=== PATIENT | female | born 1940 | race Caucasian/White ===

== ENCOUNTER 2021-04-25 12:49 | Outpatient (CLI) | payer MEDICARE, SELFPAY ==
--- NOTE | ~2021-04-25 | XR_ITS ---
EXAMINATION: XR shoulder LT min 2V DATE: 04/25/2021 13:11 INDICATION: Left shoulder pain. TECHNIQUE: 4 views of left shoulder were obtained. COMPARISON: Chest 2 views 12/09/2018 FINDINGS: Bone alignment is normal. No fracture. There is moderate osteoarthritis of glenohumeral dom nt and severe osteoarthritis of acromioclavicular joint. There is a left-sided pleural effusion. IMPRESSION: 1. Polyarticular osteoarthritis. 2. Small to moderate-sized left pleural effusion. Reviewed, dictated and finalized at location B.
== END 2021-04-25 12:50 | disposition home or self-care (01) ==
LOC: ANHIMG 12:53
PROVIDERS: PCP Physician Assistant; Visit Provider Physician Assistant
DX: M19.012 Primary osteoarthritis, left shoulder (principal); J90 Pleural effusion, not elsewhere classified
CPT/HCPCS: 73030

== ENCOUNTER 2021-04-26 14:47 | Outpatient (CLI) | payer MEDICARE, SELFPAY ==
--- NOTE | ~2021-04-26 | XR_ITS ---
XR chest 2V w LT decubitus 04/26/2021 15:25 Indication: Pleural effusion Procedure: PA, lateral and left lateral decubitus views of the chest Comparison: 12/09/2018 Findings: Cardiomegaly. No definite pleural effusion. The lungs are hyperinflated which is consistent with, but not diagnostic of chronic obstructive pulmonary disease. No acute osseous abnormality. No focal pneumonia or pneumothorax. Impression: 1: No acute cardiopulmonary disease. Reviewed, dictated and finalized at location A. Impression: 1: No acute cardiopulmonary disease.
== END 2021-04-26 14:48 | disposition home or self-care (01) ==
PROVIDERS: PCP Family Medicine; Visit Provider Family Medicine
DX: J90 Pleural effusion, not elsewhere classified (principal)
CPT/HCPCS: 71047

== ENCOUNTER 2021-05-05 19:10 | Observation (INO) | payer MEDICARE, SELFPAY ==
[2021-05-05] VITALS (11 sets, daily range): BP systolic 101–135; BP diastolic 58–97; PULSE 71–81; RESP 17–25; TEMP 36.6–37.4; O2SAT 90–98; BMI 34.2
--- NOTE | ~2021-05-05 | US_ITS ---
EXAMINATION: US carotid duplex BI DATE: 05/06/2021 15:41 INDICATION: Transient ischemic episode. Strokelike symptoms. TECHNIQUE: Grayscale, color Doppler, and pulsed Doppler images of the cervical carotid arteries were obtained. The degree of vessel stenosis is placed in one of the following categories: normal, <50%, 5 0-69%, >=70% but less than near-occlusion, near-occlusion, or total occlusion. Note that percent sten osis relative to normal distal artery lumen diameter is indirectly measured from velocity measurement s as described by Lazaro, et al. Radiology 2003; 229:340-346. COMPARISON: None. FINDINGS: RIGHT: The right common carotid artery (CCA) peak systolic velocity (PSV) is 90 cm/s. The right internal car otid artery (ICA) PSV is 102 cm/s. The right ICA end-diastolic velocity (EDV) is 13 cm/s. The right I CA/CCA PSV ratio is 1.1. Grayscale and color Doppler images yield an estimate of <50% diameter reduct ion from minimal plaque in the ICA. The external carotid artery (ECA) PSV is 94 cm/s. There is antegr gianna flow in the right vertebral artery. LEFT: The left CCA PSV is 77 cm/s. The left ICA PSV is 95 cm/s. The left ICA EDV is 23 cm/s. The left ICA/C CA PSV ratio is 1.2. Grayscale and color Doppler images yield an estimate of <50% diameter reduction from minimal plaque in the ICA. The ECA PSV is 220 cm/s. There is antegrade flow in the left vertebra l artery. IMPRESSION: 1. <50% stenosis in the right internal carotid artery. 2. <50% stenosis in the left internal carotid artery. 3. Cardiac arrhythmia is present. Correlate with EKG. Reviewed, dictated and finalized at location A.
--- NOTE | ~2021-05-05 | CT_ITS ---
EXAMINATION: CT brain wo con DATE: 05/05/2021 20:35 INDICATION: Right sided paresis TECHNIQUE: Computed tomography (CT) of the head was performed without intravenous contrast. The mA wa s adjusted according to patient size. Iterative reconstruction technique was employed. Exam dose: 60 5.33 mGy-cm total exam DLP. COMPARISON: None FINDINGS: There is bilateral carotid siphon internal carotid artery calcification. There is nonspecific diminished attenuation of the subcortical and periventricular cerebral white mat ter, likely due to chronic small vessel ischemic changes. There is cerebral and cerebellar volume loss. No subdural or epidural hematoma is detected. Small fluid level in the left sphenoid sinus. The included paranasal sinuses and mastoid air cells ar e otherwise unremarkable. No fracture or bone destruction of the cranial vault. IMPRESSION: Cerebral atherosclerosis and chronic small vessel ischemic changes of cerebral white mat ter No acute intracranial finding is noted. CT examination is not sensitive for detection of hyperacute i schemic cerebrovascular accident. Reviewed, dictated and finalized at Location A. Reviewed, dictated and finalized at location A. IMPRESSION: Cerebral atherosclerosis and chronic small vessel ischemic changes of cerebral white matter No acute intracranial finding is noted. CT examination is not sensitive for det ection of hyperacute ischemic cerebrovascular accident.
--- NOTE | ~2021-05-05 | XR_ITS ---
XR elbow LT 2V 05/07/2021 11:28 INDICATION: Left elbow pain PROCEDURE: 2 views left elbow COMPARISON: No prior studies for comparison. FINDINGS: Fracture, dislocation or subluxation is not identified. There is a small osteophyte of the olecranon process. No significant joint effusion. The soft tissues appear within normal limits. No f oreign bodies are identified. IMPRESSION: 1: NO ACUTE BONE OR JOINT ABNORMALITY IDENTIFIED. Reviewed, dictated and finalized at location B.
--- NOTE | ~2021-05-05 | XR_ITS ---
XR chest 1V DATE: 05/05/2021 20:40 INDICATION: Weakness. Right hand paresis. TECHNIQUE: AP chest COMPARISON: 04/26/2021 PA and lateral chest FINDINGS: Cardiomegaly. Aortic ectasia and unfolding. No hilar or mediastinal enlargement. No pulmona ry infiltrate or consolidation, pleural effusion or pulmonary vascular congestion or pneumothorax is detected. IMPRESSION: Cardiomegaly No active pulmonary disease or significant change since 04/26/2021 Reviewed, dictated and finalized at location A.
--- NOTE | ~2021-05-05 | MR_ITS ---
EXAMINATION: MR brain/brain stem wo con EXAM DATE: 05/06/2021 13:05 INDICATION: Right-sided facial hemiparesis. TECHNIQUE: Magnetic resonance imaging (MRI) of the brain/brain stem obtained without contrast. Sagitt al T1, axial diffusion, gradient echo (T2*), T1, T2, FLAIR sequences obtained. Correlation is made t o head CT from yesterday. FINDINGS: There are no areas of restricted diffusion to suggest acute infarction. There is no acute hemorrhage seen on the T2*, a hemosiderin sensitive sequence. No intraparenchymal brain mass lesion. There is mild periventricular and subcortical T2/FLAIR signal hyperintensity, nonspecific but probab ly related to small vessel ischemic disease (microangiopathy). There is moderate prominence of the sulci and ventricles related to cerebral atrophy. There are no extra-axial collections. Flow voids are seen in the cerebral arteries on the T2-weighted sequences consistent with their expected patenc y. Patient has had bilateral ocular lens surgery. Soft tissue is unremarkable. IMPRESSION: 1. No acute intracranial findings. 2. Chronic age related findings. Reviewed, dictated and finalized at location A.
--- NOTE | ~2021-05-05 | MR_ITS ---
EXAMINATION: MR cervical spine wo con DATE: 05/07/2021 17:16 INDICATION: Cervical radiculopathy. TECHNIQUE: Magnetic resonance imaging (MRI) of the cervical spine was performed without intravenous c ontrast. Sequences included sagittal T2-weighted FSE, sagittal STIR FSE, sagittal T1-weighted FSE, ax ial MERGE, and axial T2-weighted FSE. COMPARISON: None FINDINGS: There is 3 degrees dextrocurvature of cervical spine. There is 3 mm anterolisthesis of C3 o n C4. There is kyphosis of cervical spine. Vertebral body heights are normal. There is mildly decreas ed disc height at C3-C4, C4-C5, and C5-C6 and severely decreased disc height at C6-C7. The spinal cor d signal intensity is normal. The following disc levels are specifically discussed: C2-C3: The disc does not extend beyond the endplate margin. There is no uncovertebral joint osteoarth ritis. There is mild right and severe left facet joint osteoarthritis. There is mild left neural fora oral stenosis. There is no central canal stenosis. C3-C4: The disc is bulging. There is mild bilateral uncovertebral joint osteoarthritis. There is mild right and severe left facet joint osteoarthritis. There is moderate left neural foraminal stenosis. There is no central canal stenosis. C4-C5: The disc is bulging. There is mild bilateral uncovertebral joint hypertrophy. There is ankylos is of the facet joints with moderate hypertrophy. There is mild bilateral neural foraminal stenosis. There is mild central canal stenosis. C5-C6: The disc is bulging. There is severe right and moderate left uncovertebral joint osteoarthriti s. There is no facet joint osteoarthritis. There is mild right neural foraminal stenosis. There is mi ld central canal stenosis. C6-C7: The disc is bulging. There is severe bilateral uncovertebral joint osteoarthritis. There is se austin bilateral facet joint osteoarthritis. There is moderate right and mild left neural foraminal wang nosis. There is mild central canal stenosis. C7-T1: The disc does not extend beyond the endplate margin. There is no uncovertebral joint osteoarth ritis. There is ankylosis of right facet joint with mild hypertrophy. There is mild right neural fora oral stenosis. There is no central canal stenosis. IMPRESSION: 1. Severe cervical spondylosis. Reviewed, dictated and finalized at location A.
--- NOTE | 2021-05-05 19:30 | PC.NURSE ---
Pt daughter called to give information about pt. Reports pt was seen at [facility] for weakness in her legs, no findings and was transferred to rehab. Pt has hx of depression and anxiety and is currently being treated. Requests to check for Xanax in blood levels. Reports pt slurs when she takes Xanax. GANESH Márquez, leaves phone number for updates [phone].
--- NOTE | 2021-05-05 19:54 | PC.NURSE ---
EDP aware of columbia scoring. No sitter at this time.
--- NOTE | 2021-05-05 20:20 | ECG_ITS ---
Measurements Intervals Theodore Rate: 69 P: 43 CO: 172 QRS: -3 QRSD: 104 T: 149 QT: 447 QTc: 482 Interpretive Statements SINUS RHYTHM VENTRICULAR TRIGEMINY INFERIOR INFARCT, AGE INDETERMINATE ST-T WAVE ABNORMALITY IN ANTEROLAT/HIGH LAT LEADS- CONSIDER ISCHEMIA BASELINE WANDER- V1 ABNORMAL ECG Electronically Signed On 05-05-2021 21:20:53 CDT by Dk Morrell D.O.
--- NOTE | 2021-05-05 20:30 | PC.NURSE ---
Pt to imaging at this time.
[2021-05-05 20:56] LABS: Glucose Point of Care 81 mg/dl (65-105)
[2021-05-05 21:04] LABS: Basophils Absolute Auto 0.1 K/mm3 (0.0-0.1); Basophils Percent Auto 0.5 % (0.2-1.2); Eosinophils Absolute Auto 0.1 K/mm3 (0-0.3); Hematocrit 34.8 % (37.0-47.0); Hemoglobin 11.1 g/dL (12.0-15.0); Immature Granulocyte Absolute 0.07 K/mm3 (0.00-0.031); Immature Granulocyte Percent A 0.6 % (0-0.5); Lymphocytes Percent Auto 16.9 % (18.3-44.2); Mean Corpuscular HGB Conc 31.9 g/dl (32-36); Mean Corpuscular Hemoglobin 31.3 pg (26-34); Mean Platelet Volume 10.9 fl (7.4-10.4); Monocytes Absolute Auto 1.4 K/mm3 (0.1-0.6); Monocytes Percent Auto 11.7 % (2.6-8.5); Neutrophils Absolute Auto 8.2 K/mm3 (1.3-6.7); Neutrophils Percent Auto 69.3 % (45.5-73.1); Platelet Count Result 165 k/mm3 (150-375); Red Blood Count 3.55 M/mm3 (4.2-5.4); Red Cell Distribution Width 13.3 % (11.5-14.5); White Blood Count 11.9 K/mm3 (4.5-10.0)
[2021-05-05 21:13] LABS: Prothrombin Time 14.1 Seconds (11.1-14.7)
[2021-05-05 21:14] LABS: Partial Thromboplastin Time 31.4 SECONDS (22.3-36.8)
[2021-05-05 21:15] LABS: Anion Gap 8 mmol/L (8-16); Blood Urea Nitrogen 26 mg/dL (7-17); Calcium 8.8 mg/dL (8.4-10.2); Carbon Dioxide 36 mmol/L (22-30); Chloride 97 mmol/L (98-107); Estimated Glomerular Filt Rate 31; Glucose 79 mg/dL (65-105); Potassium 3.9 mmol/L (3.4-5.0); Sodium 141 mmol/L (137-145)
[2021-05-05 21:18] LABS: Add Urine Microscopic? YES; Appearance Urine Cloudy (Clear); Bacteria Urine Trace /hpf; Bilirubin Urine 1+ (Negative); Blood Urine Negative (Negative); Color Urine Amber (Yellow); Glucose Urine UA 2+ mg/dL (Negative); Hyaline Casts Urine 20-29 /lpf; Ketones Urine Negative (Negative); Leukocyte Esterase Ur Negative LEU/UL (Negative); Mucus Urine Few /lpf; Nitrate Urine Negative (Negative); Protein Urine 2+ mg/dL (Negative); Specific Grav Ur 1.026 (1.001-1.035); Squamous Epithelial Cell Urine Rare /hpf (Few); WBC Urine 0-3 /hpf
--- NOTE | 2021-05-05 21:23 | ED.GENADULT ---
HPI - General Adult General Chief complaint: Weakness Stated complaint: weakness Time Seen by Provider: 05/05/21 19:52 Source: RN notes reviewed History of Present Illness HPI narrative: Patient presents emergency department from home for weakness. Patient states she has been weak over the past day stating that she has had to have help getting up several times per the staff at [facility] the noted the patient had a floppy right wrist at approximately noon today patient states that she is having problems extending at the right wrist but is able to squeeze and move the right wrist with flexion she denies any pain she denies any fever chills chest pain shortness of breath abdominal pain nausea vomiting or any other symptoms Related Data Home Medications Medication Instructions Recorded Confirmed albuterol sulfate 90 mcg/actuation 1 inhalation INHALATION Q4H 10/14/19 04/23/21 aerosol inhaler citalopram 40 mg tablet 40 mg PO DAILY tablet 10/14/19 04/23/21 duloxetine 30 mg capsule,delayed 30 mg PO DAILY 10/14/19 04/23/21 release glimepiride 1 mg tablet 1 mg PO QAM 10/14/19 04/23/21 liraglutide 0.6 mg/0.1 mL (18 mg/3 0.6 mg SUB-Q DAILY 10/14/19 04/23/21 mL) subcutaneous pen injector escitalopram oxalate 10 mg tablet 10 mg PO DAILY 10/18/19 04/23/21 trazodone 150 mg tablet PO 10/18/19 04/23/21 alprazolam 0.5 mg tablet 0.5 mg PO TID tablet 10/04/20 04/23/21 Allergies Allergy/AdvReac Type Severity Reaction Status Date / Time codeine Allergy Unknown upset Verified 05/05/21 19:28 stomach Review of Systems Review of Systems: Narrative: Gen.: Denies fevers or chills Eyes: Denies eye pain or visual change ENT: Denies congestion Respiratory: Denies shortness of breath or cough CV: Denies chest pain or palpitations GI: Denies abdominal pain nausea, emesis or diarrhea Musculoskeletal: Denies back pain or muscle pain Neuro: See HPI Skin: Denies rash Except as documented, all other systems reviewed and negative PMFSH Past Medical History Medical History Asthma At high risk for falls Benign hypertension BMI 35.0-35.9,adult Body mass index (bmi) 34.0-34.9, adult (09/03/18) Cancer of skin (~08/20/12) Depression Diabetes Diverticulitis Encounter for general adult medical examination with abnormal findings Hyperlipidemia Hyperlipidemia LDL goal <70 Hypertension Incontinence Ischemia reversible Primary hypertension Type 2 diabetes mellitus without complication, without long-term current use of insulin Urinary incontinence Surgical History Surgical History Hx of cardiac cath Hx of hysterectomy, total Social History Social History Smoking status: Never smoker Second hand tobacco smoke exposure: No Alcohol intake: never Substance use: never Substance use type: does not use Additional living arrangements comments: Sometimes a friend reactor kettle operator stays with the patient. Gender identity (if verbalized by the patient): Female Spiritual care concerns: Yes (Nazarine) Agree to blood products: Yes Exam Narrative: Exam Narrative: APPEARANCE: No acute distress, nontoxic, resting in bed HEENT: Normocephalic, atraumatic, OMM, TMs clear bilaterally EYES: PERRL, EOMI NECK: Supple, nontender, full range of motion without pain, no meningismus RESPIRATORY: No respiratory distress, clear to auscultation bilaterally with no rhonchi wheezing or rales CARDIOVASCULAR: RRR s murmur ABDOMINAL: Soft, nontender, nondistended MUSCULOSKELETAL: Moves all extremities. No clubbing, cyanosis or edema. NEURO: A and O ?2, following commands, speech normal, cranial nerves II through XII grossly intact,muscle strength 5 out of 5 left upper and bilateral lower extremities muscle strength 5 out of 5 with right shoulder pain elbow, patient with inability to extend at the righ
[2021-05-05] MEDS: SODIUM CHLORIDE 0.9% IV 1,000 ML 999 ML IV CONT (21:53)
[2021-05-05] MEDS: ASPIRIN 81 MG CHEWABLE TABLET 324 MG PO (22:19)
--- NOTE | 2021-05-05 23:00 | PM.IMHP ---
H&P: HPI History of Present Illness Date/Time: 05/05/21 23:00 Chief Complaint: Floppy right hand Narrative: 80-year-old female with past medical history of diastolic heart failure, chronic hypoxic hypercapnic respiratory failure, obstructive sleep apnea, hypertension, and diabetes who presented [facility] the ER from [facility] via EMS due to right wrist droop. The patient reports that she was just discharged from [facility] due to a hospital stay for weakness. She reported that she was admitted there after she had multiple falls at home. He reported that prior to her hospitalization at [facility] she has been having some left chest and shoulder pain that radiated down into her arm. She reports resolution of her shoulder pain prior to being discharged to acute rehab. She was discharged to acute rehab on 05/03/2021. She reported that she was doing well at the rehab center until this morning when she noticed that her right hand was floppy. She reports that her hand feels funny and has decreased sensation. He had also noticed new onset of swelling of her right wrist. She reports the swelling in her right wrist has improved since admission. She has been unable to accurately touch her face with her hand. She denies any increased lower extremity weakness from baseline. She is able to perform long-sg-atmy without difficulty. She does have some mild difficulty with uiqlst-[id number]. She reports that sometimes people have difficulty understanding her speech. She does not think her speech is any different than her baseline. She does occasionally have dysphagia of dry foods but again this is unchanged from baseline. She denies any coughing or choking with eating. She denies any difficulty reading, headaches, double vision or prior history of strokes. She does have chronic urge incontinence. She denies any dysuria or hematuria. She has intermittent constipation but took a laxative a couple of days ago and had a large bowel movement. She denies any hematochezia or melena. She does not know what her admitting diagnosis was at [facility]. She was hospitalized there for 2 days prior to discharge. She does admit to having some difficulty with her memory but this seems unchanged from baseline. Review of Systems Review of Systems: Narrative: 12 systems were reviewed with pertinent positives and negatives per HPI. Except as documented in the HPI, all other systems were reviewed and are negative. [facility] Past Medical History Medical History (Updated 05/06/21 @ 02:25 by Cara Huynh DO) Asthma PFTs October 2019 demonstrated mild obstructive ventilatory impairment with mild air trapping and moderate diffusion impairment no response to bronchodilator Basal cell carcinoma (BCC) in situ of skin Bipolar disorder BMI 35.0-35.9,adult Cancer of skin (~08/20/12) Depression Diabetes Diverticulitis Essential hypertension Hyperlipidemia Ischemia Chronically false-positive stress test with last stress test 2006 Obstructive sleep apnea With BiPAP 14/10 Urinary incontinence Stress urinary incontinence Surgical History Surgical History (Updated 05/05/21 @ 23:07 by Cara Huynh DO) History of bladder suspension procedure X2 History of tonsillectomy Hx of cardiac cath Hx of hysterectomy, total Status post cataract extraction of both eyes with insertion of intraocular lens Family History Family History Other Adopted Family history unknown Social History Social History (Updated 05/06/21 @ 02:14 by Cara Huynh DO) Social History: She is . She lives in her own home until earlier this month. She is currently at acute rehab. She has a Renter who lives in her basement and helps drive her to appointments or to the store. She has 6 children. 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 Primary care physician: Dr. Debo maloney
[2021-05-05] MEDS: SODIUM CHLORIDE 0.9% IV 1,000 ML 100 ML IV CONT (23:14)
--- NOTE | 2021-05-05 23:35 | ADMGEN ---
This patient, María Faith, was admitted to IMU Room 211-01 on at 2315. Patient/family oriented to hospital policies and general routines including ID bracelet, bed and alarms, visiting hours, pain management, procedures, bathroom and other care routines, personal items, smoking policy, room service/diet, and visiting hours. Information on how to activate the Rapid Response Team has been discussed. Patient/Family are encouraged to report perceived risks to care and to ask questions if they do not understand what they are told or what they should do.
[2021-05-06] VITALS (15 sets, daily range): BP systolic 101–176; BP diastolic 55–88; PULSE 64–85; RESP 16–20; TEMP 36.3–36.6; O2SAT 92–97
--- NOTE | 2021-05-06 | ECHO_ITS ---
Patient Info Name: María Faith Age: 80 years : 1940 Gender: Female Ht: 62 in Wt: 193 lbs BSA: 2.00 m2 HR: 70 bpm BP: 123 / 55 mmHg Heart Rhythm: Sinus Rhythm Technical Quality: Good Exam Date: 05/06/2021 11:14 AM Exam Location: [facility] Patient Status: Inpatient Admit Date: 05/05/2021 Staff Ordering Physician: Tucker English Construction Sales Manager: Ángel Joshi RDCS, RT Attending Provider: Cara Huynh DO Referring Physician: Amador ELDRIDGE; Exam Type: CA echo doppler color flow Study Info Indications I50.9 - Heart failure, unspecified Complete two-dimensional, color flow and Doppler transthoracic echocardiogram is performed. Summary 1. Complete two-dimensional, color flow and Doppler transthoracic echocardiogram is performed. 2. Left ventricular systolic function is normal, estimated at 55-60%. 3. There is mildly increased left ventricular wall thickness. 4. Left ventricular septal wall motion is abnormal with septal motion related to bundle branch block. 5. The left ventricular diastolic function is grade I diastolic dysfunction. 6. There is no aortic valve stenosis. 7. There is mild mitral valve regurgitation. 8. There is mild tricuspid valve regurgitation. 9. Mild pulmonary hypertension, estimated pulmonary arterial systolic pressure is 39 mmHg. Recommendations * Consider RONI if clinically indicated. Left Ventricle Left ventricular chamber dimension is normal. Left ventricular systolic function is normal, estimated at 55-60%. There is mildly increased left ventricular wall thickness. Left ventricular septal wall motion is abnormal with septal motion related to bundle branch block. The left ventricular diastolic function is grade I diastolic dysfunction. Right Ventricle Right ventricular chamber dimension is normal. Right ventricular systolic function is normal. Left Atria Left atrial chamber dimension is mildly enlarged. Right Atria Right atrial chamber dimension is normal. Aortic Valve The aortic valve is probable trileaflet. There is mild aortic valve sclerosis. There is no aortic valve stenosis. There is no aortic valve regurgitation. Pulmonic Valve The pulmonic valve is not well visualized. Mitral Valve The mitral valve has normal leaflets. There is mild mitral valve regurgitation. The mitral valve annulus is mildly calcified. Tricuspid Valve The tricuspid valve leaflets are normal. There is mild tricuspid valve regurgitation. Mild pulmonary hypertension, estimated pulmonary arterial systolic pressure is 39 mmHg. Pericardium/Pleural The pericardium appears normal. There is trivial pericardial effusion. Inferior Vena Cava Dilated inferior vena cava with <50% collapse upon inspiration consistent with elevated right atrial pressure, 10 mmHg. Aorta The aortic root size at the sinus of Valsalva is normal. Left Ventricular Outflow Tract Name Value Normal LVOT 2D LVOT Diameter 2.0 cm LVOT Doppler LVOT Peak Gradient 1 mmHg LVOT Mean Gradient 1 mmHg LVOT VTI
[2021-05-06 03:55] LABS: Basophils Percent Auto 0.5 % (0.2-1.2); Eosinophils Absolute Auto 0.2 K/mm3 (0-0.3); Eosinophils Percent Auto 2.4 % (0-4.4); Hematocrit 32.9 % (37.0-47.0); Hemoglobin 10.3 g/dL (12.0-15.0); Immature Granulocyte Absolute 0.05 K/mm3 (0.00-0.031); Immature Granulocyte Percent A 0.6 % (0-0.5); Immature Platelet Fraction Pct 6.5 % (0.9-11.2); Lymphocytes Absolute Auto 2.29 K/mm3 (0.9-3.2); Lymphocytes Percent Auto 26.1 % (18.3-44.2); Mean Corpuscular HGB Conc 31.3 g/dl (32-36); Mean Corpuscular Hemoglobin 30.9 pg (26-34); Mean Corpuscular Volume 98.8 fl (80-100); Mean Platelet Volume 11.4 fl (7.4-10.4); Monocytes Percent Auto 11.6 % (2.6-8.5); Neutrophils Absolute Auto 5.2 K/mm3 (1.3-6.7); Neutrophils Percent Auto 58.8 % (45.5-73.1); Platelet Count Result 146 k/mm3 (150-375); Red Blood Count 3.33 M/mm3 (4.2-5.4); Red Cell Distribution Width 13.4 % (11.5-14.5); White Blood Count 8.8 K/mm3 (4.5-10.0)
[2021-05-06 04:03] LABS: Anion Gap 6 mmol/L (8-16); Blood Urea Nitrogen 27 mg/dL (7-17); Calcium 8.5 mg/dL (8.4-10.2); Carbon Dioxide 34 mmol/L (22-30); Chloride 100 mmol/L (98-107); Estimated CRCL calculation 27 ml/min; Estimated Glomerular Filt Rate 31; Glucose 127 mg/dL (65-105); Potassium 3.4 mmol/L (3.4-5.0); Sodium 140 mmol/L (137-145)
[2021-05-06 04:23] LABS: Troponin I 0.919 ng/mL (0.000-0.034)
[2021-05-06] MEDS: MIRTAZAPINE 30 MG TABLET PO ×2 (05:21→20:11)
[2021-05-06] MEDS: traZODone HCL 50 MG TABLET 150 MG PO ×2 (05:22→20:11)
[2021-05-06] MEDS: SODIUM CHLORIDE 0.9% IV 1,000 ML 100 ML IV CONT ×2 (05:36→18:56)
[2021-05-06 08:59] LABS: Glucose Point of Care 85 mg/dl (65-105)
[2021-05-06] MEDS: GABAPENTIN 100 MG CAPSULE PO ×3 (08:59→17:30)
[2021-05-06] MEDS: DULoxetine HCL 30 MG CAPSULE.DR PO (08:59)
[2021-05-06] MEDS: CITALOPRAM HYDROBROMIDE 20 MG TABLET 40 MG PO (08:59)
[2021-05-06] MEDS: MONTELUKAST SODIUM 10 MG TABLET PO (08:59)
[2021-05-06] MEDS: ASPIRIN 81 MG ENTERIC TABLET PO (08:59)
[2021-05-06] MEDS: PRAVASTATIN SODIUM 20 MG TABLET 40 MG PO (08:59)
[2021-05-06 09:39] LABS: Magnesium 2.3 mg/dL (1.6-2.3)
[2021-05-06 09:54] LABS: NT Pro B Type Natriuretic Pept 4820 pg/mL (5-100); Troponin I 0.663 ng/mL (0.000-0.034)
[2021-05-06 12:06] LABS: Glucose Point of Care 155 mg/dl (65-105)
[2021-05-06] MEDS: DOXAZOSIN MESYLATE 4 MG TABLET PO (13:16)
--- NOTE | 2021-05-06 13:23 | P.PNIM_ITS ---
Progress Note: A&P Assessment and Plan (1) Right arm weakness: Code(s): R29.898 - Other symptoms and signs involving the musculoskeletal system Status: Acute Assessment and Plan: * Patient has dysmetria of the right hand with loss of extensor capabilities of the right wrist. Will check MRI to rule out CVA. If she BS present will also need to add carotid Doppler and echocardiogram. * Patient received full-dose aspirin in the ER. * Continue neuro checks q.4 hours. * Will get carotid Doppler * Echo complete showed 55-60% EF with grade 1 diastolic dysfunction * MRI showed chronic findings * PT/OT (2) Elevated troponin: Code(s): R77.8 - Other specified abnormalities of plasma proteins Status: Acute Assessment and Plan: * The patient denies having active chest pain but it sounds like she had significant left shoulder and arm pain last week when she is admitted [facility]. It is unclear if the patient had a cardiac evaluation that that time. Will obtain medical records from [facility]. * Troponin is elevated greater than 1. The patient has been admitted to IMU and will monitor serial troponins. * Patient has received full-dose aspirin. * Echo showed EF of 60-65%, mild mitral and tricuspid valve regurge, mild pu lmonary hypertension * Cardiology consulted thank you for your recommendations * Chest xray showed cardiomeagly (3) Acute renal insufficiency: Code(s): N28.9 - Disorder of kidney and ureter, unspecified Status: Acute Assessment and Plan: * Creatinine is 1.60 * She received 1 L of normal saline in the ER. Will continue maintenance fluids at 100 mL an hour. * The patient's urine does demonstrate 20-29 hyaline casts suggesting that she may be dehydrated. * Will repeat BMP in a.m. and monitor urine output closely. * Will avoid diuretics and nephrotoxic medications. (4) ELISSA (obstructive sleep apnea): Code(s): G47.33 - Obstructive sleep apnea (adult) (pediatric) Status: Acute Assessment and Plan: * Home BiPAP has been ordered. (5) Diabetes mellitus type 2 in obese: Code(s): E11.69 - Type 2 diabetes mellitus with other specified complication; E66.9 - Obesity, unspecified Status: Acute Assessment and Plan: * Glucose was 127 on labs * Patient is euglycemic. Will hold patient's oral hypoglycemic agents. * Will add sliding scale insulin with Accu-Cheks a.c. HS and hypoglycemia protocol. * Patient's diet has been changed to consistent carbohydrate diet. * Adjust medications as needed (6) Depression: Qualifiers: Depression Type: unspecified Qualified Code(s): F32.9 - Major depressive disorder, single episode, unspecified Code(s): F32.9 - Major depressive disorder, single episode, unspecified Status: Acute Assessment and Plan: * Continue home Duloxetine 30mg PO, trazodone 150mg PO, Mirtazapine 30mg PO, Citalopram 40mg PO daily * Adjust medication if needed (7) Primary hypertension: Code(s): I10 - Essential (primary) hypertension Status: Acute Assessment and Plan: * BP 176/72 * Cardizem 240mg PO daily * Hold hydrochlorathizide 12.5 PO daily * Adjust medication as needed (8) Hyperlipidemia: Qualifiers: Hyperlipidemia type: unspecified Qualified Code(s): E78.5 - Hyperlipidemia, unspecified Code(s): E78.5 - Hyperlipidemia, unspecif
--- NOTE | 2021-05-06 13:23 | PM.IMPN ---
Progress Note: A&P Assessment and Plan (1) Right arm weakness: Code(s): R29.898 - Other symptoms and signs involving the musculoskeletal system Status: Acute Assessment and Plan: Patient has dysmetria of the right hand with loss of extensor capabilities of the right wrist. Will check MRI to rule out CVA. If she BS present will also need to add carotid Doppler and echocardiogram. Patient received full-dose aspirin in the ER. Continue neuro checks q.4 hours. Will get carotid Doppler Echo complete showed 55-60% EF with grade 1 diastolic dysfunction MRI showed chronic findings PT/OT (2) Elevated troponin: Code(s): R77.8 - Other specified abnormalities of plasma proteins Status: Acute Assessment and Plan: The patient denies having active chest pain but it sounds like she had significant left shoulder and arm pain last week when she is admitted [facility]. It is unclear if the patient had a cardiac evaluation that that time. Will obtain medical records from [facility]. Troponin is elevated greater than 1. The patient has been admitted to IMU and will monitor serial troponins. Patient has received full-dose aspirin. Echo showed EF of 60-65%, mild mitral and tricuspid valve regurge, mild pulmonary hypertension Cardiology consulted thank you for your recommendations Chest xray showed cardiomeagly (3) Acute renal insufficiency: Code(s): N28.9 - Disorder of kidney and ureter, unspecified Status: Acute Assessment and Plan: Creatinine is 1.60 She received 1 L of normal saline in the ER. Will continue maintenance fluids at 100 mL an hour. The patient's urine does demonstrate 20-29 hyaline casts suggesting that she may be dehydrated. Will repeat BMP in a.m. and monitor urine output closely. Will avoid diuretics and nephrotoxic medications. (4) ELISSA (obstructive sleep apnea): Code(s): G47.33 - Obstructive sleep apnea (adult) (pediatric) Status: Acute Assessment and Plan: Home BiPAP has been ordered. (5) Diabetes mellitus type 2 in obese: Code(s): E11.69 - Type 2 diabetes mellitus with other specified complication; E66.9 - Obesity, unspecified Status: Acute Assessment and Plan: Glucose was 127 on labs Patient is euglycemic. Will hold patient's oral hypoglycemic agents. Will add sliding scale insulin with Accu-Cheks a.c. HS and hypoglycemia protocol. Patient's diet has been changed to consistent carbohydrate diet. Adjust medications as needed (6) Depression: Qualifiers: Depression Type: unspecified Qualified Code(s): F32.9 - Major depressive disorder, single episode, unspecified Code(s): F32.9 - Major depressive disorder, single episode, unspecified Status: Acute Assessment and Plan: Continue home Duloxetine 30mg PO, trazodone 150mg PO, Mirtazapine 30mg PO, Citalopram 40mg PO daily Adjust medication if needed (7) Primary hypertension: Code(s): I10 - Essential (primary) hypertension Status: Acute Assessment and Plan: BP 176/72 Cardizem 240mg PO daily Hold hydrochlorathizide 12.5 PO daily Adjust medication as needed (8) Hyperlipidemia: Qualifiers: Hyperlipidemia type: unspecified Qualified Code(s): E78.5 - Hyperlipidemia, unspecified Code(s): E78.5 - Hyperlipidemia, unspecified Status: Acute Assessment and Plan: Continue home statin Additional Plan Patient has been admitted as observation status. Subjective Date/time seen: 05/06/21 13:23 Patient is a 80-year-old female with past medical history of diastolic heart failure, chronic hypoxic hypercapnic respiratory failure, obstructive sleep apnea, hypertension, and diabetes who [facility] due to right wrist droop. Patient stated that this
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
[2021-05-06 16:57] LABS: Glucose Point of Care 186 mg/dl (65-105)
[2021-05-06] MEDS: ACETAMINOPHEN 325 MG TABLET 650 MG PO (17:29)
[2021-05-06] MEDS: ALPRAZolam (*CRX) 0.5 MG TABLET PO (17:30)
--- NOTE | 2021-05-06 19:05 | PC.NURSE ---
This patient, María Faith, was received from [IMU ] on 05/06/21 at 1900. Patient/family oriented to unit policies and routines
[2021-05-06 21:49] LABS: Glucose Point of Care 227 mg/dl (65-105)
[2021-05-07] VITALS (10 sets, daily range): BP systolic 150–173; BP diastolic 54–80; PULSE 63–91; RESP 18–26; TEMP 36.1–37; O2SAT 93–99
[2021-05-07] MEDS: SODIUM CHLORIDE 0.9% IV 1,000 ML 100 ML IV CONT (04:53)
[2021-05-07 05:32] LABS: Hematocrit 31.6 % (37.0-47.0); Hemoglobin 9.9 g/dL (12.0-15.0); Mean Corpuscular HGB Conc 31.3 g/dl (32-36); Mean Corpuscular Hemoglobin 30.8 pg (26-34); Mean Corpuscular Volume 98.4 fl (80-100); Mean Platelet Volume 11.4 fl (7.4-10.4); Platelet Count Result 152 k/mm3 (150-375); Red Blood Count 3.21 M/mm3 (4.2-5.4); Red Cell Distribution Width 13.3 % (11.5-14.5); White Blood Count 6.3 K/mm3 (4.5-10.0)
[2021-05-07 05:44] LABS: Alanine Aminotransferase 20 U/L (4-35); Albumin Level 2.9 g/dL (3.5-5.1); Alkaline Phosphatase 54 U/L (38-126); Anion Gap 6 mmol/L (8-16); Aspartate Amino Transferase 26 U/L (14-36); Bilirubin,Total < 0.1 mg/dL (0.2-1.3); Blood Urea Nitrogen 24 mg/dL (7-17); Carbon Dioxide 30 mmol/L (22-30); Chloride 107 mmol/L (98-107); Estimated CRCL calculation 52 ml/min; Estimated Glomerular Filt Rate > 60; Glucose 222 mg/dL (65-105); Magnesium 2.1 mg/dL (1.6-2.3); Potassium 3.5 mmol/L (3.4-5.0); Sodium 143 mmol/L (137-145)
[2021-05-07 08:25] LABS: Glucose Point of Care 163 mg/dl (65-105)
[2021-05-07] MEDS: GABAPENTIN 100 MG CAPSULE PO ×3 (08:38→16:23)
[2021-05-07] MEDS: PRAVASTATIN SODIUM 20 MG TABLET 40 MG PO (08:38)
[2021-05-07] MEDS: MONTELUKAST SODIUM 10 MG TABLET PO (08:38)
[2021-05-07] MEDS: ALPRAZolam (*CRX) 0.5 MG TABLET PO ×3 (08:39→16:22)
[2021-05-07] MEDS: DOXAZOSIN MESYLATE 4 MG TABLET PO (08:39)
[2021-05-07] MEDS: ASPIRIN 81 MG ENTERIC TABLET PO (08:39)
[2021-05-07] MEDS: CITALOPRAM HYDROBROMIDE 20 MG TABLET 40 MG PO (08:39)
[2021-05-07] MEDS: DULoxetine HCL 30 MG CAPSULE.DR PO (08:39)
[2021-05-07] MEDS: ACETAMINOPHEN 325 MG TABLET 650 MG PO (11:13)
[2021-05-07] MEDS: hydrALAZINE HCL 20 MG/ML VIAL 10 MG IV PUSH (11:13)
[2021-05-07 11:28] LABS: Glucose Point of Care 274 mg/dl (65-105)
[2021-05-07] MEDS: INSULIN ASPART (*BKC) 100 UNITS/ML SUB-Q ×2 (11:38→17:54)
--- NOTE | 2021-05-07 14:03 | PM.PNCARD ---
Progress Note: A&P Assessment and Plan (1) Elevated troponin: Code(s): R77.8 - Other specified abnormalities of plasma proteins Status: Acute Assessment and Plan: Troponin level drawn upon admission to the emergency department for weakness in right hand. Patient not experiencing any CP at the time. EKG was abnormal and showed poor R wave progression which was unchanged from previous EKG. Symptomatology not suggestive of ACS - Inpatient ischemic evaluation was not pursued. Will have patient follow up with us as an outpatient and monitor for any symptoms that would warrant outpatient ischemic workup. (2) Hyperlipidemia: Qualifiers: Hyperlipidemia type: unspecified Qualified Code(s): E78.5 - Hyperlipidemia, unspecified Code(s): E78.5 - Hyperlipidemia, unspecified Status: Acute Assessment and Plan: On statin. (3) Primary hypertension: Code(s): I10 - Essential (primary) hypertension Status: Acute Assessment and Plan: Hypertension not well controlled during this hospital admission. She is not on any oral antihypertensive agents. Will initiate a low dose of lisinopril. Will continue to monitor. Subjective Date/time seen: 05/07/21 14:03 Cardiology follow up for elevated troponin She feels better today - hand drooping she came in for has resolved. She does complain of some left arm discomfort that she has been told is arthritis. She denies any chest pain, shortness of breath, or palpitations. Review of Systems Constitutional: Constitutional: Reports weakness Eyes: Eyes: Reports no additional eye complaints ENT: Reports system reviewed and no additional complaints, except as documented Cardiovascular: Cardiovascular: Reports no additional cardiovascular complaints Respiratory: Respiratory: Reports no additional respiratory complaints Gastrointestinal: Gastrointestinal: Reports no additional gastrointestinal complaints Musculoskeletal: Musculoskeletal: Reports as per HPI Integumentary/Breasts: Skin/Breast: Reports system reviewed and no additional complaints, except as docu Neurologic: Reports as per HPI and Reports weakness Endocrine: Endocrine: Reports no additional endocrine complaints Hematologic/Lymphatic: Hematologic/Lymphatic: Reports no additional hematologic/lymphatic complaints Allergic/Immunologic: Allergic/Immunologic: Reports no additional allergic/immunologic complaints Exam Const: General: comfortable and no acute distress HENMT: Mouth: Yes moist mucous membranes Eyes: General: appearance normal, both eyes and all related structures Sclera: sclerae normal Pupils: Equal, round and reactive pupils present Neck: Neck: supple and no JVD Resp: Effort & Inspection: normal respiratory effort Auscultation: clear to auscultation bilaterally and diminished lung sounds Cardio: Rate: regular rate Rhythm: regular rhythm Heart sounds: Murmur heart sound present systolic II/ GI: GI Palp: Yes Soft to palpation Auscultation: normal bowel sounds Skin: General skin exam: normal color Neuro: Cranial nerves: Yes Equal, round and reactive pupils present Cognition (Neuro): normal cognition Speech: normal speech Extrem: General: normal to inspection, no edema and no pedal edema Psych: Mental Status: mental status grossly normal Affect: normal affect Objective Data Vital Signs Vital Signs: Vital Signs - 24 hr 05/06/21 16:00 05/06/21 20:00 05/06/21 22:00 Temperature 36.3 C L 36.5 C Pulse Rate 77 78 72 Respiratory Rate 18 18 Blood Pressure 154/88 H 158/59 H Pulse Oximetry 95 96 96 05/06/21 22:15 05/07/21 00:00 05/07/21 00:50 Temperature 36.2 C L Pulse Rate 63 80 Respiratory Rate 20 26 H Blood Pressure 154/54 H Pulse Oximetry 94 99 93 05/07/21 04:00 05/07/21 08:00 05/07/21 10:00 Temperature 36.1 C L 36.9 C Pulse Rate 64 79 91 Respiratory Rate 18 18 Blood Pressure 160/70 H 173/70 H Puls
--- NOTE | 2021-05-07 17:48 | PM.DS ---
DS: Admitting Diagnosis Admitting Diagnosis Admitting Diagnosis: arm weakness DS: Discharge Diagnosis Discharge Diagnosis (1) Right arm weakness: Code(s): R29.898 - Other symptoms and signs involving the musculoskeletal system Status: Acute Assessment and Plan: Resolved -Patient had dysmetria of the right hand with loss of extensor capabilities of the right wrist that resolved spontaneously. The next day, her left hand felt weak. MRI brain and cervical spine did not show acute pathology or etiology for this. At the time of discharge both symptoms had resolved. -Pt did well with PT/OT and qualified for home health instead of going back to her SNF. She lives with another person who she says he can help her if needed. (2) Elevated troponin: Code(s): R77.8 - Other specified abnormalities of plasma proteins Status: Acute Assessment and Plan: Troponin elevation with no CP during her stay but she did have left arm pain -Echo showed EF of 60-65%, mild mitral and tricuspid valve regurge, mild pulmonary hypertension -Cardiology consulted and recommended no ischemic w/u at this time and suggested adding aspirin and lisinopril to her regimen and monitoring for worsening symptoms. (3) Acute renal insufficiency: Code(s): N28.9 - Disorder of kidney and ureter, unspecified Status: Acute Assessment and Plan: Resolved -Creatinine was 1.60 and 0.80 at discharge -BMP in one week to monitor kidney function (especially after adding lisinopril) I have spoken to Dr. Mckoy about this and she has agreed to follow. -The patient's urine demonstrated 20-29 hyaline casts suggesting that she may be dehydrated. No clear sign of infection. (4) ELISSA (obstructive sleep apnea): Code(s): G47.33 - Obstructive sleep apnea (adult) (pediatric) Status: Acute (5) Diabetes mellitus type 2 in obese: Code(s): E11.69 - Type 2 diabetes mellitus with other specified complication; E66.9 - Obesity, unspecified Status: Acute Assessment and Plan: Last Glucose 212 -continue home regimen with glimepiride and liraglutide -signs and symptoms of hypoglycemia were discussed (6) Depression: Qualifiers: Depression Type: unspecified Qualified Code(s): F32.9 - Major depressive disorder, single episode, unspecified Code(s): F32.9 - Major depressive disorder, single episode, unspecified Status: Acute Assessment and Plan: Chronic and controlled -Continue home Duloxetine 30mg PO, trazodone 150mg PO, Mirtazapine 30mg PO, Citalopram 40mg PO daily -no rigidity or signs of serotonin syndrome. (7) Primary hypertension: Code(s): I10 - Essential (primary) hypertension Status: Acute Assessment and Plan: Last BP 157/80 Continue Cardizem 240mg add lisinopril -Home hydrochlorathizide discontinued (8) Hyperlipidemia: Qualifiers: Hyperlipidemia type: unspecified Qualified Code(s): E78.5 - Hyperlipidemia, unspecified Code(s): E78.5 - Hyperlipidemia, unspecified Status: Acute Assessment and Plan: Continue home statin DS: Summary Hospital Course Hospital Course: Pt is a 80 y/o female who presented to the ED on 05/05/21 for generalized weakness as well as right wrist floppiness . She also mentioned having left shoulder and elbow pain but no CP or SOB (on her chronic o2 setting). Vitals in the ER were stable; temp 99.3, pulse 76, RR 17, bp 127/69, pulse ox 91. initial WBC 11.9, hgb 11.1, hct 34.8, platelets 165. bmp showed a Cr of 1.6. UA not indicative of infection. Troponin elevated. head CT showed chronic small vessel ischemic changes but no acute pathology. Stroke scale 1 at the time. Patient was admitted for observation underwent a brain MRI which did not show any acute pathology. She also had a carotid ultrasound which was negative. Indicate there may be a cardiac arrhythmia but this was
[2021-05-07 17:52] LABS: Glucose Point of Care 212 mg/dl (65-105)
--- NOTE | 2021-05-07 18:05 | PC.NURSE ---
Spoke with Alysha about patient discharge. She stated that she is okay for discharge. I clarified cardiology note with Alysha. She stated patient is okay to go from cardiology standpoint. She stated patient will follow up with cardiology outpatient.
== END 2021-05-07 19:02 | disposition home health service (06) ==
LOC: ANHED 22:24 → ANHIMU 22:28 → ANH2MED 05-06 19:02
PROVIDERS: Nurse Practitioner; Admitting Provider Internal Medicine; Emergency Provider Emergency Medicine; PCP Family Medicine; Visit Provider Physician Assistant
DX: R29.898 Other symptoms and signs involving the musculoskeletal system (principal); R77.8 Other specified abnormalities of plasma proteins; N28.9 Disorder of kidney and ureter, unspecified; R53.1 Weakness; J45.909 Unspecified asthma, uncomplicated; E11.9 Type 2 diabetes mellitus without complications; E78.5 Hyperlipidemia, unspecified; F32.9 Major depressive disorder, single episode, unspecified; N39.41 Urge incontinence; I65.23 Occlusion and stenosis of bilateral carotid arteries; I49.9 Cardiac arrhythmia, unspecified; I11.0 Hypertensive heart disease with heart failure; I50.30 Unspecified diastolic (congestive) heart failure; J96.12 Chronic respiratory failure with hypercapnia; G47.33 Obstructive sleep apnea (adult) (pediatric); I34.0 Nonrheumatic mitral (valve) insufficiency; I36.1 Nonrheumatic tricuspid (valve) insufficiency; Z79.51 Long term (current) use of inhaled steroids; Z79.84 Long term (current) use of oral hypoglycemic drugs; Z98.42 Cataract extraction status, left eye; Z98.41 Cataract extraction status, right eye; Z96.1 Presence of intraocular lens; E66.9 Obesity, unspecified; Z68.36 Body mass index [BMI] 36.0-36.9, adult
CPT/HCPCS: 36415; 51701; 70450; 70551; 71045; 72141; 73070; 80048; 80053; 81001; 82948; 83735; 83880; 84484; 85025; 85027; 85055; 85610; 85730; 93005; 93306; 93880; 96361; 96374; 97161; 97165; 99285; A9270; G0378; J0360; J1815; J7030

== ENCOUNTER 2021-09-10 11:27 | Outpatient (CLI) | payer MEDICARE, SELFPAY ==
[2021-09-10 12:11] LABS: Anion Gap 5 mmol/L (8-16); Blood Urea Nitrogen 15 mg/dL (7-17); Calcium 9.1 mg/dL (8.4-10.2); Carbon Dioxide 35 mmol/L (22-30); Chloride 100 mmol/L (98-107); Estimated Glomerular Filt Rate 60; Glucose 329 mg/dL (65-110); Sodium 140 mmol/L (137-145)
== END 2021-09-10 11:28 | disposition home or self-care (01) ==
PROVIDERS: Anesthesiology; PCP Family Medicine; Visit Provider Plastic Surgery
DX: Z01.812 Encounter for preprocedural laboratory examination (principal); E11.9 Type 2 diabetes mellitus without complications
CPT/HCPCS: 36415; 80048

== ENCOUNTER 2021-09-19 01:37 | Day surgery (SDC) | payer MEDICARE, SELFPAY ==
[2021-09-06 13:08] VITALS: BMI 29.5
[2021-09-19 06:59] LABS: Glucose Point of Care 167 mg/dl (65-105)
[2021-09-19 07:00] VITALS: BP 148/62; PULSE 73; TEMP 36.7; O2SAT 94
[2021-09-19] MEDS: LACTATED RINGERS 1,000 ML 30 ML IV CONT (07:00)
[2021-09-19 07:19] VITALS: BP 148/62; PULSE 73; TEMP 36.7; O2SAT 94
--- NOTE | 2021-09-19 07:19 | WPDANESEPPF ---
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 Patient Data Age: 81 Gender: F Height: 1.59 m Weight: 83 kg Last Vital Signs Temp 98.0 F 09/19/21 07:00 Pulse 73 09/19/21 07:00 BP 148/62 H 09/19/21 07:00 Pulse Ox 94 09/19/21 07:00 Allergies Allergy/AdvReac Type Severity Reaction Status Date / Time codeine Allergy Unknown upset Verified 09/19/21 06:44 stomach Home Medications Medication Instructions Recorded Confirmed Type citalopram 40 mg tablet 40 mg PO HS tablet 10/14/19 09/19/21 History duloxetine 30 mg capsule,delayed 30 mg PO HS 10/14/19 09/19/21 History release glimepiride 1 mg tablet 1 mg PO HS 10/14/19 09/19/21 History liraglutide 0.6 mg/0.1 mL (18 mg/3 1.2 mg SUB-Q HS 10/14/19 09/19/21 History mL) subcutaneous pen injector trazodone 150 mg tablet 150 mg PO HS 10/18/19 09/19/21 History alprazolam 0.5 mg tablet 0.5 mg PO TID tablet 10/04/20 09/19/21 History gabapentin 100 mg PO TID 05/05/21 09/19/21 History mirtazapine 30 mg PO HS 05/05/21 09/19/21 History pravastatin 40 mg PO HS 05/05/21 09/19/21 History diphenoxylate-atropine 2.5 1 tablet PO TID PRN #30 tablet 08/12/21 09/19/21 Rx mg-0.025 mg tablet aspirin 81 mg PO HS 09/06/21 09/19/21 History diltiazem HCl 240 mg PO HS 09/06/21 09/19/21 History doxazosin 4 mg PO HS 09/06/21 09/19/21 History lisinopril 2.5 mg PO HS 09/06/21 09/19/21 History montelukast 10 mg PO HS 09/06/21 09/19/21 History Laboratory Tests 09/19/21 06:57 POC Capillary Glucose 167 mg/dl H mg/dl (65-105) Patient hx anesthesia problems: none Family hx anesthesia problems: none Results Review: All pre-operative results and documents have been reviewed as part of the pre-operative evaluation. [facility] Past Medical History Medical History Arthritis of both shoulder regions Asthma PFTs October 2019 demonstrated mild obstructive ventilatory impairment with mild air trapping and moderate diffusion impairment no response to bronchodilator Basal cell carcinoma (BCC) in situ of skin Bipolar disorder BMI 35.0-35.9,adult Cancer of skin (~08/20/12) Depression Diabetes Diastolic dysfunction Echocardiogram November 2018: Moderate LVH, grade 1 diastolic dysfunction, EF 60-65% Diverticulitis Essential hypertension Hyperlipidemia Ischemia Chronically false-positive stress test with last stress test 2006 Obstructive sleep apnea With BiPAP 14/10 Urinary incontinence Stress urinary incontinence Surgical History Surgical History History of bladder suspension procedure X2 History of tonsillectomy Hx of cardiac cath Hx of hysterectomy, total Status post cataract extraction of both eyes with insertion of intraocular lens Family History Family History Other Adopted Family history unknown Social History Social History Social History: She is . She lives in her own home until earlier this month. She has a Renter who lives in her basement and helps drive her to appointments or to the store. She has 6 children. 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 Primary care physician: Dr. Debo Mckoy Code status: Full code (the patient would not want tracheostomy or G-tube) Healthcare power of contracts attorney: Yulisa Osmin (daughter) Smoking status: Never smoker Second hand tobacco smoke exposure: No Alcohol intake: never Substance use: never Living arrangements: alone Gender iden
--- NOTE | 2021-09-19 07:20 | WPDHPUPDATE1 ---
History and Physical Update Update Date/Time: 09/19/21 07:20 History and Physical has been reviewed, including an updated exam of the patient. There are NO changes in the patient's condition. Risks, benefits, and alternatives have been discussed and questions answered. Patient agrees to proceed with procedure.
--- NOTE | 2021-09-19 07:33 | SUR.PREOP ---
0730- PT STATED DO NOT CALL MICHELE WITH UPDATES, JUST FOR RIDE INFO. UPDATED OR STAFF
[2021-09-19] MEDS: LIDO 1%/EPINEPHRINE 1:100,000 50 ML VIAL INFILTRATE (07:57)
[2021-09-19 08:59] VITALS: BP 130/59; PULSE 70; RESP 20; O2SAT 90
--- NOTE | 2021-09-19 09:03 | W.PM.PROC2 ---
Procedure Note - Detailed Date of Procedure 09/19/21 Pre-op Diagnosis Nodular Neoplasm of Upper Nasal Lobule Post-op Diagnosis other (Basal cell carcinoma of the upper nasal lobule) Procedure Performed 1.3 cm excision of basal cell carcinoma of the upper nasal lobule with frozen section and complex repair 4 cm Surgeon Krystian Lacey MD [employer] Ethan Anesthesia MAC Indications Biopsy-proven basal cell carcinoma Description of Procedure The site was identified with the patient on her nose in the holding area and this area was marked with a pen. She was taken to the operating placed supine on the operating table. Time-out was held and confirmed. She was given IV sedation with an LMA. The face and neck area were prepped and draped in usual fashion. The site was carefully marked for and incision. This area was infiltrated with 1% lidocaine with epinephrine. The incision was made as marked to clinically clear the margin by approximately 2-3 mm. The specimen was marked at its most superior aspect for 12 o'clock and was sent to pathology. The frozen section was done and the report was that the tumor extended to the 6:00 o'clock margin. That margin was the direction in which we planned to close the wound and would be requiring additional dog ear type excision at any rate. We marked the 4-8 o'clock rim of this with a 4 mm margin. This was incised and the new 6:00 o'clock margin was marked with a suture. This tissue was sent for permanent section. It seemed possible that we could close this wound directly down the midline by wide undermining. Extensive undermining at the level of the perichondrium of between 1-1.5 cm was carried out on both sides. The approximation was carried out with the placement of 4-0 Vicryl suture in the superficial fascia and deep dermis. The tissue advanced without difficulty and did not seem to compress the airway. The margins were approximated at several sites and then additional dog-ears were taken out at both ands for contour improvement. The final closure was done with the running 5 0 nylon. The only dressing was bacitracin ointment. The patient is discharge instructions in care and follow-up. No prescriptions were sent Estimated Blood Loss 2 Drains No Packing No Pathology yes Complications No immediate complications Condition stable Disposition same day
[2021-09-19 09:25] VITALS: BP 151/56; PULSE 68; RESP 20; O2SAT 95
[2021-09-19 09:45] VITALS: BP 143/65; PULSE 67; RESP 20; O2SAT 93
== END 2021-09-19 09:50 | disposition home or self-care (01) ==
PROVIDERS: PCP Family Medicine; Visit Provider Plastic Surgery
PROC: (CPT 11642; principal; 2021-09-19 07:30)
DX: C44.311 Basal cell carcinoma of skin of nose (principal); I10 Essential (primary) hypertension; E78.5 Hyperlipidemia, unspecified; G47.33 Obstructive sleep apnea (adult) (pediatric); J45.909 Unspecified asthma, uncomplicated; F31.9 Bipolar disorder, unspecified; E11.9 Type 2 diabetes mellitus without complications; N39.3 Stress incontinence (female) (male); E66.9 Obesity, unspecified; Z68.32 Body mass index [BMI] 32.0-32.9, adult; Z79.84 Long term (current) use of oral hypoglycemic drugs; Z79.899 Other long term (current) drug therapy
CPT/HCPCS: 11642; 13152; 36415; 80048; 82948; 88305; 88331; A9270; J2250; J2405; J2704; J3010; J7120

== ENCOUNTER 2022-02-26 12:48 | Outpatient (CLI) | payer MEDICARE, SELFPAY ==
[2022-02-26 13:10] VITALS: PULSE 87; O2SAT 85
[2022-02-26 13:15] VITALS: PULSE 89; O2SAT 88
[2022-02-26 13:20] VITALS: PULSE 85; O2SAT 90
[2022-02-26 13:25] VITALS: PULSE 105; O2SAT 88
[2022-02-26 13:30] VITALS: PULSE 107; O2SAT 90
[2022-02-26 13:40] VITALS: PULSE 86; O2SAT 91
--- NOTE | 2022-02-26 14:48 | HOMEO2EVAL ---
Evaluation was performed at [facility] Oxygen Evaluation RC: Home Oxygen (O2) Evaluation Start: 02/26/22 14:44 Freq: Status: Active Protocol: RPE Activity Type Activity Date Activity User E-Sign Co-Sign Detail Recorded Client Recorded Date Recorded By Document 02/26/22 13:10 [email or web address] [email or web address] 02/26/22 14:48 DJO Document 02/26/22 13:15 [email or web address] [email or web address] 02/26/22 14:48 DJO Document 02/26/22 13:20 [email or web address] [email or web address] 02/26/22 14:48 DJO Document 02/26/22 13:25 [email or web address] [email or web address] 02/26/22 14:48 DJO Document 02/26/22 13:30 [email or web address] [email or web address] 02/26/22 14:48 DJO Document 02/26/22 13:40 [email or web address] [email or web address] 02/26/22 14:48 DJO 02/26/22 02/26/22 02/26/22 13:10 13:15 13:20 Home O2 Evaluation Test Phase Resting Resting Resting Oxygen Delivery Room Air Nasal Cannula Nasal Cannula Oxygen Flow Rate (L/min) 1 2 Pulse Oximetry (90-100 %) 85 L 88 L 90 Pulse Rate (60-100 beats/min) 87 89 85 Activity Tolerance Ambulation Distance (feet) Ambulation Distance (meters) Treatment Charges O2 Evaluation - Outpatient 02/26/22 02/26/22 02/26/22 13:25 13:30 13:40 Home O2 Evaluation Test Phase Exercise Exercise Resting Oxygen Delivery Nasal Cannula Nasal Cannula Nasal Cannula Oxygen Flow Rate (L/min) 2 3 2 Pulse Oximetry (90-100 %) 88 L 90 91 Pulse Rate (60-100 beats/min) 105 H 107 H 86 Activity Tolerance Fair Ambulation Distance (feet) 500 Ambulation Distance (meters) 152.39 Treatment Charges
== END 2022-02-26 12:49 | disposition home or self-care (01) ==
PROVIDERS: PCP Family Medicine; Visit Provider Physician Assistant
DX: R06.02 Shortness of breath (principal)
CPT/HCPCS: 94618

== ENCOUNTER 2022-11-03 17:33 | Observation (INO) | payer MEDICARE, SELFPAY ==
--- NOTE | ~2022-11-03 | US_ITS ---
EXAMINATION: US renal BI DATE: 11/04/2022 15:10 INDICATION: Renal failure TECHNIQUE: Multiple ultrasound grayscale images of the kidneys were obtained. COMPARISON: None. FINDINGS: The right kidney measures 12.0 x 5.4 x 5.6 cm. The left kidney measures 11.0 x 4.6 x 5.3 cm. The kidn eys demonstrate normal echogenicity. 3.1 x 2.5 x 2.5 cm cystic structure at the hilum of the right ki dney which appears positioned more inferiorly than would be expected for the renal pelvis and without evident tract to indication of the calyces which are not dilated suggesting this represents a parape lvic cyst. Additional 2.2 x 1.1 x 1.6 cm cyst along the periphery of the interpolar region of the rig ht kidney. There is no hydronephrosis in either kidney. No shadowing kidney stones identified. The b ladder is normal. No ureteral jets were observed by the clinical documentation spec over a reported 10 minutes of obs ervation. IMPRESSION: 1. Right renal cyst with additional cystic structure at the right renal pelvis and favor an addition al parapelvic cyst over dilated renal pelvis. Otherwise normal kidneys with no hydronephrosis. Reviewed, dictated and finalized at location A. TECHNICAL ARCHITECT IMPRESSION: 1. Right renal cyst with additional cystic structure at the right renal pelvis and favor an additional parapelvic cyst over dilated renal pelvis. Otherwise n ormal kidneys with no hydronephrosis.
[2022-11-03 17:43] VITALS: BP 106/52; PULSE 63; RESP 20; TEMP 37.1; O2SAT 98
[2022-11-03 21:37] LABS: Basophils Absolute Auto 0.1 K/mm3 (0.0-0.1); Basophils Percent Auto 0.6 % (0.2-1.2); Eosinophils Absolute Auto 0.4 K/mm3 (0-0.3); Eosinophils Percent Auto 3.7 % (0-4.4); Hematocrit 33.9 % (37.0-47.0); Immature Granulocyte Absolute 0.05 K/mm3 (0.00-0.031); Immature Granulocyte Percent A 0.5 % (0-0.5); Lymphocytes Absolute Auto 1.94 K/mm3 (0.9-3.2); Lymphocytes Percent Auto 20.3 % (18.3-44.2); Mean Corpuscular HGB Conc 32.4 g/dl (32-36); Mean Corpuscular Hemoglobin 30.3 pg (26-34); Mean Corpuscular Volume 93.4 fl (80-100); Mean Platelet Volume 10.5 fl (7.4-10.4); Monocytes Absolute Auto 0.8 K/mm3 (0.1-0.6); Monocytes Percent Auto 8.5 % (2.6-8.5); Neutrophils Absolute Auto 6.4 K/mm3 (1.3-6.7); Neutrophils Percent Auto 66.4 % (45.5-73.1); Platelet Count Result 233 k/mm3 (150-375); Red Blood Count 3.63 M/mm3 (4.2-5.4); Red Cell Distribution Width 13.5 % (11.5-14.5); White Blood Count 9.6 K/mm3 (4.5-10.0)
[2022-11-03 21:44] LABS: Appearance Urine Clear (Clear); Bilirubin Urine Negative (Negative); Blood Urine Negative (Negative); Color Urine Yellow (Yellow); Glucose Urine UA Negative (Negative); Ketones Urine Negative (Negative); Leukocyte Esterase Ur Trace LEU/UL (Negative); Nitrate Urine Negative (Negative); Protein Urine Negative (Negative); Urobilinogen Urine 0.2 mg/dL (<2.0)
[2022-11-03 21:47] LABS: Alanine Aminotransferase 18 U/L (6-35); Albumin Level 4.4 g/dL (3.5-5.1); Alkaline Phosphatase 82 U/L (38-126); Anion Gap 11 mmol/L (8-16); Aspartate Amino Transferase 18 U/L (14-36); Bilirubin,Total 0.3 mg/dL (0.2-1.3); Blood Urea Nitrogen 83 mg/dL (7-17); Calcium 8.9 mg/dL (8.4-10.2); Carbon Dioxide 23 mmol/L (22-30); Chloride 104 mmol/L (98-107); Estimated CRCL calculation 17 ml/min; Estimated Glomerular Filt Rate 19; Glucose 162 mg/dL (65-110); Mucus Urine Rare /lpf; Potassium 5.1 mmol/L (3.4-5.0); RBC Urine 0-2 /hpf (0-2); Sodium 138 mmol/L (137-145); Squamous Epithelial Cell Urine Occasional /hpf (Few)
[2022-11-03 21:49] LABS: Add Urine Microscopic? YES
[2022-11-04] VITALS (8 sets, daily range): BP systolic 117–141; BP diastolic 45–72; PULSE 56–69; RESP 16–18; TEMP 36.2–36.8; O2SAT 95–99; BMI 31.8
--- NOTE | 2022-11-04 01:13 | ED.RECABL ---
HPI - Recheck/Abnormal Lab/Rx General Chief Complaint: Recheck/Abnormal Lab/Rx <Sara Viveros APRN - Last Filed: 11/04/22 03:46> Stated Complaint: abnormal labs <Sara Viveros APRN - Last Filed: 11/04/22 03:46> Time Seen by Provider: 11/03/22 23:41 <Sara Viveros APRN - Last Filed: 11/04/22 03:46> Source: patient <Sara Viveros APRN - Last Filed: 11/04/22 03:46> Mode of arrival: ambulatory <Sara Viveros APRN - Last Filed: 11/04/22 03:46> Limitations: no limitations <Sara Viveros APRN - Last Filed: 11/04/22 03:46> History of Present Illness HPI narrative: 82-year-old female with recent history of CHF. Presents today with family at bedside was sent here by her primary care doctor for abnormal labs. Patient states the labs were drawn in September and she was just called today and told to come to the ER. Patient states she was told that her kidney functioning was off. She has no other complaints at this time. Patient states she was feeling well without shortness of breath, cough, nausea, vomiting, diarrhea, but did notice decreased urine output. <Sara Viveros APRN - Last Filed: 11/04/22 03:46> Related Data Home Medications: Home Medications Medication Instructions Recorded Confirmed citalopram 40 mg tablet 40 mg PO HS 10/14/19 10/15/22 duloxetine 30 mg capsule,delayed 30 mg PO HS 10/14/19 10/15/22 release (Cymbalta) liraglutide 0.6 mg/0.1 mL (18 mg/3 1.2 mg subcut HS 10/14/19 10/15/22 mL) subcutaneous pen injector (Victoza 3-Parveen) trazodone 150 mg tablet 150 mg PO HS 10/18/19 10/15/22 alprazolam 0.5 mg tablet 0.5 mg PO TID 10/04/20 10/15/22 mirtazapine 30 mg tablet 30 mg PO HS 05/05/21 10/15/22 diltiazem HCl 240 mg 240 mg PO HS 09/06/21 10/15/22 capsule,extended release 24 hr bumetanide 1 mg tablet 1 mg PO DAILY 10/01/22 10/15/22 spironolactone 25 mg tablet 25 mg PO DAILY 10/01/22 10/15/22 metoprolol tartrate 25 mg tablet 25 mg PO DAILY 10/15/22 10/15/22 <Sara Viveros APRN - Last Filed: 11/04/22 03:46> Allergies/Adverse Reactions: Allergies Allergy/AdvReac Type Severity Reaction Status Date / Time codeine Allergy Unknown upset Verified 10/15/22 08:31 stomach <Sara Viveros APRN - Last Filed: 11/04/22 03:46> Review of Systems Review of Systems: CONSTITUTIONAL: Denies fever, chills, or sweats. EYES: Denies visual changes, redness, or discharge. ENT: Denies rhinorrhea, congestion, sore throat, or otalgia. CARDIOVASCULAR: Denies chest pain, palpitations, or edema. RESPIRATORY: Denies cough or dyspnea. GASTROINTESTINAL: Denies abdominal pain, nausea, vomiting, or diarrhea. GENITOURINARY: Denies dysuria or hematuria. SKIN: Denies rash or itching. MUSCULOSKELETAL: Denies back pain, joint pain, or myalgia. NEUROLOGIC: Denies headache, numbness, dizziness, or weakness. PSYCHIATRIC: Denies anxiety or depression. <Sara Viveros APRN - Last Filed: 11/04/22 03:46> [facility] Past Medical History Medical History: Medical History Arthritis of both shoulder regions Asthma PFTs October 2019 demonstrated mild obstructive ventilatory impairment with mild air trapping and moderate diffusion impairment no response to bronchodilator Basal cell carcinoma (BCC) in situ of skin Bipolar disorder BMI 35.0-35.9,adult Cancer of skin (~08/20/12) CHF (congestive heart failure) Depression Diabetes Diastolic dysfunction Echocardiogram November 2018: Moderate LVH, grade 1 diastolic dysfunction, EF 60-65% Diverticulitis Esophageal stricture Essential hypertension Hyperlipidemia Ischemia Chronically false-positive stress test with last stress test 2006 Obstructive sleep apnea With BiPAP 14/10 Urinary incontinence Stress urinary incontinence <Sara Viveros APRN - Last Filed: 11/04/22 03:46> Surgical History Surgical History: Surgical History (Reviewed 11/04/22 @ 01:14 by Sara Logan
--- NOTE | 2022-11-04 01:35 | PM.IMHP ---
H&P: HPI History of Present Illness Date/Time: 11/04/22 01:35 [facility] Past Medical History Medical History Arthritis of both shoulder regions Asthma PFTs October 2019 demonstrated mild obstructive ventilatory impairment with mild air trapping and moderate diffusion impairment no response to bronchodilator Basal cell carcinoma (BCC) in situ of skin Bipolar disorder BMI 35.0-35.9,adult Cancer of skin (~08/20/12) CHF (congestive heart failure) Depression Diabetes Diastolic dysfunction Echocardiogram November 2018: Moderate LVH, grade 1 diastolic dysfunction, EF 60-65% Diverticulitis Esophageal stricture Essential hypertension Hyperlipidemia Ischemia Chronically false-positive stress test with last stress test 2006 Obstructive sleep apnea With BiPAP 14/10 Urinary incontinence Stress urinary incontinence Surgical History Surgical History History of bladder suspension procedure X2 History of tonsillectomy Hx of cardiac cath Hx of hysterectomy, total Status post cataract extraction of both eyes with insertion of intraocular lens Family History Family History Other Adopted Family history unknown Social History Social History Social History: She is . She lives in her own home until earlier this month. She has a Renter who lives in her basement and helps drive her to appointments or to the store. She has 6 children. 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 Primary care physician: Dr. Debo Mckoy Code status: Full code (the patient would not want tracheostomy or G-tube) Healthcare power of state attorney: Yulisa Osmin (daughter) Smoking status: Never smoker Second hand tobacco smoke exposure: No Alcohol intake: never Substance use: never Substance use type: does not use Gender identity (if verbalized by the patient): Female Spiritual care concerns: No Agree to blood products: Yes Meds Home Medications and Allergies Home Medications Medication Instructions Recorded Confirmed Type citalopram 40 mg tablet 40 mg PO HS 10/14/19 10/15/22 History duloxetine 30 mg capsule,delayed 30 mg PO HS 10/14/19 10/15/22 History release (Cymbalta) liraglutide 0.6 mg/0.1 mL (18 mg/3 1.2 mg subcut HS 10/14/19 10/15/22 History mL) subcutaneous pen injector (Victoza 3-Parveen) trazodone 150 mg tablet 150 mg PO HS 10/18/19 10/15/22 History alprazolam 0.5 mg tablet 0.5 mg PO TID 10/04/20 10/15/22 History mirtazapine 30 mg tablet 30 mg PO HS 05/05/21 10/15/22 History diltiazem HCl 240 mg 240 mg PO HS 09/06/21 10/15/22 History capsule,extended release 24 hr fluticasone propionate 50 See Rx Instructions .Route 02/27/22 10/15/22 Rx mcg/actuation nasal .COMPLEX #16 grams spray,suspension montelukast 10 mg tablet 10 mg PO HS #30 tabs 08/09/22 10/15/22 Rx lidocaine 5 % topical patch 1 patch topical DAILY #15 ea 09/03/22 10/15/22 Rx doxazosin 4 mg tablet See Rx Instructions .Route 09/09/22 10/15/22 Rx .COMPLEX #90 tabs albuterol sulfate 90 mcg/actuation 1 - 2 puff inhalation Q4-6H PRN 10/01/22 10/15/22 Rx aerosol inhaler shortness of breath or wheezing #8.5 grams bumetanide 1 mg tablet 1 mg PO DAILY 10/01/22 10/15/22 History spironolactone 25 mg tablet 25 mg PO DAILY 10/01/22 10/15/22 History umeclidinium 62.5 mcg-vilanterol 1 inh inhalation DAILY #60 ea 10/01/22 10/15/22 Rx 25 mcg/actuation powdr for inhalation (Anoro Ellipta) glipizide 10 mg tablet 10 mg PO DAILY #30 tabs 10/15/22 10/15/22 Rx losartan 100 mg tablet 100 mg PO DAILY #30 tabs 10/15/22 10/15/22 Rx metoprolol tartrate 25 mg tablet 25 mg PO DAILY 10/15/22 10/15/22 History Allergies Allergy/AdvReac Type Severity Reaction Status Date / Time codeine Allergy Unknown upset Verified
[2022-11-04] MEDS: SODIUM CHLORIDE 0.9% IV 2,000 ML 999 ML IV CONT (01:50)
[2022-11-04] MEDS: SODIUM ZIRCONIUM CYCLOSILICATE 10 GM POWD.PACK PO (01:50)
--- NOTE | 2022-11-04 02:02 | ECG_ITS ---
Measurements Intervals [place] Rate: 63 P: 41 VA: 224 QRS: -41 QRSD: 113 T: 74 QT: 452 QTc: 465 Interpretive Statements SINUS RHYTHM WITH FIRST DEGREE AV BLOCK WITH OCCASIONAL VENTRICULAR PREMATURE COMPLEXES MARKED LEFT AXIS DEVIATION [QRS AXIS < -30] POOR R-WAVE PROGRESSION COMPARED TO ECG 05/05/2021 21:15:58 NO SIGNIFICANT CHANGES Electronically Signed On 11-04-2022 15:29:35 EAR NOSE THROAT SURGEON by Chely Carbone M.D.
[2022-11-04 03:19] LABS: Potassium 4.3 mmol/L (3.4-5.0)
[2022-11-04] MEDS: SODIUM CHLORIDE 0.9% IV 1,000 ML 75 ML IV CONT (04:31)
[2022-11-04 04:50] LABS: Influenza A QL RT-PCR Negative (Negative); Influenza B QL RT-PCR Negative (Negative); SARS-CoV-2 RNA PCR Negative
--- NOTE | 2022-11-04 04:52 | ADMGEN ---
This patient, María Faith, was admitted to Medical Room 253-01. Patient/family oriented to hospital policies and general routines including ID bracelet, bed and alarms, visiting hours, pain management, procedures, bathroom and other care routines, personal items, smoking policy, room service/diet, and visiting hours. Information on how to activate the Rapid Response Team has been discussed. Patient/Family are encouraged to report perceived risks to care and to ask questions if they do not understand what they are told or what they should do.
[2022-11-04 07:51] LABS: Alanine Aminotransferase 14 U/L (6-35); Albumin Level 3.7 g/dL (3.5-5.1); Alkaline Phosphatase 66 U/L (38-126); Anion Gap 6 mmol/L (8-16); Aspartate Amino Transferase 17 U/L (14-36); Bilirubin,Total 0.2 mg/dL (0.2-1.3); Blood Urea Nitrogen 71 mg/dL (7-17); Calcium 8.1 mg/dL (8.4-10.2); Carbon Dioxide 25 mmol/L (22-30); Chloride 110 mmol/L (98-107); Estimated CRCL calculation 20 ml/min; Estimated Glomerular Filt Rate 24; Glucose 121 mg/dL (65-110); Potassium 5.1 mmol/L (3.4-5.0); Sodium 141 mmol/L (137-145)
[2022-11-04 07:58] LABS: Creatinine Urine 43.8 mg/dL; Urea Random Urine 482 MG/DL
[2022-11-04 07:59] LABS: Complement C3 108 mg/dL (88-165)
[2022-11-04 08:01] LABS: Hemoglobin A1C 7.1 % (<5.7)
[2022-11-04 08:08] LABS: Sodium Urine Random 40 meq/L
[2022-11-04 08:08] LABS: Phosphorus 5.2 mg/dL (2.5-4.5)
[2022-11-04 08:30] LABS: Creatine Kinase 25 U/L (30-135)
--- NOTE | 2022-11-04 08:45 | PM.IMHP ---
H&P: HPI History of Present Illness Date/Time: 11/04/22 [id number] Chief Complaint: Abnormal labs Narrative: Patient is an 82-year-old female with a past medical history of diabetes, hypertension, diverticulitis, hyperlipidemia, depression who presented to the ED for abnormal labs. Patient stated that in August she had some labs done for her primary care provider and never heard anything from them. She stated that she was headed to [place] and they had called and asked her to have her blood work repeated. She then had her blood work repeated up in [place]. She stated that she had not heard anything on and Thursday and on Thursday she called to check on it and they told her to come to the hospital because her kidneys were working as well. Patient stated that she did notice that she was having less urine output and that she usually changes her depends twice a day however has been changing them about once a day. She also stated that her depends is normally soaked however it has been more dry lately. She also stated that she does have a leaking issue and that she will get the urge to go to urinate and will go. However she does not know she is having retention. She also stated that she recently had an issue where she could not keep any water or drinks down. It was found that she had a esophageal mass and had a stretching done. She stated that since then she has been drinking less than normal. She also stated she was recently up in a Hospital in [place] for a CHF exacerbation. Records have been obtained and are in the chart. Labs in the ED did show a creatinine of 2.40. And a potassium of 5.1. Repeat labs today creatinine was 2.0 with the potassium of 5.1. White blood cell count was stable. UA did not show any signs of infection. Patient denies any chest pain, shortness a breath, nausea, vomiting, sweats, fevers, chills, lightheadedness, dizziness, visual changes, hearing changes. Nephrology has been consulted. Patient is being admitted to the hospitalist service as an observation patient Review of Systems Review of Systems: All systems reviewed & are unremarkable except as noted in HPI and below PMFSH Past Medical History Medical History Arthritis of both shoulder regions Asthma PFTs October 2019 demonstrated mild obstructive ventilatory impairment with mild air trapping and moderate diffusion impairment no response to bronchodilator Basal cell carcinoma (BCC) in situ of skin Bipolar disorder Cancer of skin (~08/20/12) Cellulitis of right ear Chronic obstructive pulmonary disease Depression Diverticulitis Esophageal stricture Essential hypertension Hyperlipidemia Insomnia Ischemia Chronically false-positive stress test with last stress test 2006 Obesity (BMI 30-39.9) Obstructive sleep apnea With BiPAP 14/10 Pleural effusion Recurrent falls Rhinitis Type 2 diabetes mellitus without complication, without long-term current use of insulin Urinary incontinence Stress urinary incontinence Surgical History Surgical History History of bladder suspension procedure X2 History of tonsillectomy Hx of cardiac cath Hx of hysterectomy, total Status post cataract extraction of both eyes with insertion of intraocular lens Family History Family History (Updated 11/04/22 @ 13:08 by DANO Collins) Son Hypertension Other Adopted Family history unknown Social History Social History Social History: She is . She lives in her own home until earlier this month. She has a Renter who lives in her basement and helps drive her to appointments or to the store. She has 6 children. 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 Primary care physician: Dr. Debo Mckoy Code status: Full code (the patient would not want tracheostomy or G-tube)
[2022-11-04] MEDS: UMECLIDINIUM/VILANTEROL 62.5-25 MCG ELLIPTA 1 PUFF INHALATION (09:25)
[2022-11-04] MEDS: ONDANSETRON INJ 4 MG/2 ML VIAL IV PUSH (10:41)
[2022-11-04] MEDS: METOPROLOL SUCCINATE EXT REL 25 MG TABCR PO (10:42)
[2022-11-04] MEDS: DOXAZOSIN MESYLATE 4 MG TABLET PO (10:43)
[2022-11-04] MEDS: DULoxetine HCL 30 MG CAPSULE.DR PO ×2 (10:43→20:11)
[2022-11-04] MEDS: ALPRAZolam (*CRX) 0.5 MG TABLET PO ×3 (10:43→18:08)
[2022-11-04] MEDS: CITALOPRAM HYDROBROMIDE 20 MG TABLET 40 MG PO (10:43)
[2022-11-04 11:39] LABS: Glucose Point of Care 196 mg/dl (65-105)
[2022-11-04 17:09] LABS: Glucose Point of Care 161 mg/dl (65-105)
[2022-11-04] MEDS: traZODone HCL 50 MG TABLET 150 MG PO (20:11)
[2022-11-04] MEDS: MONTELUKAST SODIUM 10 MG TABLET PO (20:12)
[2022-11-04] MEDS: WATER FOR IRRIGATION, STERILE 1,000 ML BOTTLE 1000 ML (20:12)
[2022-11-04] MEDS: MIRTAZAPINE 30 MG TABLET PO (20:12)
[2022-11-04 20:19] LABS: Glucose Point of Care 180 mg/dl (65-105)
[2022-11-05] VITALS (8 sets, daily range): BP systolic 110–135; BP diastolic 45–55; PULSE 59–77; RESP 16–20; TEMP 36.5–36.8; O2SAT 95–98
[2022-11-05] MEDS: SODIUM CHLORIDE 0.9% IV 1,000 ML 75 ML IV CONT (00:42)
[2022-11-05 06:31] LABS: Basophils Percent Auto 0.6 % (0.2-1.2); Eosinophils Absolute Auto 0.4 K/mm3 (0-0.3); Eosinophils Percent Auto 5.4 % (0-4.4); Hematocrit 31.5 % (37.0-47.0); Hemoglobin 9.8 g/dL (12.0-15.0); Immature Granulocyte Absolute 0.05 K/mm3 (0.00-0.031); Immature Granulocyte Percent A 0.7 % (0-0.5); Lymphocytes Absolute Auto 1.85 K/mm3 (0.9-3.2); Mean Corpuscular HGB Conc 31.1 g/dl (32-36); Mean Corpuscular Hemoglobin 29.5 pg (26-34); Mean Corpuscular Volume 94.9 fl (80-100); Mean Platelet Volume 10.7 fl (7.4-10.4); Monocytes Absolute Auto 0.7 K/mm3 (0.1-0.6); Monocytes Percent Auto 9.8 % (2.6-8.5); Neutrophils Absolute Auto 3.9 K/mm3 (1.3-6.7); Neutrophils Percent Auto 56.5 % (45.5-73.1); Platelet Count Result 189 k/mm3 (150-375); Red Blood Count 3.32 M/mm3 (4.2-5.4); Red Cell Distribution Width 13.5 % (11.5-14.5); White Blood Count 6.8 K/mm3 (4.5-10.0)
--- NOTE | 2022-11-05 06:47 | PM.CNNEP ---
Assessment and Plan Assessment and plan (1) DAVID (acute kidney injury): Code(s): N17.9 - Acute kidney failure, unspecified Status: Acute Assessment and Plan: the patient has acute kidney injury. Renal ultrasound shows a cyst but otherwise normal kidneys. Urine electrolytes are non pre renal. She was on diuretics though before that. I suspect that this is from pre renal azotemia. She was on diuretics before she came into the hospital and she was not eating or drinking for several days because of the shock from the of her friend. Her creatinine is already getting better with the IV fluids. She mentioned 40% when she was told about her heart. I am not sure if this is the ejection fraction or not. We probably ought to repeat her echocardiogram so that we know what's going on. If the ejection fraction is much worse than pre renal azotemia from cardiomyopathy might be playing a role. if it is still this low, then consider stopping diltiazem and doxazosin and switch to something more cardiac friendly. the creatinine is down to 1.4 today. Hopefully the creatinine will return to his former normal baseline. The question going forward will be how much diuretics that she really needs and does she need more attention to her heart. Will stop the IV fluids since she is eating well and urinating well. (2) Volume overload: Code(s): E87.70 - Fluid overload, unspecified Status: Acute Assessment and Plan: The patient has a history of volume overload. Will see what the echo shows (3) Chronic obstructive pulmonary disease: Qualifiers: COPD type: unspecified COPD Qualified Code(s): J44.9 - Chronic obstructive pulmonary disease, unspecified Code(s): J44.9 - Chronic obstructive pulmonary disease, unspecified Status: Acute Assessment and Plan: the patient has COPD. She is on home oxygen for this. (4) Diabetes mellitus type 2 in obese: Code(s): E11.69 - Type 2 diabetes mellitus with other specified complication; E66.9 - Obesity, unspecified Status: Acute Assessment and Plan: Management per hospitalist's (5) Primary hypertension: Code(s): I10 - Essential (primary) hypertension Status: Acute Assessment and Plan: blood pressure is under good control History of Present Illness Reason for Consult Consult date: 11/05/22 Chief Complaint Chief complaint: DAVID, dehydration,hx of chf, UTI w/o hematuria History of Present Illness Narrative: María morales is a very pleasant 82-year-old lady who has multiple medical problems including diabetes for many years, hypertension for many years, hyperlipidemia, diverticulosis, depression, COPD, esophageal stricture, coronary disease with a positive stress test in 2006, obstructive sleep apnea using a BiPAP, stress incontinence , reversible airways disease, bipolar disorder, and arthritis. The patient says she was always on water pills for a long period of time. Then she went into the hospital in [place] sometime in early September but she can't remember why. They stopped her diuretics. Then she went to [place] to visit her daughter who got a new puppy. There she became short of breath and so went into the hospital. They told her she had fluid overload and congestive heart failure ( 40% ). She was placed back on diuretics at that point. They did not say anything about kidney function at the time. She did have some trouble swallowing and so they did endoscopies and dilatation apparently of an esophageal stricture and she has been able to swallow since then. She came home from [place] on new medications including diuretics. These included Bumex and spironolactone. She had a friend who lives with her and sometime after she came back home she found him . She was notably shocked at the time and for a few days after and did not eat or drink much for the next few days. She con
[2022-11-05 06:56] LABS: Alanine Aminotransferase 14 U/L (6-35); Albumin Level 3.7 g/dL (3.5-5.1); Alkaline Phosphatase 63 U/L (38-126); Anion Gap 5 mmol/L (8-16); Aspartate Amino Transferase 17 U/L (14-36); Bilirubin,Total 0.2 mg/dL (0.2-1.3); Blood Urea Nitrogen 49 mg/dL (7-17); Calcium 8.3 mg/dL (8.4-10.2); Carbon Dioxide 25 mmol/L (22-30); Chloride 110 mmol/L (98-107); Estimated CRCL calculation 28 ml/min; Estimated Glomerular Filt Rate 36; Glucose 137 mg/dL (65-110); Magnesium 2.1 mg/dL (1.6-2.3); Sodium 140 mmol/L (137-145)
--- NOTE | 2022-11-05 07:03 | ECHO_ITS ---
Patient Info Name: María Faith Age: 82 years : 1940 Gender: Female Ht: 62 in Wt: 173 lbs BSA: 1.88 m2 HR: 69 bpm BP: 110 / 48 mmHg Heart Rhythm: Sinus Rhythm Technical Quality: Good Exam Date: 11/05/2022 9:38 AM Exam Location: [facility] Exam Room: [facility] Patient Status: Outpatient Admit Date: 11/04/2022 Staff Ordering Physician: Ghulam Armenta MD Cryogenics Engineer: Brandy Varner RCS Attending Provider: Isabella Amaya PA-C Referring Physician: Kathi BARRIOS; Exam Type: CA echo doppler color flow Study Info Indications - hx/o volume overload Complete two-dimensional, color flow and Doppler transthoracic echocardiogram is performed. Summary 1. Complete two-dimensional, color flow and Doppler transthoracic echocardiogram is performed. 2. Left ventricular chamber dimension is moderately enlarged. 3. Left ventricular systolic function is mildly reduced, estimated at 45-50%. 4. There is mildly increased left ventricular wall thickness. 5. The left ventricular diastolic function is grade I diastolic dysfunction. 6. Right ventricular chamber dimension is enlarged. 7. Left atrial chamber dimension is severely enlarged. 8. There is mild mitral valve regurgitation. 9. There is mild tricuspid valve regurgitation. Left Ventricle Left ventricular chamber dimension is moderately enlarged. Left ventricular systolic function is mildly reduced, estimated at 45-50%. There is mildly increased left ventricular wall thickness. The left ventricular diastolic function is grade I diastolic dysfunction. Right Ventricle Right ventricular chamber dimension is enlarged. Right ventricular systolic function is normal. Left Atria Left atrial chamber dimension is severely enlarged. Right Atria Right atrial chamber dimension is normal. Atrial Septum Suspected patent foramen ovale visualized by color flow imaging. Aortic Valve The aortic valve is probable trileaflet. There is no aortic valve stenosis. There is no aortic valve regurgitation. There is mild aortic valve calcification. Pulmonic Valve The pulmonic valve is not well visualized. Mitral Valve The mitral valve has normal leaflets. There is no mitral valve stenosis. There is mild mitral valve regurgitation. Tricuspid Valve There is mild tricuspid valve regurgitation. Pericardium/Pleural There is trivial pericardial effusion. Inferior Vena Cava Normal inferior vena cava with >50% collapse upon inspiration consistent with normal right atrial pressure, 3 mmHg. Aorta The aortic root size at the sinus of Valsalva is normal. Left Ventricular Outflow Tract Name Value Normal LVOT 2D LVOT Diameter 2.0 cm LVOT Doppler LVOT Peak Gradient 10 mmHg LVOT Mean Gradient 6 mmHg LVOT VTI 35 cm LVOT VTI/AV VTI Ratio 0.8 LVOT Stroke Volume 108 ml LVOT CO 21.6 l/min LVOT CI 11.5 l/min/m2 Pulmonic Valve
[2022-11-05] MEDS: CITALOPRAM HYDROBROMIDE 20 MG TABLET 40 MG PO (08:17)
[2022-11-05] MEDS: DOXAZOSIN MESYLATE 4 MG TABLET PO (08:17)
[2022-11-05] MEDS: DULoxetine HCL 30 MG CAPSULE.DR PO ×2 (08:17→20:32)
[2022-11-05] MEDS: METOPROLOL SUCCINATE EXT REL 25 MG TABCR PO (08:18)
[2022-11-05 08:21] LABS: Glucose Point of Care 150 mg/dl (65-105)
[2022-11-05] MEDS: ALPRAZolam (*CRX) 0.5 MG TABLET PO ×3 (08:21→16:45)
[2022-11-05 11:49] LABS: Glucose Point of Care 273 mg/dl (65-105)
--- NOTE | 2022-11-05 11:56 | PCRCNOTE ---
Window of time for administration has passed. See next scheduled administration.
[2022-11-05] MEDS: INSULIN ASPART (*BKC) 100 UNITS/ML SUB-Q (12:07)
--- NOTE | 2022-11-05 15:36 | P.PNIM_ITS ---
Progress Note: A&P Assessment and Plan (1) DAVID (acute kidney injury): Code(s): N17.9 - Acute kidney failure, unspecified Status: Acute Assessment and Plan: Presented with abnormal labs per primary, BUN 83, creatinine 2.40 * Baseline appears 0.7-0.9, which is consistent with the records from outside hospital * Creatinine improved to 1.4 today * Hold Bumex, spironolactone, losartan * Monitor BMP * IV fluids stopped today * Apprecaite nephrology consult * Renal US showed R renal cyst, otherwise normal kidneys with no hydronephrosis * No evidence of urinary retention (2) Diabetes mellitus type 2 in obese: Code(s): E11.69 - Type 2 diabetes mellitus with other specified complication; E66.9 - Obesity, unspecified Status: Acute Assessment and Plan: A1c 7.1 * Continue accuchecks, SSI, hypoglycemic protocol * Hold home glipizide and victoza * Diabetic diet (3) Primary hypertension: Code(s): I10 - Essential (primary) hypertension Status: Acute Assessment and Plan: Blood pressure reasonable, slightly soft but stable * Losartan on hold due to DAVID * Continue Cardizem * Monitor BP trends * Check orthostatics (4) Congestive heart disease: Code(s): I50.9 - Heart failure, unspecified Status: Acute Assessment and Plan: Echo from 10/15/2022 EF of 30-35% with hypokinesis with grade 1 diastolic heart failure * 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 * Monitor volume status closely with daily weights, trend urine output (5) Chronic obstructive pulmonary disease: Qualifiers: COPD type: unspecified COPD Qualified Code(s): J44.9 - Chronic obstructive pulmonary disease, unspecified Code(s): J44.9 - Chronic obstructive pulmonary disease, unspecified Status: Acute Assessment and Plan: Chronic home O2 use, no acute exacerbation * Continue home inhalers, anoro elipta, and albuterol * Supplemental oxygen as needed. Maintaining adequate O2 sats on home setting * Patient is on 3 L O2 at rest and 4 L with activity (6) Chronic respiratory failure: Code(s): J96.10 - Chronic respiratory failure, unspecified whether with hypoxia or hypercapnia Status: Acute Assessment and Plan: As above Subjective Date/time seen: 11/05/22 15:36 Interval history: Date of service: 11/05/22 María Faith is an 82 year old female with a history of asthma, hypertension, hyperlipidemia, ELISSA, T2DM, and several other medical problems who is seen in follow up for DAVID. Patient is feeling well today. She has no pain. No urinary symptoms. Last BM was 1 day ago. No SOB. Feeling well on her home oxygen settings. She has no concerns. Review of Systems Review of Systems: All systems reviewed & are unremarkable except as noted in HPI and below Exam Narrative: General: well-nourished, well-appearing 82-year-old female, sitting up bed, comfortable, NARD Neuro: awake, alert and oriented x4, speech clear, no focal neuro deficits noted HEENMT: normocephalic, atraumatic, EOMI, sclerae anicteric Respiratory: clear to auscultation bilaterally, nonlabored breathing Cardio: regular rate, regular rhythm with S1-S2 Abdomen: nondistended, normoactive bowel sounds, soft, nontender to palpation Extremities: no edema, erythema, or tenderness to palpation, DP pulses 2+ bi laterally Skin:
--- NOTE | 2022-11-05 15:36 | PM.IMPN ---
Progress Note: A&P Assessment and Plan (1) DAVID (acute kidney injury): Code(s): N17.9 - Acute kidney failure, unspecified Status: Acute Assessment and Plan: Presented with abnormal labs per primary, BUN 83, creatinine 2.40 Baseline appears 0.7-0.9, which is consistent with the records from outside hospital Creatinine improved to 1.4 today Hold Bumex, spironolactone, losartan Monitor BMP IV fluids stopped today Apprecaite nephrology consult Renal US showed R renal cyst, otherwise normal kidneys with no hydronephrosis No evidence of urinary retention (2) Diabetes mellitus type 2 in obese: Code(s): E11.69 - Type 2 diabetes mellitus with other specified complication; E66.9 - Obesity, unspecified Status: Acute Assessment and Plan: A1c 7.1 Continue accuchecks, SSI, hypoglycemic protocol Hold home glipizide and victoza Diabetic diet (3) Primary hypertension: Code(s): I10 - Essential (primary) hypertension Status: Acute Assessment and Plan: Blood pressure reasonable, slightly soft but stable Losartan on hold due to DAVID Continue Cardizem Monitor BP trends Check orthostatics (4) Congestive heart disease: Code(s): I50.9 - Heart failure, unspecified Status: Acute Assessment and Plan: Echo from 10/15/2022 EF of 30-35% with hypokinesis with grade 1 diastolic heart failure 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 Monitor volume status closely with daily weights, trend urine output (5) Chronic obstructive pulmonary disease: Qualifiers: COPD type: unspecified COPD Qualified Code(s): J44.9 - Chronic obstructive pulmonary disease, unspecified Code(s): J44.9 - Chronic obstructive pulmonary disease, unspecified Status: Acute Assessment and Plan: Chronic home O2 use, no acute exacerbation Continue home inhalers, anoro elipta, and albuterol Supplemental oxygen as needed. Maintaining adequate O2 sats on home setting Patient is on 3 L O2 at rest and 4 L with activity (6) Chronic respiratory failure: Code(s): J96.10 - Chronic respiratory failure, unspecified whether with hypoxia or hypercapnia Status: Acute Assessment and Plan: As above Subjective Date/time seen: 11/05/22 15:36 Interval history: Date of service: 11/05/22 María Faith is an 82 year old female with a history of asthma, hypertension, hyperlipidemia, ELISSA, T2DM, and several other medical problems who is seen in follow up for DAVID. Patient is feeling well today. She has no pain. No urinary symptoms. Last BM was 1 day ago. No SOB. Feeling well on her home oxygen settings. She has no concerns. Review of Systems Review of Systems: All systems reviewed & are unremarkable except as noted in HPI and below Exam Narrative: General: well-nourished, well-appearing 82-year-old female, sitting up bed, comfortable, NARD Neuro: awake, alert and oriented x4, speech clear, no focal neuro deficits noted HEENMT: normocephalic, atraumatic, EOMI, sclerae anicteric Respiratory: clear to auscultation bilaterally, nonlabored breathing Cardio: regular rate, regular rhythm with S1-S2 Abdomen: nondistended, normoactive bowel sounds, soft, nontender to palpation Extremities: no edema, erythema, or tenderness to palpation, DP pulses 2+ bilaterally Skin: no rashes or lesions, warm and dry Psych: appropriate mood and affect, judgment and insight intact Objective Data Vital Signs Vital Signs: Vital Signs - 24 hr 11/04/22 20:00 11/04/22 21:21 11/05/22 04:57 Temperature 98.2 F 97.9 F Pulse Rate 64 69 60 Respiratory Rate 16 18 18 Blood Pressure 140/59 L 110/48 L Pulse Oximetry 95 99 97 Oxygen Delivery Nasal Cannula Oxygen Flow Rate 3 11/05/22 08:18 11/05/22 08:00 11/05/22 13:55 Temperature 98.2 F Pulse
[2022-11-05 16:52] LABS: Glucose Point of Care 137 mg/dl (65-105)
[2022-11-05] MEDS: MIRTAZAPINE 30 MG TABLET PO (20:32)
[2022-11-05] MEDS: traZODone HCL 50 MG TABLET 150 MG PO (20:32)
[2022-11-05] MEDS: MONTELUKAST SODIUM 10 MG TABLET PO (20:32)
[2022-11-05 20:36] LABS: Glucose Point of Care 159 mg/dl (65-105)
[2022-11-06] VITALS (7 sets, daily range): BP systolic 132–161; BP diastolic 53–85; PULSE 65–80; RESP 18; TEMP 36.3–37; O2SAT 92–97
[2022-11-06] MEDS: ACETAMINOPHEN 325 MG TABLET 650 MG PO (05:28)
[2022-11-06 06:12] LABS: Hematocrit 33.8 % (37.0-47.0); Hemoglobin 10.3 g/dL (12.0-15.0); Mean Corpuscular HGB Conc 30.5 g/dl (32-36); Mean Corpuscular Hemoglobin 30.2 pg (26-34); Mean Corpuscular Volume 99.1 fl (80-100); Mean Platelet Volume 10.6 fl (7.4-10.4); Platelet Count Result 173 k/mm3 (150-375); Red Blood Count 3.41 M/mm3 (4.2-5.4); Red Cell Distribution Width 13.4 % (11.5-14.5); White Blood Count 8.1 K/mm3 (4.5-10.0)
[2022-11-06 06:36] LABS: Alanine Aminotransferase 14 U/L (6-35); Albumin Level 3.9 g/dL (3.5-5.1); Alkaline Phosphatase 61 U/L (38-126); Anion Gap 3 mmol/L (8-16); Aspartate Amino Transferase 18 U/L (14-36); Bilirubin,Total 0.2 mg/dL (0.2-1.3); Blood Urea Nitrogen 31 mg/dL (7-17); Calcium 8.5 mg/dL (8.4-10.2); Carbon Dioxide 30 mmol/L (22-30); Chloride 106 mmol/L (98-107); Estimated CRCL calculation 32 ml/min; Estimated Glomerular Filt Rate 43; Glucose 159 mg/dL (65-110); Phosphorus 3.3 mg/dL (2.5-4.5); Potassium 5.3 mmol/L (3.4-5.0); Sodium 139 mmol/L (137-145)
[2022-11-06 09:02] LABS: Glucose Point of Care 133 mg/dl (65-105)
[2022-11-06] MEDS: DULoxetine HCL 30 MG CAPSULE.DR PO ×2 (09:07→20:04)
[2022-11-06] MEDS: METOPROLOL SUCCINATE EXT REL 25 MG TABCR PO (09:08)
[2022-11-06] MEDS: DOXAZOSIN MESYLATE 4 MG TABLET PO (09:08)
[2022-11-06] MEDS: ALPRAZolam (*CRX) 0.5 MG TABLET PO ×3 (09:08→16:48)
[2022-11-06] MEDS: CITALOPRAM HYDROBROMIDE 20 MG TABLET 40 MG PO (09:08)
[2022-11-06] MEDS: UMECLIDINIUM/VILANTEROL 62.5-25 MCG ELLIPTA 1 PUFF INHALATION (09:21)
[2022-11-06] MEDS: SODIUM ZIRCONIUM CYCLOSILICATE 10 GM POWD.PACK PO (11:11)
[2022-11-06] MEDS: INSULIN ASPART (*BKC) 100 UNITS/ML SUB-Q (12:22)
[2022-11-06 12:26] LABS: Glucose Point of Care 255 mg/dl (65-105)
--- NOTE | 2022-11-06 15:41 | P.PNIM_ITS ---
Progress Note: A&P Assessment and Plan (1) DAVID (acute kidney injury): Code(s): N17.9 - Acute kidney failure, unspecified Status: Acute Assessment and Plan: Presented with abnormal labs per primary, BUN 83, creatinine 2.40 * Baseline appears 0.7-0.9, which is consistent with the records from outside hospital * Creatinine improved to 1.2 today * Holding Bumex, spironolactone, losartan * Monitor BMP * IV fluids stopped 11/05 * Appreciate nephrology consult * Renal US showed R renal cyst, otherwise normal kidneys with no hydronephrosis * No evidence of urinary retention (2) Congestive heart disease: Code(s): I50.9 - Heart failure, unspecified Status: Acute Assessment and Plan: Echo from 10/15/2022 EF of 30-35% with hypokinesis with grade 1 diastolic heart failure * 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 * Monitor volume status closely with daily weights, trend urine output (3) Diabetes mellitus type 2 in obese: Code(s): E11.69 - Type 2 diabetes mellitus with other specified complication; E66.9 - Ob esity, unspecified Status: Acute Assessment and Plan: A1c 7.1 * Continue accuchecks, SSI, hypoglycemic protocol * Hold home glipizide and victoza * Diabetic diet (4) Primary hypertension: Code(s): I10 - Essential (primary) hypertension Status: Acute Assessment and Plan: Blood pressures remaining stable * Losartan on hold due to DAVID * Continue Cardizem * Monitor BP trends * orthostatic vital signs negative (5) Chronic obstructive pulmonary disease: Qualifiers: COPD type: unspecified COPD Qualified Code(s): J44.9 - Chronic obstructive pulmonary disease, unspecified Code(s): J44.9 - Chronic obstructive pulmonary disease, unspecified Status: Acute Assessment and Plan: Chronic home O2 use, no acute exacerbation * Continue home inhalers, anoro elipta, and albuterol * Supplemental oxygen as needed. Maintaining adequate O2 sats on home setting * Patient is on 3 L O2 at rest and 4 L with activity (6) Chronic respiratory failure: Code(s): J96.10 - Chronic respiratory failure, unspecified whether with hypoxia or hypercapnia Status: Acute Assessment and Plan: As above (7) Hyperkalemia: Code(s): E87.5 - Hyperkalemia Status: Acute Assessment and Plan: etiology unclear with improving renal function. potassium is 5.3 today * 1 time dose of Lokelma * monitor BMP Subjective Date/time seen: 11/06/22 15:41 Interval history: Date of service: 11/06/22 María Faith is an 82 year old female with a history of asthma, hypertension, hyperlipidemia, ELISSA, T2DM, and several other medical problems who is seen in follow up for DAVID. She is doing well today. She has no pain. Denies abdominal discomfort, dizziness, lightheadedness, shortness of breath, nausea, or vomiting. Tolerating her breakfast. Following my encounter with the patient, nurse informed me that when she the patient urinated earlier today there was blood in the toilet. Patient believes this was rectal bleeding due to a hemorrhoid. Later urinated without any evidence of bleeding. RN also informs the patient throughout lunch today which patient attributes to esophageal stricture.
--- NOTE | 2022-11-06 15:41 | PM.IMPN ---
Progress Note: A&P Assessment and Plan (1) DAVID (acute kidney injury): Code(s): N17.9 - Acute kidney failure, unspecified Status: Acute Assessment and Plan: Presented with abnormal labs per primary, BUN 83, creatinine 2.40 Baseline appears 0.7-0.9, which is consistent with the records from outside hospital Creatinine improved to 1.2 today Holding Bumex, spironolactone, losartan Monitor BMP IV fluids stopped 11/05 Appreciate nephrology consult Renal US showed R renal cyst, otherwise normal kidneys with no hydronephrosis No evidence of urinary retention (2) Congestive heart disease: Code(s): I50.9 - Heart failure, unspecified Status: Acute Assessment and Plan: Echo from 10/15/2022 EF of 30-35% with hypokinesis with grade 1 diastolic heart failure 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 Monitor volume status closely with daily weights, trend urine output (3) Diabetes mellitus type 2 in obese: Code(s): E11.69 - Type 2 diabetes mellitus with other specified complication; E66.9 - Obesity, unspecified Status: Acute Assessment and Plan: A1c 7.1 Continue accuchecks, SSI, hypoglycemic protocol Hold home glipizide and victoza Diabetic diet (4) Primary hypertension: Code(s): I10 - Essential (primary) hypertension Status: Acute Assessment and Plan: Blood pressures remaining stable Losartan on hold due to DAVID Continue Cardizem Monitor BP trends orthostatic vital signs negative (5) Chronic obstructive pulmonary disease: Qualifiers: COPD type: unspecified COPD Qualified Code(s): J44.9 - Chronic obstructive pulmonary disease, unspecified Code(s): J44.9 - Chronic obstructive pulmonary disease, unspecified Status: Acute Assessment and Plan: Chronic home O2 use, no acute exacerbation Continue home inhalers, anoro elipta, and albuterol Supplemental oxygen as needed. Maintaining adequate O2 sats on home setting Patient is on 3 L O2 at rest and 4 L with activity (6) Chronic respiratory failure: Code(s): J96.10 - Chronic respiratory failure, unspecified whether with hypoxia or hypercapnia Status: Acute Assessment and Plan: As above (7) Hyperkalemia: Code(s): E87.5 - Hyperkalemia Status: Acute Assessment and Plan: etiology unclear with improving renal function. potassium is 5.3 today 1 time dose of Lokelma monitor BMP Subjective Date/time seen: 11/06/22 15:41 Interval history: Date of service: 11/06/22 María Faith is an 82 year old female with a history of asthma, hypertension, hyperlipidemia, ELISSA, T2DM, and several other medical problems who is seen in follow up for DAVID. She is doing well today. She has no pain. Denies abdominal discomfort, dizziness, lightheadedness, shortness of breath, nausea, or vomiting. Tolerating her breakfast. Following my encounter with the patient, nurse informed me that when she the patient urinated earlier today there was blood in the toilet. Patient believes this was rectal bleeding due to a hemorrhoid. Later urinated without any evidence of bleeding. RN also informs the patient throughout lunch today which patient attributes to esophageal stricture. Review of Systems Review of Systems: All systems reviewed & are unremarkable except as noted in HPI and below Exam Narrative: General: well-nourished, well-appearing 82-year-old female, sitting up bed, comfortable, NARD Neuro: awake, alert and oriented x4, speech clear, no focal neuro deficits noted HEENMT: normocephalic, atraumatic, EOMI, sclerae anicteric Respiratory: clear to auscultation bilaterally, nonlabored breathing Cardio: regular
--- NOTE | 2022-11-06 17:07 | PM.PNNEP ---
Progress Note: A&P Assessment and Plan (1) DAVID (acute kidney injury): Code(s): N17.9 - Acute kidney failure, unspecified Status: Acute Assessment and Plan: the patient has acute kidney injury. Renal ultrasound shows a cyst but otherwise normal kidneys. Urine electrolytes are non pre renal. She was on diuretics though before that. CK is normal likely pre renal azotemia from diuretics and poor intake for the noted few days. she was admitted on Bumex 1mg daily and spironolactone 25mg daily. Currently she is on no diuretics. echocardiogram shows EF of 45-50%, grade 1 diastolic dysfunction, severely enlarged left atrium, and mild tricuspid and mitral regurgitation respectively. I suspect that she just does not need that much of a diuretic. Her creatinine is improving off the diuretics. It is not down to its baseline yet. She was getting IV fluids but now is not getting them. At this point I would continue to hold off on IV fluids. Let her eat and drink. Follow the creatinine. Restart diuretics at a lower dose when the creatinine comes down a little more. Not all of this needs to be done as an inpatient. Some of this could be done by her primary care, professional employer consultant, or if she would like to follow-up with me that would be fine to but I suspect her kidney function is going to be better. (2) Volume overload: Code(s): E87.70 - Fluid overload, unspecified Status: Acute Assessment and Plan: The patient has a history of volume overload. Mildly reduced LVEF and mild diastolic dysfunction. (3) Chronic obstructive pulmonary disease: Qualifiers: COPD type: unspecified COPD Qualified Code(s): J44.9 - Chronic obstructive pulmonary disease, unspecified Code(s): J44.9 - Chronic obstructive pulmonary disease, unspecified Status: Acute Assessment and Plan: the patient has COPD. She is on home oxygen for this. (4) Diabetes mellitus type 2 in obese: Code(s): E11.69 - Type 2 diabetes mellitus with other specified complication; E66.9 - Obesity, unspecified Status: Acute Assessment and Plan: Management per hospitalists (5) Primary hypertension: Code(s): I10 - Essential (primary) hypertension Status: Acute Assessment and Plan: blood pressure is under good control Subjective Date/time seen: 11/06/22 17:07 Interval history: María is feeling good today. Eating okay. Slept well. No shortness of breath. Review of Systems Cardiovascular: Cardiovascular: Reports no additional cardiovascular complaints Respiratory: Respiratory: Reports no additional respiratory complaints Gastrointestinal: Gastrointestinal: Reports no additional gastrointestinal complaints Genitourinary: Genitourinary: Reports no additional female genitourinary complaints Exam Narrative: WDWN in NAD skin no rash head ncat lungs clear cor reg no rub abd BS+ nontender and soft ext no edema. Objective Data Vital Signs Vital Signs: Vital Signs - 24 hr 11/05/22 20:00 11/05/22 22:56 11/05/22 22:57 Temperature 98.3 F 98.3 F Pulse Rate 77 59 L 59 L Respiratory Rate 16 20 20 Blood Pressure 135/52 L 135/52 L Pulse Oximetry 96 98 98 Oxygen Delivery Nasal Cannula Oxygen Flow Rate 3 11/05/22 22:59 11/06/22 06:00 11/06/22 09:08 Temperature 97.7 F 97.4 F L Pulse Rate 61 76 80 Respiratory Rate 18 18 Blood Pressure 128/55 L 139/56 L Pulse Oximetry 96 97 Oxygen Delivery Oxygen Flow Rate 11/06/22 09:00 11/06/22 10:21 Temperature Pulse Rate 80 Respiratory Rate Blood Pressure 161/63 H Pulse Oximetry 92 Oxygen Delivery Room Air Oxygen Flow Rate Intake/Output Intake/Output: Intake & Output 11/03/22 11/04/22 11/05/22 11/06/22 23:59 23:59 23:59 23:59 Intake Total 4200 1290 1080 Output Total 1350 1700 800 Balance 2850 -410 280 Meds/Results Medications: Active
[2022-11-06 17:28] LABS: Glucose Point of Care 91 mg/dl (65-105)
[2022-11-06] MEDS: MONTELUKAST SODIUM 10 MG TABLET PO (20:04)
[2022-11-06] MEDS: traZODone HCL 50 MG TABLET 150 MG PO (20:04)
[2022-11-06] MEDS: MIRTAZAPINE 30 MG TABLET PO (20:05)
[2022-11-06 20:10] LABS: Osmolality, Urine 294 mOsm/kg (50-1200)
[2022-11-07 02:30] LABS: Glucose Point of Care 199 mg/dl (65-105)
[2022-11-07 06:00] VITALS: BP 131/47; PULSE 72; RESP 16; TEMP 36.6; O2SAT 94
[2022-11-07 06:04] LABS: Hematocrit 30.3 % (37.0-47.0); Hemoglobin 9.3 g/dL (12.0-15.0); Mean Corpuscular HGB Conc 30.7 g/dl (32-36); Mean Corpuscular Hemoglobin 29.6 pg (26-34); Mean Corpuscular Volume 96.5 fl (80-100); Mean Platelet Volume 10.6 fl (7.4-10.4); Platelet Count Result 175 k/mm3 (150-375); Red Blood Count 3.14 M/mm3 (4.2-5.4); Red Cell Distribution Width 13.4 % (11.5-14.5); White Blood Count 7.5 K/mm3 (4.5-10.0)
[2022-11-07 06:14] LABS: Anion Gap 2 mmol/L (8-16); Blood Urea Nitrogen 28 mg/dL (7-17); Calcium 8.5 mg/dL (8.4-10.2); Carbon Dioxide 31 mmol/L (22-30); Chloride 108 mmol/L (98-107); Estimated CRCL calculation 35 ml/min; Estimated Glomerular Filt Rate 48; Glucose 153 mg/dL (65-110); Potassium 4.9 mmol/L (3.4-5.0); Sodium 141 mmol/L (137-145)
[2022-11-07 07:45] VITALS: O2SAT 93
[2022-11-07] MEDS: UMECLIDINIUM/VILANTEROL 62.5-25 MCG ELLIPTA 1 PUFF INHALATION (07:45)
[2022-11-07] MEDS: ACETAMINOPHEN 325 MG TABLET 650 MG PO (08:02)
[2022-11-07 08:03] VITALS: PULSE 66
[2022-11-07] MEDS: METOPROLOL SUCCINATE EXT REL 25 MG TABCR PO (08:03)
[2022-11-07] MEDS: ALPRAZolam (*CRX) 0.5 MG TABLET PO ×2 (08:03→12:45)
[2022-11-07] MEDS: DOXAZOSIN MESYLATE 4 MG TABLET PO (08:03)
[2022-11-07] MEDS: DULoxetine HCL 30 MG CAPSULE.DR PO (08:03)
[2022-11-07] MEDS: CITALOPRAM HYDROBROMIDE 20 MG TABLET 40 MG PO (08:03)
[2022-11-07 08:17] VITALS: O2SAT 95
[2022-11-07 09:11] LABS: Glucose Point of Care 147 mg/dl (65-105)
--- NOTE | 2022-11-07 10:44 | P.DS_ITS ---
DS: Admitting Diagnosis Discharge Date 11/07/2022 Admitting Diagnosis DAVID DS: Discharge Diagnosis Discharge Diagnosis (1) DAVID (acute kidney injury): Code(s): N17.9 - Acute kidney failure, unspecified Status: Acute Assessment and Plan: Presented with abnormal labs per primary, BUN 83, creatinine 2.40 * Baseline is 0.7-0.9, which is consistent with records from outside hospital * Patient was rehydrated with IV fluids * Seen in consultation by Nephrology * Creatinine improved to 1.1 at time of discharge * Holding losartan * Spironolactone restarted at lower dose, 12.5 mg daily and bumex restarted at lower dose, 0.5 mg daily * Renal US showed R renal cyst, otherwise normal kidneys with no hydronephrosis * Repeat renal panel as an outpatient in 1 week (2) Congestive heart disease: Code(s): I50.9 - Heart failure, unspecified Status: Acute Assessment and Plan: Echo from 10/15/2022 EF of 30-35% with hypokinesis with grade 1 diastolic heart failure * 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 (3) Diabetes mellitus type 2 in obese: Code(s): E11.69 - Type 2 diabetes mellitus with other specified complication; E66.9 - Obesity, unspecified Status: Acute Assessment and Plan: A1c 7.1 * Continue home glipizide and victoza (4) Primary hypertension: Code(s): I10 - Essential (primary) hypertension Status: Acute Assessment and Plan: Blood pressures stable * Losartan on hold due to DAVID * Continue Cardizem * orthostatic vital signs negative (5) Chronic obstructive pulmonary disease: Qualifiers: COPD type: unspecified COPD Qualified Code(s): J44.9 - Chronic obstructive pulmonary disease, unspecified Code(s): J44.9 - Chronic obstructive pulmonary disease, unspecified Status: Acute Assessment and Plan: Chronic home O2 use, no acute exacerbation * Continue home inhalers, anoro elipta, and albuterol * Maintained adequate O2 sats on home setting * Patient is on 3 L O2 at rest and 4 L with activity (6) Chronic respiratory failure: Code(s): J96.10 - Chronic respiratory failure, unspecified whether with hypoxia or hypercapnia Status: Acute Assessment and Plan: As above (7) Hyperkalemia: Code(s): E87.5 - Hyperkalemia Status: Acute Assessment and Plan: Resolved with Lokelma DS: Summary Hospital Course Hospital Course: date of admission: 11/04/2022 date of discharge: 11/07/2022 María Faith is an 82 year old female with a history of asthma, hyperte nsion, hyperlipidemia, ELISSA, T2DM, and several other medical problems who presented to the emergency department on 11/04/2022 from home under the direction of her primary care provider for evaluation of abnormal labs. She received a call stating that her kidney function was poor and she needed evaluation. On presentation to the ED, her BP was 106/52, additional vital signs were stable and she was maintaining adequate O2 sats on her chronic 3 L supplemental O2. Potassium was 5.1, BUN 83, creatinine 2.4, additional laboratory workup unremarkable, UA without concerns for infection, no urine pro tein. she was admitted to the hospitalist service for further evaluation management was seen in consultation by nephrology. Please
--- NOTE | 2022-11-07 10:44 | PM.DS ---
DS: Admitting Diagnosis Discharge Date 11/07/2022 Admitting Diagnosis DAVID DS: Discharge Diagnosis Discharge Diagnosis (1) DAVID (acute kidney injury): Code(s): N17.9 - Acute kidney failure, unspecified Status: Acute Assessment and Plan: Presented with abnormal labs per primary, BUN 83, creatinine 2.40 Baseline is 0.7-0.9, which is consistent with records from outside hospital Patient was rehydrated with IV fluids Seen in consultation by Nephrology Creatinine improved to 1.1 at time of discharge Holding losartan Spironolactone restarted at lower dose, 12.5 mg daily and bumex restarted at lower dose, 0.5 mg daily Renal US showed R renal cyst, otherwise normal kidneys with no hydronephrosis Repeat renal panel as an outpatient in 1 week (2) Congestive heart disease: Code(s): I50.9 - Heart failure, unspecified Status: Acute Assessment and Plan: Echo from 10/15/2022 EF of 30-35% with hypokinesis with grade 1 diastolic heart failure Combined systolic and diastolic heart failure not in exacerbation Repeat echo on 11/05 is improved with mildly reduced EF 45-50% and grade 1 diastolic dysfunction Bumex and spironolactone decreased due to DAVID Euvolemic on exam. (3) Diabetes mellitus type 2 in obese: Code(s): E11.69 - Type 2 diabetes mellitus with other specified complication; E66.9 - Obesity, unspecified Status: Acute Assessment and Plan: A1c 7.1 Continue home glipizide and victoza (4) Primary hypertension: Code(s): I10 - Essential (primary) hypertension Status: Acute Assessment and Plan: Blood pressures stable Losartan on hold due to DAVID Continue Cardizem orthostatic vital signs negative (5) Chronic obstructive pulmonary disease: Qualifiers: COPD type: unspecified COPD Qualified Code(s): J44.9 - Chronic obstructive pulmonary disease, unspecified Code(s): J44.9 - Chronic obstructive pulmonary disease, unspecified Status: Acute Assessment and Plan: Chronic home O2 use, no acute exacerbation Continue home inhalers, anoro elipta, and albuterol Maintained adequate O2 sats on home setting Patient is on 3 L O2 at rest and 4 L with activity (6) Chronic respiratory failure: Code(s): J96.10 - Chronic respiratory failure, unspecified whether with hypoxia or hypercapnia Status: Acute Assessment and Plan: As above (7) Hyperkalemia: Code(s): E87.5 - Hyperkalemia Status: Acute Assessment and Plan: Resolved with Lokelma DS: Summary Hospital Course Hospital Course: date of admission: 11/04/2022 date of discharge: 11/07/2022 María Faith is an 82 year old female with a history of asthma, hypertension, hyperlipidemia, ELISSA, T2DM, and several other medical problems who presented to the emergency department on 11/04/2022 from home under the direction of her primary care provider for evaluation of abnormal labs. She received a call stating that her kidney function was poor and she needed evaluation. On presentation to the ED, her BP was 106/52, additional vital signs were stable and she was maintaining adequate O2 sats on her chronic 3 L supplemental O2. Potassium was 5.1, BUN 83, creatinine 2.4, additional laboratory workup unremarkable, UA without concerns for infection, no urine protein. she was admitted to the hospitalist service for further evaluation management was seen in consultation by nephrology. Please see above for further details. Renal function improved with IV fluid rehydration and holding of diuretics. Losartan was held and bumex and spironolactone were decreased. She will follow-up with her primary care provider after repeating a renal function panel in 1 week to determine if further medication adjustment is required. Patient was euvolemic during admission. She was ambulating without difficulty. she did participate in PT/ OT dur
[2022-11-07 12:10] LABS: Glucose Point of Care 229 mg/dl (65-105)
--- NOTE | 2022-11-07 12:17 | PM.PNNEP ---
Progress Note: A&P Assessment and Plan (1) DAVID (acute kidney injury): Code(s): N17.9 - Acute kidney failure, unspecified Status: Acute Assessment and Plan: the patient has acute kidney injury. Renal ultrasound shows a cyst but otherwise normal kidneys. Urine electrolytes are non pre renal. She was on diuretics though before that. CK is normal likely pre renal azotemia from diuretics and poor intake for the noted few days. she was admitted on Bumex 1mg daily and spironolactone 25mg daily. Currently she is on no diuretics. The patient is going to be discharged today. I asked her to restart the bumetanide half a pill daily starting tomorrow and check a set of labs in a week or so. She will follow-up with her primary care physician. Can come see me in the office if she has trouble but I think her kidney function should be fine. (2) Volume overload: Code(s): E87.70 - Fluid overload, unspecified Status: Acute Assessment and Plan: Restart Bumex at half a mg a day starting tomorrow (3) Chronic obstructive pulmonary disease: Qualifiers: COPD type: unspecified COPD Qualified Code(s): J44.9 - Chronic obstructive pulmonary disease, unspecified Code(s): J44.9 - Chronic obstructive pulmonary disease, unspecified Status: Acute Assessment and Plan: the patient has COPD. She is on home oxygen for this. (4) Diabetes mellitus type 2 in obese: Code(s): E11.69 - Type 2 diabetes mellitus with other specified complication; E66.9 - Obesity, unspecified Status: Acute Assessment and Plan: Management per hospitalists (5) Primary hypertension: Code(s): I10 - Essential (primary) hypertension Status: Acute Assessment and Plan: blood pressure is under good control Subjective Date/time seen: 11/07/22 12:17 Interval history: 11/06 María is feeling good today. Eating okay. Slept well. No sortness of breath. 11/07 Patient is feeling okay today. She is eager for discharge. No swelling or shortness of breath. Exam Narrative: WDWN in NAD skin no rash head ncat lungs clear cor reg no rub abd BS+ nontender and soft ext no edema. Objective Data Vital Signs Vital Signs: Vital Signs - 24 hr 11/06/22 16:54 11/06/22 20:00 11/06/22 22:00 Temperature 98.6 F 98.5 F Pulse Rate 65 65 69 Respiratory Rate 18 18 18 Blood Pressure 132/53 L 148/85 H Pulse Oximetry 96 96 96 Oxygen Delivery Room Air Oxygen Flow Rate 11/07/22 06:00 11/07/22 07:45 11/07/22 08:03 Temperature 97.8 F Pulse Rate 72 66 Respiratory Rate 16 Blood Pressure 131/47 L Pulse Oximetry 94 93 Oxygen Delivery Nasal Cannula Oxygen Flow Rate 3 Intake/Output Intake/Output: Intake & Output 11/04/22 11/05/22 11/06/22 11/07/22 23:59 23:59 23:59 23:59 Intake Total 4200 1290 2095 1180 Output Total 1350 1700 1100 1200 Balance 2850 -410 995 -20 Meds/Results Medications: Active Medications Generic Name Dose Route Start Last Admin Trade Name Freq PRN Reason Stop Dose Admin Acetaminophen 650 mg 11/06/22 05:19 11/07/22 08:02 Acetaminophen 325 Mg Tablet PO 650 mg Q4H PRN Administration Headache Alprazolam 0.5 mg 11/04/22 09:00 11/07/22 08:03 Alprazolam (*Crx) 0.5 Mg Tablet PO 0.5 mg TID DONAVAN Administration Citalopram Hydrobromide 40 mg 11/04/22 09:00 11/07/22 08:03 Citalopram Hydrobromide 20 Mg Tablet PO 40 mg DAILY DONAVAN Administration Dextrose 12.5 gm 11/04/22 07:34 Dextrose 50% 25 Gm/50 Ml Syringe IV PUSH PRN PRN Hypoglycemia Protocol Diltiazem HCl 240 mg 11/04/22 09:00 11/07/22 08:03 Diltiazem Hcl Cd 240 Mg Cap.Er.24h PO 240 mg DAILY DONAVAN Administration Doxazosin Mesylate 4 mg 11/04/22 09:00 11/07/22 08:03 Doxazosin Mesylate 4 Mg Tablet PO 4 mg DAILY DONAVAN Administration Duloxetine HCl 30 mg 11/04/22 09:00 11/07
[2022-11-07] MEDS: INSULIN ASPART (*BKC) 100 UNITS/ML SUB-Q (12:45)
[2022-11-07 14:00] VITALS: BP 126/58; PULSE 61; RESP 20; TEMP 36.9; O2SAT 94
[2022-11-07 17:36] LABS: Complement Total CH50 >60 U/mL (31-60)
[2022-11-07 18:22] LABS: Lambda Light Chain 29.8 mg/L (5.7-26.3)
== END 2022-11-07 15:42 | disposition home health service (06) ==
LOC: ANHED 11-04 03:46 → ANH2MED 11-04 05:02
PROVIDERS: Emergency Medicine; Nurse Practitioner; Admitting Provider Internal Medicine; Emergency Provider Nurse Practitioner Family; PCP Family Medicine; Visit Provider Physician Assistant
DX: N17.9 Acute kidney failure, unspecified (principal); E11.69 Type 2 diabetes mellitus with other specified complication; I11.0 Hypertensive heart disease with heart failure; I50.40 Unspecified combined systolic (congestive) and diastolic (congestive) heart failure; J44.9 Chronic obstructive pulmonary disease, unspecified; Z99.81 Dependence on supplemental oxygen; J96.10 Chronic respiratory failure, unspecified whether with hypoxia or hypercapnia; E87.5 Hyperkalemia; R79.9 Abnormal finding of blood chemistry, unspecified; J45.909 Unspecified asthma, uncomplicated; M19.012 Primary osteoarthritis, left shoulder; M19.011 Primary osteoarthritis, right shoulder; F31.9 Bipolar disorder, unspecified; E66.9 Obesity, unspecified; Z68.31 Body mass index [BMI] 31.0-31.9, adult; Z20.822 Contact with and (suspected) exposure to COVID-19; G47.33 Obstructive sleep apnea (adult) (pediatric); Z99.89 Dependence on other enabling machines and devices; E78.5 Hyperlipidemia, unspecified; N39.3 Stress incontinence (female) (male); K57.92 Diverticulitis of intestine, part unspecified, without perforation or abscess without bleeding; R79.89 Other specified abnormal findings of blood chemistry; R94.31 Abnormal electrocardiogram [ECG] [EKG]; N28.1 Cyst of kidney, acquired; E87.70 Fluid overload, unspecified; Z79.84 Long term (current) use of oral hypoglycemic drugs; Z79.51 Long term (current) use of inhaled steroids; Z79.899 Other long term (current) drug therapy
CPT/HCPCS: 36415; 76775; 80048; 80053; 81001; 82550; 82570; 82948; 83036; 83735; 83883; 83935; 84100; 84132; 84300; 84540; 85025; 85027; 86038; 86039; 86160; 86162; 87636; 93005; 93306; 94640; 96361; 96365; 96375; 99285; A9270; G0378; J0696; J1815; J2405; J7030

== ENCOUNTER 2023-06-24 10:11 | Emergency (ER) | payer MEDICARE, SELFPAY ==
[2023-06-24] VITALS (19 sets, daily range): BP systolic 114–133; BP diastolic 46–93; PULSE 63–75; RESP 15–33; TEMP 36.9; O2SAT 96–99
--- NOTE | ~2023-06-24 | CT_ITS ---
CT of the Abdomen and Pelvis: Indication: Abdominal Technique: 2.5 mm axial scans were obtained through the abdomen and pelvis following intravenous adm inistration of 100 cc of Omnipaque 350. Dose reduction technique was used on this scan by utilizing a utomated exposure control and iterative reconstruction technique. The dose-length product (DLP) was 1 068.06 mGy-cm. Findings: Scans through the lung bases demonstrate mild bibasilar atelectatic changes. The liver, spleen, pancreas, gallbladder, left adrenal gland, and left kidney are within normal limit s. 4 mm nonobstructing right renal stone present. Right renal cysts are present. Probable 1.7 cm righ t adrenal nodule, indeterminate. No evidence of aortic aneurysm. No lymphadenopathy. There is extensive diverticulosis of the descending and sigmoid colon. There is pericolic inflammator y stranding and minimal wall thickening of the distal descending colon, consistent with acute diverti culitis. No abscess or free air. No bowel obstruction. Images through the pelvis were performed. Urinary bladder unremarkable. No adnexal mass seen. No asci john. Impression: Acute diverticulitis at the distal descending colon. No abscess or free air. 4 mm nonobstructing right renal stone. 1.7 cm indeterminate right adrenal nodule. Consider follow-up MR to further assess for adenoma. Reviewed, dictated and finalized at [facility]. Impression: Acute diverticulitis at the distal descending colon. No abscess or free air. 4 mm nonobstructing right renal stone. 1.7 cm indeterminate right adrenal nodule. Consider follow-up MR to further ass ess for adenoma.
[2023-06-24 10:53] LABS: Basophils Absolute Auto 0.1 K/mm3 (0.0-0.1); Basophils Percent Auto 0.6 % (0.2-1.2); Eosinophils Absolute Auto 0.4 K/mm3 (0-0.3); Eosinophils Percent Auto 2.8 % (0-4.4); Hematocrit 32.8 % (37.0-47.0); Hemoglobin 10.2 g/dL (12.0-15.0); Immature Granulocyte Absolute 0.06 K/mm3 (0.00-0.031); Immature Granulocyte Percent A 0.5 % (0-0.5); Lymphocytes Absolute Auto 1.34 K/mm3 (0.9-3.2); Lymphocytes Percent Auto 10.3 % (18.3-44.2); Mean Corpuscular HGB Conc 31.1 g/dl (32-36); Mean Corpuscular Hemoglobin 31.1 pg (26-34); Mean Platelet Volume 10.8 fl (7.4-10.4); Monocytes Absolute Auto 1.1 K/mm3 (0.1-0.6); Neutrophils Absolute Auto 10.2 K/mm3 (1.3-6.7); Neutrophils Percent Auto 77.8 % (45.5-73.1); Platelet Count Result 200 k/mm3 (150-375); Red Blood Count 3.28 M/mm3 (4.2-5.4); Red Cell Distribution Width 13.4 % (11.5-14.5); White Blood Count 13.1 K/mm3 (4.5-10.0)
[2023-06-24 11:04] LABS: Alanine Aminotransferase 16 U/L (6-35); Alkaline Phosphatase 87 U/L (38-126); Anion Gap 9 mmol/L (8-16); Aspartate Amino Transferase 18 U/L (14-36); Bilirubin,Total 0.4 mg/dL (0.2-1.3); Blood Urea Nitrogen 24 mg/dL (7-17); Calcium 9.2 mg/dL (8.4-10.2); Carbon Dioxide 27 mmol/L (22-30); Chloride 104 mmol/L (98-107); Estimated CRCL calculation 35 ml/min; Estimated Glomerular Filt Rate 43; Glucose 188 mg/dL (65-110); Lipase 137 U/L (23-300); Potassium 4.3 mmol/L (3.4-5.0); Sodium 140 mmol/L (137-145)
--- NOTE | 2023-06-24 15:17 | ED.ABDPAIN ---
HPI - Abdominal Pain General Chief Complaint: Abdominal Pain Stated Complaint: abd pain Time Seen by Provider: 06/24/23 13:12 History of Present Illness HPI narrative: This is an 82-year-old female, with past history of COPD on 4 L of O2 at baseline, who presents to the emergency department complaining of left lower quadrant abdominal pain beginning this morning. The patient describes the pain as sharp and intermittently cramping, initially rated 10/10, now 2/10 without radiation. She denies any known aggravating or alleviating factors, nausea or vomiting. Related Data Home Medications Medication Instructions Recorded Confirmed citalopram 40 mg tablet 40 mg PO DAILY 10/14/19 04/08/23 duloxetine 30 mg capsule,delayed 30 mg PO Q12H 10/14/19 04/08/23 release (Cymbalta) liraglutide 0.6 mg/0.1 mL (18 mg/3 1.2 mg subcut HS 10/14/19 04/08/23 mL) subcutaneous pen injector (Getup Cloudza 3-Parveen) trazodone 150 mg tablet 150 mg PO HS 10/18/19 04/08/23 alprazolam 0.5 mg tablet 0.5 mg PO TID 10/04/20 04/08/23 mirtazapine 30 mg tablet 30 mg PO HS 05/05/21 04/08/23 bumetanide 1 mg tablet 1 mg PO DAILY 10/01/22 04/08/23 Tylenol 500 mg PO Q6-8H PRN Pain 11/04/22 04/08/23 albuterol sulfate 90 mcg/actuation 1 - 2 puff inhalation Q4-6H PRN 11/04/22 04/08/23 aerosol inhaler Shortness Of Breath doxazosin 4 mg tablet 4 mg PO DAILY 11/04/22 04/08/23 metoprolol succinate 25 mg 25 mg PO DAILY 11/04/22 04/08/23 tablet,extended release 24 hr Allergies Allergy/AdvReac Type Severity Reaction Status Date / Time codeine Allergy Unknown Not Verified 04/08/23 15:28 Entered,Upset Stomach Review of Systems Review of Systems: CONSTITUTIONAL: Denies fever, chills, or sweats. CARDIOVASCULAR: Denies chest pain, palpitations, or edema. RESPIRATORY: Denies cough or dyspnea. GASTROINTESTINAL: Left lower quadrant abdominal pain denies nausea, vomiting, or diarrhea. GENITOURINARY: Denies dysuria or hematuria. SKIN: Denies rash or itching. MUSCULOSKELETAL: Denies back pain, joint pain, or myalgia. NEUROLOGIC: Denies headache, numbness, dizziness, or weakness. PSYCHIATRIC: Denies anxiety or depression. [facility] Past Medical History Medical History Arthritis of both shoulder regions Asthma PFTs October 2019 demonstrated mild obstructive ventilatory impairment with mild air trapping and moderate diffusion impairment no response to bronchodilator Basal cell carcinoma (BCC) in situ of skin Bipolar disorder Cancer of skin (~08/20/12) Cellulitis of right ear Chronic obstructive pulmonary disease Depression Diverticulitis Esophageal stricture Essential hypertension Hyperlipidemia Insomnia Ischemia Chronically false-positive stress test with last stress test 2006 Obesity (BMI 30-39.9) Obstructive sleep apnea With BiPAP 14/10 Pleural effusion Recurrent falls Rhinitis Type 2 diabetes mellitus without complication, without long-term current use of insulin Urinary incontinence Stress urinary incontinence Volume overload Surgical History Surgical History History of bladder suspension procedure X2 History of tonsillectomy Hx of cardiac cath Hx of hysterectomy, total Status post cataract extraction of both eyes with insertion of intraocular lens Family History Family History Son Hypertension Other Adopted Family history unknown Social History Social History Social History: She is . She lives in her own home until earlier this month. She has a Renter who lives in her basement and helps drive her to appointments or to the store. She has 6 children. 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 Primary care physician: Dr. Debo Mckoy Code status: Full code (the patient would not want tracheosto
== END 2023-06-24 15:49 | disposition home or self-care (01) ==
PROVIDERS: General Practice; Emergency Provider Preventive Medicine Aerospace Medicine; PCP Family Medicine
DX: K57.32 Diverticulitis of large intestine without perforation or abscess without bleeding (principal); R10.32 Left lower quadrant pain; J45.909 Unspecified asthma, uncomplicated; F32.A Depression, unspecified; I10 Essential (primary) hypertension; E11.9 Type 2 diabetes mellitus without complications
CPT/HCPCS: 36415; 74177; 80053; 83690; 85025; 99284; Q9967

== ENCOUNTER 2024-04-01 15:53 | Outpatient (CLI) | payer MEDICARE, SELFPAY ==
--- NOTE | ~2024-04-01 | XR_ITS ---
XR chest 2V 04/01/2024 16:27 Indication: Oxygen dependent Procedure: 2 view chest Comparison: Comparison to multiple prior studies sequentially, with oldest reviewed study dated 12/22. Findings: Right basilar atelectasis. Cardiomegaly. Pulmonary vascular congestion. Impression: 1: Cardiomegaly with mild pulmonary vascular congestion. 2: Right basilar atelectasis. Reviewed, dictated and finalized at location B. Impression: 1: Cardiomegaly with mild pulmonary vascular congestion. 2: Right basilar atelectasis.
== END 2024-04-01 15:54 | disposition home or self-care (01) ==
LOC: ANHIMG 15:57
PROVIDERS: PCP Family Medicine; Visit Provider Internal Medicine
DX: Z99.81 Dependence on supplemental oxygen (principal); I51.7 Cardiomegaly; R91.8 Other nonspecific abnormal finding of lung field
CPT/HCPCS: 71046

== ENCOUNTER 2024-04-04 15:45 | Inpatient (IN) | payer MEDICARE, SELFPAY ==
--- NOTE | ~2024-04-04 | XR_ITS ---
EXAMINATION: XR chest 2V DATE: 04/07/2024 14:25 INDICATION: Dyspnea. TECHNIQUE: Frontal and lateral views of the chest were obtained. COMPARISON: Chest 2 views 04/04/2024, CT abdomen and pelvis 06/24/2023 FINDINGS: There is mild atelectasis in left lower lobe. No pleural effusion or pneumothorax. Cardiome tino is noted. There are prominent pericardial fat pads. IMPRESSION: 1. Mild atelectasis in left lower lobe. 2. Cardiomegaly. Reviewed, dictated and finalized at location A.
--- NOTE | ~2024-04-04 | XR_ITS ---
EXAMINATION: XR chest 2V Exam Date/Time: 04/04/2024 18:10 CDT HISTORY: sob/bradycardia Comparison: 04/01/2024. RESULT: Lines, tubes, and devices: None. Lungs and pleura: Increasing ill-defined hazy opacification in the bilateral lower lungs. Stable mil d left costophrenic angle blunting. Cardiomediastinal silhouette: Stable. Other: No acute osseous or upper abdominal finding. Calcific tendinitis in the right shoulder. IMPRESSION: Worsening bibasilar pulmonary opacities may represent atelectasis or consolidation. Small left pleura l effusion. Reviewed, dictated and finalized at location K. IMPRESSION: Worsening bibasilar pulmonary opacities may represent atelectasis or consolidat ion. Small left pleural effusion.
[2024-04-04 16:02] VITALS: BP 122/87; PULSE 53; RESP 20; TEMP 36.5; O2SAT 92
--- NOTE | 2024-04-04 17:46 | ED.SOB ---
HPI - SOB/Dyspnea General Chief Complaint: Shortness of Breath/Dyspnea <Matthew Orellana APRN - Last Filed: 04/04/24 17:48> Stated Complaint: hypoxia <Matthew Orellana APRN - Last Filed: 04/04/24 17:48> Time Seen by Provider: 04/04/24 17:45 <Matthew Orellana APRN - Last Filed: 04/04/24 17:48> Focused HPI: María is an 83-year-old female patient presenting to the ER today with complaints of shortness of breath and low heart rate. She reports she becomes severe short of breath and her heart rate dips in the 40s when she gets up and move. Has had an increase in her metoprolol approximately 2 weeks ago but patient states she has only taken this for 3 doses. She is taking 100 mg metoprolol now. History of congestive heart failure. Dr. Carbone is her trucking contractor and Dr. Linares is her personal lines sales executive. General: Well-developed, well nourished, in no apparent distress Head: Normocephalic, atraumatic. Cardio: Bradycardic rate and rhythm, s1 and s2 normal, no murmur appreciated. Resp: Crackles in the lower bases, no rhonchi, wheezing or rubs. Extremities: No deformity, 2+ pitting edema in the lower extremities, no cyanosis, capillary refill less than 2 seconds, peripheral pulses palpable and strong. Integumentary: [place], warm, and dry, intact without lesion, no rashes. Patient screened in triage and initial orders placed. Additional care and disposition to be based upon diagnostic testing and treatment. <Matthew Orellana APRN - Last Filed: 04/04/24 17:48> Source: patient <Matthew Orellana APRN - Last Filed: 04/04/24 17:48> Mode of arrival: ambulatory <Matthew Orellana APRN - Last Filed: 04/04/24 17:48> Limitations: no limitations <Matthew Orellana APRN - Last Filed: 04/04/24 17:48> History of Present Illness HPI Narrative: He patient is a 83-year-old female who presents emergency department with chief complaint of shortness of breath. Patient reports that she has been noticing her heart rate dropped down in the 40s she has had her metoprolol increased recently about 2 weeks ago to 100 mg patient has prior history of congestive heart failure and takes spironolactone patient states that she has maybe missed few doses of her spironolactone patient states that her shortness of breath is worse with ambulation reports she has had some peripheral edema. The patient reports she normally wears 2 L of nasal cannula oxygen but has had increased to 3 L <Sang Herrera MD - Last Filed: 04/04/24 21:50> Related Data Home Medications: Home Medications Medication Instructions Recorded Confirmed citalopram 40 mg tablet 40 mg PO DAILY 10/14/19 03/30/24 duloxetine 30 mg capsule,delayed 30 mg PO Q12H 10/14/19 03/30/24 release (Cymbalta) liraglutide 0.6 mg/0.1 mL (18 mg/3 1.2 mg subcut HS 10/14/19 03/30/24 mL) subcutaneous pen injector (Victoza 3-Parveen) trazodone 150 mg tablet 150 mg PO HS 10/18/19 03/30/24 alprazolam 0.5 mg tablet 0.5 mg PO TID 10/04/20 03/30/24 bumetanide 1 mg tablet 1 mg PO DAILY 10/01/22 03/30/24 Tylenol 500 mg PO Q6-8H PRN Pain 11/04/22 03/30/24 metoprolol succinate 25 mg 25 mg PO DAILY 11/04/22 03/30/24 tablet,extended release 24 hr <Matthew Orellana APRN - Last Filed: 04/04/24 17:48> Allergies/Adverse Reactions: Allergies Allergy/AdvReac Type Severity Reaction Status Date / Time codeine Allergy Unknown Not Verified 03/30/24 15:35 Entered,Upset Stomach <Matthew Orellana APRN - Last Filed: 04/04/24 17:48> Review of Systems Review of Systems: A 10 system review of systems was completed on the patient and is negative except for what is stated in the HPI. Nursing and ancillary documentation was reviewed. <Sang Herrera MD - Last Filed: 04/04/24 21:50> [facility] Past Medical History Medical History: Medical History Leonora
--- NOTE | 2024-04-04 17:49 | ECG_ITS ---
SEE SCANNED COPY FOR CONFIRMED REPORT. MTDD
[2024-04-04 18:15] LABS: Basophils Absolute Auto 0.1 K/mm3 (0.0-0.1); Basophils Percent Auto 0.8 % (0.2-1.2); Eosinophils Absolute Auto 0.3 K/mm3 (0-0.3); Eosinophils Percent Auto 5.3 % (0-4.4); Hematocrit 35.8 % (37.0-47.0); Hemoglobin 10.4 g/dL (12.0-15.0); Immature Granulocyte Absolute 0.04 K/mm3 (0.00-0.031); Immature Granulocyte Percent A 0.6 % (0-0.5); Lymphocytes Percent Auto 20.2 % (18.3-44.2); Mean Corpuscular HGB Conc 29.1 g/dl (32-36); Mean Corpuscular Hemoglobin 29.8 pg (26-34); Mean Corpuscular Volume 102.6 fl (80-100); Mean Platelet Volume 11.1 fl (7.4-10.4); Monocytes Absolute Auto 0.6 K/mm3 (0.1-0.6); Monocytes Percent Auto 8.7 % (2.6-8.5); Neutrophils Absolute Auto 4.2 K/mm3 (1.3-6.7); Neutrophils Percent Auto 64.4 % (45.5-73.1); Platelet Count Result 165 k/mm3 (150-375); Red Blood Count 3.49 M/mm3 (4.2-5.4); Red Cell Distribution Width 13.5 % (11.5-14.5); White Blood Count 6.5 K/mm3 (4.5-10.0)
[2024-04-04 18:25] LABS: Alanine Aminotransferase 10 U/L (6-35); Albumin Level 4.4 g/dL (3.5-5.1); Alkaline Phosphatase 81 U/L (38-126); Anion Gap 8 mmol/L (4-12); Aspartate Amino Transferase 17 U/L (14-36); Bilirubin,Total 0.4 mg/dL (0.2-1.3); Blood Urea Nitrogen 23 mg/dL (7-17); Carbon Dioxide 31 mmol/L (22-30); Chloride 106 mmol/L (98-107); Estimated CRCL calculation 34 ml/min; Estimated Glomerular Filt Rate 43; Glucose 118 mg/dL (65-110); Potassium 4.2 mmol/L (3.4-5.0); Sodium 145 mmol/L (137-145)
[2024-04-04 18:26] LABS: Prothrombin Time 13.5 Seconds (11.1-14.7)
[2024-04-04 18:27] LABS: Partial Thromboplastin Time 30.1 Seconds (22.3-36.8)
[2024-04-04 18:37] LABS: NT Pro B Type Natriuretic Pept 4320 pg/mL (19.9-100); Troponin I < 0.012 ng/mL (0.000-0.034)
[2024-04-04 18:45] LABS: Platelet Estimate Adequate (Adequate)
[2024-04-04 18:46] LABS: Hypochromasia 1+; Schistocytes None Seen
[2024-04-04] MEDS: FUROSEMIDE INJ 40 MG/4 ML VIAL IV PUSH (20:36)
[2024-04-04 20:48] VITALS: BP 154/49; PULSE 63; RESP 13; O2SAT 97
[2024-04-04 21:00] VITALS: O2SAT 95
[2024-04-04 21:34] LABS: Alveolar/Arterial O2 Gradient 111.5 mmHg; Fractional Inspired Oxygen 36 %; Oxygen Content ABG 14.5 %vol (16.0-22.0); Oxygen Saturation ABG 90.9 % (95.0-100.0); Oxyhemoglobin 92.5 % THb (90.0-100.0); PO2 ABG 67.7 mmHg (80.0-100.0); PO2 FiO2 Ratio Arterial Blood 1.88 %; Total Hemoglobin 11.1 g/dL (12.0-18.0)
[2024-04-04 21:35] LABS: pH ABG 7.298 (7.350-7.450)
[2024-04-04 21:36] LABS: Device NASAL CANNULA; Modified Allen's Test Pass; PCO2 ABG 66.8 mmHg (35.0-45.0); Site Drawn RIGHT RADIAL
[2024-04-04 21:45] VITALS: PULSE 60; RESP 24; O2SAT 97
[2024-04-04] MEDS: methylPREDNISolone SOD SUCC 125 MG VIAL IV PUSH (22:33)
[2024-04-04 23:34] VITALS: BP 140/58; PULSE 57; RESP 18; O2SAT 97
[2024-04-04 23:45] VITALS: PULSE 65; RESP 21; O2SAT 96
--- NOTE | 2024-04-04 23:52 | ADMGEN ---
This patient, María Faith, was admitted to IMU Room 200-01. Patient/family oriented to hospital policies and general routines including ID bracelet, bed and alarms, visiting hours, pain management, procedures, bathroom and other care routines, personal items, smoking policy, room service/diet, and visiting hours. Information on how to activate the Rapid Response Team has been discussed. Patient/Family are encouraged to report perceived risks to care and to ask questions if they do not understand what they are told or what they should do.
[2024-04-04 23:58] VITALS: BMI 36.8
[2024-04-05] VITALS (27 sets, daily range): BP systolic 112–146; BP diastolic 50–85; PULSE 58–87; RESP 16–26; TEMP 35.8–36.8; O2SAT 89–99; BMI 36.8
--- NOTE | 2024-04-05 | ECHO_ITS ---
Patient Info Name: María Faith Age: 83 years : 1940 Gender: Female Ht: 62 in Wt: 199 lbs BSA: 2.03 m2 HR: 72 bpm BP: 131 / 56 mmHg Heart Rhythm: Sinus Rhythm Technical Quality: Fair Exam Date: 04/05/2024 10:52 AM Exam Location: Echo Lab Patient Status: Inpatient Admit Date: 04/04/2024 Staff Ordering Physician: Elena Vaughan APRN Lifestyle Consultant: Trisha Winter RDCS Attending Provider: Cara Huynh DO Referring Physician: Clement PFEIFFER; Exam Type: CA echo doppler color flow Study Info Indications I50.9 - Heart failure, unspecified Complete two-dimensional, color flow and Doppler transthoracic echocardiogram is performed. Summary 1. Left ventricular chamber dimension is moderately enlarged. 2. Left ventricular systolic function is mildly reduced, estimated at 45-50%. 3. The left ventricular diastolic function is grade I diastolic dysfunction. 4. Right ventricular chamber dimension is mildly enlarged. 5. Right ventricular systolic function is normal. 6. Left atrial chamber dimension is moderately enlarged. 7. There is mild mitral valve regurgitation. 8. There is mild tricuspid valve regurgitation. Left Ventricle Left ventricular chamber dimension is moderately enlarged. Left ventricular systolic function is mildly reduced, estimated at 45-50%. There is no increased left ventricular wall thickness. The left ventricular diastolic function is grade I diastolic dysfunction. Right Ventricle Right ventricular chamber dimension is mildly enlarged. Right ventricular systolic function is normal. Left Atria Left atrial chamber dimension is moderately enlarged. Right Atria Right atrial chamber dimension is normal. Atrial Septum Intact interatrial septum visualized by color flow imaging. Aortic Valve The aortic valve is trileaflet. There is no aortic valve stenosis. There is no aortic valve regurgitation. There is mild aortic valve calcification. Pulmonic Valve The pulmonic valve is not well visualized. Mitral Valve There is mild mitral valve regurgitation. Tricuspid Valve There is mild tricuspid valve regurgitation. Pericardium/Pleural There is no pericardial effusion. Inferior Vena Cava Normal inferior vena cava with >50% collapse upon inspiration consistent with normal right atrial pressure, 3 mmHg. Aorta The aortic root size at the sinus of Valsalva is normal. Left Ventricular Outflow Tract Name Value Normal LVOT 2D LVOT Diameter 1.9 cm LVOT Doppler LVOT Peak Gradient 8 mmHg LVOT Mean Gradient 4 mmHg LVOT VTI 31 cm LVOT VTI/AV VTI Ratio 0.6 LVOT Stroke Volume 84 ml LVOT CO 5.8 l/min LVOT CI 2.9 l/min/m2 Pulmonic Valve Name Value Normal RVOT Doppler RVOT Peak Gradient 4 mmHg
[2024-04-05 01:25] LABS: Troponin I < 0.012 ng/mL (0.000-0.034)
--- NOTE | 2024-04-05 02:17 | PM.IMHP ---
H&P: HPI History of Present Illness Date/Time: 04/05/24 02:17 Chief Complaint: Shortness of breath Narrative: 83-year-old female with a past medical history of chronic hypoxic hypercapnic respiratory failure, chronic kidney disease stage 3, CHF, obesity, essential hypertension and diabetes among other comorbidities who presented to the ER for shortness of breath and low oxygen saturations. She states that she has been feeling short of breath and not quite right for a couple of weeks. Symptoms have been worsening. Her oxygen saturations have been down to the 60s with activity in down to the 70s with rest. She is usually on 2 L oxygen at home at rest and 3 L with activity. She has increased her home oxygen up to 3 L with no improvement in her symptoms. She was evaluated by her Cardiology Dr. Carbone the 2 weeks ago when we had her metoprolol increased to 100 mg. Since that time her heart rates have been going down into the 40s. She reports that she had been compliant with low-sodium diet and has been on a low-sodium diet for many years. She wears her BiPAP religiously settings of 15/11 with bleed in oxygen. She reports that if she is at rest she does not really feel much more short of breath than at her baseline. Her swelling in her legs may be element worse than baseline. She admits she may have missed 1 or 2 doses of her spironolactone 12.5 mg. She denies any chest pain or palpitations. She denies orthopnea. She thinks that her abdomen is a little bit more bloated than baseline. She has had a mild cough but denies any congestion, fevers or chills. She denies any ill contacts. She reports that she always wears her BiPAP at night. In the ER patient was given a dose of Lasix. However serum bicarb on her BMP was elevated. I requested ABG which demonstrated acute on chronic hypoxic hypercapnic respiratory failure. The patient was placed on BiPAP with settings of 12/6 with a rate of 12. After patient arrived to the intermediate unit I went and evaluated patient's BiPAP and she was only pulling tidal volumes of [id number]. I increase the patient's settings to 14/6 and rate of 16. Repeat ABG demonstrated worsening respiratory acidosis with worsening pCO2. Subsequently a went and evaluated the patient. She denied any increased shortness of breath or symptoms of confusion or increased fatigue. She states that if she is at rest she is not short of breath. Actually did remove the patient's BiPAP for a minute or so to allow her more comfort answer some questions due to the BiPAP loud due to leak. In under 2 minutes the patient's oxygen saturations had dropped to the upper 60s. The patient did not report any increased shortness of breath at that time. She did recover quickly when BiPAP was replaced. BiPAP settings was increased to 20/8 with a rate of 22 when repeat ABG results were reviewed. Repeat ABG at that time demonstrated pH of 7.33 pCO2 of 57 and PO2 of 76 which is more along the patient's baseline. Scheduled nebulizers and Solu-Medrol was added to the patient's medication regimen. Review of Systems Review of Systems: 12 systems were reviewed with pertinent positives and negatives per HPI. Except as documented in the HPI, all other systems were reviewed and are negative. [facility] Past Medical History Medical History (Updated 04/05/24 @ 02:24 by Cara Huynh DO) Arthritis of both shoulder regions Asthma PFTs October 2019 demonstrated mild obstructive ventilatory impairment with mild air trapping and moderate diffusion impairment no response to bronchodilator Basal cell carcinoma (BCC) in situ of skin Bipolar disorder Cancer of skin (~08/20/12) Cellulitis of right ear Chronic obstructive pulmonary disease Patient reports history of asthma Combined systolic and diastolic congestive heart failure Depression Diverticulitis Esophageal stricture Essential hypertension Hyperlipidemia Insomnia Ischemia Chronically false-positive stre
[2024-04-05] MEDS: IPRATROPIUM 0.5 MG/ALBUTEROL SULFATE 2.5 MG AMPUL.NEB 3 ML INHALATION ×4 (02:25→20:00)
[2024-04-05 02:52] LABS: Alveolar/Arterial O2 Gradient 113.6 mmHg; Base Excess ABG 2.7 mEq/l (+/-2.0); Carboxyhemoglobin 0.3 % THb (0-2.0); Fractional Inspired Oxygen 36 %; HCO3 ABG 30.8 mEq/l (22.0-26.0); Methemoglobin ABG 0.1 %THb (0-1.5); Oxygen Content ABG 14.7 %vol (16.0-22.0); Oxygen Saturation ABG 90.1 % (95.0-100.0); Oxyhemoglobin 90.7 % THb (90.0-100.0); PO2 ABG 66.2 mmHg (80.0-100.0); PO2 FiO2 Ratio Arterial Blood 1.84 %; Reduced Hemoglobin 8.9 %THb (0-5.0); Total Hemoglobin 11.5 g/dL (12.0-18.0)
[2024-04-05 02:55] LABS: pH ABG 7.285 (7.350-7.450)
[2024-04-05 02:56] LABS: PCO2 ABG 66.3 mmHg (35.0-45.0)
[2024-04-05 02:58] LABS: Device BIPAP; Modified Allen's Test Pass; Site Drawn RIGHT BRACHIAL
[2024-04-05 03:04] LABS: Expiratory Pressure 6 cmH2O; Inspiratory Pressure 14 cmH2O
[2024-04-05 04:12] LABS: Anion Gap 7 mmol/L (4-12); Blood Urea Nitrogen 27 mg/dL (7-17); Calcium 9.1 mg/dL (8.4-10.2); Carbon Dioxide 31 mmol/L (22-30); Chloride 105 mmol/L (98-107); Estimated CRCL calculation 32 ml/min; Estimated Glomerular Filt Rate 39; Glucose 265 mg/dL (65-110); Potassium 4.3 mmol/L (3.4-5.0); Sodium 143 mmol/L (137-145)
[2024-04-05 04:25] LABS: Troponin I < 0.012 ng/mL (0.000-0.034)
[2024-04-05 05:21] LABS: Alveolar/Arterial O2 Gradient 106.2 mmHg; Fractional Inspired Oxygen 35 %; HCO3 ABG 29.8 mEq/l (22.0-26.0); Oxygen Content ABG 14.6 %vol (16.0-22.0); Oxygen Saturation ABG 94.3 % (95.0-100.0); Oxyhemoglobin 93.7 % THb (90.0-100.0); PCO2 ABG 57.2 mmHg (35.0-45.0); PO2 ABG 76.9 mmHg (80.0-100.0); pH ABG 7.335 (7.350-7.450)
[2024-04-05 05:21] LABS: Folic Acid > 20.0 ng/mL (2.76->20)
[2024-04-05 05:23] LABS: Device BIPAP; Modified Allen's Test Pass; Site Drawn RIGHT BRACHIAL
[2024-04-05 05:24] LABS: Expiratory Pressure 8 cmH2O; Inspiratory Pressure 20 cmH2O
[2024-04-05] MEDS: methylPREDNISolone SOD SUCC 125 MG VIAL 60 MG IV PUSH (05:56)
[2024-04-05 07:41] LABS: Glucose Point of Care 231 mg/dl (65-105)
[2024-04-05] MEDS: dilTIAZem HCL CD 240 MG CAP.24HR PO (08:08)
[2024-04-05] MEDS: DULoxetine HCL 30 MG CAPSULE.DR 60 MG PO (08:08)
[2024-04-05] MEDS: ALPRAZolam (*CRX) 0.5 MG TABLET PO ×3 (08:09→16:26)
[2024-04-05] MEDS: glipiZIDE XL 5 MG TABCR 10 MG PO (08:09)
[2024-04-05] MEDS: METOPROLOL SUCCINATE EXT REL 100 MG TABCR PO (08:09)
[2024-04-05] MEDS: PRAVASTATIN SODIUM 20 MG TABLET 40 MG PO (08:09)
[2024-04-05] MEDS: FLUTICASONE PROPIONATE 0.05% NA SPR 16 GM BTL (*BKC) 1 SPRAY NASAL (08:10)
[2024-04-05] MEDS: PANTOPRAZOLE 40 MG TABLET PO ×2 (08:10→20:47)
[2024-04-05] MEDS: DOXAZOSIN MESYLATE 4 MG TABLET PO (08:10)
[2024-04-05] MEDS: MIRTAZAPINE 30 MG TABLET PO (08:10)
[2024-04-05] MEDS: FUROSEMIDE INJ 40 MG/4 ML VIAL IV PUSH ×2 (08:11→16:26)
[2024-04-05] MEDS: INSULIN ASPART (*BKC) 100 UNITS/ML SUB-Q ×2 (08:21→12:27)
--- NOTE | 2024-04-05 09:26 | P.PNIM_ITS ---
Progress Note: A&P Assessment and Plan (1) Obstructive sleep apnea: Code(s): G47.33 - Obstructive sleep apnea (adult) (pediatric) Status: Acute (2) Acute on chronic respiratory failure with hypoxia and hypercapnia: Code(s): J96.21 - Acute and chronic respiratory failure with hypoxia; J96.22 - Acute and chronic respiratory failure with hypercapnia Status: Acute (3) Acute exacerbation of CHF (congestive heart failure): Qualifiers: Heart failure type: combined systolic and diastolic Qualified Code(s): I50.43 - Acute on chronic combined systolic (congestive) and diastolic (congestive) heart failure Code(s): I50.9 - Heart failure, unspecified Status: Acute (4) Acute on chronic renal failure: Code(s): N17.9 - Acute kidney failure, unspecified; N18.9 - Chronic kidney disease, unspecified Status: Acute (5) Diabetes mellitus type 2 in obese: Code(s): E11.69 - Type 2 diabetes mellitus with other specified complication; E66.9 - Obesity, unspecified Status: Acute (6) Hyperlipidemia: Qualifiers: Hyperlipidemia type: unspecified Qualified Code(s): E78.5 - Hyperlipidemia, unspecified Code(s): E78.5 - Hyperlipidemia, unspecified Status: Acute (7) Primary hypertension: Code(s): I10 - Essential (primary) hypertension Status: Acute (8) Obesity (BMI 30-39.9): Code(s): E66.9 - Obesity, unspecified Status: Acute (9) Bipolar disorder: Qualifiers: Active/Remission status: remission status unspecified Qualified Code(s): F31.9 - Bipolar disorder, unspecified Code(s): F31.9 - Bipolar disorder, unspecified Status: Acute Plan Acute on chronic respiratory failure with hypoxia and hypercapnia * Multifocal respiratory failure with acute on chronic heart failure and COPD exacerbation * Bronchodilators. * Chest x-ray: Worsening bibasilar pulmonary opacities may represent atelectasis or consolidation. Small left pleural effusion. * incentive spirometry while awake. * steroids IV switched to daily prednisone * azithromycin 500 x 1 day/250 daily * supplemental oxygen therapy to maintain oxygen 92% * BIPAP at night * Pulmonary rehab encouraged * Disease management following GOLD guidelines. * Repeat hospitalization risk evaluation per [facility] * on 2L NC supplemental oxygen * Follow-up with senior energy analyst as an outpatient Acute on chronic combined systolic and diastolic heart failure * BNP 4320 * IV Lasix b.i.d. * Resume spironolactone * monitor renal function during diuresis * previous echocardiogram: LVEF 45-50%, mild MR, mild TR * echocardiogram pending * EKG 1 degree block SR * chest x-ray: Worsening bibasilar pulmonary opacities may represent atelectasis or consolidation. Small left pleural effusion. * Resume Cardizem and metoprolol * Daily weight. * fluid restriction * elevate/Lalito wrap legs if needed * Fall risk assessment. Acute on chronic renal failure * Stage III * Monitor closely hold diuresis * CR 1.3 close to basline * Avoid nephrotoxic drugs. * Monitor antihypertensive drug therapy. * Avoid NSAIDs. * Routine CMP monitoring GFR. * Monitor electrolytes especially potassium. * Antibiotic doses depending on creatinine clearance. * Pharmacy does medications. Diabetes * Accu-Cheks a.c. HS * sliding scale insulin moderate does need increased due to steroid use * hold oral diabetic medications/glipizide * resume patient's home long-acting * Diabetic diet * e
--- NOTE | 2024-04-05 09:26 | PM.IMPN ---
Progress Note: A&P Assessment and Plan (1) Obstructive sleep apnea: Code(s): G47.33 - Obstructive sleep apnea (adult) (pediatric) Status: Acute (2) Acute on chronic respiratory failure with hypoxia and hypercapnia: Code(s): J96.21 - Acute and chronic respiratory failure with hypoxia; J96.22 - Acute and chronic respiratory failure with hypercapnia Status: Acute (3) Acute exacerbation of CHF (congestive heart failure): Qualifiers: Heart failure type: combined systolic and diastolic Qualified Code(s): I50.43 - Acute on chronic combined systolic (congestive) and diastolic (congestive) heart failure Code(s): I50.9 - Heart failure, unspecified Status: Acute (4) Acute on chronic renal failure: Code(s): N17.9 - Acute kidney failure, unspecified; N18.9 - Chronic kidney disease, unspecified Status: Acute (5) Diabetes mellitus type 2 in obese: Code(s): E11.69 - Type 2 diabetes mellitus with other specified complication; E66.9 - Obesity, unspecified Status: Acute (6) Hyperlipidemia: Qualifiers: Hyperlipidemia type: unspecified Qualified Code(s): E78.5 - Hyperlipidemia, unspecified Code(s): E78.5 - Hyperlipidemia, unspecified Status: Acute (7) Primary hypertension: Code(s): I10 - Essential (primary) hypertension Status: Acute (8) Obesity (BMI 30-39.9): Code(s): E66.9 - Obesity, unspecified Status: Acute (9) Bipolar disorder: Qualifiers: Active/Remission status: remission status unspecified Qualified Code(s): F31.9 - Bipolar disorder, unspecified Code(s): F31.9 - Bipolar disorder, unspecified Status: Acute Plan Acute on chronic respiratory failure with hypoxia and hypercapnia Multifocal respiratory failure with acute on chronic heart failure and COPD exacerbation Bronchodilators. Chest x-ray: Worsening bibasilar pulmonary opacities may represent atelectasis or consolidation. Small left pleural effusion. incentive spirometry while awake. steroids IV switched to daily prednisone azithromycin 500 x 1 day/250 daily supplemental oxygen therapy to maintain oxygen 92% BIPAP at night Pulmonary rehab encouraged Disease management following GOLD guidelines. Repeat hospitalization risk evaluation per [facility] on 2L NC supplemental oxygen Follow-up with seed cleaning machine operator as an outpatient Acute on chronic combined systolic and diastolic heart failure BNP 4320 IV Lasix b.i.d. Resume spironolactone monitor renal function during diuresis previous echocardiogram: LVEF 45-50%, mild MR, mild TR echocardiogram pending EKG 1 degree block SR chest x-ray: Worsening bibasilar pulmonary opacities may represent atelectasis or consolidation. Small left pleural effusion. Resume Cardizem and metoprolol Daily weight. fluid restriction elevate/Lalito wrap legs if needed Fall risk assessment. Acute on chronic renal failure Stage III Monitor closely hold diuresis CR 1.3 close to basline Avoid nephrotoxic drugs. Monitor antihypertensive drug therapy. Avoid NSAIDs. Routine CMP monitoring GFR. Monitor electrolytes especially potassium. Antibiotic doses depending on creatinine clearance. Pharmacy does medications. Diabetes Accu-Cheks a.c. HS sliding scale insulin moderate does need increased due to steroid use hold oral diabetic medications/glipizide resume patient's home long-acting Diabetic diet encourage lifestyle modifications and weight loss Optimize Lalito inhibitors and statins. Watch for hypoglycemia/hypoglycemic protocol ordered Dysphagia Patient with previous history of esophageal dilation Seen by speech therapy Patient reports inability to swallow food GI consulted for possible EGD Obesity encourage increased on physical activity and lifestyle modifications Stress monitoring and eating disorder evaluation. encourage outp
[2024-04-05 09:35] LABS: Hematocrit 34.7 % (37.0-47.0); Hemoglobin 10.3 g/dL (12.0-15.0); Mean Corpuscular HGB Conc 29.7 g/dl (32-36); Mean Corpuscular Hemoglobin 29.9 pg (26-34); Mean Corpuscular Volume 100.9 fl (80-100); Mean Platelet Volume 12.4 fl (7.4-10.4); Platelet Count Result 151 k/mm3 (150-375); Red Blood Count 3.44 M/mm3 (4.2-5.4); Red Cell Distribution Width 13.6 % (11.5-14.5); White Blood Count 8.7 K/mm3 (4.5-10.0)
[2024-04-05 09:51] LABS: Alanine Aminotransferase 11 U/L (6-35); Albumin Level 4.1 g/dL (3.5-5.1); Alkaline Phosphatase 90 U/L (38-126); Aspartate Amino Transferase 18 U/L (14-36); Bilirubin,Total 0.4 mg/dL (0.2-1.3); Magnesium 1.8 mg/dL (1.6-2.3)
[2024-04-05] MEDS: SPIRONOLACTONE 12.5 MG TABLET PO (10:30)
[2024-04-05] MEDS: AZITHROMYCIN 500 MG/NS 250 ML 500 MG/250 ML BAG 250 MG IVPB (10:30)
[2024-04-05 11:46] LABS: Glucose Point of Care 364 mg/dl (65-105)
--- NOTE | 2024-04-05 13:08 | PCSTNOTE ---
Please refer to the Bedside Swallow Evaluation in the EMR. Please note, silent aspiration cannot be ruled out at bedside. The above pleasant and cooperative pt was seen for a swallow evaluation at bedside. The pt was positioned upright in a chair. She was alert & oriented and able to follow commands. She is currently on a regular diet and denies dysphagia in a choking sense but did report regurgitation. She stated she had an esophageal dilation about 1 year and a half ago which she felt helped. She reports the regurgitation is getting bad again . Oral mucosa is normal; natural dentition is in fair condition (many missing lower teeth). No lower dentures. Oral peripheral exam revealed lingual and labial structures to be normal. She was able to dry swallow on command and exhibited a strong cough and clear vocal quality. She was tested with applesauce, cracker and thin liquids. Pt was able to feed herself for the exam. The oral stages appeared WNL. No oral leakage or pocketing was noted. During the pharyngeal stage, swallow reflex appeared prompt & laryngeal elevation adequate. No overt s/s of aspiration were exhibited; however, pt exhibited regurgitation of the water a couple minutes after the trial. General impression: suspect functional pharyngeal stage of the swallow but suspect esophageal stage difficulty. Recommendation: GI consult. Refer back to ST after GI consult if appropriate. Thank you for this referral.
[2024-04-05 16:17] LABS: Glucose Point of Care 408 mg/dl (65-105)
[2024-04-05] MEDS: INSULIN ASPART (*BKC) 100 UNITS/ML 10 UNITS SUB-Q (16:45)
[2024-04-05] MEDS: LORATADINE 10 MG TABLET PO (20:47)
[2024-04-05] MEDS: traZODone HCL 50 MG TABLET 300 MG PO (20:47)
[2024-04-05] MEDS: MONTELUKAST SODIUM 10 MG TABLET PO (20:48)
[2024-04-05 20:51] LABS: Glucose Point of Care 276 mg/dl (65-105)
[2024-04-06] VITALS (31 sets, daily range): BP systolic 129–171; BP diastolic 46–81; PULSE 49–76; RESP 16–23; TEMP 36.1–37; O2SAT 93–99
[2024-04-06] MEDS: IPRATROPIUM 0.5 MG/ALBUTEROL SULFATE 2.5 MG AMPUL.NEB 3 ML INHALATION ×4 (02:10→20:46)
[2024-04-06 04:40] LABS: Hematocrit 30.1 % (37.0-47.0); Mean Corpuscular HGB Conc 29.9 g/dl (32-36); Mean Corpuscular Hemoglobin 29.7 pg (26-34); Mean Corpuscular Volume 99.3 fl (80-100); Mean Platelet Volume 11.8 fl (7.4-10.4); Platelet Count Result 142 k/mm3 (150-375); Red Blood Count 3.03 M/mm3 (4.2-5.4); Red Cell Distribution Width 13.2 % (11.5-14.5); White Blood Count 6.3 K/mm3 (4.5-10.0)
[2024-04-06 05:00] LABS: Alanine Aminotransferase 10 U/L (6-35); Albumin Level 3.9 g/dL (3.5-5.1); Alkaline Phosphatase 69 U/L (38-126); Anion Gap 4 mmol/L (4-12); Aspartate Amino Transferase 13 U/L (14-36); Bilirubin,Total 0.4 mg/dL (0.2-1.3); Blood Urea Nitrogen 44 mg/dL (7-17); Calcium 8.3 mg/dL (8.4-10.2); Carbon Dioxide 35 mmol/L (22-30); Chloride 101 mmol/L (98-107); Estimated CRCL calculation 32 ml/min; Estimated Glomerular Filt Rate 39; Glucose 180 mg/dL (65-110); Magnesium 1.7 mg/dL (1.6-2.3); Potassium 3.9 mmol/L (3.4-5.0); Sodium 140 mmol/L (137-145)
[2024-04-06 07:38] LABS: Glucose Point of Care 184 mg/dl (65-105)
[2024-04-06] MEDS: DULoxetine HCL 30 MG CAPSULE.DR 60 MG PO (09:14)
[2024-04-06] MEDS: SPIRONOLACTONE 12.5 MG TABLET PO (09:15)
[2024-04-06] MEDS: predniSONE 20 MG TABLET 40 MG PO (09:15)
[2024-04-06] MEDS: ENOXAPARIN 40 MG/0.4 ML SYRINGE SUB-Q (09:15)
[2024-04-06] MEDS: PANTOPRAZOLE 40 MG TABLET PO ×2 (09:15→21:11)
[2024-04-06] MEDS: MIRTAZAPINE 30 MG TABLET PO (09:15)
[2024-04-06] MEDS: PRAVASTATIN SODIUM 20 MG TABLET 40 MG PO (09:15)
[2024-04-06] MEDS: ALPRAZolam (*CRX) 0.5 MG TABLET PO ×3 (09:15→16:48)
[2024-04-06] MEDS: DOXAZOSIN MESYLATE 4 MG TABLET PO (09:15)
[2024-04-06] MEDS: FLUTICASONE PROPIONATE 0.05% NA SPR 16 GM BTL (*BKC) 1 SPRAY NASAL (09:16)
[2024-04-06] MEDS: FUROSEMIDE INJ 40 MG/4 ML VIAL IV PUSH ×2 (09:16→16:48)
[2024-04-06] MEDS: AZITHROMYCIN 500 MG/NS 250 ML 500 MG/250 ML BAG 250 MG IVPB (09:16)
[2024-04-06 11:46] LABS: Glucose Point of Care 301 mg/dl (65-105)
[2024-04-06] MEDS: INSULIN ASPART (*BKC) 100 UNITS/ML SUB-Q ×2 (11:53→16:48)
--- NOTE | 2024-04-06 13:19 | WPDGICN ---
Assessment and Plan Assessment and plan (1) Dysphagia: Code(s): R13.10 - Dysphagia, unspecified Status: Acute Assessment and Plan: pt has known hx of schatzki ring with previously dilation in 2021. likely contributing to her symptoms. She will needs EGD with possible dilation once respiratory and cardiovascular status improves. This can be done on out patient basis. continue pantoprazole 40 mg IV BID. (2) Regurgitation of food: Code(s): R11.10 - Vomiting, unspecified Status: Acute (3) Schatzki's ring: Code(s): K22.2 - Esophageal obstruction Status: Acute GI Consult Note Consult date/time: 04/06/24 13:19 Reason for consult: Dysphagis/previous esophageal dilation HPI: María Faith is a 83 year old female who we are ask to see for c/o dysphagia. Has hx of COPD on home O2, obstructive sleep apnea, depression, diverticulitis, hypertension, hyperlipidemia, pleural effusion, diabetes,? and obesity. Currently admitted to hospital for Acute and chronic respiratory failure and CHF exacerbation. Chest x-ray:?Worsening bibasilar pulmonary opacities may represent atelectasis or consolidation.?Small left pleural effusion. Currently on 2L NC. Patient states dysphagia has been going on for approximately 1 1/2 to 2 years. She was hospitalized in [place] in September 20 for heart failure, she did have an EGD prior to discharge for complaints of phlegm stuck in throat dysphagia and regurgitation. ? Exam revealed 2 cm hiatal hernia, Schatzki's ring of the distal esophagus and chronic antral gastritis. ? She was dilated with 17 mm Savary dilatation. States she did notice much improvement in swallowing after the dilation.?States her food does not get stuck she is able to swallow her food and liquids which does go down but she will frequently regurgitate after eating.? She denies any nausea or vomiting. due to the regurgitation she will frequently spit up after eating/drinking.? states this but has a lot of thick mucus? and bubbly. ? She does report intermittent coughing after swallowing as well.? She denies any odynophagia,? chest pain, or abdominal pain.?I seen her in the office on March 30, she was reluctant to repeat EGD or have UGI, she was started on omeprazole 40 mg daily with follow up visit schedule. No significant improvement with the omeprazole. ? She denies any chronic NSAID use. report history of alternating diarrhea and constipation with diarrhea more significant but this has improved since starting on Juice plus supplement she been having regular BM. Review of Systems Review of Systems: All systems reviewed & are unremarkable except as noted in HPI and below Constitutional: Constitutional: Denies fatigue Eyes: Eyes: Denies blurry vision ENT: Reports dysphagia Respiratory: Respiratory: Denies hemoptysis Gastrointestinal: Gastrointestinal: Denies diarrhea and Denies nausea Genitourinary: Genitourinary: Denies hematuria Musculoskeletal: Musculoskeletal: Denies myalgias Integumentary/Breasts: Skin/Breast: Denies rash Neurologic: Denies confusion Psychiatric: Psychiatric: Denies confusion [facility] Past Medical History Medical History (Updated 04/06/24 @ 13:31 by Brooke Uribe, COBOL PROGRAMMER-C) Arthritis of both shoulder regions Asthma PFTs October 2019 demonstrated mild obstructive ventilatory impairment with mild air trapping and moderate diffusion impairment no response to bronchodilator Basal cell carcinoma (BCC) in situ of skin Bipolar disorder Cancer of skin (~08/20/12) Cellulitis of right ear Chronic obstructive pulmonary disease Patient reports history of asthma Combined systolic and diastolic congestive heart failure Depression Diverticulitis Dysphagia Esophageal stricture Essential hypertension Hyperlipidemia Insomnia Ischemia Chronically false-positive stress test with last stress test 2006 Obesity (BMI 30-39.9) Obstructive sleep apnea With BiPAP 14/10 Pleural
--- NOTE | 2024-04-06 16:21 | P.PNIM_ITS ---
Progress Note: A&P Assessment and Plan (1) Obstructive sleep apnea: Code(s): G47.33 - Obstructive sleep apnea (adult) (pediatric) Status: Acute (2) Acute on chronic respiratory failure with hypoxia and hypercapnia: Code(s): J96.21 - Acute and chronic respiratory failure with hypoxia; J96.22 - Acute and chronic respiratory failure with hypercapnia Status: Acute (3) Acute exacerbation of CHF (congestive heart failure): Qualifiers: Heart failure type: combined systolic and diastolic Qualified Code(s): I50.43 - Acute on chronic combined systolic (congestive) and diastolic (congestive) heart failure Code(s): I50.9 - Heart failure, unspecified Status: Acute (4) Acute on chronic renal failure: Code(s): N17.9 - Acute kidney failure, unspecified; N18.9 - Chronic kidney disease, unspecified Status: Acute (5) Diabetes mellitus type 2 in obese: Code(s): E11.69 - Type 2 diabetes mellitus with other specified complication; E66.9 - Obesity, unspecified Status: Acute (6) Hyperlipidemia: Qualifiers: Hyperlipidemia type: unspecified Qualified Code(s): E78.5 - Hyperlipidemia, unspecified Code(s): E78.5 - Hyperlipidemia, unspecified Status: Acute (7) Primary hypertension: Code(s): I10 - Essential (primary) hypertension Status: Acute (8) Obesity (BMI 30-39.9): Code(s): E66.9 - Obesity, unspecified Status: Acute (9) Bipolar disorder: Qualifiers: Active/Remission status: remission status unspecified Qualified Code(s): F31.9 - Bipolar disorder, unspecified Code(s): F31.9 - Bipolar disorder, unspecified Status: Acute Plan Acute on chronic respiratory failure with hypoxia and hypercapnia * Multifocal respiratory failure with acute on chronic heart failure and COPD exacerbation * Bronchodilators. * Chest x-ray: Worsening bibasilar pulmonary opacities may represent atelectasis or consolidation. Small left pleural effusion. * incentive spirometry while awake. * daily prednisone * azithromycin 500 x 1 day/250 daily * supplemental oxygen therapy to maintain oxygen 92% * BIPAP at night * Pulmonary rehab encouraged * on 2L NC supplemental oxygen * Follow-up with switchboard clerk as an outpatient Acute on chronic combined systolic and diastolic heart failure * BNP 4320 * IV Lasix b.i.d. * Resume spironolactone * monitor renal function during diuresis * previous echocardiogram: LVEF 45-50%, mild MR, mild TR * echocardiogram essentially unchanged * EKG 1 degree block SR * chest x-ray: Worsening bibasilar pulmonary opacities may represent atelectasis or consolidation. Small left pleural effusion. * currently holding Cardizem and metoprolol due to bradycardia, may need dose adjustment * Daily weight. * fluid restriction * elevate/Lalito wrap legs if needed * Fall risk assessment. Acute on chronic renal failure * Monitor closely hold diuresis * CR 1.3, close to baseline * Avoid nephrotoxic drugs. * Monitor electrolytes especially potassium. Diabetes * Accu-Cheks a.c. HS * sliding scale insulin moderate does need increased due to steroid use * hold oral diabetic medications/glipizide * resume patient's home long-acting Dysphagia * Patient with previous history of esophageal dilation * Seen by speech therapy * Patient reports inability to swallow food * GI consulted - EGD recommended outpatient HX HLD: Resume statin HX Bipolar: Resume Remeron and Xanax Subjecti
--- NOTE | 2024-04-06 16:21 | PM.IMPN ---
Progress Note: A&P Assessment and Plan (1) Obstructive sleep apnea: Code(s): G47.33 - Obstructive sleep apnea (adult) (pediatric) Status: Acute (2) Acute on chronic respiratory failure with hypoxia and hypercapnia: Code(s): J96.21 - Acute and chronic respiratory failure with hypoxia; J96.22 - Acute and chronic respiratory failure with hypercapnia Status: Acute (3) Acute exacerbation of CHF (congestive heart failure): Qualifiers: Heart failure type: combined systolic and diastolic Qualified Code(s): I50.43 - Acute on chronic combined systolic (congestive) and diastolic (congestive) heart failure Code(s): I50.9 - Heart failure, unspecified Status: Acute (4) Acute on chronic renal failure: Code(s): N17.9 - Acute kidney failure, unspecified; N18.9 - Chronic kidney disease, unspecified Status: Acute (5) Diabetes mellitus type 2 in obese: Code(s): E11.69 - Type 2 diabetes mellitus with other specified complication; E66.9 - Obesity, unspecified Status: Acute (6) Hyperlipidemia: Qualifiers: Hyperlipidemia type: unspecified Qualified Code(s): E78.5 - Hyperlipidemia, unspecified Code(s): E78.5 - Hyperlipidemia, unspecified Status: Acute (7) Primary hypertension: Code(s): I10 - Essential (primary) hypertension Status: Acute (8) Obesity (BMI 30-39.9): Code(s): E66.9 - Obesity, unspecified Status: Acute (9) Bipolar disorder: Qualifiers: Active/Remission status: remission status unspecified Qualified Code(s): F31.9 - Bipolar disorder, unspecified Code(s): F31.9 - Bipolar disorder, unspecified Status: Acute Plan Acute on chronic respiratory failure with hypoxia and hypercapnia Multifocal respiratory failure with acute on chronic heart failure and COPD exacerbation Bronchodilators. Chest x-ray: Worsening bibasilar pulmonary opacities may represent atelectasis or consolidation. Small left pleural effusion. incentive spirometry while awake. daily prednisone azithromycin 500 x 1 day/250 daily supplemental oxygen therapy to maintain oxygen 92% BIPAP at night Pulmonary rehab encouraged on 2L NC supplemental oxygen Follow-up with commodities clerk as an outpatient Acute on chronic combined systolic and diastolic heart failure BNP 4320 IV Lasix b.i.d. Resume spironolactone monitor renal function during diuresis previous echocardiogram: LVEF 45-50%, mild MR, mild TR echocardiogram essentially unchanged EKG 1 degree block SR chest x-ray: Worsening bibasilar pulmonary opacities may represent atelectasis or consolidation. Small left pleural effusion. currently holding Cardizem and metoprolol due to bradycardia, may need dose adjustment Daily weight. fluid restriction elevate/Lalito wrap legs if needed Fall risk assessment. Acute on chronic renal failure Monitor closely hold diuresis CR 1.3, close to baseline Avoid nephrotoxic drugs. Monitor electrolytes especially potassium. Diabetes Accu-Cheks a.c. HS sliding scale insulin moderate does need increased due to steroid use hold oral diabetic medications/glipizide resume patient's home long-acting Dysphagia Patient with previous history of esophageal dilation Seen by speech therapy Patient reports inability to swallow food GI consulted - EGD recommended outpatient HX HLD: Resume statin HX Bipolar: Resume Remeron and Xanax Subjective Date/time seen: 04/06/24 16:22 Interval history: Patient sitting up in chair, in no acute distress. She is on oxygen 2 L at baseline. She has been bradycardic this morning will hold her metoprolol and Cardizem and continue to monitor. Consider consult to Cardiology if continues. GI consulted and can plan for EGD outpatient. Review of Systems Review of Systems: All systems reviewed & are unremarkable except as noted in HPI and below Exam Narrat
[2024-04-06 16:48] LABS: Glucose Point of Care 275 mg/dl (65-105)
[2024-04-06 20:08] LABS: Glucose Point of Care 306 mg/dl (65-105)
[2024-04-06] MEDS: traZODone HCL 50 MG TABLET 300 MG PO (21:10)
[2024-04-06] MEDS: LORATADINE 10 MG TABLET PO (21:11)
[2024-04-06] MEDS: MONTELUKAST SODIUM 10 MG TABLET PO (21:11)
[2024-04-07] VITALS (29 sets, daily range): BP systolic 150–168; BP diastolic 41–79; PULSE 54–92; RESP 20–24; TEMP 35.9–36.4; O2SAT 92–100
[2024-04-07] MEDS: IPRATROPIUM 0.5 MG/ALBUTEROL SULFATE 2.5 MG AMPUL.NEB 3 ML INHALATION ×4 (01:45→20:19)
[2024-04-07 04:45] LABS: Hematocrit 31.6 % (37.0-47.0); Hemoglobin 9.7 g/dL (12.0-15.0); Mean Corpuscular HGB Conc 30.7 g/dl (32-36); Mean Corpuscular Hemoglobin 30.1 pg (26-34); Mean Corpuscular Volume 98.1 fl (80-100); Mean Platelet Volume 11.8 fl (7.4-10.4); Platelet Count Result 155 k/mm3 (150-375); Red Blood Count 3.22 M/mm3 (4.2-5.4); Red Cell Distribution Width 13.5 % (11.5-14.5); White Blood Count 8.4 K/mm3 (4.5-10.0)
[2024-04-07 04:56] LABS: Alanine Aminotransferase 11 U/L (6-35); Alkaline Phosphatase 71 U/L (38-126); Anion Gap 6 mmol/L (4-12); Aspartate Amino Transferase 17 U/L (14-36); Bilirubin,Total 0.3 mg/dL (0.2-1.3); Blood Urea Nitrogen 52 mg/dL (7-17); Calcium 8.4 mg/dL (8.4-10.2); Carbon Dioxide 38 mmol/L (22-30); Chloride 97 mmol/L (98-107); Estimated CRCL calculation 31 ml/min; Estimated Glomerular Filt Rate 39; Glucose 165 mg/dL (65-110); Magnesium 1.8 mg/dL (1.6-2.3); Potassium 3.5 mmol/L (3.4-5.0); Sodium 141 mmol/L (137-145)
[2024-04-07 07:36] LABS: Glucose Point of Care 116 mg/dl (65-105)
[2024-04-07] MEDS: AZITHROMYCIN 500 MG/NS 250 ML 500 MG/250 ML BAG 250 MG IVPB (09:17)
[2024-04-07] MEDS: FUROSEMIDE INJ 40 MG/4 ML VIAL IV PUSH (09:17)
[2024-04-07] MEDS: FLUTICASONE PROPIONATE 0.05% NA SPR 16 GM BTL (*BKC) 1 SPRAY NASAL (09:17)
[2024-04-07] MEDS: ENOXAPARIN 40 MG/0.4 ML SYRINGE SUB-Q (09:17)
[2024-04-07] MEDS: MIRTAZAPINE 30 MG TABLET PO (09:18)
[2024-04-07] MEDS: METOPROLOL SUCCINATE EXT REL 100 MG TABCR PO (09:18)
[2024-04-07] MEDS: DULoxetine HCL 30 MG CAPSULE.DR 60 MG PO (09:18)
[2024-04-07] MEDS: DOXAZOSIN MESYLATE 4 MG TABLET PO (09:18)
[2024-04-07] MEDS: SPIRONOLACTONE 12.5 MG TABLET PO (09:18)
[2024-04-07] MEDS: ALPRAZolam (*CRX) 0.5 MG TABLET PO ×3 (09:18→16:34)
[2024-04-07] MEDS: PRAVASTATIN SODIUM 20 MG TABLET 40 MG PO (09:19)
[2024-04-07] MEDS: PANTOPRAZOLE 40 MG TABLET PO ×2 (09:19→22:03)
[2024-04-07] MEDS: predniSONE 20 MG TABLET 40 MG PO (09:21)
[2024-04-07 12:21] LABS: Glucose Point of Care 199 mg/dl (65-105)
--- NOTE | 2024-04-07 14:24 | PC.NURSE ---
Patient off unit @ 1243 to Radiology
--- NOTE | 2024-04-07 14:28 | PC.NURSE ---
Patient back from radiology @ 2160
--- NOTE | 2024-04-07 14:44 | WPDGIPROGNO ---
Progress Note: A&P Assessment and Plan (1) Dysphagia: Code(s): R13.10 - Dysphagia, unspecified Status: Acute Assessment and Plan: chronic, she will have meals but sometimes after drinking will come back up plan is egd after respiratory status/chf better, this can be done as outpatient (2) Acute on chronic respiratory failure with hypoxia and hypercapnia: Code(s): J96.21 - Acute and chronic respiratory failure with hypoxia; J96.22 - Acute and chronic respiratory failure with hypercapnia Status: Acute Assessment and Plan: slowly improving, by primary (3) Acute exacerbation of CHF (congestive heart failure): Qualifiers: Heart failure type: combined systolic and diastolic Qualified Code(s): I50.43 - Acute on chronic combined systolic (congestive) and diastolic (congestive) heart failure Code(s): I50.9 - Heart failure, unspecified Status: Acute (4) Schatzki's ring: Code(s): K22.2 - Esophageal obstruction Status: Acute Assessment and Plan: egd as outpatient (5) Diabetes mellitus type 2 in obese: Code(s): E11.69 - Type 2 diabetes mellitus with other specified complication; E66.9 - Obesity, unspecified Status: Acute Subjective Date/time seen: 04/07/24 14:44 Interval history: feeling better Review of Systems Review of Systems: All systems reviewed & are unremarkable except as noted in HPI and below Exam Const: General: comfortable Other: using oxygen HENMT: Face/Nose/Sinus: Normal nares present Eyes: Sclera: sclerae normal Neck: Neck: supple Resp: Auscultation: no crackles and diminished lung sounds Cardio: Rate: regular rate Rhythm: regular rhythm GI: GI Palp: Yes Soft to palpation and No Tenderness to palpation present (GI) Auscultation: normal bowel sounds Skin: General skin exam: normal color Neuro: Speech: normal speech Motor exam (neuro): 5/5 motor strength present throughout Extrem: General: no pedal edema Psych: Affect: normal affect Objective Data Vital Signs Vital Signs: Vital Signs - 24 hr 04/06/24 15:57 04/06/24 16:00 04/06/24 18:00 Temperature 98.4 F Pulse Rate 69 66 70 Respiratory Rate 18 Blood Pressure 136/46 L Pulse Oximetry 94 Oxygen Delivery Oxygen Flow Rate Fraction of Inspired Oxygen 04/06/24 19:27 04/06/24 20:49 04/06/24 20:49 Temperature 97.2 F L Pulse Rate 69 64 Respiratory Rate 16 18 Blood Pressure 165/58 H Pulse Oximetry 95 97 Oxygen Delivery Nasal Cannula Oxygen Flow Rate 3 Fraction of Inspired Oxygen 04/06/24 20:00 04/06/24 20:00 04/06/24 22:00 Temperature Pulse Rate 75 73 Respiratory Rate Blood Pressure Pulse Oximetry 97 Oxygen Delivery Nasal Cannula Oxygen Flow Rate 3 Fraction of Inspired Oxygen 04/06/24 20:59 04/06/24 23:51 04/07/24 00:00 Temperature 96.9 F L Pulse Rate 66 76 Respiratory Rate 18 18 Blood Pressure 171/67 H Pulse Oximetry 95 98 Oxygen Delivery BiPAP Oxygen Flow Rate Fraction of Inspired Oxygen 28 04/07/24 00:00 04/07/24 02:00 04/06/24 23:15 Temperature Pulse Rate 68 73 68 Respiratory Rate 22 H Blood Pressure Pulse Oximetry 95 Oxygen Delivery BiPAP Oxygen Flow Rate Fraction of Inspired Oxygen 04/07/24 01:45 04/07/24 01:47 04/07/24 01:57 Temperature Pulse Rate 55 L 55 L 58 L Respiratory Rate 23 H 23 H 23 H Blood Pressure Pulse Oximetry 95 Oxygen Delivery BiPAP Oxygen Flow Rate Fraction of Inspired Oxygen 04/07/24 04:00 04/07/24 04:00 04/07/24 04:00 Temperature 97.6 F Pulse Rate 58 L 54 L Respiratory Rate 22 H Blood Pressure 163/66 H Pulse Oximetry 99 99 Oxygen Delivery BiPAP Oxygen Flow Rate Fraction of Inspired Oxygen 28 04/07/24 06:00 04/07/24 07:29 04/07/24 07:24 Temperature 97.0 F L Pulse Rate 55 L 79 Respiratory Rate 20 Blood Pressure 168/62 H Pulse Oximet
--- NOTE | 2024-04-07 14:54 | P.PNIM_ITS ---
Progress Note: A&P Assessment and Plan (1) Acute on chronic respiratory failure with hypoxia and hypercapnia: Code(s): J96.21 - Acute and chronic respiratory failure with hypoxia; J96.22 - Acute and chronic respiratory failure with hypercapnia Status: Acute Assessment and Plan: * Multifocal respiratory failure with acute on chronic heart failure and COPD exacerbation * Bronchodilators. * / Chest x-ray: Worsening bibasilar pulmonary opacities may represent atelectasis or consolidation. Small left pleural effusion. * Repeat chest x-ray today showed improved and without pleural effusions. * incentive spirometry while awake. * daily prednisone * azithromycin transition to PO today * supplemental oxygen therapy to maintain oxygen 92% * BIPAP at night * Pulmonary rehab encouraged * on 2L NC supplemental oxygen * Follow-up with investor relations coordinator as an outpatient (2) Acute exacerbation of CHF (congestive heart failure): Qualifiers: Heart failure type: combined systolic and diastolic Qualified Code(s): I50.43 - Acute on chronic combined systolic (congestive) and diastolic (congestive) heart failure Code(s): I50.9 - Heart failure, unspecified Status: Acute Assessment and Plan: * BNP 4320 * IV Lasix transition from BID to PO daily * spironolactone * monitor renal function during diuresis * previous echocardiogram: LVEF 45-50%, mild MR, mild TR * echocardiogram essentially unchanged * Resume Cardizem and metoprolol * Daily weight. * fluid restriction * elevate/Lalito wrap legs if needed * Fall risk assessment. (3) Acute on chronic renal failure: Code(s): N17.9 - Acute kidney failure, unspecified; N18.9 - Chronic kidney disease, unspecified Status: Acute Assessment and Plan: * Monitor closely given diuresis * CR 1.3, close to baseline * Monitor electrolytes especially potassium. (4) Diabetes mellitus type 2 in obese: Code(s): E11.69 - Type 2 diabetes mellitus with other specified complication; E66.9 - Obesity, unspecified Status: Chronic Assessment and Plan: * Accu-Cheks a.c. HS * sliding scale insulin moderate * Hypoglycemic protocol * hold oral diabetic medications/glipizide * resume patient's home long-acting (5) Obstructive sleep apnea: Code(s): G47.33 - Obstructive sleep apnea (adult) (pediatric) Status: Chronic Assessment and Plan: * CPAP (6) Hyperlipidemia: Qualifiers: Hyperlipidemia type: unspecified Qualified Code(s): E78.5 - Hyperlipidemia, unspecified Code(s): E78.5 - Hyperlipidemia, unspecified Status: Chronic (7) Primary hypertension: Code(s): I10 - Essential (primary) hypertension Status: Chronic Assessment and Plan: * Continue home meds (8) Bipolar disorder: Qualifiers: Active/Remission status: remission status unspecified Qualified Code(s): F31.9 - Bipolar disorder, unspecified Code(s): F31.9 - Bipolar disorder, unspecified Status: Chronic Assessment and Plan: * Continue home meds Plan Dysphagia * Patient with previous history of esophageal dilation * Seen by speech therapy * Patient reports inability to swallow food * GI consulted - EGD recommended outpatient Subjective Date/time seen: 04/07/24 14:54 Interval history: Patient sitting up in chair, in no acute distress. She is on oxygen 2 L at baseline. Bradycardia has resolved and will resume metoprolol and Cardizem and co
--- NOTE | 2024-04-07 14:54 | PM.IMPN ---
Progress Note: A&P Assessment and Plan (1) Acute on chronic respiratory failure with hypoxia and hypercapnia: Code(s): J96.21 - Acute and chronic respiratory failure with hypoxia; J96.22 - Acute and chronic respiratory failure with hypercapnia Status: Acute Assessment and Plan: Multifocal respiratory failure with acute on chronic heart failure and COPD exacerbation Bronchodilators. 04/01 Chest x-ray: Worsening bibasilar pulmonary opacities may represent atelectasis or consolidation. Small left pleural effusion. Repeat chest x-ray today showed improved and without pleural effusions. incentive spirometry while awake. daily prednisone azithromycin transition to PO today supplemental oxygen therapy to maintain oxygen 92% BIPAP at night Pulmonary rehab encouraged on 2L NC supplemental oxygen Follow-up with sample hand as an outpatient (2) Acute exacerbation of CHF (congestive heart failure): Qualifiers: Heart failure type: combined systolic and diastolic Qualified Code(s): I50.43 - Acute on chronic combined systolic (congestive) and diastolic (congestive) heart failure Code(s): I50.9 - Heart failure, unspecified Status: Acute Assessment and Plan: BNP 4320 IV Lasix transition from BID to PO daily spironolactone monitor renal function during diuresis previous echocardiogram: LVEF 45-50%, mild MR, mild TR echocardiogram essentially unchanged Resume Cardizem and metoprolol Daily weight. fluid restriction elevate/Lalito wrap legs if needed Fall risk assessment. (3) Acute on chronic renal failure: Code(s): N17.9 - Acute kidney failure, unspecified; N18.9 - Chronic kidney disease, unspecified Status: Acute Assessment and Plan: Monitor closely given diuresis CR 1.3, close to baseline Monitor electrolytes especially potassium. (4) Diabetes mellitus type 2 in obese: Code(s): E11.69 - Type 2 diabetes mellitus with other specified complication; E66.9 - Obesity, unspecified Status: Chronic Assessment and Plan: Accu-Cheks a.c. HS sliding scale insulin moderate Hypoglycemic protocol hold oral diabetic medications/glipizide resume patient's home long-acting (5) Obstructive sleep apnea: Code(s): G47.33 - Obstructive sleep apnea (adult) (pediatric) Status: Chronic Assessment and Plan: CPAP (6) Hyperlipidemia: Qualifiers: Hyperlipidemia type: unspecified Qualified Code(s): E78.5 - Hyperlipidemia, unspecified Code(s): E78.5 - Hyperlipidemia, unspecified Status: Chronic (7) Primary hypertension: Code(s): I10 - Essential (primary) hypertension Status: Chronic Assessment and Plan: Continue home meds (8) Bipolar disorder: Qualifiers: Active/Remission status: remission status unspecified Qualified Code(s): F31.9 - Bipolar disorder, unspecified Code(s): F31.9 - Bipolar disorder, unspecified Status: Chronic Assessment and Plan: Continue home meds Plan Dysphagia Patient with previous history of esophageal dilation Seen by speech therapy Patient reports inability to swallow food GI consulted - EGD recommended outpatient Subjective Date/time seen: 04/07/24 14:54 Interval history: Patient sitting up in chair, in no acute distress. She is on oxygen 2 L at baseline. Bradycardia has resolved and will resume metoprolol and Cardizem and continue to monitor. Repeat CXR showed resolved pleural effusion. Will transition to PO Lasix once daily as kidney function is decreased. Continue to closely monitor. Review of Systems Review of Systems: All systems reviewed & are unremarkable except as noted in HPI and below Exam Narrative: GENERAL: Elderly woman lying in bed, No acute distress. EYES: EOMI. PERRLA. HEENT: Moist mucous membranes. LUNGS: Lungs clear to auscultation bilaterally. CARDIO
[2024-04-07 15:35] LABS: Glucose Point of Care 314 mg/dl (65-105)
[2024-04-07] MEDS: INSULIN ASPART (*BKC) 100 UNITS/ML SUB-Q (16:32)
[2024-04-07 20:25] LABS: Glucose Point of Care 311 mg/dl (65-105)
[2024-04-07] MEDS: traZODone HCL 50 MG TABLET 300 MG PO (21:57)
[2024-04-07] MEDS: LORATADINE 10 MG TABLET PO (21:57)
[2024-04-07] MEDS: MONTELUKAST SODIUM 10 MG TABLET PO (21:57)
[2024-04-08] VITALS (28 sets, daily range): BP systolic 125–174; BP diastolic 45–78; PULSE 50–79; RESP 18–24; TEMP 36.2–36.8; O2SAT 92–98
[2024-04-08] MEDS: IPRATROPIUM 0.5 MG/ALBUTEROL SULFATE 2.5 MG AMPUL.NEB 3 ML INHALATION ×4 (02:10→20:33)
[2024-04-08 04:35] LABS: Alanine Aminotransferase 11 U/L (6-35); Albumin Level 3.9 g/dL (3.5-5.1); Alkaline Phosphatase 68 U/L (38-126); Anion Gap 6 mmol/L (4-12); Aspartate Amino Transferase 16 U/L (14-36); Bilirubin,Total 0.4 mg/dL (0.2-1.3); Blood Urea Nitrogen 50 mg/dL (7-17); Calcium 8.5 mg/dL (8.4-10.2); Carbon Dioxide 39 mmol/L (22-30); Chloride 96 mmol/L (98-107); Estimated CRCL calculation 40 ml/min; Estimated Glomerular Filt Rate 53; Glucose 158 mg/dL (65-110); Magnesium 1.8 mg/dL (1.6-2.3); Potassium 3.9 mmol/L (3.4-5.0); Sodium 141 mmol/L (137-145)
[2024-04-08 06:00] LABS: Hematocrit 35.5 % (37.0-47.0); Hemoglobin 10.6 g/dL (12.0-15.0); Mean Corpuscular HGB Conc 29.9 g/dl (32-36); Mean Corpuscular Hemoglobin 29.5 pg (26-34); Mean Corpuscular Volume 98.9 fl (80-100); Mean Platelet Volume 11.4 fl (7.4-10.4); Platelet Count Result 159 k/mm3 (150-375); Red Blood Count 3.59 M/mm3 (4.2-5.4); Red Cell Distribution Width 13.5 % (11.5-14.5); White Blood Count 8.5 K/mm3 (4.5-10.0)
[2024-04-08 07:46] LABS: Glucose Point of Care 119 mg/dl (65-105)
[2024-04-08] MEDS: PRAVASTATIN SODIUM 20 MG TABLET 40 MG PO (09:27)
[2024-04-08] MEDS: SPIRONOLACTONE 12.5 MG TABLET PO (09:27)
[2024-04-08] MEDS: METOPROLOL SUCCINATE EXT REL 100 MG TABCR PO (09:27)
[2024-04-08] MEDS: MIRTAZAPINE 30 MG TABLET PO (09:27)
[2024-04-08] MEDS: PANTOPRAZOLE 40 MG TABLET PO ×2 (09:27→22:34)
[2024-04-08] MEDS: predniSONE 20 MG TABLET 40 MG PO (09:28)
[2024-04-08] MEDS: ALPRAZolam (*CRX) 0.5 MG TABLET PO ×3 (09:28→16:24)
[2024-04-08] MEDS: FUROSEMIDE 40 MG TABLET PO (09:28)
[2024-04-08] MEDS: dilTIAZem HCL CD 240 MG CAP.24HR PO (09:28)
[2024-04-08] MEDS: ENOXAPARIN 40 MG/0.4 ML SYRINGE SUB-Q (09:28)
[2024-04-08] MEDS: DULoxetine HCL 30 MG CAPSULE.DR 60 MG PO (09:28)
[2024-04-08] MEDS: DOXAZOSIN MESYLATE 4 MG TABLET PO (09:28)
[2024-04-08] MEDS: AZITHROMYCIN 250 MG TABLET PO (09:28)
[2024-04-08] MEDS: FLUTICASONE PROPIONATE 0.05% NA SPR 16 GM BTL (*BKC) 1 SPRAY NASAL (09:28)
[2024-04-08 12:16] LABS: Glucose Point of Care 164 mg/dl (65-105)
--- NOTE | 2024-04-08 14:50 | P.PNIM_ITS ---
Progress Note: A&P Assessment and Plan (1) Acute on chronic respiratory failure with hypoxia and hypercapnia: Code(s): J96.21 - Acute and chronic respiratory failure with hypoxia; J96.22 - Acute and chronic respiratory failure with hypercapnia Status: Acute Assessment and Plan: * Multifocal respiratory failure with acute on chronic heart failure and COPD exacerbation * Patient is improving and feeling much better now. * Still requiring oxygen and BiPAP at night. * Will continue current treatment start physical therapy (2) Acute exacerbation of CHF (congestive heart failure): Qualifiers: Heart failure type: combined systolic and diastolic Qualified Code(s): I50.43 - Acute on chronic combined systolic (congestive) and diastolic (congestive) heart failure Code(s): I50.9 - Heart failure, unspecified Status: Acute Assessment and Plan: * Clinically feeling much better. * Switched to p.o. Lasix. * spironolactone * monitor renal function during diuresis * previous echocardiogram: LVEF 45-50%, mild MR, mild TR * echocardiogram essentially unchanged * Resume Cardizem and metoprolol * Daily weight. * fluid restriction * elevate/Lalito wrap legs if needed * Fall risk assessment. (3) Acute on chronic renal failure: Code(s): N17.9 - Acute kidney failure, unspecified; N18.9 - Chronic kidney disease, unspecified Status: Acute Assessment and Plan: * Monitor closely given diuresis * CR 1.3, close to baseline * Monitor electrolytes especially potassium. (4) Diabetes mellitus type 2 in obese: Code(s): E11.69 - Type 2 diabetes mellitus with other specified complication; E66.9 - Obesity, unspecified Status: Chronic Assessment and Plan: * Stable on current medications, will continue current treatment (5) Obstructive sleep apnea: Code(s): G47.33 - Obstructive sleep apnea (adult) (pediatric) Status: Chronic Assessment and Plan: * CPAP * Stable on current medications, will continue current treatment (6) Hyperlipidemia: Qualifiers: Hyperlipidemia type: unspecified Qualified Code(s): E78.5 - Hyperlipidemia, unspecified Code(s): E78.5 - Hyperlipidemia, unspecified Status: Chronic Assessment and Plan: Stable on current medications, will continue current treatment (7) Primary hypertension: Code(s): I10 - Essential (primary) hypertension Status: Chronic Assessment and Plan: * Continue home meds (8) Bipolar disorder: Qualifiers: Active/Remission status: remission status unspecified Qualified Code(s): F31.9 - Bipolar disorder, unspecified Code(s): F31.9 - Bipolar disorder, unspecified Status: Chronic Assessment and Plan: * Continue home meds Plan Patient is clinically much better. Plan is to continue current treatment increase activity as tolerated. Full code. DVT prophylaxis ordered. Dysphagia * Patient with previous history of esophageal dilation * Seen by speech therapy * Patient reports inability to swallow food * GI consulted - EGD recommended outpatient Subjective Date/time seen: 04/08/24 14:50 Interval history: Patient was seen during rounds today. Patient is feeling much better today. Decreased shortness of breath. No chest pain. No abdominal pain, nausea, no vomiting. Mood stable. Review of Systems Review of Systems: 12
--- NOTE | 2024-04-08 14:50 | PM.IMPN ---
Progress Note: A&P Assessment and Plan (1) Acute on chronic respiratory failure with hypoxia and hypercapnia: Code(s): J96.21 - Acute and chronic respiratory failure with hypoxia; J96.22 - Acute and chronic respiratory failure with hypercapnia Status: Acute Assessment and Plan: Multifocal respiratory failure with acute on chronic heart failure and COPD exacerbation Patient is improving and feeling much better now. Still requiring oxygen and BiPAP at night. Will continue current treatment start physical therapy (2) Acute exacerbation of CHF (congestive heart failure): Qualifiers: Heart failure type: combined systolic and diastolic Qualified Code(s): I50.43 - Acute on chronic combined systolic (congestive) and diastolic (congestive) heart failure Code(s): I50.9 - Heart failure, unspecified Status: Acute Assessment and Plan: Clinically feeling much better. Switched to p.o. Lasix. spironolactone monitor renal function during diuresis previous echocardiogram: LVEF 45-50%, mild MR, mild TR echocardiogram essentially unchanged Resume Cardizem and metoprolol Daily weight. fluid restriction elevate/Lalito wrap legs if needed Fall risk assessment. (3) Acute on chronic renal failure: Code(s): N17.9 - Acute kidney failure, unspecified; N18.9 - Chronic kidney disease, unspecified Status: Acute Assessment and Plan: Monitor closely given diuresis CR 1.3, close to baseline Monitor electrolytes especially potassium. (4) Diabetes mellitus type 2 in obese: Code(s): E11.69 - Type 2 diabetes mellitus with other specified complication; E66.9 - Obesity, unspecified Status: Chronic Assessment and Plan: Stable on current medications, will continue current treatment (5) Obstructive sleep apnea: Code(s): G47.33 - Obstructive sleep apnea (adult) (pediatric) Status: Chronic Assessment and Plan: CPAP Stable on current medications, will continue current treatment (6) Hyperlipidemia: Qualifiers: Hyperlipidemia type: unspecified Qualified Code(s): E78.5 - Hyperlipidemia, unspecified Code(s): E78.5 - Hyperlipidemia, unspecified Status: Chronic Assessment and Plan: Stable on current medications, will continue current treatment (7) Primary hypertension: Code(s): I10 - Essential (primary) hypertension Status: Chronic Assessment and Plan: Continue home meds (8) Bipolar disorder: Qualifiers: Active/Remission status: remission status unspecified Qualified Code(s): F31.9 - Bipolar disorder, unspecified Code(s): F31.9 - Bipolar disorder, unspecified Status: Chronic Assessment and Plan: Continue home meds Plan Patient is clinically much better. Plan is to continue current treatment increase activity as tolerated. Full code. DVT prophylaxis ordered. Dysphagia Patient with previous history of esophageal dilation Seen by speech therapy Patient reports inability to swallow food GI consulted - EGD recommended outpatient Subjective Date/time seen: 04/08/24 14:50 Interval history: Patient was seen during rounds today. Patient is feeling much better today. Decreased shortness of breath. No chest pain. No abdominal pain, nausea, no vomiting. Mood stable. Review of Systems Review of Systems: 12 systems were reviewed with pertinent positives and negatives per HPI. Except as documented in the HPI, all other systems were reviewed and are negative. All systems reviewed & are unremarkable except as noted in HPI and below Exam Narrative: GENERAL: Elderly woman lying in bed, No acute distress. EYES: EOMI. PERRLA. HEENT: Moist mucous membranes. LUNGS: Air entry is much better. CARDIOVASCULAR: RRR. No murmur. ABDOMEN: Soft, nontender and non-distended. BS present and active. EXTREMITIES: Mild L
[2024-04-08 16:09] LABS: Glucose Point of Care 415 mg/dl (65-105)
[2024-04-08] MEDS: INSULIN ASPART (*BKC) 100 UNITS/ML 8 UNITS SUB-Q (16:24)
[2024-04-08 20:18] LABS: Glucose Point of Care 432 mg/dl (65-105)
[2024-04-08] MEDS: MONTELUKAST SODIUM 10 MG TABLET PO (22:34)
[2024-04-08] MEDS: traZODone HCL 50 MG TABLET 300 MG PO (22:34)
[2024-04-08] MEDS: LORATADINE 10 MG TABLET PO (22:34)
[2024-04-08] MEDS: INSULIN HUMAN REGULAR (*BKC) 100 UNITS/ML 12 UNITS SUB-Q (22:56)
[2024-04-09] VITALS (26 sets, daily range): BP systolic 120–145; BP diastolic 34–62; PULSE 40–77; RESP 17–23; TEMP 35.9–36.6; O2SAT 92–98
[2024-04-09] MEDS: IPRATROPIUM 0.5 MG/ALBUTEROL SULFATE 2.5 MG AMPUL.NEB 3 ML INHALATION ×4 (03:06→20:25)
[2024-04-09 04:41] LABS: Hematocrit 33.8 % (37.0-47.0); Hemoglobin 10.4 g/dL (12.0-15.0); Mean Corpuscular HGB Conc 30.8 g/dl (32-36); Mean Corpuscular Hemoglobin 30.2 pg (26-34); Mean Corpuscular Volume 98.3 fl (80-100); Mean Platelet Volume 11.9 fl (7.4-10.4); Platelet Count Result 152 k/mm3 (150-375); Red Blood Count 3.44 M/mm3 (4.2-5.4); Red Cell Distribution Width 13.3 % (11.5-14.5)
[2024-04-09 04:59] LABS: Alanine Aminotransferase 13 U/L (6-35); Albumin Level 3.7 g/dL (3.5-5.1); Alkaline Phosphatase 66 U/L (38-126); Aspartate Amino Transferase 15 U/L (14-36); Bilirubin,Total 0.3 mg/dL (0.2-1.3); Blood Urea Nitrogen 49 mg/dL (7-17); Calcium 8.5 mg/dL (8.4-10.2); Carbon Dioxide > 40 mmol/L (22-30); Chloride 92 mmol/L (98-107); Estimated CRCL calculation 31 ml/min; Estimated Glomerular Filt Rate 39; Glucose 188 mg/dL (65-110); Potassium 3.7 mmol/L (3.4-5.0); Sodium 138 mmol/L (137-145)
[2024-04-09 07:21] LABS: Glucose Point of Care 103 mg/dl (65-105)
[2024-04-09] MEDS: DULoxetine HCL 30 MG CAPSULE.DR 60 MG PO (08:50)
[2024-04-09] MEDS: ENOXAPARIN 40 MG/0.4 ML SYRINGE SUB-Q (08:50)
[2024-04-09] MEDS: PANTOPRAZOLE 40 MG TABLET PO ×2 (08:50→20:13)
[2024-04-09] MEDS: SPIRONOLACTONE 12.5 MG TABLET PO (08:50)
[2024-04-09] MEDS: DOXAZOSIN MESYLATE 4 MG TABLET PO (08:51)
[2024-04-09] MEDS: predniSONE 20 MG TABLET 40 MG PO (08:51)
[2024-04-09] MEDS: ALPRAZolam (*CRX) 0.5 MG TABLET PO ×3 (08:51→16:28)
[2024-04-09] MEDS: AZITHROMYCIN 250 MG TABLET PO (08:51)
[2024-04-09] MEDS: FUROSEMIDE 40 MG TABLET PO (08:51)
[2024-04-09] MEDS: MIRTAZAPINE 30 MG TABLET PO (08:52)
[2024-04-09] MEDS: PRAVASTATIN SODIUM 20 MG TABLET 40 MG PO (08:52)
[2024-04-09] MEDS: FLUTICASONE PROPIONATE 0.05% NA SPR 16 GM BTL (*BKC) 1 SPRAY NASAL (08:52)
[2024-04-09 11:43] LABS: Glucose Point of Care 171 mg/dl (65-105)
--- NOTE | 2024-04-09 13:58 | PCRCNOTE ---
Home oxygen evaluation not completed at this time. Pt has no discharge orders and has no notes on when she will be discharged .
--- NOTE | 2024-04-09 16:16 | PM.IMPN ---
Progress Note: A&P Assessment and Plan (1) Acute on chronic respiratory failure with hypoxia and hypercapnia: Code(s): J96.21 - Acute and chronic respiratory failure with hypoxia; J96.22 - Acute and chronic respiratory failure with hypercapnia Status: Acute Assessment and Plan: Patient has chronic resp failure on 2L at rest and 3L with activity. She presents with SOB and felt to have acute on chronic heart failure and acute COPD exacerbation Patient is improving and feeling much better now. Continue PT/OT ST to evaluate Home O2 was cancelled so will reorder (2) Acute exacerbation of CHF (congestive heart failure): Qualifiers: Heart failure type: combined systolic and diastolic Qualified Code(s): I50.43 - Acute on chronic combined systolic (congestive) and diastolic (congestive) heart failure Code(s): I50.9 - Heart failure, unspecified Status: Acute Assessment and Plan: Echo in 2021 showing LVEF 45-50% with Grade I diastolic dysfxn, mild MR, mild TR Patient presented with SOB. CXR showing worsening bibasilar opacities. BNP 4320 She is on Toprol XL and spironolactone at home but not diuretics. Received a few doses of IV Lasix but now on oral Lasix Echo here showing EF 45-50% with Grade I diastolic dysfunction and mild valvular disease. Back on Toprol XL and Spironolactone Some bradycardia but overall tolerating her medications. Consider empagliflozin but diastolic BP soft. (3) Chronic obstructive pulmonary disease: Qualifiers: COPD type: unspecified COPD Qualified Code(s): J44.9 - Chronic obstructive pulmonary disease, unspecified Code(s): J44.9 - Chronic obstructive pulmonary disease, unspecified Status: Acute Assessment and Plan: Patient presented with shortness of breath. CXR as above She was started on Solu-Medrol and bronchodilators. Azithromycin started and she has completed 5 days. Weaned to Prednisone and will complete 5 days tomorrow. Home O2 evaluation (4) CKD (chronic kidney disease): Code(s): N18.9 - Chronic kidney disease, unspecified Status: Acute Assessment and Plan: Cr baseline with wide variation but mostly 1-1.4 range Cr here is within her baseline. She is toelrating Lasix Follow (5) Diabetes mellitus type 2 in obese: Code(s): E11.69 - Type 2 diabetes mellitus with other specified complication; E66.9 - Obesity, unspecified Status: Chronic Assessment and Plan: The patient's blood glucose was reviewed on 04/09 Glucose widely flucuates due to steroids. Continue AccuCheks covering with sliding scale. Hypoglycemia protocol available as needed. Continue to monitor (6) Obstructive sleep apnea: Code(s): G47.33 - Obstructive sleep apnea (adult) (pediatric) Status: Chronic Assessment and Plan: Patient tolerating CPAP (7) Primary hypertension: Code(s): I10 - Essential (primary) hypertension Status: Chronic Assessment and Plan: Patient's blood pressure was reviewed on 04/09 Blood pressure remains reasonably well controlled. Will continue current medications. (8) Bipolar disorder: Qualifiers: Active/Remission status: remission status unspecified Qualified Code(s): F31.9 - Bipolar disorder, unspecified Code(s): F31.9 - Bipolar disorder, unspecified Status: Chronic Assessment and Plan: Mood stable. Continue home emdications. Plan Dysphagia - Patient with previous history of esophageal dilation. She is having episodes of regurgitation. Seen by ST who recommended GI consult. GI recommended EGD as outpatient Full code. DVT prophylaxis Lovenox Subjective Date/time seen: 04/09/24 16:16 Interval history: 83yo female with chronic resp failure, CKF, CHF, HTN and DM here for shortness of breath. Assuming care. Chart reviewed. She feels tired today. She lives alone. She normally walk
[2024-04-09 16:22] LABS: Glucose Point of Care 317 mg/dl (65-105)
[2024-04-09] MEDS: INSULIN ASPART (*BKC) 100 UNITS/ML SUB-Q (16:29)
[2024-04-09] MEDS: MONTELUKAST SODIUM 10 MG TABLET PO (20:08)
[2024-04-09] MEDS: LORATADINE 10 MG TABLET PO (20:08)
[2024-04-09] MEDS: traZODone HCL 50 MG TABLET 300 MG PO (20:08)
[2024-04-09 23:40] LABS: Glucose Point of Care 395 mg/dl (65-105)
[2024-04-10] VITALS (22 sets, daily range): BP systolic 135–159; BP diastolic 51–81; PULSE 52–86; RESP 15–22; TEMP 36.6–37.1; O2SAT 84–99
[2024-04-10 01:38] LABS: Glucose Point of Care 358 mg/dl (65-105)
[2024-04-10] MEDS: IPRATROPIUM 0.5 MG/ALBUTEROL SULFATE 2.5 MG AMPUL.NEB 3 ML INHALATION ×3 (03:45→13:51)
[2024-04-10] MEDS: INSULIN HUMAN REGULAR (*BKC) 100 UNITS/ML 6 UNITS SUB-Q (04:08)
[2024-04-10 04:35] LABS: Hematocrit 37.1 % (37.0-47.0); Hemoglobin 11.2 g/dL (12.0-15.0); Mean Corpuscular HGB Conc 30.2 g/dl (32-36); Mean Corpuscular Hemoglobin 29.6 pg (26-34); Mean Corpuscular Volume 98.1 fl (80-100); Platelet Count Result 150 k/mm3 (150-375); Red Blood Count 3.78 M/mm3 (4.2-5.4); Red Cell Distribution Width 13.2 % (11.5-14.5); White Blood Count 8.3 K/mm3 (4.5-10.0)
[2024-04-10 04:57] LABS: Alanine Aminotransferase 14 U/L (6-35); Albumin Level 3.9 g/dL (3.5-5.1); Alkaline Phosphatase 70 U/L (38-126); Aspartate Amino Transferase 16 U/L (14-36); Bilirubin,Total 0.4 mg/dL (0.2-1.3); Blood Urea Nitrogen 52 mg/dL (7-17); Calcium 8.8 mg/dL (8.4-10.2); Carbon Dioxide > 40 mmol/L (22-30); Chloride 91 mmol/L (98-107); Estimated CRCL calculation 34 ml/min; Estimated Glomerular Filt Rate 43; Glucose 299 mg/dL (65-110); Magnesium 2.1 mg/dL (1.6-2.3); Potassium 4.3 mmol/L (3.4-5.0); Sodium 139 mmol/L (137-145)
[2024-04-10 08:15] LABS: Glucose Point of Care 190 mg/dl (65-105)
[2024-04-10] MEDS: SPIRONOLACTONE 12.5 MG TABLET PO (08:54)
[2024-04-10] MEDS: PRAVASTATIN SODIUM 20 MG TABLET 40 MG PO (08:54)
[2024-04-10] MEDS: ALPRAZolam (*CRX) 0.5 MG TABLET PO ×2 (08:54→12:19)
[2024-04-10] MEDS: FUROSEMIDE 40 MG TABLET PO (08:54)
[2024-04-10] MEDS: DOXAZOSIN MESYLATE 4 MG TABLET PO (08:54)
[2024-04-10] MEDS: predniSONE 20 MG TABLET 40 MG PO (08:55)
[2024-04-10] MEDS: ENOXAPARIN 40 MG/0.4 ML SYRINGE SUB-Q (08:55)
[2024-04-10] MEDS: FLUTICASONE PROPIONATE 0.05% NA SPR 16 GM BTL (*BKC) 1 SPRAY NASAL (08:55)
[2024-04-10] MEDS: METOPROLOL SUCCINATE EXT REL 25 MG TABCR PO (08:55)
[2024-04-10] MEDS: MIRTAZAPINE 30 MG TABLET PO (08:55)
[2024-04-10] MEDS: PANTOPRAZOLE 40 MG TABLET PO (08:55)
[2024-04-10] MEDS: DULoxetine HCL 30 MG CAPSULE.DR 60 MG PO (08:55)
--- NOTE | 2024-04-10 09:56 | HOMEO2EVAL ---
Evaluation was performed at [facility] Home Oxygen Evaluation RC: Home Oxygen (O2) Evaluation Start: 04/09/24 18:00 Freq: ONCE Status: Active Protocol: RPE Activity Type Activity Date Activity User E-sign Co-sign Detail Recorded Client Recorded Date Recorded By Document 04/10/24 09:30 KAG [id number] 04/10/24 09:33 KAG Document 04/10/24 09:33 KAG [id number] 04/10/24 09:34 KAG Document 04/10/24 09:34 KAG [id number] 04/10/24 09:34 KAG Document 04/10/24 09:37 KAG [id number] 04/10/24 09:55 KAG Document 04/10/24 09:37 KAG [id number] 04/10/24 09:55 KAG Document 04/10/24 09:38 KAG [id number] 04/10/24 09:56 KAG Document 04/10/24 09:56 KAG [id number] 04/10/24 09:56 KAG 04/10/24 04/10/24 04/10/24 09:30 09:33 09:34 Home O2 Evaluation [Oxygen] -Test Phase Resting Resting Resting -Oxygen Delivery Room Air Nasal Cannula Nasal Cannula -Oxygen Flow Rate (L/min) 1 2 [Pulse Oximetry] -Pulse Oximetry (90-100 %) 86 L 87 L 93 [Pulse Rate] -Pulse Rate (60-100 beats/min) 84 81 86 [Evaluation] -Activity Tolerance [Exercise] -Ambulation Distance (feet) -Ambulation Distance (meters) [Comments] -Home Oxygen Evaluation Comments [Charges] -Evaluation Charges O2 Evaluation by 04/10/24 04/10/24 04/10/24 09:37 09:37 09:38 Home O2 Evaluation [Oxygen] -Test Phase Exercise Exercise Exercise -Oxygen Delivery Room Air Nasal Cannula Nasal Cannula -Oxygen Flow Rate (L/min) 1 2 [Pulse Oximetry] -Pulse Oximetry (90-100 %) 84 L 86 L 87 L [Pulse Rate] -Pulse Rate (60-100 beats/min) 76 78 81 [Evaluation] -Activity Tolerance Good [Exercise] -Ambulation Distance (feet) 30 -Ambulation Distance (meters) 9.14 [Comments] -Home Oxygen Evaluation Comments Patient ambulated from bed to bathroom and back to chair. [Charges] -Evaluation Charges 04/10/24 09:56 Home O2 Evaluation [Oxygen] -Test Phase Exercise -Oxygen Delivery Nasal Cannula -Oxygen Flow Rate (L/min) 3 [Pulse Oximetry] -Pulse Oximetry (90-100 %) 91 [Pulse Rate] -Pulse Rate (60-100 beats/min) 70 [Evaluation] -Activity Tolerance [Exercise] -Ambulation Distance (feet) -Ambulation Distance (meters) [Comments] -Home Oxygen Evaluation Comments Patient remains at her home settings of 2L at rest and 3L with activity. [Charges] -Evaluation Charges
--- NOTE | 2024-04-10 09:58 | PCRCNOTE ---
Home O2 Evaluation was completed by RT, Patient remains on the same home settings of 2L at rest and 3L with activity. RN informed.
[2024-04-10 11:20] LABS: Glucose Point of Care 188 mg/dl (65-105)
--- NOTE | 2024-04-10 14:02 | PM.DS ---
DS: Admitting Diagnosis Discharge Date 04/10/24 Admitting Diagnosis Shortness of breath DS: Discharge Diagnosis Discharge Diagnosis (1) Acute on chronic respiratory failure with hypoxia and hypercapnia: Code(s): J96.21 - Acute and chronic respiratory failure with hypoxia; J96.22 - Acute and chronic respiratory failure with hypercapnia Status: Acute (2) Acute exacerbation of CHF (congestive heart failure): Qualifiers: Heart failure type: combined systolic and diastolic Qualified Code(s): I50.43 - Acute on chronic combined systolic (congestive) and diastolic (congestive) heart failure Code(s): I50.9 - Heart failure, unspecified Status: Acute (3) Chronic obstructive pulmonary disease: Qualifiers: COPD type: unspecified COPD Qualified Code(s): J44.9 - Chronic obstructive pulmonary disease, unspecified Code(s): J44.9 - Chronic obstructive pulmonary disease, unspecified Status: Acute (4) CKD (chronic kidney disease): Code(s): N18.9 - Chronic kidney disease, unspecified Status: Acute (5) Diabetes mellitus type 2 in obese: Code(s): E11.69 - Type 2 diabetes mellitus with other specified complication; E66.9 - Obesity, unspecified Status: Chronic (6) Obstructive sleep apnea: Code(s): G47.33 - Obstructive sleep apnea (adult) (pediatric) Status: Chronic (7) Primary hypertension: Code(s): I10 - Essential (primary) hypertension Status: Chronic (8) Bipolar disorder: Qualifiers: Active/Remission status: remission status unspecified Qualified Code(s): F31.9 - Bipolar disorder, unspecified Code(s): F31.9 - Bipolar disorder, unspecified Status: Chronic DS: Summary Hospital Course Reason for hospitalization: 83yo female with chronic resp failure, CKF, CHF, HTN and DM here for shortness of breath. Please see H&P for details. Hospital Course: Patient has chronic resp failure on 2L at rest and 3L with activity. She presented with SOB and felt to have acute on chronic heart failure and acute COPD exacerbation. She had acute on chronic systolic and diastolic CHF exacerbation. Echo in 2021 showing LVEF 45-50% with Grade I diastolic dysfxn, mild MR, mild TR. CXR showing worsening bibasilar opacities. BNP 4320. She is on Toprol XL and spironolactone at home but not diuretics. She received a few doses of IV Lasix then changed to oral Lasix. Echo here showing EF 45-50% with Grade I diastolic dysfunction and mild valvular disease. Resumed on Toprol XL and Spironolactone. Some bradycardia so diltiazem stopped and Toprol XL dose decreased. Empagliflozin added. Patient also with COPD exacerbation. She was started on Solu-Medrol and bronchodilators. Azithromycin started and she has completed 5 days. She was weaned to Prednisone and completed a 5 day course. A Home O2 evaluation showing no change in her oxygen requirement with 2L at rest and 3L with activity. Cr baseline with wide variation but mostly 1-1.4 range. Cr here is within her baseline and she tolerated the Lasix. BUN higher related to steroids, A1c 6.9 in January. The patient's blood glucose widely fluctuated due to steroids. She was covered with AccuCheks covering with sliding scale.? Hypoglycemia protocol was available as needed.?Patient tolerating CPAP here. Patient with dysphagia. She has a previous history of esophageal dilation. She is having episodes of regurgitation. Seen by ST who recommended GI consult. GI recommended EGD as outpatient. Patient was up ambulating with a walker to the bathroom. She feels safe about discharging home. She overall did well and was able to be discharged home on 04/10/24 Status at Discharge Cognitive/behavioral status at discharge: stable Time Spent with Patient Time attestation: Total time spent providing and/or coordinating discharge services: 34 minutes Exam Narrative: AF 98.8 135/51 83 20 93% 3L Gen - NARD C
== END 2024-04-10 15:30 | disposition home health service (06) | DRG 291 ==
LOC: ANHED 21:14 → ANHIMU 22:54
PROVIDERS: Nurse Practitioner Family; Admitting Provider Internal Medicine; Emergency Provider Emergency Medicine; PCP Family Medicine; Visit Provider Internal Medicine
DX: I13.0 Hypertensive heart and chronic kidney disease with heart failure and stage 1 through stage 4 chronic kidney disease, or unspecified chronic kidney disease (principal); I50.43 Acute on chronic combined systolic (congestive) and diastolic (congestive) heart failure; J96.22 Acute and chronic respiratory failure with hypercapnia; J96.21 Acute and chronic respiratory failure with hypoxia; J44.1 Chronic obstructive pulmonary disease with (acute) exacerbation; N17.9 Acute kidney failure, unspecified; E11.22 Type 2 diabetes mellitus with diabetic chronic kidney disease; N18.30 Chronic kidney disease, stage 3 unspecified; E66.9 Obesity, unspecified; K22.2 Esophageal obstruction; G47.33 Obstructive sleep apnea (adult) (pediatric); F31.9 Bipolar disorder, unspecified; R13.10 Dysphagia, unspecified; E78.5 Hyperlipidemia, unspecified; N39.3 Stress incontinence (female) (male); R29.6 Repeated falls; M19.012 Primary osteoarthritis, left shoulder; M19.011 Primary osteoarthritis, right shoulder; Z68.35 Body mass index [BMI] 35.0-35.9, adult; Z85.828 Personal history of other malignant neoplasm of skin; Z96.1 Presence of intraocular lens; Z98.42 Cataract extraction status, left eye; Z98.41 Cataract extraction status, right eye; Z90.710 Acquired absence of both cervix and uterus; Z99.81 Dependence on supplemental oxygen
CPT/HCPCS: 36415; 36600; 71046; 80048; 80053; 80076; 82375; 82607; 82746; 82805; 82948; 83050; 83735; 83880; 84484; 85025; 85027; 85610; 85730; 92610; 93005; 93306; 94002; 94003; 94618; 94640; 96365; 96366; 96372; 96374; 96375; 96376; 97110; 97161; 97165; 97530; 97535; 99291; A9270; G0378; J0456; J1650; J1815; J1940; J2919; J7512

== ENCOUNTER 2024-04-22 11:42 | Outpatient (NON) | payer MEDICARE, SELFPAY ==
[2024-04-22 12:56] LABS: Basophils Absolute Auto 0.1 K/mm3 (0.0-0.1); Basophils Percent Auto 0.7 % (0.2-1.2); Eosinophils Absolute Auto 0.3 K/mm3 (0-0.3); Eosinophils Percent Auto 4.3 % (0-4.4); Hematocrit 35.2 % (37.0-47.0); Hemoglobin 10.7 g/dL (12.0-15.0); Immature Granulocyte Absolute 0.04 K/mm3 (0.00-0.031); Immature Granulocyte Percent A 0.5 % (0-0.5); Lymphocytes Absolute Auto 1.15 K/mm3 (0.9-3.2); Lymphocytes Percent Auto 15.8 % (18.3-44.2); Mean Corpuscular HGB Conc 30.4 g/dl (32-36); Mean Corpuscular Hemoglobin 29.9 pg (26-34); Mean Corpuscular Volume 98.3 fl (80-100); Mean Platelet Volume 10.8 fl (7.4-10.4); Monocytes Absolute Auto 0.6 K/mm3 (0.1-0.6); Monocytes Percent Auto 8.5 % (2.6-8.5); Neutrophils Absolute Auto 5.1 K/mm3 (1.3-6.7); Neutrophils Percent Auto 70.2 % (45.5-73.1); Platelet Count Result 228 k/mm3 (150-375); Red Blood Count 3.58 M/mm3 (4.2-5.4); Red Cell Distribution Width 12.6 % (11.5-14.5); White Blood Count 7.3 K/mm3 (4.5-10.0)
[2024-04-22 13:17] LABS: Alanine Aminotransferase 12 U/L (6-35); Alkaline Phosphatase 91 U/L (38-126); Anion Gap 7 mmol/L (4-12); Aspartate Amino Transferase 21 U/L (14-36); Bilirubin,Total 0.4 mg/dL (0.2-1.3); Blood Urea Nitrogen 24 mg/dL (7-17); Carbon Dioxide 37 mmol/L (22-30); Chloride 96 mmol/L (98-107); Estimated Glomerular Filt Rate 39; Glucose 164 mg/dL (65-110); Potassium 3.6 mmol/L (3.4-5.0); Sodium 140 mmol/L (137-145)
[2024-04-22 13:50] LABS: Hemoglobin A1C 6.9 % (<5.7)
== END 2024-04-22 11:43 | disposition home or self-care (01) ==
LOC: HOME HLTH 11:52
PROVIDERS: PCP Family Medicine; Referring Provider Physician Assistant Medical; Visit Provider Family Medicine
DX: E11.22 Type 2 diabetes mellitus with diabetic chronic kidney disease (principal); I13.0 Hypertensive heart and chronic kidney disease with heart failure and stage 1 through stage 4 chronic kidney disease, or unspecified chronic kidney disease; N18.30 Chronic kidney disease, stage 3 unspecified; I50.9 Heart failure, unspecified; I50.43 Acute on chronic combined systolic (congestive) and diastolic (congestive) heart failure; D64.9 Anemia, unspecified; E78.2 Mixed hyperlipidemia; J96.21 Acute and chronic respiratory failure with hypoxia; J96.22 Acute and chronic respiratory failure with hypercapnia; N17.9 Acute kidney failure, unspecified
CPT/HCPCS: 80053; 83036; 85025

== ENCOUNTER 2024-05-13 00:42 | Day surgery (SDC) | payer MEDICARE, SELFPAY ==
[2024-05-02 11:31] VITALS: BMI 33.8
--- NOTE | 2024-05-02 11:58 | PC.NURSE ---
spoke with pt about procedure also called the deliver driver her daughter Yulisa and verified time and place because pt was unsure
[2024-05-13 12:14] VITALS: BP 144/73; PULSE 77; RESP 20; TEMP 36.6; O2SAT 97
--- NOTE | 2024-05-13 12:16 | PM.HPGS ---
History of Present Illness History of Present Illness Consent: Risks, benefits, and alternatives have been discussed and questions answered. Patient agrees to proceed with procedure. Chief complaint: Dysphagia, Esophageal obstruction Narrative: María Faith is a 83 year old female here for egd, h/o schatzki ring dilated in 2021 with some improvement of dysphagia Review of Systems Review of Systems: All systems reviewed & are unremarkable except as noted in HPI and below PMFSH Past Medical History Medical History Arthritis of both shoulder regions Asthma PFTs October 2019 demonstrated mild obstructive ventilatory impairment with mild air trapping and moderate diffusion impairment no response to bronchodilator Basal cell carcinoma (BCC) in situ of skin Bipolar disorder Cancer of skin (~08/20/12) Cellulitis of right ear Chronic obstructive pulmonary disease Patient reports history of asthma Combined systolic and diastolic congestive heart failure Depression Diverticulitis Dysphagia Esophageal stricture Essential hypertension Hyperlipidemia Insomnia Ischemia Chronically false-positive stress test with last stress test 2006 Obesity (BMI 30-39.9) Obstructive sleep apnea With BiPAP 14/10 Pleural effusion Schatzki's ring Type 2 diabetes mellitus without complication, without long-term current use of insulin Urinary incontinence Stress urinary incontinence Surgical History Surgical History History of bladder suspension procedure X2 History of tonsillectomy Hx of cardiac cath Hx of hysterectomy, total Status post cataract extraction of both eyes with insertion of intraocular lens Family History Family History Son Hypertension Other Adopted Social History Social History Social History: She is . She lives in her own home alone. Her daughter brings her meals each day. She has 6 children. 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 Primary care physician: Dr. Debo Mckoy Code status: Full code (the patient would not want tracheostomy or G-tube) Healthcare power of social work lecturer: Yulisa Solorio (daughter) Smoking status: Never smoker Second hand tobacco smoke exposure: No Alcohol intake: never Substance use: never Substance use type: does not use Do You Feel Safe in your Home?: Yes Lack of Transportation: No Lack of Food: Never True Current Housing: I Have Housing Concerned About Future Housing: No Difficulty Paying Gas/Electric Bills: No Difficulty Paying for Meds: No Currently Unemployed: No Education: Master's Degree or Higher Difficulty w/ Childcare or Family Care: No Living arrangements: alone Occupation/Education: retired Gender identity (if verbalized by the patient): Female Sexual Orientation (if Verbalized by the Patient): Straight or Heterosexual Spiritual care concerns: No Agree to blood products: Yes Meds Home Medications and Allergies Home Medications Medication Instructions Recorded Confirmed Type duloxetine 30 mg capsule,delayed 60 mg PO DAILY 10/14/19 05/02/24 History release (Cymbalta) liraglutide 0.6 mg/0.1 mL (18 mg/3 1.2 mg subcut HS 10/14/19 05/02/24 History mL) subcutaneous pen injector (Victoza 3-Parveen) trazodone 150 mg tablet 300 mg PO HS 10/18/19 05/02/24 History alprazolam 0.5 mg tablet 0.5 mg PO TID 10/04/20 05/02/24 History glipizide 10 mg tablet 10 mg PO DAILY #30 tabs 10/15/22 05/02/24 Rx doxazosin 4 mg tablet 4 mg PO DAILY #90 tabs 06/29/23 05/02/24 Rx umeclidinium 62.5 mcg-vilanterol 1 inh inhalation DAILY #60 ea 01/18/24 05/02/24 Rx 25 mcg/actuation powdr for inhalation (Anoro Ellipta) albuterol sulfate 90 mcg/actuation 2 puff inhalation Q4-6H PRN 04/05/24 05/02/24 History
[2024-05-13] MEDS: LACTATED RINGERS 1,000 ML 150 ML IV CONT (12:25)
[2024-05-13 12:27] LABS: Glucose Point of Care 122 mg/dl (65-105)
--- NOTE | 2024-05-13 12:28 | WPDANESEPPF ---
Anes - Initial Pre Proc Eval Procedure: Operation Date: 05/13/24 13:30 Proposed Procedures p Esophagogastroduodenoscopy - Alfred Castellanos MD Date/Time: 05/13/24 12:28 Surgeon: Alfred Castellanos MD Pre Op Diagnosis: Dysphagia, Esophageal obstruction Patient Data Age: 83 Gender: F Height: 1.57 m Weight: 82 kg Last Vital Signs Temp 98 F 05/13/24 12:14 Pulse 77 05/13/24 12:14 Resp 20 05/13/24 12:14 BP 144/73 H 05/13/24 12:14 Pulse Ox 97 05/13/24 12:14 O2 Del Method Nasal Cannula 05/13/24 12:14 O2 Flow Rate 3 05/13/24 12:14 Allergies Allergy/AdvReac Type Severity Reaction Status Date / Time codeine Allergy Unknown Not Verified 05/13/24 12:13 Entered,Upset Stomach,Not Entered,Upset Stomach Home Medications Medication Instructions Recorded Confirmed Type duloxetine 30 mg capsule,delayed 60 mg PO DAILY 10/14/19 05/02/24 History release (Cymbalta) liraglutide 0.6 mg/0.1 mL (18 mg/3 1.2 mg subcut HS 10/14/19 05/02/24 History mL) subcutaneous pen injector (Victoza 3-Parveen) trazodone 150 mg tablet 300 mg PO HS 10/18/19 05/02/24 History alprazolam 0.5 mg tablet 0.5 mg PO TID 10/04/20 05/02/24 History glipizide 10 mg tablet 10 mg PO DAILY #30 tabs 10/15/22 05/02/24 Rx doxazosin 4 mg tablet 4 mg PO DAILY #90 tabs 06/29/23 05/02/24 Rx umeclidinium 62.5 mcg-vilanterol 1 inh inhalation DAILY #60 ea 01/18/24 05/02/24 Rx 25 mcg/actuation powdr for inhalation (Anoro Ellipta) albuterol sulfate 90 mcg/actuation 2 puff inhalation Q4-6H PRN 04/05/24 05/02/24 History aerosol inhaler Wheezing fluticasone propionate 50 1 spray intranasal DAILY 04/05/24 05/02/24 History mcg/actuation nasal spray,suspension mirtazapine 30 mg tablet 30 mg PO DAILY 04/05/24 05/02/24 History pravastatin 40 mg tablet 40 mg PO DAILY 04/05/24 05/02/24 History spironolactone 25 mg tablet 12.5 mg PO DAILY 04/05/24 05/02/24 History metoprolol succinate 25 mg 25 mg PO QAM #30 tabs 04/10/24 05/02/24 Rx tablet,extended release 24 hr (Toprol XL) diphenoxylate-atropine 2.5 1 tablet PO TID PRN diarrhea 05/02/24 05/02/24 History mg-0.025 mg tablet (Lomotil) miconazole nitrate 2 % topical 1 applic topical BID PRN Dry Skin 05/02/24 05/02/24 History cream (Antifungal (miconazole)) montelukast 10 mg tablet 10 mg PO HS #90 tabs 05/05/24 Rx empagliflozin 10 mg tablet 10 mg PO DAILY #30 tabs 05/09/24 Rx (Jardiance) furosemide 40 mg tablet 40 mg PO DAILY #30 tabs 05/09/24 Rx Laboratory Tests 05/13/24 12:19 POC Capillary Glucose 122 H mg/dl (65-105) Patient hx anesthesia problems: none Family hx anesthesia problems: none Results Review: All pre-operative results and documents have been reviewed as part of the pre-operative evaluation. [facility] Past Medical History Medical History Arthritis of both shoulder regions Asthma PFTs October 2019 demonstrated mild obstructive ventilatory impairment with mild air trapping and moderate diffusion impairment no response to bronchodilator Basal cell carcinoma (BCC) in situ of skin Bipolar disorder Cancer of skin (~08/20/12) Cellulitis of right ear Chronic obstructive pulmonary disease Patient reports history of asthma Combined systolic and diastolic congestive heart failure Depression Diverticulitis Dysphagia Esophageal stricture Essential hypertension Hyperlipidemia Insomnia Ischemia Chronically false-positive stress test with last stress test 2006 Obesity (BMI 30-39.9) Obstructive sleep apnea With BiPAP 14/10 Pleural effusion Schatzki's ring Type 2 diabetes mellitus without complication, without long-term current use of insulin Urinary incontinence Stress urinary incontinence Surgical History Surgical History History of bladder suspension procedure X2 History of tonsillec
[2024-05-13 12:56] VITALS: BP 139/46; PULSE 80; RESP 22; O2SAT 98
[2024-05-13 13:06] VITALS: BP 135/66; PULSE 75; RESP 21; O2SAT 98
--- NOTE | 2024-05-13 13:06 | SUR.OPER ---
PATIENT'S OXYGEN DROPPED POST PROCEDURE TO 70%. METAL TECHNICIAN SUCTIONED THE PATIENT WITH A YANKAUER. OXYGEN WAS GIVEN AT 15L THROUGH AMBU BAG. PATIENT'S OXYGEN RETURNED TO 100% AND WAS TAKEN TO RECOVERY BY METAL TECHNICIAN.
[2024-05-13 13:16] VITALS: BP 139/64; PULSE 70; RESP 32; O2SAT 99
[2024-05-13 13:18] LABS: Glucose Point of Care 97 mg/dl (65-105)
== END 2024-05-13 13:35 | disposition home or self-care (01) ==
PROVIDERS: PCP Family Medicine; Visit Provider Internal Medicine Gastroenterology
PROC: 0DJ08ZZ Inspection of Upper Intestinal Tract, Via Natural or Artificial Opening Endoscopic (ICD-10-PCS; CPT 43235; principal; 2024-05-13 13:30)
DX: R13.10 Dysphagia, unspecified (principal); K22.2 Esophageal obstruction; K44.9 Diaphragmatic hernia without obstruction or gangrene; J45.909 Unspecified asthma, uncomplicated; F31.9 Bipolar disorder, unspecified; I50.40 Unspecified combined systolic (congestive) and diastolic (congestive) heart failure; I11.0 Hypertensive heart disease with heart failure; E78.5 Hyperlipidemia, unspecified; G47.33 Obstructive sleep apnea (adult) (pediatric); E11.9 Type 2 diabetes mellitus without complications
CPT/HCPCS: 43249; 82948; C1726; J2704; J7120

== ENCOUNTER 2024-06-23 11:00 | Outpatient (CLI) | payer MEDICARE, SELFPAY ==
--- NOTE | ~2024-06-23 | XR_ITS ---
XR lumbar spine 2-3V DATE: 06/23/2024 11:26 INDICATION: Low back pain TECHNIQUE: Standing AP, lateral and coned lateral lumbosacral views COMPARISON: None FINDINGS: Diffuse idiopathic skeletal hyperostosis of the thoracic spine. There is prominent degenerative change of the apophyseal joints in the lower lumbar and lumbosacral a josefina with associated grade 1 anterolisthesis at L4-5. Otherwise normal alignment of the lumbar spine. No fracture or bone destruction is evident. Included lower thoracic and lumbar pedicles are intact. Moderate to moderately severe degenerative disc disease throughout the lumbar spine, most prominent a t L4-5. The sacroiliac joints are intact. IMPRESSION: Diffuse idiopathic skeletal hyperostosis of the thoracic spine Moderate to moderately severe degenerative disc disease of the lumbar spine Mineral grade 1 anterolisthesis at L4-5 due to degenerative change at the apophyseal joints Reviewed, dictated and finalized at location J. IMPRESSION: Diffuse idiopathic skeletal hyperostosis of the thoracic spine Moderate to moderately severe degenerative disc disease of the lumbar spine Mineral grade 1 anterolisthesis at L4-5 due to degenerative change at the apoph yseal joints
--- NOTE | ~2024-06-23 | XR_ITS ---
EXAM: XR thoracic spine 2V DATE: 06/23/2024 11:26 HISTORY: M54.9 - Dorsalgia, unspecified . COMPARISON: None available. FINDINGS: Decreased mineralization. Mildly exaggerated kyphosis. Vertebral body alignment intact. Parker tebral body heights preserved. Mild multilevel disc space narrowing and moderate large bridging later al osteophytes. No traumatic malalignment or fracture. Visualized lung parenchyma is clear. Senescent change in the lungs. IMPRESSION: Multilevel moderate degenerative disc disease. Reviewed, dictated and finalized at location K.
== END 2024-06-23 11:01 ==
LOC: MICIMG 11:02
PROVIDERS: PCP Family Medicine; Visit Provider Student in an Organized Health Care Education/Training Program
DX: M48.14 Ankylosing hyperostosis [Forestier], thoracic region (principal); M51.36 Other intervertebral disc degeneration, lumbar region; M43.16 Spondylolisthesis, lumbar region
CPT/HCPCS: 72070; 72100

== ENCOUNTER 2025-02-14 12:25 | Outpatient (CLI) | payer MEDICARE, SELFPAY ==
--- OUTSIDE RECORDS SUMMARY | 2025-02-14 13:44 | XMS_ITS | Continuity of Care Document ---
Author Organization [facility] Address [address] [place] [address] Phone Care Team Providers Care Low Voltage Electrician Name Role Phone Neda De La Torre Unavailable Unavailable Procedures Procedure Date Office/outpatient Visit, Est Dilated Retinal Exam W Interpretation Au Frames Deluxe Progressive Lens, Polycarb SV Poly Carb Sph +/- 7.12 To +/- 20 D Ju Tax - Medical Eye Exam & Treatment Dilated Retinal Exam W Interpretation Office/outpatient Visit, Est Visual Functional Status Assessed Eye Exam & Treatment Refraction Advance Directives Directive Yes / No Effective Date File Name No Information Encounters Encounter Description Practice Location Reason(s) For Visit Diagnoses Date Provider Providers Copied on Encounter Office/outpat ient Visit, [facility] [address], [place], [place], [id number], [place] tel:[phone] [facility] No Information 0-201 0 Britt Red. [address] , [address], [place], [address], [place]. tel:[phone] [facility], [address], [place], [place], [id number], [place] tel:[phone] [facility] No Information 0-200 9 [employer] . [address], [address], [place], [place], [address], [place]. tel:[phone] Referring Provider: Clif Woods [facility] [address], [place], [address]. tel:[phone] rojas Provider: Mirela Page, [address] [facility], [place], [place], [facility]. tel:[phone] [facility], [id number] [place] [address] [address], [place], [place], [address], [place] tel:[phone] [facility] No Information 0-200 9 Britt Craig [address] [facility], [place], [address], [place]. tel:[phone] Office/outpat ient Visit, [facility], [address] [place] [address] [address], [place], [place], [address], [place] tel:[phone] [facility] No Information 3-200 7 Britt Craig [address] [facility] [address], [place], [address], [place]. tel:[phone] [facility], [address], [place], [place], [id number], [place] tel:[phone] [facility] No Information 7-200 7 Britt Carig [address] [facility] [address], [place], [address], [place]. tel:[phone] Family History Family Member Type Diagnosis Age At Onset No Information Payers Payer name Insurance type Covered green party ID Authoriza tisaray(s) [place] [id number] Social History Type Description Quantity Date Captured Comments Sex Female Smoking Status No Information Chief Complaint And Reason For Visit No Information Reason For Referral Reason For Referral No Information History Of Present Illness Encounter Date Complaint History Of Prese nt Illness No Information Functional Status Date Functional Assessmen t No Information Instructions Date Instruction Additional Infor mation No Information Assessments Type Assessment Date No Information Patient Care Teams Name Effective Dates (start - stop) Status Members No Information
--- OUTSIDE RECORDS SUMMARY | 2025-02-14 13:44 | XMS_ITS | Clinical Summary ---
Author Organization [facility] Address [address] [place] [address] Care Team Providers Care Ramp Lead Name Role Phone Margarito Razo Primary Care Provider [phone] Allergies Active Allergy Reactions Criticality Noted Date Comments Codeine GI Upset 05/01/2021 Medications ALPRAZolam 0.5 MG tablet Take 0.5 mg by mouth 3 (three) times daily as needed. 04/08/2021 Active diphenoxylate-a tropine 2.5-0.025 MG tablet Take 1 tablet by mouth 3 (three) times daily as needed. 04/08/2021 Active citalopram 40 MG tablet Take 40 mg by mouth daily. Active doxazosin 4 MG tablet Take 4 mg by mouth nightly at bedtime. Active glimepiride 1 MG tablet Take 1 mg by mouth nightly. Active traZODone 150 MG tablet Take 150 mg by mouth nightly at bedtime. Active mirtazapine 30 MG tablet Take 30 mg by mouth nightly at bedtime. Active DULoxetine 30 MG capsule Take 30 mg by mouth daily. Active montelukast 10 MG tablet Take 10 mg by mouth nightly at bedtime. Active dilTIAZem XR 240 MG 24 hr capsule Take 240 mg by mouth daily. Active hydroCHLOROthia zide 12.5 MG capsule Take 12.5 mg by mouth nightly. Active pravastatin 40 MG tablet Take 40 mg by mouth nightly at bedtime. Active liraglutide (VICTOZA) 18 MG/3ML injection Inject 1.2 mg into the skin daily. 01/10/2021 Active multi vitamin/mineral s tablet Take 1 tablet by mouth nightly. Active Coenzyme Q10 (COQ10 OR) Take 1 each by mouth nightly. Active Polyvinyl Alcohol-Povidon e (REFRESH OP) Apply 1 drop to eye as needed (dry eye). Active gabapentin 100 MG capsule Take 2 capsules (200 mg total) by mouth 3 (three) times daily. 90 capsule 1 05/03/2021 Active HYDROcodone-lance taminophen 5-325 MG tabletIndicatio ns:Acute Pain < 7 Day Supply Take 1 tablet by mouth every 4 (four) hours as needed. Indications: Acute Pain < 7 Day Supply 20 tablet 05/03/2021 Active Active Problems Problem Noted Date Diagnosed Date Chronic bronchitis ([facility]) 05/02/2021 Anxiety and depression 05/02/2021 Supplemental oxygen dependent 05/02/2021 ELISSA on CPAP 05/02/2021 Fall 05/01/2021 Bradycardia 12/09/2018 Overview (05/01/2021): Last Assessment & Plan: With falls, Advised to go to the ER Hyperlipidemia associated wi th type 2 diabetes mellitus ([facility]) 07/13/2018 Overview (05/01/2021): Last Assessment & Plan: Goal of treatment , LDL cholesterol less than 100 ( less than 70 in patients with history of heart attacks and / or strokes ) NonHDL cholesterol ( total cholesterol minus HDL cholesterol ) goal less than 130 ( less than 100 in patients with history of heart attacks and / or strokes ) Low cholesterol, low fat diet was discussed and advised. Daily exercise On statin therapy with Pravachol and Vascepa Type 2 diabetes mellitus ([facility]) 04/15 Overview (05/01/2021): DMII WO CMP UNCNTRLD Last Assessment & Plan: Hba1c was Lab Results Component Value Date HGBA1C 7.7 01/10/2021 Today adequate , indicating DM control Goals blood sugars of 120-160 and Hba1c under 7 % was explained. 1800 calorie, consistent carb diet recommended, no more than 3-45 grams of carbs per meal, avoiding concentrated sweet drinks and rapid absorption carbs. 25-45 min daily aerobic and resistance exercise recommended Prevention and treatment of hyypoglcyemia discussed. Blood glucose monitoring with fingers sticks. Continue current regimen Hypertension associated with diabetes (CMS/HCC H HS/HCC) 04/15/2014 Overview (05/01/2021): HYPERTENSION NOS Last Assessment & Plan: Goal blood pressure is less than 140/85 Low salt diet was discussed andd recommended The importance of daily aerobic exercise was also emphasized. Continue current meds, including LANCE-I or ARB, e.g. Hypercholesterolemia 04/15/2014 Overview (05/01/2021): Hypercholesteremia Social History Tobacco Use Types Packs/Day Years Used Date Smoking Tobacco: Never Smokeless Tobacco: Never Tobacco Cessation:Counseling Given: No Comments No Sex and Gender Information Value Date Recorded Sex Assigned at Not on file Legal Sex Female 2:02 PM CDT Gender Identity Not on file Sexual Orientation Not on file Last Filed Vital Signs Vital Sign Reading Time Taken Comments Blood Pressure 146/64 05/03/2021 11:30 AM CDT Pulse 74 05/03/2021 11:30 AM CDT Temperature 37.2 C (99 F) 05/03/2021 11:30 AM CDT Respiratory Rate 16 05/03/2021 11:30 AM CDT Oxygen Saturation 94% 05/03/2021 11:30 AM CDT Inhaled Oxygen Concentration - - Weight 89.1 kg (196 lb 6.4 oz) 05/03/2021 1:00 A M CDT Height 157.5 cm (5' 2 ) 05/01/2021 2:17 PM CDT Body Mass Index 35.92 05/01/2021 2:17 PM CDT Plan of Treatment Health Maintenance Due Date Last Done Comments Kidney Health Evaluation 1942 Hemoglobin A1C 1942 Pneumococcal Vaccine: 65+ Years (1 of 2 - PCV) 1948 Diabetes: Retinopathy Eye Exam 1960 DTaP, Tdap and Td Vaccines ( 1 - Tdap) 1961 Zoster Vaccines (1 of 2) 1992 Annual Medicare Wellness Visit 2007 Dexa Scan (General) 2007 RSV Immunization or 60+ Years (1 - 1-dose 75+ series) 2017 Lipid Panel 01/10/2022 01/10/2021 COVID-19 Vaccine (3 - 2023-2 5 season) 2024 02/15/2021, 01/25/2021 Influenza Adult (#1) 2024 10/03/2020 Meningococcal B Vaccine Aged Out No l onger eligible based on patient's age to complete this topic Meningococcal Vaccine Aged Out No luiz dameon eligible based on patient's age to complete this topic RSV Immunizations Under 20 Months Aged Out No longer eligible b ased on patient's age to complete this topic Goals Goal Patient Goal Type Associated Problems Recent Progress Patient-Stated? Author Monitor - able to maintain pain control General No Catherine Garcia, RN Insurance MED [facility] MEDICARE Advance Directives * Full Code (Latest Code Status on File) Date Activated Date Inactivated Comments 05/01/2021 5:20 PM 05/03/2021 7:29 PM Care Teams Ramp Lead Relationship Specialty Start Date End Date Margarito Razo PA [address] [place] [address] PCP - General PHYSICIAN DIRECTOR INFORMATION SECURITY 05/01/21
--- OUTSIDE RECORDS SUMMARY | 2025-02-14 13:44 | XMS_ITS | Continuity of Care Document ---
Author Organization [facility] Address [address] [place] [address] Care Team Providers Care Salon Designer Name Role Phone Slade Salas APN Unavailable Unavailable Procedures Procedure Date [facility] Minr Compl 2 [facility] Minr Compl 2 [facility]t [facility]-da E&m Minr Compl 2 [facility]t [facility] E&m Minr Compl 2 Sub[facility]t [facility]m Minr Compl 2 [facility]m Minr Compl 2 Sub[facility]t [facility]da E&m Minr Compl 2 Subsqt H[facility]-da E&m Sig Compl [facility]t [facility] Minr Compl 2 Cv Stress; Interpt & Reprt Onl Cv Stress; Phys Supervs Only LHC W/ LV And Corns Mod Sed Same Phys;Initial 15 Min 2021 Init Hosp-da E&m Hi Severity Echo Ecg-routine 12 Lead; Intrpt & 2 Advance Directives Directive Yes / No Effective Date File Name No Information Encounters Encounter Description Practice Location Reason(s) For Visit Diagnoses Date Provider Providers Copied on Encounter [facility], [address] [place] [address], [address], [place] [facility] No Information 2 Maritza June. [address] [place] [address] [address], [address], [place], [address], [place]. tel:[phone] [facility], [address] [place] [address], [address], [place] [facility] No Information 6 2 Nino Young. [address] [place] [address], [place] [address], [place], [address], [place]. tel:[phone] Referring Provider: Martin Bennett DO W, [address] [place] [address], [address]. tel:[phone] [facility], [address] [place] [address], [address], [place] [facility] No Information 2 Nino Young. [address] [place] [address], [place], [address], [place]. tel:[phone] Referring Provider: Hector Oneill, [address] [place] [address], [place], [address]. tel:[phone] [facility], [address] [place] [address], [address], [place] [facility] No Information 2 Lazaro Demetrio. [address] [place] [address], [place] [address], [place], [address], [place]. tel:[phone] Referring Provider: Martin SEARS, [address] [place] [address], [address]. tel:[phone] [facility], [address] [place] [address], [address], [place] [facility] No Information 1 2 Nino Young. [address] [place] [address], [place], [address], [place]. tel:[phone] Referring Provider: Hector Oneill, [address] [place] [address], [place], [address]. tel:[phone] [facility] Sig [facility], [address] [place] [address], [address], [place] [facility] No Information 2 Nickolasse Hector. [address] [place] [address], [place], [address], [place]. tel:[phone] Referring Provider: Martin SEARS, [address] [place] [address], [facility]. tel:[phone] [facility], [address] [place] [address], [address], [place] [facility] No Information 2 Silvio Hollis. [address] [place] [address], [address], [place]. tel:[phone] Referring Provider: Bunny Anguiano, [address] [place] [address], [address]. tel:[phone] [facility], [address] [place] [address], [facility], [place] [facility] No Information 2 Angel Guerrero. [address] [place] [address], [address], [place]. tel:[phone] Referring Provider: Cesar Ortiz, [address] [place] [address], [address]. tel:[phone] Init Hosp[facility]da E&m Hi Severity [facility], [address] [place] [address], [address], [place] [facility] No Information 2 Furiasse Hector. [address] [place] [address], [address], [place]. tel:[phone] Referring Provider: Hector Oneill, [address] [place] [address] [facility], [place], [place], [facility]. tel:[phone] [facility], [address] [place] [address], [address], [place] [facility] No Information 2 Nino Young. [address] [place] [address], [place] [address], [place], [place], [facility], . tel:[phone] Referring Provider: Hector Solorzanoelissa, [address] [place] [address] [facility], [place], [place], [facility]. tel:[phone] [facility], [address] [place] [address], [address], [place] [facility] No Information 2 Carbonejerome Malone. [address] [place] [address], [place] [address], [place], [facility], . tel:[phone] Referring Provider: Martin SEARS, [address] [place] [address], [facility]. tel:[phone] Family History Family Member Type Diagnosis Age At Onset No Information Payers Payer name Insurance type Covered libertarian ID Authoriza tion(s) [facility] Medicare Complete [id number] Social History Type Description Quantity Date Captured Comments Alcohol Use Details Unknown Caffeine Use Details Unknown Tobacco Use Status No Information Smoking Status No Information Sex Female Sexual Orientation Straight or heterosexual Gender Identity Female Chief Complaint And Reason For Visit No [...]
--- OUTSIDE RECORDS SUMMARY | 2025-02-14 13:44 | XMS_ITS | Clinical Summary ---
Author Organization [facility] Address [address] [place] [address] Care Team Providers Care Lab Aid Name Role Phone Quan Starks MD Unavailable [phone] Debo Mckoy MD Primary Care Provider [phone] Allergies Active Allergy Reactions Criticality Noted Date Comments Codeine Medications traZODone (DESYREL) 150 mg tablet Take one by mouth one time per day at bedtime 0 0 09/04/[address] (CYMBALTA) 30 mg capsule take 1 capsule by oral route 2 times every day 0 0 01/19/20 15 Active azelastine (ASTELIN) 137 mcg (0.1 %) nasal spray spray 2 spray by intranasal route 2 times every day in each nostril 0 spray 0 01/19/20 15 Active ALPRAZolam (XANAX) 0.5 mg tablet Take one by mouth three times per day as needed 0 0 09/04/20 08 Active dilTIAZem XR (dilTIAZem XR) 240 mg 24 hr capsule Take one by mouth one time per day 0 0 09/04/20 08 Active montelukast (SINGULAIR) 10 mg tablet Take 1 tablet (10 mg total) by mouth nightly Active mirtazapine (REMERON) 30 mg tablet Take 1 tablet (30 mg total) by mouth nightly 0 05/10/20 19 Active pen needle, diabetic 29 gauge x 1/2 needle Use to inject 1-4 times daily as directed 100 each 09/06/20 20 Active blood-glucose meter miscIndications :Type 2 diabetes mellitus with hyperglycemia, without long-term current use of insulin ([facility]) One Touch Verio Use Daily to check blood glucose 1 each 10/31/20 21 Active lancets 31 gauge miscIndications :Type 2 diabetes mellitus with hyperglycemia, without long-term current use of insulin ([facility]) One Touch Verio Use daily to check blood glucose 100 each 2 10/31/20 21 Active blood glucose diagnostic (glucose blood) stripIndication s:Type 2 diabetes mellitus with hyperglycemia, without long-term current use of insulin ([facility]) One Touch Verio Use daily to check blood glucose 100 strip 2 10/31/20 21 Active albuterol HFA (PROVENTIL HFA,VENTOLIN HFA,PROAIR HFA) 90 mcg/actuation inhaler INHALE 1 TO 2 PUFFS BY MOUTH EVERY 4 TO 6 HOURS NEEDED FOR SHORTNESS OF BREATH FOR WHEEZING 10/01/20 22 Active Anoro Ellipta 62.5-25 mcg/actuation blister with device 1 puff daily 10/01/20 22 Active doxazosin (CARDURA) 4 mg tablet Take 1 tablet (4 mg total) by mouth daily 09/09/20 22 Active fluticasone propionate (FLONASE) 50 mcg/actuation nasal spray USE 1 TO 2 SPRAY(S) IN EACH NOSTRIL ONCE DAILY NEEDED 01/14/20 23 Active spironolactone (ALDACTONE) 25 mg tabletIndicatio ns:Hypertension associated with diabetes (HCC) Take 1 tablet (25 mg total) by mouth daily 90 tablet 1 06/07/20 23 Active nystatin cream 07/15/20 23 Active pen needle, diabetic (BD Ultra-Fine Mini Pen Needle) 31 gauge x 3/16 needle USE WITH VICTOZA INJECTIONS ONCE DAILY. 100 each 3 12/09/19 24 Active citalopram (CeleXA) 40 mg tablet Take 1 tablet (40 mg total) by mouth daily Active ezetimibe (ZETIA) 10 mg tablet Take 1 tablet (10 mg total) by mouth daily 08/04/20 24 Active furosemide (LASIX) 40 mg tablet Take 1 tablet (40 mg total) by mouth daily 08/02/20 24 Active neomycin-polymy obdulio-HC (CORTISPORIN) 3.5-10,000-1 mg/mL-unit/mL-% otic suspension INSTILL 4 DROPS INTO AFFECTED EAR(S) THREE TIMES DAILY Active omeprazole (PriLOSEC) 40 mg capsule Take 1 capsule (40 mg total) by mouth 2 (two) times a day 06/28/20 24 Active triamcinolone (KENALOG) 0.5 % cream APPLY TO THE AFFECTED AREA(S) TWICE DAILY 07/27/20 24 Active pravastatin (PRAVACHOL) 40 mg tabletIndicatio ns:Hyperlipidem ia associated with type 2 diabetes mellitus (HCC) Take 1 tablet by mouth once daily 90 tablet 3 11/03/20 24 Active metoprolol XL (TOPROL-XL) 50 mg extended release tablet Take 1 tablet by mouth once daily 90 tablet 01/13/20 25 Active betamethasone dipropionate (DEL-BETA) 0.05 % cream 01/30/20 25 Active neomycin-polymy obdulio-HC (CORTISPORIN) otic solution INSTILL 1 DROP EVERY 4 HOURS INTO EACH EAR 12/28/19 25 Active liraglutide (Victoza 2-Parveen) 0.6 mg/0.1 mL (18 mg/3 mL) injectionIndica tions:type 2 diabetes mellitus Inject 1.2 mg under the skin daily Indications: type 2 diabetes mellitus INJECT 1.2 MG SUB-Q DAILY 18 mL 1 01/31/20 25 026 Active Jardiance 10 mg tabletIndicatio ns:type 2 diabetes mellitus Take 1 tablet (10 mg total) by mouth daily 90 tablet 1 01/31/20 25 Active glipiZIDE XL (GLUCOTROL XL) 10 mg 24 hr tabletIndicatio ns:Type 2 diabetes mellitus with hyperglycemia, without long-term current use of insulin (HCC) Take 1 tablet (10 mg total) by mouth daily 90 tablet 1 01/31/20 25 Active liraglutide (Victoza 2-Parveen) 0.6 mg/0.1 mL (18 mg/3 mL) injectionIndica tions:type 2 diabetes mellitus Inject 1.2 mg under the skin daily Indications: type 2 diabetes mellitus INJECT 1.2 MG SUB-Q DAILY 18 mL 1 08/12/20 24 025 Discontinued(R eorder) Jardiance 10 mg tabletIndicatio ns:type 2 diabetes mellitus Take 1 tablet (10 mg total) by mouth daily 90 tablet 1 08/12/20 24 025 Discontinued glipiZIDE XL (GLUCOTROL XL) 10 mg 24 hr tabletIndicatio ns:Type 2 diabetes mellitus with hyperglycemia, without long-term current use of insulin (HCC) Take 1 tablet by mouth once daily 90 tablet 12/02/19 25 025 Discontinued(R eorder) Jardiance 10 mg tabletIndicatio ns:Type 2 diabetes mellitus with hyperglycemia, without long-term current use of insulin (HCC) Take 1 tablet by mouth once daily 90 tablet 01/25/20 25 025 Discontinued(R eorder) Active Problems Problem Noted Date Diagnosed Date PVC (premature ventricular contraction) 10/02/20 23 Cardiomyopathy 12/12/2022 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 Last lipid panel: 08/03/24 IEF=361, UG=228. Assessment & Plan (08/12/2024 11:28 AM CDT): Chronic problem, currently taking pravastatin 40mg & zetia 10mg. Last lipid panel: 12/30/22 LDL=43, EL=339. Had labs by PCP recently; release signed to get copy Assessment & Plan (04/14/2023 3:18 PM CDT): Chronic problem, Pravastatin 40mg daily has not been filled since 06/2022 (was 90 day supply). Refill sent today. Triglycerides now down to normal level also. No changes at this time. Assessment & Plan (12/11/2022 1:10 PM FINANCIAL SALES MANAGER): Chronic problem, Pravastatin 40mg daily. Triglycerides now down to normal level also. No changes at this time. Assessment & Plan (10/31/2021 12:33 PM FINANCIAL SALES MANAGER): High TG Continue Vascepa. Continue Pravachol Low fat diet. Assessment & Plan (01/10/2021 2:47 PM FINANCIAL SALES MANAGER): Goal of treatment , LDL cholesterol less [...] On statin therapy with Pravachol and Vascepa Assessment & Plan (05/24/2020 2:56 PM CDT): Goal of treatment , LDL cholesterol less [...] and advised. Daily exercise On statin therapy and Vascepa Assessment & Plan (01/17/2020 3:09 PM FINANCIAL SALES MANAGER): With severe hypertriglyceridemia Low carb low fat diet Start Vascepa Assessment & Plan (07/13/2018 1:42 PM CDT): Goal of treatment , LDL cholesterol less [...] and advised. Daily exercise On statin therapy Type 2 diabetes mellitus 04/15/2014 Overview (03/06/2017): DMII WO CMP UNCNTRLD Assessment & Plan (01/30/2025 11:39 AM FINANCIAL SALES MANAGER): Chronic problem, stable A1c at 7.3%. Declines to check blood sugars. Continue current medications: Glipizide XL 10mg daily Jardiance 10mg daily Victoza 1.2g daily UTD on DM eye exam (05/05/24 no DMR) UTD on labs. Discussed with María Faith: Strive for regular exercise (30min most days) and diet (get at least 4-5 servings of fruit and veggies daily, avoid processed foods, increase lean protein intake and decrease carb portions as well as fruit juices, regular soda & desserts). Watch carbs and simple sugars. Check the feet daily for skin breakdown and infection. Assessment & Plan (08/12/2024 11:29 AM CDT): Chronic problem, stable A1c at 7.5%. Asked to occasionally check blood sugar--declines. Continue current medications: Glipizide XL 10mg daily Jardiance 10mg daily Victoza 1.2g daily DM eye exam June 2024 at [facility]. Will send letter to get copy of report. Had labs by PCP recently; release signed to get copy Discussed with María Faith: Strive for regular exercise (30min most days) and diet (get at least 4-5 servings of fruit and veggies daily, avoid processed foods, increase lean protein intake and decrease carb portions as well as fruit juices, regular soda & desserts). Watch carbs and simple sugars. Check the feet daily for skin breakdown and infection. Assessment & Plan (07/16/2023 5:33 PM CDT): Hba1c was Lab Results Component Value Date HGBA1C 7.5 07/16/2023 today, indicating acceptable DM control Goal Hba1c and blood glucose explained Diet and exercise were advised Prevention and treatment of hyypoglcyemia were discussed with the patient Blood glucose monitoring : Advised to check at least once a Adjustment to medications: Continue current regimen with Victoza and glipizide Assessment & Plan (04/14/2023 4:11 PM CDT): Chronic problem, worsening A1c (7.3% 12/11/22 to now 8.0%). Worsened diet. CG this winter. He'd done all the shopping and didn't buy her 'snacks' that she is now treating herself with as she's doing the grocery shopping. Increase activity as able. Discussed chair exercises. Discussed healthy diet and importance of regular physical activity (20- 30min/day, 150min/wk). Asked to occasionally check blood sugar--declines. Continue current medications: Glipizide XL 10mg daily Victoza 1.2g daily Discussed adding/changing medications at NOV if no improvement in A1c. Assessment & Plan (12/11/2022 2:07 PM FINANCIAL SALES MANAGER): Chronic problem, fair control currently. No changes at this time. Increase activity as able. Discussed healthy diet and importance of regular physical activity (20- 30min/day, 150min/wk). Asked to occasionally check blood sugar. Continue current medications: Glipizide XL 10mg daily Victoza 1.2g daily Assessment & Plan (05/06/2022 1:31 PM CDT): Hba1c was Lab Results Component Value Date HGBA1C 7.1 05/06/2022 today, indicating adequate DM control Goal Hba1c and blood glucose explained Diet and exercise were advised Prevention and treatment of hyypoglcyemia were discussed with the patient Blood glucose monitoring : 1 x day Adjustment to medications: Start Glucotrol ( insurance does not cover Glimepiride ) Continue Victoza Assessment & Plan (10/31/2021 12:35 PM FINANCIAL SALES MANAGER): Hba1c was Lab Results Component Value Date HGBA1C 7.3 % 10/31/2021 today, indicating acceptable DM control Goal Hba1c and blood glucose explained Diet and exercise , discussed Prevention and treatment of hyypoglcyemia discussed. Blood glucose monitoring : 1-2 X week Adjustment to oral medications: continue current Assessment & Plan (01/10/2021 2:50 PM FINANCIAL SALES MANAGER): Hba1c was Lab Results Component Value Date [...] monitoring with fingers sticks. Continue current regimen Assessment & Plan (05/24/2020 2:55 PM CDT): Hba1c was Lab Results Component Value Date HGBA1C 8.3 05/24/2020 today, indicating DM control 1800 calorie, consistent carb diet recommended, no more than 3-45 grams of carbs per meal, avoiding concentrated sweet drinks and rapid absorption carbs. 25-45 min daily aerobic and resistance exercise recommended Prevention and treatment of hyypoglcyemia discussed. Blood glucose monitoring with fingers sticks 1 x day Medications: continue with Glimeperide and Victoza Assessment & Plan (01/17/2020 3:09 PM FINANCIAL SALES MANAGER): Hba1c was Lab Results Component Value Date HGBA1C 7.8 01/17/2020 today, indicating acceptable DM control 1800 calorie, consistent carb diet recommended, no more than 3-45 grams of carbs per meal, avoiding concentrated sweet drinks and rapid absorption carbs. 25-45 min daily aerobic and resistance exercise recommended Prevention and treatment of hyypoglcyemia discussed. Blood glucose monitoring with fingers sticks. 1 x day Medications: Continue current Assessment & Plan (09/15/2019 4:12 PM CDT): Hba1c was Lab Results Component Value Date HGBA1C 6.7 % 09/15/2019 today, indicating adequate DM control 1800 calorie, consistent carb diet recommended, no more than 3-45 grams of carbs per meal, avoiding concentrated sweet drinks and rapid absorption carbs. 25-45 min daily aerobic and resistance exercise recommended Prevention and treatment of hyypoglcyemia discussed. Blood glucose monitoring with fingers sticks 1 x day ... Medications: Continue current regimen Assessment & Plan (05/12/2019 1:08 PM CDT): Hba1c was Lab Results Component Value Date HGBA1C 6.8 % 05/12/2019 today, indicating adequate DM control 1800 calorie, consistent carb diet recommended 25-45 min daily aerobic and resistance exercise recommended Prevention and treatment of hyypoglcyemia discussed. Blood glucose monitoring with fingers sticks 1-2 x day . Continue current regimen with Victoza 1.2 mg daily and glimepiride 1 mg daily Assessment & Plan (12/09/2018 9:30 AM FINANCIAL SALES MANAGER): Your Hba1c today was: Lab Results Component Value Date HGBA1C 6.8 12/09/2018 meaning a 3 month average sugar of : 140 . Your goal sugars are in the 130-180 range Daily aerobic ( walking, riding a bike, swimming ) and resistance exercises ( light weight lifting, resistance band stretching ) for at least 30 minutes is recommended If you can not walk, chair exercises for 10-15 min a day would help tremendously. As little as 15-20 minutes exercise , in one or two sessions a day, is still very helpful to improve your diabetes control . Eat small portion meals, trying not to consume no more than 1800 calories a day . Try to eat not more than than 3 servings of carbs ( starches ) wiith your meals. Avoid soft drinks, including regular sodas , fruit juices and sweetened tea. Drink water instead. Eat plenty of green and leafy vegetables, including salads. Take your medications regularly. Setting phone alarms can help . Keep your medication on the kitchen dinner table, by the bedside table or by the sink where they are visible to you. The insulin that you are currently using does not need to be refrigerated. Keep it where you can see it . Monitor your sugar levels with finger sticks regularly and keep a log sheet or book. Bring your sugar meter and /or a log book or log sheet to every office visit. Lower Glimepiride to 1 mg once a day. Go to the ER , [facility] , to be evaluated, for the falls and extremely low heart rate. Assessment & Plan (07/13/2018 1:42 PM CDT): Hba1c was Lab Results Component Value Date HGBA1C 6.6 07/13/2018 today, indicating adequate DM control 1800 calorie, consistent carb diet recommended 30 min daily aerobic and resistance exercise recommended Prevention and treatment of hyypoglcyemia discussed. Blood glucose monitoring with fingers sticks 1-2 x day . Assessment & Plan (01/05/2018 11:21 AM FINANCIAL SALES MANAGER): Hba1c was 7.0 today, indicating Adequate DM control 1800 calorie, consistent carb diet recommended 30 min daily aerobic and resistance exercise recommended Prevention and treatment of hyypoglcyemia discussed. Blood glucose monitoring with fingers sticks 1-2 x day . Foot care was discussed. Hypertension associated with diabetes 04/15/2014 Overview (03/06/2017): HYPERTENSION NOS Assessment & Plan (01/30/2025 11:23 AM FINANCIAL SALES MANAGER): Chronic problem, well controlled on current metoprolol XL 50mg daily, diltiazem XR 240mg daily, lasix 40mg daily, spironolactone 12.5mg daily Assessment & Plan (08/12/2024 11:28 AM CDT): Chronic problem, well controlled on current metoprolol XL 50mg daily, diltiazem XR 240mg daily, lasix 40mg daily, spironolactone 12.5mg daily Had labs by PCP recently; release signed to get copy Assessment & Plan (04/14/2023 3:07 PM CDT): Chronic problem, well controlled on current Losartan 100mg daily, metoprolol XL 25mg daily, diltiazem CD 240mg daily, spironolactone 25mg daily No changes at this time. Assessment & Plan (12/11/2022 1:58 PM FINANCIAL SALES MANAGER): Chronic problem, well controlled currently. No changes at this time. Assessment & Plan (10/31/2021 12:35 PM FINANCIAL SALES MANAGER): Uncontrolled Start Losartan Assessment & Plan (01/10/2021 2:48 PM FINANCIAL SALES MANAGER): Goal blood pressure is less than 140/85 Low salt diet was discussed andd recommended The importance of daily aerobic exercise was also emphasized. Continue current meds, including LANCE-I or ARB, e.g. Assessment & Plan (05/24/2020 2:56 PM CDT): Goal blood pressure is less than 140/85 Low salt diet recommended Daily aerobic exercise Continue current meds, including LANCE-I or ARB Assessment & Plan (09/15/2019 4:12 PM CDT): Goal blood pressure is less than 140/85 Low salt diet recommended Daily aerobic exercise Continue current meds, including LANCE-I or ARB Assessment & Plan (07/13/2018 1:43 PM CDT): Goal blood pressure is less than 140/85 Low salt diet recommended Daily aerobic exercise Continue current meds Assessment & Plan (01/05/2018 11:21 AM FINANCIAL SALES MANAGER): Goal blood pressure is less than 140/85 Low salt diet recommended Daily aerobic exercise Resolved Problems Problem Noted Date Diagnosed Date Resolved Date Hypercholesterolemia 04/15/2014 023 Overview (03/06/2017): Hypercholesteremia Encounters Date Type Department Care Team Description 01/30/2025 11:00 AM FINANCIAL SALES MANAGER Office Visit [facility] [address] [place] [phone] Kisha Selby NP Type 2 diabetes mellitus with hyperglycemia, without long-term current use of insulin (HCC) (Primary Dx); Hypertension associated with diabetes (HCC); Hyperlipidemia associated with type 2 diabetes mellitus (HCC) 01/25/2025 Telephone [facility] Diabetes and Endocrinology [address] [place] [phone] Tanya Dejesus MD request to pcp for insurance referral from Last 3 Months Surgical History Surgery Date Site/Laterality Comments HYSTERECTOMY Hysterectomy OTHER SURGICAL HISTORY 2011 removal of skin cancer of the nose Medical History Medical History Date Comments Hyperlipidemia Hyperlipidemia Type 2 diabetes mellitus (HCC) D iabetes type 2 Hypertension Hypertension Sleep apnea sleep apnea Depression Depression Hx Other Medical NOT CLAUSTROPHO BIC; Comments: VILLAL[place]O 08/30/2014 - Social History Tobacco Use Types Packs/Day Years Used Date Smoking Tobacco: Never Smokeless Tobacco: Never Alcohol Use Standard Drinks/Week Comments No 0 (1 standard drink = 0.6 oz pur e alcohol) PHQ-2 Answer Date Recorded PHQ-2 Total Score (If total score is 3 or more points, staff should administer the PHQ-9) 0 05/06/2022 Comments Unknown Sex and Gender Information Value Date Recorded Sex Assigned at Not on file Legal Sex Female 5:32 PM FINANCIAL SALES MANAGER Gender Identity Not on file Sexual Orientation Not on file Obstetrics History Last Filed Vital Signs Vital Sign Reading Time Taken Comments Blood Pressure 126/76 01/30/2025 10:56 AM FINANCIAL SALES MANAGER Pulse 70 01/30/2025 10:56 AM FINANCIAL SALES MANAGER Temperature - - Respiratory Rate 18 01/30/2025 10:56 AM FINANCIAL SALES MANAGER Oxygen Saturation 90% 10/03/2024 2:29 PM FINANCIAL SALES MANAGER Inhaled Oxygen Concentration - - Weight 83.5 kg (184 lb) 10/03/2024 2:29 PM FINANCIAL SALES MANAGER Height 157.5 cm (5' 2.01 ) 01/30/2025 10:[address] Body Mass Index 33.65 10/03/2024 2:29 PM FINANCIAL SALES MANAGER Plan of Treatment Health Maintenance Due Date Last Done Comments Fall Risk Assessment 1942 Osteoporosis Screening-Bone Density Scan 1942 Hepatitis B Screening 1960 Zoster Vaccine (1 of 2) 1992 Well Visit 65+ 2007 Pneumococcal vaccine 65+ (2 of 2 - PCV) 11/30/2009 11/30/2008 DTaP/Tdap/Td Vaccine (2 - Td or Tdap) 04/01/2022 04/01/2012, 09/20/2007 Depression Screening 05/06/2023 05/06/2022, 10/31/2021, 01/10/2021, Additional history exists Covid-19 Vaccine (3 - 2023-2 5 season) 2024 02/15/2021, 01/25/2021 Influenza Vaccine (#1) 2024 9, 09/03/2018, 09/29/2017, Additional history exists Hemoglobin A1C 08/02/2025 01/30/2025, 07/31, 08/03/2024, Additional history exists Lipid Panel 08/03/2025 08/03/2024, 09/01, 06/26/2022, Additional history exists eGFR 08/03/2025 08/03/2024, 10/30, 06/26/2022, Additional history exists Albumin Creatinine Ratio, Urine 08/12/2025 08/12/2024, 12/19/2022, 12/27/2021 Foot Exam 08/12/2025 08/12/2024, 11/30, 10/31/2021, Additional history exists Dilated Eye Exam 05/05/2026 05/05/2024, 07/06/2020 Procedures Procedure Name Priority Date/Time Associated Diagnosis Comments POCT GLUCOSE Routine 01/30/2025 10:59 AM FINANCIAL SALES MANAGER Type 2 diabetes mellitus with hyperglycemia, without long-term current use of insulin (HCC) POCT HEMOGLOBIN A1C Routine 01/30/2025 1 0:59 AM FINANCIAL SALES MANAGER Type 2 diabetes mellitus with hyperglycemia, without long-term current use of insulin (HCC) ALBUMIN CREATININE RATIO, URINE Routine 08/12/2024 1:27 PM CDT Type 2 diabetes mellitus with hyperglycemia, without long-term current use of insulin (HCC) COMPREHENSIVE METABOLIC PANEL Routine 08/03/2024 10:50 AM CDT LIPID PANEL Routine 08/03/2024 10:50 AM CDT HM DIABETES EYE EXAM Routine 05/05/2024 8:35 AM CDT from Last 3 Months or Most Recently Relevant to Health Maintenance Results * (ABNORMAL) POCT hemoglobin A1c (01/30/2025 10:59 AM FINANCIAL SALES MANAGER) Hemoglobin A1C, POC 7.3 4.0 - 5.6 % Blood 01/30/2025 10:5 9 AM FINANCIAL SALES MANAGER us Kishacarolyn Selby CHIEF RECORDIST POINT OF CARE TEST ORDERA BLES Final Result * (ABNORMAL) POCT glucose (01/30/2025 10:59 AM FINANCIAL SALES MANAGER) Glucose Blood, POC 213 mg/dL Blood 01/30/2025 10:5 9 AM FINANCIAL SALES MANAGER us Kishacarolyn Selby CHIEF RECORDIST POINT OF CARE TEST ORDERA BLES Final Result * Albumin Creatinine Ratio, Urine (08/12/2024 1:27 PM CDT) Albumin Ur <12.0 mg/L Comment: Interpretive Data No reference range established. Current interpretive data was last revised 2019. Creatinine Ur 78.4 mg/dL [facility] Comment: Interpretive Data No reference range established. Current interpretive data was last revised 2019. Albumin Creatinine Ratio, Ur <15 1 - 29 mg/g [facility] Urine 08/12/2024 1:27 PM CDT 08/12/2024 8:37 PM CDT Kisha Selby NP LAB URINE ORDERABLES Lucero l Result Performing Organization Address City/[facility]/ZIP Co de Phone Number [facility] [id number] Department [place] [address] * (ABNORMAL) Lipid panel (08/03/2024 10:50 AM CDT) Pathologist [facility] SCRIBED Cholesterol, Total 204 <200 - NA EXTERNAL LAB SCRIBED HDL 50 >=50 - NA EXTERNAL LAB SCRIBED LDL 109 <100 - NA EXTERNAL LAB SCRIBED Triglycerides 339 <150 - NA EXTERNAL LAB Blood 08/03/2024 10:5 0 AM CDT Historical Provider LAB BLOOD ORDERABLES Edit ed Result - Final EXTERNAL LAB * (ABNORMAL) Comprehensive metabolic panel (08/03/2024 10:50 AM CDT) Pathologist [facility] SCRIBED Sodium 144 135 - 146 mmol/L EXTERNAL LAB SCRIBED Potassium 3.8 3.5 - 5.3 mmol/L EXTERNAL LAB SCRIBED Chloride 100 98 - 110 mmol/L EXTERNAL LAB SCRIBED Carbon Dioxide 35(A) 20 - 32 mmol/L EXTERNAL LAB SCRIBED Urea Nitrogen (BUN) 30(A) 7 - 25 mg/dl EXTERNAL LAB SCRIBED Creatinine 1.20(A) 0.60 - 0.95 mg/dl EXTERNAL LAB SCRIBED Glucose 137(A) 65 - 99 mg/dl EXTERNAL LAB SCRIBED Calcium 9.0 8.6 - 10.4 mg/dl EXTERNAL LAB SCRIBED Bilirubin 0.3 0 - 1.2 mg/dl EXTERNAL LAB SCRIBED Plasma Protein 6.7 6.1 - 8.1 g/dl EXTERNAL LAB SCRIBED Albumin 4.2 3.6 - 5.1 g/dl EXTERNAL LAB SCRIBED Alkaline Phosphatase 115 37 - 153 Units/L EXTERNAL LAB SCRIBED Alanine Transaminase (ALT) 9 6 - 29 Units/L EXTERNAL LAB SCRIBED Aspartate Transaminase (AST) 15 10 - 35 Units/L EXTERNAL LAB SCRIBED eGFR in NonAfrican [place] 45 >=60 - NA EXTERNAL LAB Blood 08/03/2024 10:5 0 AM CDT us Historical Provider LAB BLOOD ORDERABLES Edit ed Result - Final EXTERNAL LAB * DIABETES EYE EXAM (05/05/2024 8:35 AM CDT) Historical Provider HEALTH MAINTENANCE Edited Result - Final from Last 3 Months or Most Recently Relevant to Health Maintenance Insurance [facility] MEDICARE [facility] MEDICARE Address: [facility] [id number] [place] [address] A[employer] MEDICARE Care Teams Lab Aid Relationship Specialty Start Date End Date Debo Mckoy MD [address] [place] [address] PCP - General Family Medicine 03/20/23 Quan Starks MD [address] [place] [address] Referring Physician Ophthalmology 01/06/23
--- OUTSIDE RECORDS SUMMARY | 2025-02-14 13:44 | XMS_ITS | Referral Summary ---
Author Organization [address] Address [address] [place] [id number] Care Team Providers Care Brick Chimney Supervisor Name Role Phone Quan Starks MD Unavailable [phone] Debo Mckoy MD Primary Care Provider [phone] Encounters Date Type Department Care Team Description 01/30/2025 11:00 AM DIRECTOR SANITATION BUREAU Office Visit [facility] Medical [facility] Diabetes and Endocrinology [address] [place] [phone] Kisha Selby NP Type 2 diabetes mellitus with hyperglycemia, without long-term current use of insulin (HCC) (Primary Dx); Hypertension associated with diabetes (HCC); Hyperlipidemia associated with type 2 diabetes mellitus (HCC) 01/25/2025 Telephone [facility] Medical [facility] Diabetes and Endocrinology [address] [place] [phone] Tanya Dejesus MD request to pcp for insurance referral from Last 3 Months Allergies Active Allergy Reactions Criticality Noted Date [...] hyperglycemia, without long-term current use of insulin ([facility]) One Touch Verio Use Daily to check blood glucose 1 each 10/31/20 21 Active lancets 31 gauge miscIndications :Type 2 diabetes mellitus with hyperglycemia, without long-term current use of insulin ([facility]) One Touch Verio Use daily to check blood glucose 100 each 2 10/31/20 21 Active blood glucose diagnostic (glucose blood) stripIndication s:Type 2 diabetes mellitus with hyperglycemia, without long-term current use of insulin ([facility]) One Touch Verio Use daily to check [...] Ultra-Fine Mini Pen Needle) 31 gauge x 16 needle USE WITH VICTOZA INJECTIONS ONCE DAILY. [...] 12/09/2018 Assessment & Plan (12/09/2018 9:30 AM DIRECTOR SANITATION BUREAU): With falls, Advised to go to the ER Hyperlipidemia associated with type 2 diabetes ami césar 07/13/2018 Assessment & Plan (01/30/2025 11:13 AM DIRECTOR SANITATION BUREAU): Chronic problem, currently taking pravastatin 40mg & zetia 10mg. Last lipid panel: 08/03/24 IDK=956, HG=973. Assessment & Plan (08/12/2024 11:28 AM CDT): Chronic problem, currently taking pravastatin 40mg & zetia 10mg. Last lipid panel: 12/30/22 LDL=43, PQ=408. Had labs by PCP recently; release signed to get copy Assessment & Plan (04/14/2023 3:18 PM CDT): Chronic problem, Pravastatin 40mg daily has not been filled since 06/2022 (was 90 day supply). Refill sent today. Triglycerides now down to normal level also. No changes at this time. Assessment & Plan (12/11/2022 1:10 PM DIRECTOR SANITATION BUREAU): Chronic problem, Pravastatin 40mg daily. Triglycerides now down to normal level also. No changes at this time. Assessment & Plan (10/31/2021 12:33 PM DIRECTOR SANITATION BUREAU): High TG Continue Vascepa. Continue Pravachol Low fat diet. Assessment & Plan (01/10/2021 2:47 PM DIRECTOR SANITATION BUREAU): Goal of treatment , LDL cholesterol less [...] Vascepa Assessment & Plan (01/17/2020 3:09 PM DIRECTOR SANITATION BUREAU): With severe hypertriglyceridemia Low carb low fat [...] UNCNTRLD Assessment & Plan (01/30/2025 11:39 AM DIRECTOR SANITATION BUREAU): Chronic problem, stable A1c at 7.3%. Declines [...] daily DM eye exam June 2024 at [facility]. Will send letter to get copy of [...] A1c. Assessment & Plan (12/11/2022 2:07 PM DIRECTOR SANITATION BUREAU): Chronic problem, fair control currently. No changes [...] Victoza Assessment & Plan (10/31/2021 12:35 PM DIRECTOR SANITATION BUREAU): Hba1c was Lab Results Component Value Date HGBA1C 7.3 % 10/31/2021 today, indicating acceptable DM control Goal Hba1c and blood glucose explained Diet and exercise , discussed Prevention and treatment of hyypoglcyemia discussed. Blood glucose monitoring : 1-2 X week Adjustment to oral medications: continue current Assessment & Plan (01/10/2021 2:50 PM DIRECTOR SANITATION BUREAU): Hba1c was Lab Results Component Value Date [...] Victoza Assessment & Plan (01/17/2020 3:09 PM DIRECTOR SANITATION BUREAU): Hba1c was Lab Results Component Value Date [...] daily Assessment & Plan (12/09/2018 9:30 AM DIRECTOR SANITATION BUREAU): Your Hba1c today was: Lab Results Component [...] mg once a day. [facility] to be [facility], for the falls [...] . Assessment & Plan (01/05/2018 11:21 AM DIRECTOR SANITATION BUREAU): Hba1c was 7.0 today, indicating Adequate DM control 1800 calorie, consistent carb diet recommended 30 min daily aerobic and resistance exercise recommended Prevention and treatment of hyypoglcyemia discussed. Blood glucose monitoring with fingers sticks 1-2 x day . Foot care was discussed. Hypertension associated with diabetes 04/15/2014 Overview (03/06/2017): HYPERTENSION NOS Assessment & Plan (01/30/2025 11:23 AM DIRECTOR SANITATION BUREAU): Chronic problem, well controlled on current metoprolol [...] time. Assessment & Plan (12/11/2022 1:58 PM DIRECTOR SANITATION BUREAU): Chronic problem, well controlled currently. No changes at this time. Assessment & Plan (10/31/2021 12:35 PM DIRECTOR SANITATION BUREAU): Uncontrolled Start Losartan Assessment & Plan (01/10/2021 2:48 PM DIRECTOR SANITATION BUREAU): Goal blood pressure is less than 140/85 [...] meds Assessment & Plan (01/05/2018 11:21 AM DIRECTOR SANITATION BUREAU): Goal blood pressure is less than 140/85 Low salt diet recommended Daily aerobic exercise Resolved Problems Problem Noted Date Diagnosed Date Resolved Date Hypercholesterolemia 04/15/2014 023 Overview (03/06/2017): Hypercholesteremia Social History Tobacco Use Types Packs/Day [...] on file Legal Sex Female 5:32 PM DIRECTOR SANITATION BUREAU Gender Identity Not on file Sexual Orientation Not on file Last Filed Vital Signs Vital Sign Reading Time Taken Comments Blood Pressure 126/76 01/30/2025 10:56 AM DIRECTOR SANITATION BUREAU Pulse 70 01/30/2025 10:56 AM DIRECTOR SANITATION BUREAU Temperature - - Respiratory Rate 18 01/30/2025 10:56 AM DIRECTOR SANITATION BUREAU Oxygen Saturation 90% 10/03/2024 2:29 PM DIRECTOR SANITATION BUREAU Inhaled Oxygen Concentration - - Weight 83.5 kg (184 lb) 10/03/2024 2:29 PM DIRECTOR SANITATION BUREAU Height 157.5 cm (5' 2.01 ) 01/30/2025 10:[address] Body Mass Index 33.65 10/03/2024 2:29 PM DIRECTOR SANITATION BUREAU Plan of Treatment Not on file Procedures Procedure Name Priority Date/Time Associated Diagnosis Comments POCT GLUCOSE Routine 01/30/2025 10:59 AM DIRECTOR SANITATION BUREAU Type 2 diabetes mellitus with hyperglycemia, without long-term current use of insulin (HCC) POCT HEMOGLOBIN A1C Routine 01/30/2025 1 0:59 AM DIRECTOR SANITATION BUREAU Type 2 diabetes mellitus with hyperglycemia, without long-term current use of insulin (HCC) ALBUMIN CREATININE RATIO, URINE Routine 08/12/2024 1:27 PM CDT Type 2 diabetes mellitus with hyperglycemia, without long-term current use of insulin (HCC) COMPREHENSIVE METABOLIC PANEL Routine 08/03/2024 10:50 AM CDT LIPID PANEL Routine 08/03/2024 10:50 AM CDT DIABETES EYE EXAM Routine 05/05/2024 8:35 AM CDT from Last 3 Months or Most Recently Relevant to Health Maintenance Results * (ABNORMAL) POCT hemoglobin A1c (01/30/2025 10:59 AM DIRECTOR SANITATION BUREAU) Hemoglobin A1C, POC 7.3 4.0 - 5.6 % Blood 01/30/2025 10:5 9 AM DIRECTOR SANITATION BUREAU us Kisha Selby NP POINT OF CARE TEST ORDERA BLES Final Result * (ABNORMAL) POCT glucose (01/30/2025 10:59 AM DIRECTOR SANITATION BUREAU) Glucose Blood, POC 213 mg/dL Blood 01/30/2025 10:5 9 AM DIRECTOR SANITATION BUREAU Kisha Selby SAFETY AND HEALTH CONSULTANT POINT OF CARE TEST ORDERA BLES Final Result * Albumin Creatinine Ratio, Urine (08/12/2024 1:27 PM CDT) [facility] Albumin Ur <12.0 mg/L Comment: Interpretive Data No reference range established. Current interpretive data was last revised 2019. Creatinine Ur 78.4 mg/dL [facility] Comment: Interpretive Data No reference range established. Current interpretive data was last revised 2019. Albumin Creatinine Ratio, Ur <15 1 - 29 mg/g VIJAY Urine 08/12/2024 1:27 PM CDT 08/12/2024 8:37 PM CDT Kisha Selby NP LAB URINE ORDERABLES Lucero l Result Performing Organization Address City/[facility]/ZIP Co de Phone Number [facility] [address] Department [place] [address] * (ABNORMAL) Lipid panel (08/03/2024 10:50 AM CDT) [facility] SCRIBED Cholesterol, Total 204 <200 - NA EXTERNAL LAB SCRIBED HDL 50 >=50 - NA EXTERNAL LAB SCRIBED LDL 109 <100 - NA EXTERNAL LAB SCRIBED Triglycerides 339 <150 - NA EXTERNAL LAB Blood 08/03/2024 10:5 0 AM CDT Historical Provider LAB BLOOD ORDERABLES Edit ed Result - Final EXTERNAL LAB * (ABNORMAL) Comprehensive metabolic panel (08/03/2024 10:50 AM CDT) [facility] SCRIBED Sodium 144 135 - 146 mmol/L [...] Units/L EXTERNAL LAB SCRIBED eGFR in NonAfrican Congolese 45 >=60 - NA EXTERNAL LAB Blood 08/03/2024 10:5 0 AM CDT Historical Provider LAB BLOOD ORDERABLES Edit ed Result - Final EXTERNAL LAB * DIABETES EYE EXAM (05/05/2024 8:35 AM CDT) Historical Provider HEALTH MAINTENANCE Edited Result - Final from Last 3 Months or Most Recently Relevant to Health Maintenance Insurance T MEDICARE AET[employer] MEDICARE Care Teams Brick Chimney Supervisor Relationship Specialty Start Date End Date Debo Mckoy MD [address] [place] [address] PCP - General Family Medicine 03/20/23 Quan Starks MD [address] [place] [address] Referring Physician Ophthalmology 01/06/23
--- OUTSIDE RECORDS SUMMARY | 2025-02-14 13:44 | XMS_ITS ---
Author Organization [facility] Care Team Providers Care Dry Color Mixer Name Role Phone Pao Whittington Unavailable Unavailable Allergies and adverse reactions Code CodeSystem Substance Reaction Severity StartDate Concern Status 2670 RXNORM Codeine Unknown 05/03/2021 active Care Team Name Role Address Phone Organization Dates Pao Whittington PCP [address] [facility] [place], [address], [place] (Office): : [facility] 05/03/2021 - 05/05/2021 Goals Section Description Status Target Date Minimize the risk of residen t exposure to the novel Coronavirus (COVID-19). Active 08/04/2021 Prevent a serious fall related injury Active 08/04/2021 Resident will be able to par ticipate in enjoyable activities during their stay Active 08/04/2021 Resident will have ADL needs met Active 08/04/2021 Resident will have no increased breathing diffic ulty. Active 08/04/2021 Resident will maintain a stable behavior pattern Active 08/04/2021 Resident will maintain skin integrity and avoid potential associated risks Active 08/04/2021 Resident will not have any s erious side effects related to cardiovascular medications and will not have any unrecognized signs of a worsening cardiovascular condition Active 08/04/20 Resident will participate in ordered therapy ser vices Active 08/04/2021 Resident/resident representa tive wishes to receive full resuscitation measures in the event of cardiac arrest will be honored Active 08/04/2021 Residents preferences will be honored as able Ac tijesica 08/04/2021 Residents respiratory condit ion will be managed and will experience no serious side effects from medications Active Temporary placement per admission plan. Active 08/04/2021 The resident will have no in dications of psychosocial well-being problem by/through review date. 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 05/03/[address] active 5 DEPENDENCE ON SUPPLEMENTAL OXYGEN 05/03/[address] active 6 DIFFICULTY IN WALKING, NOT ELSEWHERE CLASSIFIED 05/03/[address] active 7 ESSENTIAL (PRIMARY) HYPERTENSION 05/03/[address] active 8 MAJOR DEPRESSIVE DISORDER, SINGLE EPISODE, UNSPECIFIED 05/03/[address] active 9 MUSCLE WEAKNESS (GENERALIZED) 05/03/[address] active 10 OBSTRUCTIVE SLEEP APNEA (ADULT) (PEDIATRIC) 05/03/[address] active 11 PURE HYPERCHOLESTEROLEM IA, UNSPECIFIED 05/03/[address] active 12 TYPE 2 DIABETES MELLITUS WITHOUT COMPLICATIONS 05/03/[address] active 13 UNSPECIFIED CHRONIC BRONCHITIS 05/03/[address] active 14 UNSPECIFIED FALL, INITIAL ENCOUNTER 05/03/[address] active Reason for Referral No Reasons for Referral Entered Social History Social History Observation Description Start Date End Date Code Code System Current Smoking Status Tobacco smoking consumption unknown 330615985 SNOMED CT Sex Assigned At Female 1940 09897-4 [facility] Vital Signs Code Code System Vitals Name Values and Units Timing Information 66685-9 [facility] Pain Level Value=0.0 05/04/2021 9279-1 [facility] Respiratory Rate Value=20.0 Units=/m in 05/04/2021 8310-5 [facility] Body Temperature Value=97.8 Units= F 05/04/2021 8867-4 [facility] Heart rate Value=84.0 Units=/min 03/2021 07727-8 [facility] O2 % BldC Oximetry Value=95.0 Units= % 05/04/2021 8462-4 [facility] Blood Pressure-Diastolic Value=70 Un its=mmHg 05/04/2021 8480-6 [facility] Blood Pressure-Systolic Wirwy=726 Un its=mmHg 05/04/2021 79657-6 [facility] Weight Vryvx=809.0 Units=Lbs 03/2021 8302-2 [facility] Height Value=62.0 Units=Inches 05/04/2021
[2025-02-14 14:05] LABS: Anion Gap 11 mmol/L (4-12); Blood Urea Nitrogen 17 mg/dL (7-17); Calcium 8.9 mg/dL (8.4-10.2); Carbon Dioxide 33 mmol/L (22-30); Chloride 99 mmol/L (98-107); Estimated Glomerular Filt Rate 40; Glucose 174 mg/dL (65-110); Potassium 3.3 mmol/L (3.4-5.0); Sodium 143 mmol/L (137-145)
[2025-02-14 14:17] LABS: Prothrombin Time 13.3 Seconds (11.1-14.7)
[2025-02-14 14:18] LABS: Partial Thromboplastin Time 24.9 Seconds (22.3-36.8)
== END 2025-02-14 12:26 | disposition home or self-care (01) ==
LOC: ANHSURGERY 12:26
PROVIDERS: Anesthesiology; PCP Family Medicine; Visit Provider Anesthesiology Pain Medicine
DX: E11.69 Type 2 diabetes mellitus with other specified complication (principal); E11.22 Type 2 diabetes mellitus with diabetic chronic kidney disease; N18.9 Chronic kidney disease, unspecified
CPT/HCPCS: 36415; 80048; 85610; 85730

== ENCOUNTER 2025-02-14 13:13 | Outpatient (CLI) | payer MEDICARE, SELFPAY ==
[2025-02-14 13:51] LABS: Basophils Absolute Auto 0.1 K/mm3 (0.0-0.1); Eosinophils Absolute Auto 0.3 K/mm3 (0-0.3); Eosinophils Percent Auto 3.8 % (0-4.4); Hematocrit 36.5 % (37.0-47.0); Hemoglobin 11.7 g/dL (12.0-15.0); Immature Granulocyte Absolute 0.04 K/mm3 (0.00-0.031); Immature Granulocyte Percent A 0.5 % (0-0.5); Lymphocytes Absolute Auto 1.69 K/mm3 (0.9-3.2); Lymphocytes Percent Auto 21.9 % (18.3-44.2); Mean Corpuscular HGB Conc 32.1 g/dl (32-36); Mean Corpuscular Hemoglobin 31.2 pg (26-34); Mean Corpuscular Volume 97.3 fl (80-100); Mean Platelet Volume 10.4 fl (7.4-10.4); Monocytes Absolute Auto 0.7 K/mm3 (0.1-0.6); Monocytes Percent Auto 8.4 % (2.6-8.5); Neutrophils Percent Auto 64.4 % (45.5-73.1); Platelet Count Result 179 k/mm3 (150-375); Red Blood Count 3.75 M/mm3 (4.2-5.4); Red Cell Distribution Width 12.8 % (11.5-14.5); White Blood Count 7.7 K/mm3 (4.5-10.0)
[2025-02-14 14:05] LABS: Alanine Aminotransferase 14 U/L (6-35); Albumin Level 4.2 g/dL (3.5-5.1); Alkaline Phosphatase 102 U/L (38-126); Aspartate Amino Transferase 22 U/L (14-36); Bilirubin,Total 0.3 mg/dL (0.2-1.3)
--- OUTSIDE RECORDS SUMMARY | 2025-02-14 14:43 | XMS_ITS | Clinical Summary ---
Author Organization [facility] Address [address] [place] [address] Care Team Providers Care Foxing Cutting Machine Operator Name Role Phone Quan Starks MD Unavailable [phone] Debo Mckoy MD Primary Care Provider [phone] Allergies Active Allergy Reactions Criticality Noted Date [...] hyperglycemia, without long-term current use of insulin ([facility]) One Touch Verio Use Daily to check blood glucose 1 each 10/31/20 21 Active lancets 31 gauge miscIndications :Type 2 diabetes mellitus with hyperglycemia, without long-term current use of insulin ([facility]) One Touch Verio Use daily to check blood glucose 100 each 2 10/31/20 21 Active blood glucose diagnostic (glucose blood) stripIndication s:Type 2 diabetes mellitus with hyperglycemia, without long-term current use of insulin ([facility]) One Touch Verio Use daily to check [...] 12/09/2018 Assessment & Plan (12/09/2018 9:30 AM SMALL CRAFT OPERATOR): With falls, Advised to go to the ER Hyperlipidemia associated with type 2 diabetes ami lindsey 07/13/2018 Assessment & Plan (01/30/2025 11:13 AM SMALL CRAFT OPERATOR): Chronic problem, currently taking pravastatin 40mg & zetia 10mg. Last lipid panel: 08/03/24 DQE=271, VO=071. Assessment & Plan (08/12/2024 11:28 AM CDT): Chronic problem, currently taking pravastatin 40mg & zetia 10mg. Last lipid panel: 12/30/22 LDL=43, OS=797. Had labs by PCP recently; release signed to get copy Assessment & Plan (04/14/2023 3:18 PM CDT): Chronic problem, Pravastatin 40mg daily has not been filled since 06/2022 (was 90 day supply). Refill sent today. Triglycerides now down to normal level also. No changes at this time. Assessment & Plan (12/11/2022 1:10 PM SMALL CRAFT OPERATOR): Chronic problem, Pravastatin 40mg daily. Triglycerides now down to normal level also. No changes at this time. Assessment & Plan (10/31/2021 12:33 PM SMALL CRAFT OPERATOR): High TG Continue Vascepa. Continue Pravachol Low fat diet. Assessment & Plan (01/10/2021 2:47 PM SMALL CRAFT OPERATOR): Goal of treatment , LDL cholesterol less [...] Vascepa Assessment & Plan (01/17/2020 3:09 PM SMALL CRAFT OPERATOR): With severe hypertriglyceridemia Low carb low fat [...] UNCNTRLD Assessment & Plan (01/30/2025 11:39 AM SMALL CRAFT OPERATOR): Chronic problem, stable A1c at 7.3%. Declines [...] daily DM eye exam June 2024 at [facility]. Will send letter to get copy of [...] A1c. Assessment & Plan (12/11/2022 2:07 PM SMALL CRAFT OPERATOR): Chronic problem, fair control currently. No changes [...] Victoza Assessment & Plan (10/31/2021 12:35 PM SMALL CRAFT OPERATOR): Hba1c was Lab Results Component Value Date HGBA1C 7.3 % 10/31/2021 today, indicating acceptable DM control Goal Hba1c and blood glucose explained Diet and exercise , discussed Prevention and treatment of hyypoglcyemia discussed. Blood glucose monitoring : 1-2 X week Adjustment to oral medications: continue current Assessment & Plan (01/10/2021 2:50 PM SMALL CRAFT OPERATOR): Hba1c was Lab Results Component Value Date [...] Victoza Assessment & Plan (01/17/2020 3:09 PM SMALL CRAFT OPERATOR): Hba1c was Lab Results Component Value Date [...] daily Assessment & Plan (12/09/2018 9:30 AM SMALL CRAFT OPERATOR): Your Hba1c today was: Lab Results Component [...] a day. Go to the ER , [facility] , to be evaluated, for the falls [...] . Assessment & Plan (01/05/2018 11:21 AM SMALL CRAFT OPERATOR): Hba1c was 7.0 today, indicating Adequate DM control 1800 calorie, consistent carb diet recommended 30 min daily aerobic and resistance exercise recommended Prevention and treatment of hyypoglcyemia discussed. Blood glucose monitoring with fingers sticks 1-2 x day . Foot care was discussed. Hypertension associated with diabetes 04/15/2014 Overview (03/06/2017): HYPERTENSION NOS Assessment & Plan (01/30/2025 11:23 AM SMALL CRAFT OPERATOR): Chronic problem, well controlled on current metoprolol [...] time. Assessment & Plan (12/11/2022 1:58 PM SMALL CRAFT OPERATOR): Chronic problem, well controlled currently. No changes at this time. Assessment & Plan (10/31/2021 12:35 PM SMALL CRAFT OPERATOR): Uncontrolled Start Losartan Assessment & Plan (01/10/2021 2:48 PM SMALL CRAFT OPERATOR): Goal blood pressure is less than 140/85 [...] meds Assessment & Plan (01/05/2018 11:21 AM SMALL CRAFT OPERATOR): Goal blood pressure is less than 140/85 Low salt diet recommended Daily aerobic exercise Resolved Problems Problem Noted Date Diagnosed Date Resolved Date Hypercholesterolemia 04/15/2014 023 Overview (03/06/2017): Hypercholesteremia Encounters Date Type Department Care Team Description 01/30/2025 11:00 AM SMALL CRAFT OPERATOR Office Visit [facility] Medical [facility] Diabetes and Endocrinology [address] [place] [phone] Kisha Selby NP Type 2 diabetes mellitus with hyperglycemia, without long-term current use of insulin (HCC) (Primary Dx); Hypertension associated with diabetes (HCC); Hyperlipidemia associated with type 2 diabetes mellitus (HCC) 01/25/2025 Telephone [facility] Diabetes and Endocrinology [address] [place] [phone] Tanya Dejesus MD request to pcp [...] on file Legal Sex Female 5:32 PM SMALL CRAFT OPERATOR Gender Identity Not on file Sexual Orientation Not on file Obstetrics History Last Filed Vital Signs Vital Sign Reading Time Taken Comments Blood Pressure 126/76 01/30/2025 10:56 AM SMALL CRAFT OPERATOR Pulse 70 01/30/2025 10:56 AM SMALL CRAFT OPERATOR Temperature - - Respiratory Rate 18 01/30/2025 10:56 AM SMALL CRAFT OPERATOR Oxygen Saturation 90% 10/03/2024 2:29 PM SMALL CRAFT OPERATOR Inhaled Oxygen Concentration - - Weight 83.5 kg (184 lb) 10/03/2024 2:29 PM SMALL CRAFT OPERATOR Height 157.5 cm (5' 2.01 ) 01/30/2025 10:[address] Body Mass Index 33.65 10/03/2024 2:29 PM SMALL CRAFT OPERATOR Plan of Treatment Health Maintenance Due Date [...] Comments POCT GLUCOSE Routine 01/30/2025 10:59 AM SMALL CRAFT OPERATOR Type 2 diabetes mellitus with hyperglycemia, without long-term current use of insulin (HCC) POCT HEMOGLOBIN A1C Routine 01/30/2025 1 0:59 AM SMALL CRAFT OPERATOR Type 2 diabetes mellitus with hyperglycemia, without [...] (ABNORMAL) POCT hemoglobin A1c (01/30/2025 10:59 AM SMALL CRAFT OPERATOR) Hemoglobin A1C, POC 7.3 4.0 - 5.6 % Blood 01/30/2025 10:5 9 AM SMALL CRAFT OPERATOR us Kishacarolyn Selby SOLUTION STRATEGIST POINT OF CARE TEST ORDERA BLES Final Result * (ABNORMAL) POCT glucose (01/30/2025 10:59 AM SMALL CRAFT OPERATOR) Glucose Blood, POC 213 mg/dL Blood 01/30/2025 10:5 9 AM SMALL CRAFT OPERATOR us Kishacarolyn Selby SOLUTION STRATEGIST POINT OF CARE TEST ORDERA BLES Final Result * Albumin Creatinine Ratio, Urine (08/12/2024 1:27 PM CDT) Albumin Ur <12.0 mg/L Comment: Interpretive Data No reference range established. Current interpretive data was last revised 2019. Creatinine Ur 78.4 mg/dL [facility] Comment: Interpretive Data No reference range established. Current interpretive data was last revised 2019. Albumin Creatinine Ratio, Ur <15 1 - 29 mg/g [facility] Urine 08/12/2024 1:27 PM CDT 08/12/2024 8:37 PM CDT Kisha Selby NP LAB URINE ORDERABLES Lucero l Result Performing Organization Address City/[facility]/ZIP Co de Phone Number [facility] [address] [place] [address] * (ABNORMAL) Lipid panel (08/03/2024 10:50 AM CDT) Pathologist [facility] SCRIBED Cholesterol, Total 204 <200 - NA EXTERNAL LAB SCRIBED HDL 50 >=50 - NA EXTERNAL LAB SCRIBED LDL 109 <100 - NA EXTERNAL LAB SCRIBED Triglycerides 339 <150 - NA EXTERNAL LAB Blood 08/03/2024 10:5 0 AM CDT Historical Provider LAB BLOOD ORDERABLES Edit ed Result - Final EXTERNAL LAB * (ABNORMAL) Comprehensive metabolic panel (08/03/2024 10:50 AM CDT) Pathologist [facility] SCRIBED Sodium 144 135 - 146 mmol/L [...] Units/L EXTERNAL LAB SCRIBED eGFR in NonAfrican Haitian 45 >=60 - NA EXTERNAL LAB Blood 08/03/2024 10:5 0 AM CDT us Historical Provider LAB BLOOD ORDERABLES Edit ed Result - Final EXTERNAL LAB * DIABETES EYE EXAM (05/05/2024 8:35 AM CDT) Historical Provider HEALTH MAINTENANCE Edited Result - Final from Last 3 Months or Most Recently Relevant to Health Maintenance Insurance [facility] MEDICARE AETNA MEDICARE Care Teams Foxing Cutting Machine Operator Relationship Specialty Start Date End Date Debo Mckoy MD [address] [place] [address] PCP - General Family Medicine 03/20/23 Quan Starks MD [address] [place] [address] Referring Physician Ophthalmology 01/06/23
--- OUTSIDE RECORDS SUMMARY | 2025-02-14 14:43 | XMS_ITS | Continuity of Care Document ---
Author Organization [facility] Address [address] [place] [address] Care Team Providers Care Drapery Rod Assembler Name Role Phone Slade Salas APN Unavailable [...] Providers Copied on Encounter [facility], [address] [place] [address], [address], [place] [facility] No Information 2 Maritza Jnue. [address] [place] [address] Rd, [address], [place], [address], [place]. tel:[phone] [facility], [address] [place] [address], [address], [place] [facility] No Information 6 2 Nino Young. [address] [place] [address], [place] [address], [place], [address], [place]. tel:[phone] Referring Provider: Martin Bennett DO W, [address] [place] [address], [address]. tel:[phone] [facility], [address] [place] [address], [address], [place] [facility] No Information 2 Nino Young. [address] [place] [address], [place], [address], [place]. tel:[phone] Referring Provider: Hector Oneill, [address] [place] [address], [place], [address]. tel:[phone] [facility], [address] [place] [address], [address], [place] [facility] No Information 2 Lazaro Demetrio. [address] [place] [address], [place] [address], [place], [address], [place]. tel:[phone] Referring Provider: Martin SEARS, [address] [place] [address], [address]. tel:[phone] [facility], [address] [place] [address], [address], [place] [facility] No Information 1 2 Nino Young. [address] [place] [address], [place], [address], [place]. tel:[phone] Referring Provider: Hector Oneill, [address] [place] [address], [place], [address]. tel:[phone] [facility], [address] [place] [address], [address], [place] [facility] No Information 2 Nickolasse Hector. [address] [place] [address], [place], [address], [place]. tel:[phone] Referring Provider: Martin SEARS, [address] [place] [address], [facility]. tel:[phone] [facility], [address] [place] [address], [address], [place] [facility] No Information 2 Silvio Hollis. [address] [place] [address], [address], [place]. tel:[phone] Referring Provider: Bunny Anguiano, [address] [place] [address], [address]. tel:[phone] [facility], [address] [place] [address], [facility], [place] [facility] No Information 2 Angel Guerrero. [address] [place] [address], [address], [place]. tel:[phone] Referring Provider: Cesar Ortiz, [address] [place] [address], [address]. tel:[phone] [facility], [address] [place] [address], [address], [place] [facility] No Information 2 Furiasse Hector. [address] [place] [address], [address], [place]. tel:[phone] Referring Provider: Hector Oneill, [address] [place] [address] [facility], [place], [facility]. tel:[phone] [facility], [address] [place] [address], [address], [place] [facility] No Information 2 Nino Young. [address] [place] [address], [place] [address], [place], [facility], . tel:[phone] Referring Provider: Hector Solorzanoelissa, [address] [place] [address] [facility], [place], [facility]. tel:[phone] [facility], [address] [place] [address], [address], [place] [facility] No Information 2 Carbonejerome Malone. [address] [place] [address], [place] [address], [place], [place], [facility], . tel:[phone] Referring Provider: Martin SEARS, [address] [place] [address], [facility]. tel:[phone] Family History Family Member Type Diagnosis Age At Onset No Information Payers Payer name Insurance type Covered green party ID Authoriza tion(s) [facility] Medicare Complete [id number] Social History Type Description Quantity Date [...]
--- OUTSIDE RECORDS SUMMARY | 2025-02-14 14:43 | XMS_ITS ---
Author Organization [facility] Care Team Providers Care Box Toe Cutter Name Role Phone Poa Whittington Unavailable Unavailable Allergies and adverse reactions Code CodeSystem Substance Reaction Severity StartDate Concern Status 2670 RXNORM Codeine Unknown 05/03/2021 active Care Team Name Role Address Phone Organization Dates Pao Whittington PCP [address] [facility] [place], [address], [place] (Office): : [facility] 05/03/2021 - 05/05/2021 Goals Section Description Status [...] ON OTHER ENABLING MACHINES AND DEVICES 05/06/[address] active 2 ANXIETY DISORDER, UNSPECIFIED 05/03/[address] active 3 BRADYCARDIA, UNSPECIFIED 05/03/[address] active 4 CHRONIC OBSTRUCTIVE PULMONARY DISEASE WITH (ACUTE) EXACERBATION 05/03/[address] active 5 DEPENDENCE ON SUPPLEMENTAL OXYGEN 05/03/[address] active 6 DIFFICULTY IN WALKING, NOT ELSEWHERE CLASSIFIED 05/03/[address] active 7 ESSENTIAL (PRIMARY) HYPERTENSION 05/03/[address] active 8 MAJOR DEPRESSIVE DISORDER, SINGLE EPISODE, UNSPECIFIED 05/03/[address] active 9 MUSCLE WEAKNESS (GENERALIZED) 05/03/[address] active 10 OBSTRUCTIVE SLEEP APNEA (ADULT) (PEDIATRIC) 05/03/[address] active 11 PURE HYPERCHOLESTEROLEM IA, UNSPECIFIED 05/03/[address] active 12 TYPE 2 DIABETES MELLITUS WITHOUT COMPLICATIONS 05/03/[address] active 13 UNSPECIFIED CHRONIC BRONCHITIS 05/03/[address] active 14 UNSPECIFIED FALL, INITIAL ENCOUNTER 05/03/[address] active Reason for Referral No Reasons for Referral Entered Social History Social History Observation Description Start Date End Date Code Code System Current Smoking Status Tobacco smoking consumption unknown 647778586 SNOMED CT Sex Assigned At Female 1940 14597-7 [facility] Vital Signs Code Code System Vitals Name Values and Units Timing Information 27145-3 [facility] Pain Level Value=0.0 05/04/2021 9279-1 [facility] Respiratory Rate Value=20.0 Units=/m in 05/04/2021 8310-5 [facility] Body Temperature Value=97.8 Units= F 05/04/2021 8867-4 [facility] Heart rate Value=84.0 Units=/min 03/2021 73482-7 [facility] O2 % BldC Oximetry Value=95.0 Units= % 05/04/2021 8462-4 [facility] Blood Pressure-Diastolic Value=70 Un its=mmHg 05/04/2021 8480-6 [facility] Blood Pressure-Systolic Bswko=929 Un its=mmHg 05/04/2021 91912-6 [facility] Weight Rdctf=115.0 Units=Lbs 03/2021 8302-2 [facility] Height Value=62.0 Units=Inches 05/04/2021
--- OUTSIDE RECORDS SUMMARY | 2025-02-14 14:43 | XMS_ITS | Clinical Summary ---
Author Organization [facility] Address [address] [place] [address] Care Team Providers Care Radar Technician Name Role Phone Margarito Razo Primary Care Provider [phone] Allergies Active Allergy Reactions Criticality Noted Date [...] Problem Noted Date Diagnosed Date Chronic bronchitis ([facility]) 05/02/2021 Anxiety and depression 05/02/2021 Supplemental oxygen dependent 05/02/2021 ELISSA on CPAP 05/02/2021 Fall 05/01/2021 Bradycardia 12/09/2018 Overview (05/01/2021): Last Assessment & Plan: With falls, Advised to go to the ER Hyperlipidemia associated wi th type 2 diabetes mellitus ([facility]) 07/13/2018 Overview (05/01/2021): Last Assessment & Plan: [...] Pravachol and Vascepa Type 2 diabetes mellitus ([facility]) 04/15 Overview (05/01/2021): DMII WO CMP UNCNTRLD [...] No Catherine Garcia, RN Insurance MED REPLACE [facility] MEDICARE Advance Directives * Full Code (Latest Code Status on File) Date Activated Date Inactivated Comments 05/01/2021 5:20 PM 05/03/2021 7:29 PM Care Teams Radar Technician Relationship Specialty Start Date End Date Margarito Razo PA [address] [place] [address] PCP - General PHYSICIAN CAUSTIC LIQUOR MAKER 05/01/21
--- OUTSIDE RECORDS SUMMARY | 2025-02-14 14:43 | XMS_ITS | Continuity of Care Document ---
Author Organization [facility] Address [address] [place] [address] Phone Care Team Providers Care Enterprise Architect Manager Name Role Phone Neda De La Torre [...] Copied on Encounter Office/outpat ient Visit, [facility], [address], [place], [place], [id number], [place] tel:[phone] [facility] No Information 0-201 0 Britt Red. [address] , [address], [place], [address], [place]. tel:[phone] [facility], [address], [place], [place], [address], [place] tel:[phone] [facility] No Information 0-200 9 [employer] . [address] [facility], [address], [place], [place], [address], [place]. tel:[phone] Referring Provider: [facility] [address], [place], [address]. tel:[phone] rojas Provider: Mirela Page, [address] [facility], [place], [place], [facility]. tel:[phone] [facility], [address] [place] [address] [address], [place], [place], [address], [place] tel:[phone] [facility] No Information 0-200 9 Britt Craig [address] [facility] [address], [place], [address], [place]. tel:[phone] Office/outpat ient Visit, [facility], [address] [place] [address] [address], [place], [place], [address], [place] tel:[phone] [facility] No Information 3-200 7 Britt Craig [address] [facility] [address], [place], [address], [place]. tel:[phone] [facility], [address], [place], [place], [address], [place] tel:[phone] [facility] No Information 7-200 7 Britt Craig [address] [facility] [address], [place], [address], [place]. tel:[phone] Family History Family Member Type Diagnosis Age At Onset No Information Payers Payer name Insurance type Covered constitution party ID Authoriza tisaray(s) [place] [id number] Social History Type Description Quantity Date Captured [...]
--- OUTSIDE RECORDS SUMMARY | 2025-02-14 14:43 | XMS_ITS | Referral Summary ---
Author Organization [address] Address [address] [place] [address] Care Team Providers Care Bartender Helper Name Role Phone Quan Starks MD Unavailable [phone] Debo Mckoy MD Primary Care Provider [phone] Encounters Date Type Department Care Team Description 01/30/2025 11:00 AM UMBRELLA TIPPER Office Visit [facility] Diabetes and Endocrinology [address] [place] [phone] Kisha Selby NP Type 2 diabetes mellitus with hyperglycemia, without long-term current use of insulin (HCC) (Primary Dx); Hypertension associated with diabetes (HCC); Hyperlipidemia associated with type 2 diabetes mellitus (HCC) 01/25/2025 Telephone [facility] Diabetes [facility] Endocrinology [address] [place] [phone] Tanya Dejesus MD request to pcp [...] hyperglycemia, without long-term current use of insulin ([facility]) One Touch Verio Use Daily to check blood glucose 1 each 10/31/20 21 Active lancets 31 gauge miscIndications :Type 2 diabetes mellitus with hyperglycemia, without long-term current use of insulin ([facility]) One Touch Verio Use daily to check blood glucose 100 each 2 10/31/20 21 Active blood glucose diagnostic (glucose blood) stripIndication s:Type 2 diabetes mellitus with hyperglycemia, without long-term current use of insulin ([facility]) One Touch Verio Use daily [...] 12/09/2018 Assessment & Plan (12/09/2018 9:30 AM UMBRELLA TIPPER): With falls, Advised to go to the ER Hyperlipidemia associated with type 2 diabetes ami césar 07/13/2018 Assessment & Plan (01/30/2025 11:13 AM UMBRELLA TIPPER): Chronic problem, currently taking pravastatin 40mg & zetia 10mg. Last lipid panel: 08/03/24 CFU=096, TX=593. Assessment & Plan (08/12/2024 11:28 AM CDT): Chronic problem, currently taking pravastatin 40mg & zetia 10mg. Last lipid panel: 12/30/22 LDL=43, VG=955. Had labs by PCP recently; release signed to get copy Assessment & Plan (04/14/2023 3:18 PM CDT): Chronic problem, Pravastatin 40mg daily has not been filled since 06/2022 (was 90 day supply). Refill sent today. Triglycerides now down to normal level also. No changes at this time. Assessment & Plan (12/11/2022 1:10 PM UMBRELLA TIPPER): Chronic problem, Pravastatin 40mg daily. Triglycerides now down to normal level also. No changes at this time. Assessment & Plan (10/31/2021 12:33 PM UMBRELLA TIPPER): High TG Continue Vascepa. Continue Pravachol Low fat diet. Assessment & Plan (01/10/2021 2:47 PM UMBRELLA TIPPER): Goal of treatment , LDL cholesterol less [...] Vascepa Assessment & Plan (01/17/2020 3:09 PM UMBRELLA TIPPER): With severe hypertriglyceridemia Low carb low fat [...] UNCNTRLD Assessment & Plan (01/30/2025 11:39 AM UMBRELLA TIPPER): Chronic problem, stable A1c at 7.3%. Declines [...] daily DM eye exam June 2024 at [facility]. Will send letter to get copy of [...] A1c. Assessment & Plan (12/11/2022 2:07 PM UMBRELLA TIPPER): Chronic problem, fair control currently. No changes [...] Victoza Assessment & Plan (10/31/2021 12:35 PM UMBRELLA TIPPER): Hba1c was Lab Results Component Value Date HGBA1C 7.3 % 10/31/2021 today, indicating acceptable DM control Goal Hba1c and blood glucose explained Diet and exercise , discussed Prevention and treatment of hyypoglcyemia discussed. Blood glucose monitoring : 1-2 X week Adjustment to oral medications: continue current Assessment & Plan (01/10/2021 2:50 PM UMBRELLA TIPPER): Hba1c was Lab Results Component Value Date [...] Victoza Assessment & Plan (01/17/2020 3:09 PM UMBRELLA TIPPER): Hba1c was Lab Results Component Value Date [...] daily Assessment & Plan (12/09/2018 9:30 AM UMBRELLA TIPPER): Your Hba1c today was: Lab Results Component [...] mg once a day. Go to the [facility] , to be evaluated, for [...] . Assessment & Plan (01/05/2018 11:21 AM UMBRELLA TIPPER): Hba1c was 7.0 today, indicating Adequate DM control 1800 calorie, consistent carb diet recommended 30 min daily aerobic and resistance exercise recommended Prevention and treatment of hyypoglcyemia discussed. Blood glucose monitoring with fingers sticks 1-2 x day . Foot care was discussed. Hypertension associated with diabetes 04/15/2014 Overview (03/06/2017): HYPERTENSION NOS Assessment & Plan (01/30/2025 11:23 AM UMBRELLA TIPPER): Chronic problem, well controlled on current metoprolol [...] time. Assessment & Plan (12/11/2022 1:58 PM UMBRELLA TIPPER): Chronic problem, well controlled currently. No changes at this time. Assessment & Plan (10/31/2021 12:35 PM UMBRELLA TIPPER): Uncontrolled Start Losartan Assessment & Plan (01/10/2021 2:48 PM UMBRELLA TIPPER): Goal blood pressure is less than 140/85 [...] meds Assessment & Plan (01/05/2018 11:21 AM UMBRELLA TIPPER): Goal blood pressure is less than 140/85 [...] on file Legal Sex Female 5:32 PM UMBRELLA TIPPER Gender Identity Not on file Sexual Orientation Not on file Last Filed Vital Signs Vital Sign Reading Time Taken Comments Blood Pressure 126/76 01/30/2025 10:56 AM UMBRELLA TIPPER Pulse 70 01/30/2025 10:56 AM UMBRELLA TIPPER Temperature - - Respiratory Rate 18 01/30/2025 10:56 AM UMBRELLA TIPPER Oxygen Saturation 90% 10/03/2024 2:29 PM UMBRELLA TIPPER Inhaled Oxygen Concentration - - Weight 83.5 kg (184 lb) 10/03/2024 2:29 PM UMBRELLA TIPPER Height 157.5 cm (5' 2.01 ) 01/30/2025 10:[address] Body Mass Index 33.65 10/03/2024 2:29 PM UMBRELLA TIPPER Plan of Treatment Not on file Procedures Procedure Name Priority Date/Time Associated Diagnosis Comments POCT GLUCOSE Routine 01/30/2025 10:59 AM UMBRELLA TIPPER Type 2 diabetes mellitus with hyperglycemia, without long-term current use of insulin (HCC) POCT HEMOGLOBIN A1C Routine 01/30/2025 1 0:59 AM UMBRELLA TIPPER Type 2 diabetes mellitus with hyperglycemia, without [...] (ABNORMAL) POCT hemoglobin A1c (01/30/2025 10:59 AM UMBRELLA TIPPER) Hemoglobin A1C, POC 7.3 4.0 - 5.6 % Blood 01/30/2025 10:5 9 AM UMBRELLA TIPPER us Kisha Selby NP POINT OF CARE TEST ORDERA BLES Final Result * (ABNORMAL) POCT glucose (01/30/2025 10:59 AM UMBRELLA TIPPER) Glucose Blood, POC 213 mg/dL Blood 01/30/2025 10:5 9 AM UMBRELLA TIPPER Kisha Selby CARDIOGRAPHER POINT OF CARE TEST ORDERA BLES Final Result * Albumin Creatinine Ratio, Urine (08/12/2024 1:27 PM CDT) [facility] Albumin Ur <12.0 mg/L Comment: Interpretive Data No reference range established. Current interpretive data was last revised 2019. Creatinine Ur 78.4 mg/dL [facility] Comment: Interpretive Data No reference range established. Current interpretive data was last revised 2019. Albumin Creatinine Ratio, Ur <15 1 - 29 mg/g VIJ[facility] Urine 08/12/2024 1:27 PM CDT 08/12/2024 8:37 PM CDT Kisha Selby NP LAB URINE ORDERABLES Lucero l Result Performing Organization Address City/[facility]/ZIP Co de Phone Number [facility] [address] Department [place] [address] * (ABNORMAL) Lipid panel (08/03/2024 10:50 AM CDT) [facility] SCRIBED Cholesterol, Total 204 <200 - NA EXTERNAL LAB SCRIBED HDL 50 >=50 - NA EXTERNAL LAB SCRIBED LDL 109 <100 - NA EXTERNAL LAB SCRIBED Triglycerides 339 <150 - NA EXTERNAL LAB Blood 08/03/2024 10:5 0 AM CDT Historical Provider LAB BLOOD ORDERABLES Edit ed Result - Final EXTERNAL LAB * (ABNORMAL) Comprehensive metabolic panel (08/03/2024 10:50 AM CDT) [facility] SCRIBED Sodium 144 135 - 146 mmol/L [...] Units/L EXTERNAL LAB SCRIBED eGFR in NonAfrican Citizen Of [place] 45 >=60 - NA EXTERNAL LAB Blood 08/03/2024 10:5 0 AM CDT Historical Provider LAB BLOOD ORDERABLES Edit ed Result - Final EXTERNAL LAB * DIABETES EYE EXAM (05/05/2024 8:35 AM CDT) Historical Provider HEALTH MAINTENANCE Edited Result - Final from Last 3 Months or Most Recently Relevant to Health Maintenance Insurance T MEDICARE [employer]ET[employer] MEDICARE Care Teams Bartender Helper Relationship Specialty Start Date End Date Debo Mckoy MD [address] [place] [address] PCP - General Family Medicine 03/20/23 Quan Starks MD [address] [place] [address] Referring Physician Ophthalmology 01/06/23
[2025-02-14 14:57] LABS: Vitamin D 25 Hydroxy 19.3 ng/mL
[2025-02-14 15:10] LABS: Thyroid Stimulating Hormone Reflex 0.617 uIU/mL (0.465-4.68)
== END 2025-02-14 13:14 | disposition home or self-care (01) ==
PROVIDERS: PCP Family Medicine; Visit Provider Family Medicine
DX: I11.0 Hypertensive heart disease with heart failure (principal); I50.9 Heart failure, unspecified; R53.83 Other fatigue; E11.69 Type 2 diabetes mellitus with other specified complication; E66.9 Obesity, unspecified; E55.9 Vitamin D deficiency, unspecified
CPT/HCPCS: 36415; 80076; 82306; 84443; 85025

== ENCOUNTER 2025-02-21 00:31 | Day surgery (SDC) | payer MEDICARE, SELFPAY ==
[2025-01-11 15:29] VITALS: BMI 32.9
--- NOTE | 2025-01-11 15:43 | PC.NURSE ---
Addendum entered by Aubree Silva RN 01/11/25 15:53: 1555pm Daughter called back and states that this is now being rescheduled at different date. We will await new date/info from Dr Cross office, so that the preop testing can be rescheduled and also the info below is updated for correct date and time [facility] Original Note: Report to the Outpatient Waiting Room, entrance under the green pavilion located off [address], at time _1130am on date _01/24/25 . Planned Procedure Time: _130pm .? Time changes happen often and if your time is changed the preop area will call you the afternoon before. - You and your visitor will be asked to self-screen and do not enter if you have any COVID symptoms. Please call surgeon if you need to reschedule. - A mask is optional within the hospital at this time. Patients may have clear liquids (water, carbonated beverages, clear teas, apple juice) until 3 hours prior to surgery with a maximum of 20 ounces. - No food from midnight until time of surgery and no smoking, or chewing tobacco (or any form of nicotine). No chewing gum, candy or mints. Take only the following medications with a SIP of water on the morning of surgery: Ellpta Inhaler, Duloxetine, Metoprolol, Alprazolam as needed, Albuteral as needed, Tylenol as needed DO NOT STOP ANY OF YOUR OTHER PRESCRIPTION MEDICATIONS PRIOR TO SURGERY EXCEPT THE FOLLOWING Hold all vitamins and supplements for 3 days per anesthesiologist. Date to take last dose____01/20/25 Medications to discontinue per physician ____None Please no make-up, nail tajik, hairspray, perfume, deodorant, or body powder the day of surgery.? No jewelry (including any body piercings) or valuables the day of surgery, leave them at home.? Please take a shower or bath the night before, or the morning of, surgery with an antibacterial soap.? Wear comfortable, loose fitting clothing.? - Jewelry must be removed prior to entering the operating room.? Rings and piercings that are not removed may be cut off. - The hospital will not accept responsibility for valuables.? - Please leave all valuables, including medications, at home the day of surgery. If you are going home after surgery, a licensed dairy truck driver must drive you home.? - NO public transportation without another adult if you receive anesthesia. - We recommend that an adult stay with you for 24 hours following discharge. - We also recommend that you do not drive, make important decision, drink alcoholic beverages, or take any drugs that were not prescribed by your health care provider for at least 24 hours after your discharge time. Follow any additional instructions given to you from your surgeon. Telephone instructions given to __Breann ( daughter) and asked if any additional questions and then verbalized understanding. Patient advised to call surgeon office or pre surgery nurse liaison [phone] if any additional questions.
--- NOTE | 2025-02-03 15:03 | PC.NURSE ---
Report to the Outpatient Waiting Room, entrance under the green pavilion located off [facility], at time 10 AM on date _02/21/25 . Planned Procedure Time: __1200 NOON .? Time changes happen often and if your time is changed the preop area will call you the afternoon before. - You and your visitor will be asked to self-screen and do not enter if you have any COVID symptoms. Please call surgeon if you need to reschedule. - A mask is optional within the hospital at this time. NOTHING TO EAT OR DRINK AFTER MIDNIGHT PER DR REYES Take only the following medications with a SIP of water on the morning of surgery: __ALPRAZOLAM IF NEEDED,,DULOXETINE,METOPROLOL,ANORO EILIPTA INHALER DO NOT STOP ANY OF YOUR OTHER PRESCRIPTION MEDICATIONS PRIOR TO SURGERY EXCEPT THE FOLLOWING Hold all vitamins and supplements for 3 days per anesthesiologist. Medications to discontinue per physician NONE Please no make-up, nail namibian, hairspray, perfume, deodorant, or body powder the day of surgery.? No jewelry (including any body piercings) or valuables the day of surgery, leave them at home.? Please take a shower or bath the night before, AND the morning of, surgery with an antibacterial soap.? Wear comfortable, loose fitting clothing.? Children are encouraged to wear pajamas. - Jewelry must be removed prior to entering the operating room.? Rings and piercings that are not removed may be cut off. - The hospital will not accept responsibility for valuables.? - Please leave all valuables, including medications, at home the day of surgery. If you are going home after surgery, a licensed trailer tank truck driver must drive you home.? - NO public transportation without another adult if you receive anesthesia. - We recommend that an adult stay with you for 24 hours following discharge. - We also recommend that you do not drive, make important decision, drink alcoholic beverages, or take any drugs that were not prescribed by your health care provider for at least 24 hours after your discharge time. Follow any additional instructions given to you from your surgeon. Telephone instructions given to __DAUGHTER TRISH and asked if any additional questions and then verbalized understanding. Patient advised to call surgeon office or pre surgery nurse liaison [phone] if any additional questions.
--- NOTE | 2025-02-03 15:16 | PC.NURSE ---
DAUGHTER STATES NO CHANGE IN HEALTH HX SINCE LAST INTERVIEW
[2025-02-21] VITALS (8 sets, daily range): BP systolic 146–178; BP diastolic 63–86; PULSE 67–79; RESP 16–20; TEMP 36.2–37; O2SAT 94–97
--- NOTE | ~2025-02-21 | XR_ITS ---
EXAMINATION: XR fluoroscopy no charge DATE: 02/21/2025 14:45 CDT INDICATION: LUMBAR DECOMPRESSION . TECHNIQUE: 9 fluoroscopic images of the lumbar spine were obtained during lumbar decompression, perfo rmed by Bunny Cross MD. I was not present during the procedure. Fluoroscopy exposure time was 32 3.3 seconds. Air Kerma 203.78 mGy. DAP 3.55 mGym2. COMPARISON: None FINDINGS/IMPRESSION: Fluoroscopic documentation of lumbar decompression. Please refer to the operative note for complete p rocedural details . Reviewed, dictated and finalized at location K.
--- OUTSIDE RECORDS SUMMARY | 2025-02-21 00:34 | XMS_ITS | Clinical Summary ---
Author Organization [facility] Address [address] [place] [address] Care Team Providers Care Audiologist Name Role Phone Quan Starks MD Unavailable [phone] Debo Mckoy MD Primary Care Provider [phone] Allergies Active Allergy Reactions Criticality Noted Date [...] hyperglycemia, without long-term current use of insulin ([facility]) One Touch Verio Use Daily to check blood glucose 1 each 10/31/20 21 Active lancets 31 gauge miscIndications :Type 2 diabetes mellitus with hyperglycemia, without long-term current use of insulin ([facility]) One Touch Verio Use daily to check blood glucose 100 each 2 10/31/20 21 Active blood glucose diagnostic (glucose blood) stripIndication s:Type 2 diabetes mellitus with hyperglycemia, without long-term current use of insulin ([facility]) One Touch Verio Use daily to [...] 12/09/2018 Assessment & Plan (12/09/2018 9:30 AM POLICEWOMAN): With falls, Advised to go to the ER Hyperlipidemia associated with type 2 diabetes ami lindsey 07/13/2018 Assessment & Plan (01/30/2025 11:13 AM POLICEWOMAN): Chronic problem, currently taking pravastatin 40mg & zetia 10mg. Last lipid panel: 08/03/24 MTV=409, XL=793. Assessment & Plan (08/12/2024 11:28 AM CDT): Chronic problem, currently taking pravastatin 40mg & zetia 10mg. Last lipid panel: 12/30/22 LDL=43, [place]=207. Had labs by PCP recently; release signed to get copy Assessment & Plan (04/14/2023 3:18 PM CDT): Chronic problem, Pravastatin 40mg daily has not been filled since 06/2022 (was 90 day supply). Refill sent today. Triglycerides now down to normal level also. No changes at this time. Assessment & Plan (12/11/2022 1:10 PM POLICEWOMAN): Chronic problem, Pravastatin 40mg daily. Triglycerides now down to normal level also. No changes at this time. Assessment & Plan (10/31/2021 12:33 PM POLICEWOMAN): High TG Continue Vascepa. Continue Pravachol Low fat diet. Assessment & Plan (01/10/2021 2:47 PM POLICEWOMAN): Goal of treatment , LDL cholesterol less [...] Vascepa Assessment & Plan (01/17/2020 3:09 PM POLICEWOMAN): With severe hypertriglyceridemia Low carb low fat [...] UNCNTRLD Assessment & Plan (01/30/2025 11:39 AM POLICEWOMAN): Chronic problem, stable A1c at 7.3%. Declines [...] daily DM eye exam June [facility] at [facility]. Will send letter to get copy of report. Had labs by PCP recently; release signed to get copy Discussed with aMría Faith: Strive for regular exercise (30min most [...] A1c. Assessment & Plan (12/11/2022 2:07 PM POLICEWOMAN): Chronic problem, fair control currently. No changes [...] Victoza Assessment & Plan (10/31/2021 12:35 PM POLICEWOMAN): Hba1c was Lab Results Component Value Date HGBA1C 7.3 % 10/31/2021 today, indicating acceptable DM control Goal Hba1c and blood glucose explained Diet and exercise , discussed Prevention and treatment of hyypoglcyemia discussed. Blood glucose monitoring : 1-2 X week Adjustment to oral medications: continue current Assessment & Plan (01/10/2021 2:50 PM POLICEWOMAN): Hba1c was Lab Results Component Value Date [...] Victoza Assessment & Plan (01/17/2020 3:09 PM POLICEWOMAN): Hba1c was Lab Results Component Value Date [...] daily Assessment & Plan (12/09/2018 9:30 AM POLICEWOMAN): Your Hba1c today was: Lab Results Component [...] a day. Go to the ER , [facility] , to be evaluated, for the [...] . Assessment & Plan (01/05/2018 11:21 AM POLICEWOMAN): Hba1c was 7.0 today, indicating Adequate DM control 1800 calorie, consistent carb diet recommended 30 min daily aerobic and resistance exercise recommended Prevention and treatment of hyypoglcyemia discussed. Blood glucose monitoring with fingers sticks 1-2 x day . Foot care was discussed. Hypertension associated with diabetes 04/15/2014 Overview (03/06/2017): HYPERTENSION NOS Assessment & Plan (01/30/2025 11:23 AM POLICEWOMAN): Chronic problem, well controlled on current metoprolol [...] time. Assessment & Plan (12/11/2022 1:58 PM POLICEWOMAN): Chronic problem, well controlled currently. No changes at this time. Assessment & Plan (10/31/2021 12:35 PM POLICEWOMAN): Uncontrolled Start Losartan Assessment & Plan (01/10/2021 2:48 PM POLICEWOMAN): Goal blood pressure is less than 140/85 [...] meds Assessment & Plan (01/05/2018 11:21 AM POLICEWOMAN): Goal blood pressure is less than 140/85 Low salt diet recommended Daily aerobic exercise Resolved Problems Problem Noted Date Diagnosed Date Resolved Date Hypercholesterolemia 04/15/2014 023 Overview (03/06/2017): Hypercholesteremia Encounters Date Type Department Care Team Description 01/30/2025 11:00 AM POLICEWOMAN Office Visit [facility] Medical [facility] Diabetes and Endocrinology [address] [place] [phone] Kisha Selby NP Type 2 diabetes mellitus with hyperglycemia, without long-term current use of insulin (HCC) (Primary Dx); Hypertension associated with diabetes (HCC); Hyperlipidemia associated with type 2 diabetes mellitus (HCC) 01/25/2025 Telephone [facility] Diabetes and Endocrinology [address] [place] [phone] Tanya Dejesus MD request to pcp [...] on file Legal Sex Female 5:32 PM POLICEWOMAN Gender Identity Not on file Sexual Orientation Not on file Obstetrics History Last Filed Vital Signs Vital Sign Reading Time Taken Comments Blood Pressure 126/76 01/30/2025 10:56 AM POLICEWOMAN Pulse 70 01/30/2025 10:56 AM POLICEWOMAN Temperature - - Respiratory Rate 18 01/30/2025 10:56 AM POLICEWOMAN Oxygen Saturation 90% 10/03/2024 2:29 PM POLICEWOMAN Inhaled Oxygen Concentration - - Weight 83.5 kg (184 lb) 10/03/2024 2:29 PM POLICEWOMAN Height 157.5 cm (5' 2.01 ) 01/30/2025 10:[address] Body Mass Index 33.65 10/03/2024 2:29 PM POLICEWOMAN Plan of Treatment Health Maintenance Due Date [...] Comments POCT GLUCOSE Routine 01/30/2025 10:59 AM POLICEWOMAN Type 2 diabetes mellitus with hyperglycemia, without long-term current use of insulin (HCC) POCT HEMOGLOBIN A1C Routine 01/30/2025 1 0:59 AM POLICEWOMAN Type 2 diabetes mellitus with hyperglycemia, without [...] (ABNORMAL) POCT hemoglobin A1c (01/30/2025 10:59 AM POLICEWOMAN) Hemoglobin A1C, POC 7.3 4.0 - 5.6 % Blood 01/30/2025 10:5 9 AM POLICEWOMAN us Kishacarolyn Sleby EXTERNAL GRINDER POINT OF CARE TEST ORDERA BLES Final Result * (ABNORMAL) POCT glucose (01/30/2025 10:59 AM POLICEWOMAN) Glucose Blood, POC 213 mg/dL Blood 01/30/2025 10:5 9 AM POLICEWOMAN us Kishacarolyn Selby EXTERNAL GRINDER POINT OF CARE TEST ORDERA BLES Final Result * Albumin Creatinine Ratio, Urine (08/12/2024 1:27 PM CDT) Albumin Ur <12.0 mg/L Comment: Interpretive Data No reference range established. Current interpretive data was last revised 2019. Creatinine Ur 78.4 mg/dL [facility] Comment: Interpretive Data No reference range established. Current interpretive data was last revised 2019. Albumin Creatinine Ratio, Ur <15 1 - 29 mg/g [facility] Urine 08/12/2024 1:27 PM CDT 08/12/2024 8:37 PM CDT Kisha Selby NP LAB URINE ORDERABLES Lucero l Result Performing Organization Address City/[facility]/ZIP Co de Phone Number [facility] [address] [address] Department [place] [address] * (ABNORMAL) Lipid panel (08/03/2024 10:50 AM CDT) Pathologist [facility] SCRIBED Cholesterol, Total 204 <200 - NA EXTERNAL LAB SCRIBED HDL 50 >=50 - NA EXTERNAL LAB SCRIBED LDL 109 <100 - NA EXTERNAL LAB SCRIBED Triglycerides 339 <150 - NA EXTERNAL LAB Blood 08/03/2024 10:5 0 AM CDT Historical Provider LAB BLOOD ORDERABLES Edit ed Result - Final EXTERNAL LAB * (ABNORMAL) Comprehensive metabolic panel (08/03/2024 10:50 AM CDT) Pathologist [facility] SCRIBED Sodium 144 135 - 146 mmol/L [...] Units/L EXTERNAL LAB SCRIBED eGFR in NonAfrican [place] Islander 45 >=60 - NA EXTERNAL LAB Blood 08/03/2024 10:5 0 AM CDT us Historical Provider LAB BLOOD ORDERABLES Edit ed Result - Final EXTERNAL LAB * DIABETES EYE EXAM (05/05/2024 8:35 AM CDT) Historical Provider HEALTH MAINTENANCE Edited Result - Final from Last 3 Months or Most Recently Relevant to Health Maintenance Insurance [facility] AETNA MEDICARE Care Teams Audiologist Relationship Specialty Start Date End Date Debo Mckoy MD [address] [place] [address] PCP - General Family Medicine 03/20/23 Quan Starks MD [address] [place] [address] Referring Physician Ophthalmology 01/06/23
--- OUTSIDE RECORDS SUMMARY | 2025-02-21 00:34 | XMS_ITS | Continuity of Care Document ---
Author Organization [facility] Address [address] [facility] [address] [place] [address] Phone Care Team Providers Care Bobbin Stripper Name Role Phone Neda De La Torre [...] Copied on Encounter Office/outpat ient Visit, [facility], [address], [place], [place], [id number], [place] tel:[phone] [facility] No Information 0-201 0 Britt Red. [address] , [address], [place], [address], [place]. tel:[phone] [facility], [address], [place], [place], [id number], [place] tel:[phone] [facility] No Information 0-200 9 [employer] . [address], [address], [place], [place], [id number], [place]. tel:[phone] Referring Provider: Clif [address] [facility] [address], [place], [address]. tel:[phone] rojas Provider: Mirela Page, [address] [facility], [place], [place], [facility]. tel:[phone] [facility] Eye [facility], [address] [place] [address] [address], [place], [place], [id number], [place] tel:[phone] [facility] No Information 0-200 9 Britt Craig [address], [place], [address], [place]. tel:[phone] Office/outpat ient Visit, [facility] Eye [facility], [address] [place] [address] [address], [place], [place], [id number], [place] tel:[phone] [facility] No Information 3-200 7 Britt Craig [address], [place], [address], [place]. tel:[phone] [facility] Eye [facility], [address], [place], [place], [id number], [place] tel:[phone] [facility] No Information 7-200 7 Britt Craig [address] [facility], [place], [address], [place]. tel:[phone] Family History Family Member Type Diagnosis Age At Onset No Information Payers Payer name Insurance type Covered constitution party ID Authoriza tisaray(s) [place] [id number] Social History Type Description Quantity Date Captured [...]
--- OUTSIDE RECORDS SUMMARY | 2025-02-21 00:34 | XMS_ITS | Continuity of Care Document ---
Author Organization [facility] Address [address] [place] [address] Care Team Providers Care Mine Environmental Engineer Name Role Phone Slade Salas APN Unavailable [...] Providers Copied on Encounter [facility], [address] [place] [address], [address], [place] [facility] No Information 2 Maritza June. [address] [place] [address] [address], [address], [place], [address], [place]. tel:[phone] [facility], [address] [place] [address], [address], [place] [facility] No Information 6 2 Nino Young. [address] [place] [address], [place] [address], [place], [address], [place]. tel:[phone] Referring Provider: Martin Bennett DO W, [address] [place] [address], [address]. tel:[phone] [facility], [address] [place] [address], [address], [place] [facility] No Information 2 Nino Young. [address] [place] [address], [place], [address], [place]. tel:[phone] Referring Provider: Hector Oneill, [address] [place] [address], [place], [address]. tel:[phone] [facility], [address] [place] [address], [address], [place] [facility] No Information 2 Lazaro Demetrio. [address] [place] [address], [place] [address], [place], [address], [place]. tel:[phone] Referring Provider: Martin SEARS, [address] [place] [address], [address]. tel:[phone] [facility], [address] [place] [address], [address], [place] [facility] No Information 1 2 Nino Young. [address] [place] [address], [place], [address], [place]. tel:[phone] Referring Provider: Hector Oneill, [address] [place] [address], [place], [address]. tel:[phone] [facility], [address] [place] [address], [address], [place] [facility] No Information 2 Nickolasse Hector. [address] [place] [address], [place], [address], [place]. tel:[phone] Referring Provider: Martin SEARS, [address] [place] [address], [facility]. tel:[phone] [facility], [address] [place] [address], [address], [place] [facility] No Information 2 Silvio Hollis. [address] [place] [address], [address], [place]. tel:[phone] Referring Provider: Bunny Anguiano, [address] [place] [address], [address]. tel:[phone] [facility], [address] [place] [address], [facility], [place] [facility] No Information 2 Angel Guerrero. [address] [place] [address], [address], [place]. tel:[phone] Referring Provider: Cesar Ortiz, [address] [place] [address], [address]. tel:[phone] [facility], [address] [place] [address], [address], [place] [facility] No Information 2 Furiasse Hector. [address] [place] [address], [address], [place]. tel:[phone] Referring Provider: Hector Oneill, [address] [place] [address] [address] [facility] [place], [place], [facility]. tel:[phone] [facility], [address] [place] [address], [address], [place] [facility] No Information 2 Nino Young. [address] [place] [address], [place] [address], [place], [facility], . tel:[phone] Referring Provider: Hector Solorzanoelissa, [address] [place] [address] [address] [facility] [place], [facility]. tel:[phone] [facility], [address] [place] [address], [address], [place] [facility] No Information 2 Carbonejerome Malone. [address] [place] [address], [place] [address], [place], [facility], . tel:[phone] Referring Provider: Martin SEARS, [address] [place] [address], [facility]. tel:[phone] Family History Family Member Type Diagnosis Age At Onset No Information Payers Payer name Insurance type Covered democrat ID Authoriza tion(s) [facility] Medicare Complete [id number] Social History Type Description Quantity Date [...]
--- OUTSIDE RECORDS SUMMARY | 2025-02-21 00:34 | XMS_ITS | Data Portability ---
Author Organization [place] [facility], [place] - [facility] - OP Address [address] [place] [address] Care Team Providers Care Data Collection Specialist Name Role Phone VERA GERARD Primary Care Provider Assessment No assessment recorded. Plan of Treatment Reminders Order Date Submit Date Provider Last Modified By Organization Details Last Modified Time Details Appointments None recorded. Lab influenza virus A + B and SARS CoV 2 (COVID-19) and RSV RNA panel, MYLENE+probe, respiratory specimen 2021 022 [facility], [address] , [place], [address], 2 13:09:12 Referral [facility] referral - Patient Is staying with daughter in [place]: [address] [facility] [address] Please call patient's daughter, Sara, at to schedule 2022 023 [place] [facility], [address] [facility], [place], [address], 3 16:19:59 Procedures None recorded. Surgeries None recorded. Imaging None recorded. Medication Orders neomycin-po lymyxin-hyd rocort 3.5 mg-10,000 unit/mL-1 % ear drops,susp [address] [facility], [address] [facility], [place], [address], 3 11:16:45 Zithromax Z-Parveen 250 mg tablet 2021 [email or web address] 92 [facility] [address], [address] [place] [address], [address], 3 08:46:29 prednisone 20 mg tablet 2021 [email or web address] 92 [facility] [address], [address] [place] [address], [address], 3 08:44:18 losartan [address] [facility] [address], [address] [place] [address], [address], 2 15:06:07 Patient TargetsNo targets recorded. Patient Instructions Encounter Date Encounter Id Patient Instructions Last Modified By Organization Details Last Modified Time 09/26/2022 [id number] discussed arranging care and consults at home and transition back to home ostenm Not available 09/26/2022 16:38:46 Reason for Referral Home Health Referral for Chr onic low back pain chronic low back pain and bilateral LE muscle weakness, fall risk Patient Is staying with daughter in [place]: [address] [facility] [address] Please call patient's daughter, Sara, at [phone] to schedule Referring Physician: Tonya Metcalf, Family Medicine, Encounter Date: 10/27/2023 Results Created Date Observation Date Name Description Value Unit Range Abnormal Flag Note LastModifiedBy Organization Detail LastModifiedTime 11/28/20 22 11/28/2022 COVID 19, FLU A/B, RSV PANEL BY PCR report comment SEE BELOW This assay is perfo rmed by RT-PC R metho dolog y. Negat delaney resul ts do not precl ude SARS- CoV-2 , Influ jamia A/B or RSV infec tion and shoul d not be used as the sole basis for patie nt manag ement decis ions. Resul ts must be combi nikolay with clini kun obser vatio ns, patie nt histo ry, and epide miolo gical infor matyi n. Recen t expos ure to FluMi st or other live atten uated influ jamia vacci dayron may cause inacc urate posit delaney resul ts for Influ jamia A/B and inacc urate false negat delaney resul ts for RSV. Patie nts co-in fecte d with Pneum ocyst is jirov ecii (PJP) may have false negat delaney resul ts for Influ jamia A/B, RSV, and SARS CoV2. This test has not been FDA clear ed or appro corrine. This test has been autho rized by the FDA under an Emerg ency Use Autho rizat ion (EUA) . This test has been autho rized for simul taneo us detec tion of nucle ic acid from SARS- CoV-2 , Influ jamia A and B and RSV, not for any other virus es or patho gens. This test is only autho rized for the durat ion of the decla ratio n that circu mstan alverto exist justi fying the autho rizat ion of the emerg ency use of in vitro diagn ostic tests for the detec tion of SARS- CoV-2 virus and/o r diagn osis of COVID -19 infec tion under secti on 564(b )(1) of the Act, 21 U.S.C . 360bb b-3(b )(1), unles s the autho rizat ion is termi nated or revok ed soone r. Not Available [address] [place], [address], 11/29/2022 13:09:11 11/28/20 22 11/28/2022 COVID 19, FLU A/B, RSV PANEL BY PCR influenzae A by PCR NOT DETECT ED Not Available [place] [address] [place], [address], 11/29/2022 13:09:11 11/28/20 22 11/28/2022 COVID 19, FLU A/B, RSV PANEL BY PCR influenzae B by PCR NOT DETECT ED Not Available [place] [address], [place], [address], 11/29/2022 13:09:11 11/28/20 22 11/28/2022 COVID 19, FLU A/B, RSV PANEL BY PCR RSV by PCR NOT DETECT ED Not Available [facility] [address] [place], [address], 11/29/2022 13:09:11 11/28/20 22 11/28/2022 COVID 19, FLU A/B, RSV PANEL BY PCR covid 19 by PCR NOT DETECT ED PERFO RMED BY:[facility], [address] [facility] [place] [address] [phone] Not Available [facility] [address] [place], [address], 11/29/2022 13:09:11 Result Notes None recorded. Problems Name Problem SNOMED Code Status Onset Date Resolution Date Notes Provider Name and Address Organization Details Recorded Time Chronic obstructive pulmonary disease 54402795 Active 2021 Gerard Biggs MD [address], [facility] [place], [address] , [place] [facility] 2 14:49:35 Congestive heart failure 16821309 Active 2021 Gerard Biggs MD [address], [place], [address] , [place] [facility] 2 14:49:36 Type 2 diabetes mellitus without complication 947493529 Active 2021 Gerard Biggs MD [address], [place], [address] , [place] [facility] 2 14:49:36 Sleep apnea 92219285 Active 2021 Gerard Biggs MD [address], [place], [address] , [place] [facility] 2 14:49:37 Problem Notes None recorded. Procedures Surgical History Date Name Laterality Status Provider Name and Address Organization Details Recorded Time None completed Ashley Tello [facility] 10/27/2023 10:52:45 Imaging Results None recorded. Procedure Notes None recorded. Medical Equipment None Reported. Allergies Allergen ID Allergen Name Allergen Category Reaction Reaction Severity Criticality Documentation Date Start Date Code Code System Note Provider Name and Address Organization Details Recorded Time 999135 codeine medicatio n other severe Not available 09/26/2022 7200 RxNorm upset stoma ch Surilem Timmy null, [facility] 14:28:31 Medications Name Sig Start Date Stop Date Status Note LastModified by Organization Details LastModified Time ipratropium 0.5 mg-albutero l 3 mg (2.5 mg base)/3 mL nebulizatio n soln Inhale 3 mL 4 times a day by nebulizat ion route. active Not Available Not Available No t Available citalopram 40 mg tablet TAKE 1 TABLET BY MOUTH ONCE DAILY active Not Available Not Available No t Available pravastatin 40 mg tablet TAKE 1 TABLET BY MOUTH ONCE DAILY active Not Available Not Available No t Available fluconazole 150 mg tablet TAKE 1 TABLET BY MOUTH EVERY 72 HOURS 10/27 completed Not Available Not Available Not Available metoprolol succinate ER 50 mg tablet,exte nded release 24 hr TAKE 1 TABLET BY MOUTH ONCE DAILY active Not Available Not Available No t Available cephalexin 250 mg capsule TAKE 1 CAPSULE BY MOUTH EVERY 8 HOURS FOR 7 DAYS 10/27 completed Not Available Not Available Not Available diltiazem CD 240 mg capsule,ext ended release 24 hr TAKE 1 CAPSULE BY MOUTH ONCE DAILY active Not Available Not Available No t Available glipizide ER 10 mg tablet, extended release 24 hr TAKE 1 TABLET BY MOUTH ONCE DAILY active Not Available Not Available No t Available glipizide 10 mg tablet TAKE 1 TABLET BY MOUTH ONCE DAILY active Not Available Not Available No t Available prednisone 20 mg tablet Take 1 tablet twice a day by oral route. 10/27 completed Not Available Not Available Not Available Zithromax Z-Parveen 250 mg tablet TAKE 2 TABLETS (500 MG) BY ORAL ROUTE ONCE DAILY FOR 1 DAY THEN 1 TABLET (250 MG) BY ORAL ROUTE ONCE DAILY FOR 4 DAYS 10/27 completed Not Available Not Available Not Available diphenoxyla te-atropine 2.5 mg-0.025 mg tablet TAKE 1 TABLET BY MOUTH THREE TIMES DAILY NEEDED FOR DIARRHEA 10/27 completed Not Available Not Available Not Available ciprofloxac in 250 mg tablet TAKE 1 TABLET BY MOUTH EVERY 12 HOURS FOR 7 DAYS 10/27 completed Not Available Not Available Not Available prochlorper azine maleate 10 mg tablet TAKE 1 TABLET BY MOUTH EVERY 8 HOURS NEEDED FOR NAUSEA AND VOMITING 10/27 completed Not Available Not Available Not Available spironolact one 25 mg tablet TAKE 1/2 (ONE-HALF ) TABLET BY MOUTH ONCE DAILY active Not Available Not Available No t Available oxycodone-a cetaminophe n 5 mg-325 mg tablet TAKE 1 TABLET BY MOUTH EVERY 12 HOURS NEEDED FOR PAIN 10/27 completed Not Available Not Available Not Available alprazolam 0.5 mg tablet TAKE 1 TABLET BY MOUTH THREE TIMES DAILY active Not Available Not Available No t Available mirtazapine 30 mg tablet TAKE 1 TABLET BY MOUTH ONCE DAILY AT BEDTIME active Not Available Not Available No t Available trazodone 150 mg tablet TAKE 2 TABLETS BY MOUTH ONCE DAILY AT NIGHT AT BEDTIME active Not Available Not Available No t Available nystatin 100,000 unit/gram topical cream APPLY CREAM TOPICALLY TWICE DAILY active Not Available Not Available No t Available gabapentin 300 mg capsule TAKE 1 CAPSULE BY MOUTH TWICE DAILY 10/27 completed Not Available Not Available Not Available doxazosin 4 mg tablet TAKE 1 TABLET BY MOUTH ONCE DAILY active Not Available Not Available No t Available bumetanide 1 mg tablet Take 1 tablet every day by oral route. 10/27 completed Not Available Not Available Not Available montelukast 10 mg tablet TAKE 1 TABLET BY MOUTH AT BEDTIME active Not Available Not Available No t Available metoprolol succinate ER 25 mg tablet,exte nded release 24 hr TAKE 1 TABLET BY MOUTH ONCE DAILY 10/27 completed Not Available Not Available Not Available albuterol 90 mcg/actuati on aerosol inhaler Inhale 2 puffs every 4 hours by inhalatio n route as needed. active Not Available Not Available No t Available albuterol sulfate HFA 90 mcg/actuati on aerosol inhaler INHALE 1 TO 2 PUFFS BY MOUTH EVERY 4 TO 6 HOURS NEEDED FOR SHORTNESS OF BREATH FOR WHEEZING active Not Available Not Available No t Available losartan 100 mg tablet Take 1 tablet every day by oral route. active Not Available Not Available No t Available fluticasone propionate 50 mcg/actuati on nasal spray,suspe nsion USE 1 TO 2 SPRAY(S) IN EACH NOSTRIL ONCE DAILY NEEDED active Not Available Not Available No t Available amoxicillin 875 mg-potassiu m clavulanate 125 mg tablet TAKE 1 TABLET BY MOUTH EVERY 12 HOURS 10/27 completed Not Available Not Available Not Available neomycin-po lymyxin-hyd rocort 3.5 mg-10,000 unit/mL-1 % ear drops,susp INSTILL 4 DROPS INTO AFFECTED EAR(S) THREE TIMES DAILY active Not Available Not Available No t Available amoxicillin -potassium clavulanate 1,000 mg-62.5 mg tablet,ext. rel 12hr TAKE 1 TABLET BY MOUTH EVERY 12 HOURS FOR 7 DAYS 10/27 completed Not Available Not Available Not Available duloxetine 30 mg capsule,del ayed release TAKE 2 CAPSULES BY MOUTH ONCE DAILY active Not Available Not Available No t Available Victoza 2-Parveen 0.6 mg/0.1 mL (18 mg/3 mL) subcutaneou s pen injector INJECT 1.2 MG SUB-Q DAILY active Not Available Not Available No t Available Anoro Ellipta 62.5 mcg-25 mcg/actuati on powder for inhalation INHALE 1 PUFF BY MOUTH ONCE DAILY active Not Available Not Available No t Available Vitals Date Recorded Body weight Body temperature Heart rate Oxygen saturation Oxygen saturation in Arterial blood by Pulse oximetry Systolic blood pressure Diastolic blood pressure Provider Name and Address Organization Details Last Updated DateTime 2 89344.0 7 g 98.1 [degF] 53 /min 96 % 96 % 118 mm[Hg] 60 mm[Hg] [facility] 2 14:32:33 Date Recorded Body temperature Oxygen saturation Oxygen saturation in Arterial blood by Pulse oximetry Body weight Systolic blood pressure Diastolic blood pressure Provider Name and Address Organization Details Last Updated DateTime 2 97.8 [degF] 96 % 96 % 74429.1 3 g 108 mm[Hg] 60 mm[Hg] [facility] 2 14:42:25 Date Recorded Body weight Body mass index (BMI) Body height Body temperature Heart rate Systolic blood pressure Diastolic blood pressure Provider Name and Address Organization Details Last Updated DateTime 3 01890 g 29.7 kg/m2 167.64 cm 98.2 [degF] 49 /min 160 mm[Hg] 70 mm[Hg] Ashley Tello [facility] 3 11:05:17 Date Recorded Oxygen saturation Oxygen saturation in Arterial blood by Pulse oximetry Inhaled oxygen flow rate Systolic blood pressure Diastolic blood pressure Provider Name and Address Organization Details Last Updated DateTime 3 93 % 93 % 3 L/min 138 mm[Hg] 60 mm[Hg] [facility] [address] [facility],[address], [place], [address] , [facility] 3 11:18:55 Social History Question Answer Notes LastModified by Organizat ion Details LastModified Time Tobacco Smoking Status Never Smoker Ashley Tello [facility] 10/27/2023 10:58:39 What Is Your Level Of Alcohol Consumption? None [email or web address] Information not available 10/27/2023 What Is Your Level Of Caffeine Consumption? Moderate 1-2 Cokes Per Day [email or web address] Information not available 10/27/2023 What Was The Date Of Your Most Recent Tobacco Screening? 10/27/2023 [email or web address] Information not available 10/27/2023 Sex: Unknown Functional Status None recorded. Mental Status None recorded. Family History Nothing Reported Notes:Adopted Medical History No medical history recorded. Gynecological HistoryNo gynecological history recorded. Obstetrics History GPAL:G 0 P 0 0 0 0 Immunizations Vaccine Type Date Status Note Provider Nam e and Address Organization Details Recorded Time Influenza, high-dose, quadrivalent, PF 2 completed Gerard Biggs MD [address] [facility],[address], [place], [address], [facility] 09/26/2022 16:37:48 Influenza, high-dose, trivalent, PF 8 completed Roxanne Warner null, [facility] 11/28/2022 14:34:10 COVID-19, mRNA, LNP-S, PF, 30 mcg/0.3 mL dose 1 completed Surilem Timmy null, [facility] 11/28/2022 14:34:11 Influenza, split virus, trivalent, preservative 4 completed Surilem Timmy null, [facility] 11/28/2022 14:34:11 Influenza, high-dose, trivalent, PF 5 completed Surilem Timmy null, [facility] 11/28/2022 14:34:11 Influenza, high-dose, quadrivalent, PF 0 completed Surilem Timmy null, [facility] 11/28/2022 14:34:11 Influenza, high-dose, trivalent, PF 6 completed Surilem Timmy null, [facility] 11/28/2022 14:34:11 Influenza, high-dose, quadrivalent, PF 1 completed Surilem Timmy null, [facility] 11/28/2022 14:34:11 Influenza, split virus, trivalent, preservative 2 completed Surilem Timmy null, [facility] 11/28/2022 14:34:11 COVID-19, mRNA, LNP-S, PF, 30 mcg/0.3 mL dose 1 completed Surilem Timmy null, [facility] 11/28/2022 14:34:11 Td (adult), 5 Lf tetanus toxoid, preservative free, adsorbed 7 completed Surilem Timmy null, [facility] 11/28/2022 14:34:11 pneumococcal polysaccharide PPV23 9 completed Surilem Timmy null, [facility] 11/28/2022 14:34:11 Influenza, split virus, quadrivalent, PF 9 completed [facility] 11/28/2022 14:34:11 Influenza, high-dose, trivalent, PF 7 completed Surilem Timmy null, [facility] 11/28/2022 14:34:11 Tdap 2 completed [facility]ilem Timmy null, [facility] 11/28/[facility]22 14:34:11 Past Encounters Encounter ID Performer Location Encounter Start Date Encounter Closed Date Diagnosis/Indication Diagnosis SNOMED-CT Code Diagnosis ICD10 Code Diagnosis Note [id number] Gerard Biggs MD [place] [address] [place] [address] [place] [address] 09/26/2022 14:18:36 09/26/2022 15:31:23 Chronic obstructive pulmonary disease 15614291 J44.9 Congestive heart failure 83649552 I50.9 Type 2 tre betes mellitus without complication 994764971 E11.9 stable hba1c 7.1 Sleep apnea 28734473 G47 .30 Influenza vaccine needed 0201448758 106 Z23 [id number] Gerard Biggs MD [place] [address] [place] [address] 11/28/2022 14:32:26 11/28/2022 15:09:28 Cough 37659739 R05.9 [id number] Gerard Biggs MD [place] [address] [place] [address] 10/27/2023 10:47:44 10/27/2023 13:34:00 Acute otitis externa 85726328 H60.509 medication SERDfollow up if symptoms persist or worsen Chronic low back pain 27 3062912 M54.50 patient unable to ambulate without assistance requires both hands to help stand from a seated positionun steady gaitdoes not driverecom [facility] evaluation and treatment Muscle weakness 24238908 M62.81 see above Unsteady when walking 22 983123 R26.89 see above Health Concerns Section Related Observation LastModified by Organization Detai ls LastModified Time None Recorded Concern Status LastModified by Organization Details LastModified Time None Recorded Advance Directives Directive None Recorded Payers Encounter Date Sequence Insurance Name Policy Number Policy Caballero Covered Member ID Caballero Member ID Guarantor Name 11/28/2022 1 [facility] (MEDICARE REPLACEMENT/A DVANTAGE - PPO) [id number] María Faith [id number] María Faith 10/27/2023 1 [employer] (MEDICARE REPLACEMENT PPO) [id number] María Faith [id number] María Faith Notes Date Note Type Note Provider Name and Address Organization Details Recorded Time 09/26/2022 text/html TCMdischarge for ABreviewed med listdoing much better Gerard Biggs MD [address] [facility],[address], [place], [address], [facility] 09/26/2022 16:38:50 11/28/2022 text/html here for coughsputum\fatigueno fever or sobbut is on O2 Gerard Biggs MD [address] [facility] [address], [place], [address], [facility] 11/28/2022 15:03:21 10/27/2023 text/html Patient here wit h her daughter to discuss physical therapypatient lives independentlyshe uses a walker to get aroundshe has chronic low back pain due to arthritiswhen pain is severe she has a hard time walkingfeels weakness in her legsfeels unstablehas fallen in the past year and been hospitalizedshe does not drive left ear feeling muffled Gerard Biggs MD [address] [facility],[address], [place], [address], [facility] 10/28/2023 11:00:49 OBGyn Episode No OBEpisode recorded.
--- OUTSIDE RECORDS SUMMARY | 2025-02-21 00:34 | XMS_ITS | Clinical Summary ---
Author Organization [facility] Address [address] [place] [address] Care Team Providers Care Laboratory Equipment Cleaner Name Role Phone Margarito Razo Primary Care Provider [phone] Allergies Active Allergy Reactions Criticality Noted Date [...] Problem Noted Date Diagnosed Date Chronic bronchitis ([facility]) 05/02/2021 Anxiety and depression 05/02/2021 Supplemental oxygen dependent 05/02/2021 ELISSA on CPAP 05/02/2021 Fall 05/01/2021 Bradycardia 12/09/2018 Overview (05/01/2021): Last Assessment & Plan: With falls, Advised to go to the ER Hyperlipidemia associated wi th type 2 diabetes mellitus ([facility]) 07/13/2018 Overview (05/01/2021): Last Assessment & [...] Pravachol and Vascepa Type 2 diabetes mellitus ([facility]) 04/15 Overview (05/01/2021): DMII WO CMP [...] No Catherine Garcia, RN Insurance MED REPLACE [facility] MEDICARE Advance Directives * Full Code (Latest Code Status on File) Date Activated Date Inactivated Comments 05/01/2021 5:20 PM 05/03/2021 7:29 PM Care Teams Laboratory Equipment Cleaner Relationship Specialty Start Date End Date Margarito Razo PA [address] [place] [address] PCP - General PHYSICIAN [employer] 05/01/21
--- OUTSIDE RECORDS SUMMARY | 2025-02-21 00:35 | XMS_ITS | Referral Summary ---
Author Organization [address] Address [address] [place] [id number] Care Team Providers Care Blind Cleaner Name Role Phone Quan Starks MD Unavailable [phone] Debo Mckoy MD Primary Care Provider Encounters Date Type Department Care Team Description 01/30/2025 11:00 AM GUNITE NOZZLE OPERATOR Office Visit [facility] Medical [facility] Diabetes and Endocrinology [address] [place] [phone] Kisha Selby NP Type 2 diabetes mellitus with hyperglycemia, without long-term current use of insulin (HCC) (Primary Dx); Hypertension associated with diabetes (HCC); Hyperlipidemia associated with type 2 diabetes mellitus (HCC) 01/25/2025 Telephone [facility] Medical [facility] Diabetes and Endocrinology [address] [place] [phone] Tanya Dejesus MD request to pcp [...] 12/09/2018 Assessment & Plan (12/09/2018 9:30 AM GUNITE NOZZLE OPERATOR): With falls, Advised to go to the ER Hyperlipidemia associated with type 2 diabetes ami césar 07/13/2018 Assessment & Plan (01/30/2025 11:13 AM GUNITE NOZZLE OPERATOR): Chronic problem, currently taking pravastatin 40mg & zetia 10mg. Last lipid panel: 08/03/24 IAI=319, KL=184. Assessment & Plan (08/12/2024 11:28 AM CDT): Chronic problem, currently taking pravastatin 40mg & zetia 10mg. Last lipid panel: 12/30/22 LDL=43, XP=697. Had labs by PCP recently; release signed to get copy Assessment & Plan (04/14/2023 3:18 PM CDT): Chronic problem, Pravastatin 40mg daily has not been filled since 06/2022 (was 90 day supply). Refill sent today. Triglycerides now down to normal level also. No changes at this time. Assessment & Plan (12/11/2022 1:10 PM GUNITE NOZZLE OPERATOR): Chronic problem, Pravastatin 40mg daily. Triglycerides now down to normal level also. No changes at this time. Assessment & Plan (10/31/2021 12:33 PM GUNITE NOZZLE OPERATOR): High TG Continue Vascepa. Continue Pravachol Low fat diet. Assessment & Plan (01/10/2021 2:47 PM GUNITE NOZZLE OPERATOR): Goal of treatment , LDL cholesterol [...] Vascepa Assessment & Plan (01/17/2020 3:09 PM GUNITE NOZZLE OPERATOR): With severe hypertriglyceridemia Low carb low [...] UNCNTRLD Assessment & Plan (01/30/2025 11:39 AM GUNITE NOZZLE OPERATOR): Chronic problem, stable A1c at 7.3%. [...] daily DM eye exam June 2024 at [facility]. Will send letter to get copy of [...] A1c. Assessment & Plan (12/11/2022 2:07 PM GUNITE NOZZLE OPERATOR): Chronic problem, fair control currently. No [...] Victoza Assessment & Plan (10/31/2021 12:35 PM GUNITE NOZZLE OPERATOR): Hba1c was Lab Results Component Value Date HGBA1C 7.3 % 10/31/2021 today, indicating acceptable DM control Goal Hba1c and blood glucose explained Diet and exercise , discussed Prevention and treatment of hyypoglcyemia discussed. Blood glucose monitoring : 1-2 X week Adjustment to oral medications: continue current Assessment & Plan (01/10/2021 2:50 PM GUNITE NOZZLE OPERATOR): Hba1c was Lab Results Component Value [...] Victoza Assessment & Plan (01/17/2020 3:09 PM GUNITE NOZZLE OPERATOR): Hba1c was Lab Results Component Value [...] daily Assessment & Plan (12/09/2018 9:30 AM GUNITE NOZZLE OPERATOR): Your Hba1c today was: Lab Results [...] mg once a day. Go to the [facility] , to be evaluated, for the falls [...] . Assessment & Plan (01/05/2018 11:21 AM GUNITE NOZZLE OPERATOR): Hba1c was 7.0 today, indicating Adequate DM control 1800 calorie, consistent carb diet recommended 30 min daily aerobic and resistance exercise recommended Prevention and treatment of hyypoglcyemia discussed. Blood glucose monitoring with fingers sticks 1-2 x day . Foot care was discussed. Hypertension associated with diabetes 04/15/2014 Overview (03/06/2017): HYPERTENSION NOS Assessment & Plan (01/30/2025 11:23 AM GUNITE NOZZLE OPERATOR): Chronic problem, well controlled on current [...] time. Assessment & Plan (12/11/2022 1:58 PM GUNITE NOZZLE OPERATOR): Chronic problem, well controlled currently. No changes at this time. Assessment & Plan (10/31/2021 12:35 PM GUNITE NOZZLE OPERATOR): Uncontrolled Start Losartan Assessment & Plan (01/10/2021 2:48 PM GUNITE NOZZLE OPERATOR): Goal blood pressure is less than [...] meds Assessment & Plan (01/05/2018 11:21 AM GUNITE NOZZLE OPERATOR): Goal blood pressure is less than [...] on file Legal Sex Female 5:32 PM GUNITE NOZZLE OPERATOR Gender Identity Not on file Sexual Orientation Not on file Last Filed Vital Signs Vital Sign Reading Time Taken Comments Blood Pressure 126/76 01/30/2025 10:56 AM GUNITE NOZZLE OPERATOR Pulse 70 01/30/2025 10:56 AM GUNITE NOZZLE OPERATOR Temperature - - Respiratory Rate 18 01/30/2025 10:56 AM GUNITE NOZZLE OPERATOR Oxygen Saturation 90% 10/03/2024 2:29 PM GUNITE NOZZLE OPERATOR Inhaled Oxygen Concentration - - Weight 83.5 kg (184 lb) 10/03/2024 2:29 PM GUNITE NOZZLE OPERATOR Height 157.5 cm (5' 2.01 ) 01/30/2025 10:[address] Body Mass Index 33.65 10/03/2024 2:29 PM GUNITE NOZZLE OPERATOR Plan of Treatment Not on file Procedures Procedure Name Priority Date/Time Associated Diagnosis Comments POCT GLUCOSE Routine 01/30/2025 10:59 AM GUNITE NOZZLE OPERATOR Type 2 diabetes mellitus with hyperglycemia, without long-term current use of insulin (HCC) POCT HEMOGLOBIN A1C Routine 01/30/2025 1 0:59 AM GUNITE NOZZLE OPERATOR Type 2 diabetes mellitus with hyperglycemia, [...] (ABNORMAL) POCT hemoglobin A1c (01/30/2025 10:59 AM GUNITE NOZZLE OPERATOR) Hemoglobin A1C, POC 7.3 4.0 - 5.6 % Blood 01/30/2025 10:5 9 AM GUNITE NOZZLE OPERATOR us Kisha Selby NP POINT OF CARE TEST ORDERA BLES Final Result * (ABNORMAL) POCT glucose (01/30/2025 10:59 AM GUNITE NOZZLE OPERATOR) Glucose Blood, POC 213 mg/dL Blood 01/30/2025 10:5 9 AM GUNITE NOZZLE OPERATOR Kisha Selby QUILLER RUNNER POINT OF CARE TEST ORDERA BLES Final Result * Albumin Creatinine Ratio, Urine (08/12/2024 1:27 PM CDT) [facility] Albumin Ur <12.0 mg/L Comment: Interpretive Data No reference range established. Current interpretive data was last revised 2019. Creatinine Ur 78.4 mg/dL [facility] Comment: Interpretive Data No reference range established. Current interpretive data was last revised 2019. Albumin Creatinine Ratio, Ur <15 1 - 29 mg/g VIJAY Urine 08/12/2024 1:27 PM CDT 08/12/2024 8:37 PM CDT Kisha Selby NP LAB URINE ORDERABLES Lucero l Result Performing Organization Address City/[facility]/ZIP Co de Phone Number [facility] [id number] [address] Department [place] [address] * (ABNORMAL) Lipid panel (08/03/2024 10:50 AM CDT) [facility] SCRIBED Cholesterol, Total 204 <200 - NA EXTERNAL LAB SCRIBED HDL 50 >=50 - NA EXTERNAL LAB SCRIBED LDL 109 <100 - NA EXTERNAL LAB SCRIBED Triglycerides 339 <150 - NA EXTERNAL LAB Blood 08/03/2024 10:5 0 AM CDT Historical Provider LAB BLOOD ORDERABLES Edit ed Result - Final EXTERNAL LAB * (ABNORMAL) Comprehensive metabolic panel (08/03/2024 10:50 AM CDT) [facility] SCRIBED Sodium 144 135 - 146 mmol/L [...] Units/L EXTERNAL LAB SCRIBED eGFR in NonAfrican Luxembourger 45 >=60 - NA EXTERNAL LAB Blood 08/03/2024 10:5 0 AM CDT Historical Provider LAB BLOOD ORDERABLES Edit ed Result - Final EXTERNAL LAB * DIABETES EYE EXAM (05/05/2024 8:35 AM CDT) Historical Provider HEALTH MAINTENANCE Edited Result - Final from Last 3 Months or Most Recently Relevant to Health Maintenance Insurance T MEDICARE AETNA MEDICARE Care Teams Blind Cleaner Relationship Specialty Start Date End Date Debo Mckoy MD [address] [place] [address] PCP - General Family Medicine 03/20/23 Quan Starks MD [address] [place] [address] Referring Physician Ophthalmology 01/06/23
--- NOTE | 2025-02-21 11:32 | PM.HPGS ---
History of Present Illness History of Present Illness Consent: Risks, benefits, and alternatives have been discussed and questions answered. Patient agrees to proceed with procedure. 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 Review of Systems Review of Systems: Patient denies any new infectious, allergic, cardiopulmonary, neurologic or constitutional symptoms or changes in activity tolerance or exercise capacity including new or progressive SOB/HARRIS, peripheral edema, productive cough, dysuria, nausea/vomiting, diarrhea, weight change, fevers/chills/night sweats, new or progressive neurologic deficit, cognitive or mood changes since last seen, except as documented in the HPI. All systems reviewed & are unremarkable except as noted in HPI and below PMFSH Past Medical History Medical History (Updated 02/21/25 @ 11:35 by Bunny Cross MD) Chronic pain GERD (gastroesophageal reflux disease) Alternating constipation and diarrhea Rectal bleeding Dysphagia Schatzki's ring Combined systolic and diastolic congestive heart failure Esophageal stricture Obesity (BMI 30-39.9) Arthritis of both shoulder regions Basal cell carcinoma (BCC) in situ of skin Bipolar disorder Obstructive sleep apnea With BiPAP 14/10 Essential hypertension Pleural effusion Cellulitis of right ear Urinary incontinence Stress urinary incontinence Asthma PFTs October 2019 demonstrated mild obstructive ventilatory impairment with mild air trapping and moderate diffusion impairment no response to bronchodilator Ischemia Chronically false-positive stress test with last stress test 2006 Diverticulitis Cancer of skin (~08/20/12) Depression Hyperlipidemia Chronic obstructive pulmonary disease Patient reports history of asthma Insomnia Type 2 diabetes mellitus without complication, without long-term current use of insulin Surgical History Surgical History History of tonsillectomy Status post cataract extraction of both eyes with insertion of intraocular lens History of bladder suspension procedure X2 Hx of cardiac cath Hx of hysterectomy, total Family History Family History Son Hypertension Other Adopted Social History Social History Social History: She is . She lives in her own home alone. Her daughter brings her meals each day. She has 6 children. 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 Primary care physician: Dr. Debo Mckoy Code status: Full code (the patient would not want tracheostomy or G-tube) Healthcare power of toll transmission worker: Yulisa Solorio (daughter) Smoking status: Never smoker Second hand tobacco smoke exposure: No Alcohol intake: never Substance use: never Substance use type: does not use Do You Feel Safe in your Home?: Yes Lack of Transportation: No Lack of Food: Never True Current Housing: I Have Housing Concerned About Future Housing: No Difficulty Paying Gas/Electric Bills: No Difficulty Paying for Meds: No Currently Unemployed: No Education: Master's Degree or Higher Difficulty w/ Childcare or Family Care: No Living arrangements: alone Occupation/Education: retired Gender identity (if verbalized by the patient): Female Sexual Orientation (if Verbalized by the Patient): Straight or Heterosexual Spiritual care concerns: No Agree to blood products: Yes Meds Home Medications and Allergies Home Medications ?Medication ?Instructions ?Recorded ?Confirmed ?Type duloxetine 30 mg capsule,delayed 60 mg PO DAILY 10/14/19 02/13/25 History release (Cymbalta) liraglutide 0.6 mg/0.1 mL (18 mg/3 1.2 mg subcut HS 10/14/19 02/13/25 History mL) subcutaneous pen injector (Victoza 3-Parveen) trazodone 150 mg tablet 300 mg PO HS 10/18/19 02/13/25 History alprazolam 0.5 mg tablet 0.5 mg PO TID 10/04/20 02/13/25 History glipizide 10 mg tablet 10 mg PO DAILY #30 tabs 10/15/22 02/13/25 Rx umeclidinium 62.5 mcg-vilanterol 1 inh inhalation DAILY #60 ea 01/18/24 02/13/25 Rx 25 mcg/actuation powdr for inhalation (Anoro Ellipta) albuterol sulfate 90 mcg/actuation 2 puff inhalation Q4-6H PRN 04/05/24 02/13/25 History aerosol inhaler Wheezing mirtazapine 30 mg tablet 30 mg PO DAILY 04/05/24 02/13/25 History miconazole nitrate 2 % topical 1 applic topical BID PRN Dry Skin 05/02/24 02/13/25 History cream (Antifungal (miconazole)) empagliflozin 10 mg tablet 10 mg PO DAILY #30 tabs 05/09/24 02/13/25 Rx (Jardiance) doxazosin 4 mg tablet 4 mg PO DAILY #90 tabs 07/07/24 02/13/25 Rx ezetimibe 10 mg tablet 10 mg PO DAILY #90 tabs 08/04/24 02/13/25 Rx spironolactone 25 mg tablet 12.5 mg (1/2 x 25 mg) PO DAILY #30 12/02/24 02/13/25 Rx tabs furosemide 40 mg tablet 40 mg PO DAILY #30 tabs 12/27/24 02/13/25 Rx pocbidpl-bsowce-XA-thonzonm 3.3 1 applic EACH EAR Q4H #10 mL 12/28/24 02/13/25 Rx mg-3 mg-10 mg-0.5 mg/mL ear drops,susp (Cortisporin-TC) nystatin 100,000 unit/gram topical 1 applic topical BID #30 grams 12/28/24 02/13/25 Rx cream omeprazole 40 mg capsule,delayed See Rx Instructions .Route 12/28/24 02/13/25 Rx release .COMPLEX #60 caps metoprolol succinate 25 mg 50 mg PO QAM 01/11/25 02/13/25 History tablet,extended release 24 hr (Toprol XL) montelukast 10 mg tablet 10 mg PO QPM 01/11/25 02/13/25 History betamethasone dipropionate 0.05 % 1 applic topical DAILY PRN rash 01/28/25 02/13/25 Rx topical cream #45 grams diphenoxylate-atropine 2.5 1 tablet PO TID PRN diarrhea #30 02/13/25 Rx mg-0.025 mg tablet (Lomotil) tabs lidocaine 5 % topical patch 2 patch topical DAILY #30 ea 02/13/25 02/13/25 Rx Allergies Allergy/AdvReac Type Severity Reaction Status Date / Time codeine Allergy Unknown Not Verified 02/13/25 16:03 Entered,Upset Stomach,Not Entered,Upset Stomach Exam Narrative: The patient's physical exam is essentially unchanged from prior examination on 10/31/2024. Specifically, patient demonstrates normal lung capacity, tidal volume and respiratory rate without wheezes, crackles, rales or rubs. Heart rate and rhythm are regular without murmurs, gallops or rubs. No JVD. Pulses 2+ globally without increasing peripheral edema. AAOx3 with no evidence of confusion, intoxication or altered mental state, NC/AT without acute distress or altered consciousness. Speech, cognition, mood, insight and judgment at baseline and within normal limits. Assessment and Plan Assessment and plan (1) Spinal stenosis, lumbar region with neurogenic claudication: Code(s): M48.062 - Spinal stenosis, lumbar region with neurogenic claudication Status: Acute Assessment and Plan: Proceed as planned with minimally invasive lumbar decompression of the bilateral L3-4, L4-5 levels under fluoroscopic guidance with possible epidurogram. (2) Chronic pain: Code(s): G89.29 - Other chronic pain Status: Acute
--- NOTE | 2025-02-21 11:35 | WPDHPUPDATE1 ---
History and Physical Update Update Date/Time: 02/21/25 11:35 History and Physical has been reviewed, including an updated exam of the patient. There are NO changes in the patient's condition. Risks, benefits, and alternatives have been discussed and questions answered. Patient agrees to proceed with procedure.
--- NOTE | 2025-02-21 11:41 | W.PM.PROC2 ---
Procedure Note - Detailed Date of Procedure 02/21/25 Pre-op Diagnosis spinal stenosis lumbar region with neurogenic colleen Post-op Diagnosis Same Procedure Performed Bilateral Minimally Invasive Lumbar Decompression (MILD) at L3-4, L4-5 under Fluoroscopic Guidance. Surgeon Bunny Cross MD Die Cutter Apprentice None Anesthesia Other ([Moderate IV sedation/MAC] with local anesthetic infiltration in the prone position) Description of Procedure INFORMED CONSENT: Risks, benefits, and alternatives to the procedure were discussed in detail with the patient who expressed explicit understanding and consent to proceed. Risks discussed with the patient included but were not limited to risk of serious local or systemic infection, bleeding/bruising, epidural hematoma, dural puncture or tear resulting in CSF leak and acute or chronic post-dural puncture headache, scarring/deformity, immediate or delayed allergic reaction, decreased mobility, failure to treat pain, inadvertent neurologic injury resulting in increased pain, weakness/paralysis or numbness, inadvertent organ injury, need for additional surgery, allergic reaction, heart attack, stroke, seizure, coma, . Anesthetic risks were also briefly discussed by myself and the broadcast journalist. The patient expressed understanding and consent to proceed, agreeing that potential benefits outweigh risk of harm. All materials required for the procedure were immediately available prior to procedure start. Site and side were confirmed with the patient, compared carefully to the patient chart and consent, and marked prior to transport to the operating room. Appropriate time out procedure was performed per protocol prior to procedure start. PROCEDURE IN DETAIL: The patient was brought to the operative suite and placed in the supine position. Appropriate ASA standard monitors were attached. Anesthesia was initiated without difficulty or event. Eyes were protected. Patient was transitioned to the prone position. Pressure points were padded with joints in neutral position. When appropriate, breasts and genitals were evaluated and protected. Eyes were checked and were free from undue pressure. Skin overlying the procedure site was marked with sterile marker. Surgical area was prepared in a typical sterile fashion with ChloraPrep and allowed to dry for at least 3 minutes prior to sterilely draping the surgical site. The lumbar spine was identified in the AP fluoroscopic view with slight cephalad tilt perfectly aligning the endplates at the targeted levels with spinous processes bisecting the transpedicular plane. After identifying the intended incision site approximately 1.5 levels inferior to the level of interest, the area was anesthetized by infiltration with no more than 10ml of a 1:1 admixture of 0.5% PF bupivacaine with epinephrine and 2% PF lidocaine with epinepherine via a 27-gauge needle after negative aspiration. A 22-gauge spinal needle was used to provide additional and adequate local anesthesia to the level of the interspinous ligament, ligamentum flavum and the periosteum of the lamina at the intended treatment levels. In the AP view, a #11 scalpel blade was used to create a single stab incision at the intended incision site on the targeted side. The Vertos MILD kit was opened and the included cannula and trocar assembly was advanced through the incision to contact the midportion of the right lamina just adjacent to the spinous process at L5. Once seated, the lateral view was used to gauge depth demonstrating the most anterior tip of the trocar posterior to the epidural space at all times. The entry level account executive-provided cannula stabilizer was placed over the trocar flush to the patient's lumbar flank. Cannula obturator with handle was removed. Included depth guide was then attached to the insertion port on the cannula and set to an intitial depth of 15 mm. The bone rongeur was advanced to the depth of the lumbar lamina at the targeted level. Depth gauge was then adjusted allowing rongeur tip to advance in the contralateral oblique view to the anterior border of the superior and inferior lamina at the respective intervertebral foramen. Multiple passes of the rongeur were used in the contralateral oblique view to remove single small portions of ligament and bone in a 360-degree distribution, approximately 3-5 passes on each lamina, until appropriate access to the superior and inferior attachments of the ligamentum flavum was created at the surgical level right L4-5. Each individual portion of bone removed was extracted, collected and discarded. Rongeur was removed and replaced with a tissue sculpter which was deployed from inferior to superior in the contralateral oblique view to delaminate the ligamentum flavum at the intended level with serial groupings of three passes each, 6-9 total per side treated. Tissue extracted was discarded. At no point did the rongeur or tissue sculpter violate the anterior border of the ligament as evidenced by intact interface at the ligament/epidural border. The same procedure was repeated in the exact same fashion, utilizing the initial stab incision, to effectively debulk the ligamentum flavum and decompress the central spinal canal on the right at L3-4, with similar results and no evidence of complication. The same exact procedure was then repeated in the exact same fashion, utilizing a new stab incision on the contralateral side, to effectively debulk the ligamentum flavum and decompress the central spinal canal on the left at L3-4, L4-5. Bone and tissue sculpters were withdrawn, obturator replaced and trocar removed in the lateral view, entirely and without difficulty. Hemostasis was obtained and confirmed. Benzoin was placed around the incision site(s) and Steri-Strips were placed in a beth-crossing fashion across the wound(s), which were then covered with Telfa dressing and Tegaderm. The patient was converted to the supine position and transported to the recovery area having tolerated the procedure well with no evidence of complication. The patient was instructed to minimize weightbearing activity, including ambulation, for 48 hours, and to avoid bending, twisting at the waist, overhead work, reaching and lifting, pushing or pulling greater than 5-10 lbs for 48 hours with subsequent return to normal activity as tolerated. The patient is to maintain current dressing for 48 hours, then can remove the original dressing, leaving steri-strips in place until they come off on their own or are removed by their provider. Once removing the outer bandage, the patient will cover the incision with clean gauze and paper tape as needed, changing daily or when soiled. The patient understands they should avoid soaking or submerging the incision for 1 week and can resume showers after 48 hours. Instructions were provided to the patient in both verbal and written form, which the patient obtained, reviewed and signed prior to discharge. The patient was instructed to watch for signs of infection including fevers, chills, night sweats, severe headache, neck stiffness, new neurologic deficit, bowel or bladder changes, increased pain, discharge, bleeding, swelling, opening of or unusual warmth at the incision site. They are to call our office or report directly to the Emergency Department immediately should there be any signs/symptoms of complications such as the above or any other urgent/emergent changes in their condition. COMMENTS: None. COMPLICATIONS: None. DRAINS/PACKING: None. SPECIMEN: None. ESTIMATED BLOOD LOSS: 10 mL. IV FLUIDS: On chart. CONTRAST WASTED: 0 ml of Isovue 300M. Pathology None sent Complications No immediate complications Condition Stable Disposition PACU [facility] Billing Surgery - Charge Forward: Surgery Billing
[2025-02-21 13:05] LABS: Glucose Point of Care 110 mg/dl (65-105)
[2025-02-21] MEDS: ceFAZolin 2 GM/D5W 50 ML 2 GM/50 ML BAG IVPB (14:33)
[2025-02-21] MEDS: BUPIVACAINE/EPINEPHRINE 0.5% 30 ML VIAL 10 ML INFILTRATE (14:53)
[2025-02-21] MEDS: LIDOCAINE 1% LOCAL INJ 10 ML VIAL INFILTRATE (14:53)
[2025-02-21] MEDS: LACTATED RINGERS 1,000 ML 30 ML IV CONT (15:29)
[2025-02-21 16:02] LABS: Glucose Point of Care 123 mg/dl (65-105)
[2025-02-21] MEDS: oxyCODONE HCL (*CRX) 5 MG TAB IR PO (16:44)
[2025-02-21] MEDS: ONDANSETRON INJ 4 MG/2 ML VIAL IV PUSH (16:44)
== END 2025-02-21 17:30 | disposition home or self-care (01) ==
PROVIDERS: PCP Family Medicine; Visit Provider Anesthesiology Pain Medicine
PROC: (CPT 0275T; principal; 2025-02-21 13:30)
DX: M48.062 Spinal stenosis, lumbar region with neurogenic claudication (principal); G89.29 Other chronic pain; Z00.6 Encounter for examination for normal comparison and control in clinical research program; E11.9 Type 2 diabetes mellitus without complications
CPT/HCPCS: 0275T; 82948; 99199; A9270; C1889; J0330; J0690; J1100; J2003; J2405; J2704; J7120

== ENCOUNTER 2025-02-23 09:35 | Inpatient (IN) | payer MEDICARE, SELFPAY ==
[2025-02-23] VITALS (20 sets, daily range): BP systolic 51–157; BP diastolic 27–68; PULSE 66–99; RESP 16–23; TEMP 37–37.6; O2SAT 90–97
--- NOTE | ~2025-02-23 | XR_ITS ---
XR chest 2V 02/23/2025 11:14 Indication: Postop fever Procedure: 2 view chest Comparison: Comparison to multiple prior studies sequentially, with oldest reviewed study dated 04/2021. Findings: Cardiomegaly. Left basilar airspace disease may represent atelectasis or developing pneumon ia. No acute osseous abnormality. There is an old distal left clavicular fracture. Impression: 1: Retrocardiac opacification may represent atelectasis or pneumonia. Reviewed, dictated and finalized at location A. Impression: 1: Retrocardiac opacification may represent atelectasis or pneumonia.
--- NOTE | ~2025-02-23 | CT_ITS ---
EXAMINATION: CT lumbar spine w con DATE: 02/23/2025 11:07 INDICATION: Lumbar compression surgery. Postop fever. TECHNIQUE: Computed tomography (CT) of the was performed without intravenous contrast. The dose-lengt h product was 1047.03 mGy-cm. Automated exposure control and iterative reconstruction technique were employed. COMPARISON: Lumbar spine series dated 06/23/2024 FINDINGS: There is disc narrowing at all lumbar levels. There are advanced degenerative changes of th e endplates at L4-5. There are prominent bridging osteophytes at multiple levels. There is facet hype rtrophy at L2-3 through L5-S1. No evidence for spondylolisthesis.There is soft tissue gas in strandin g in the subcutaneous aspect of the lower back posteriorly, consistent with recent surgery. No walled off fluid collection to suggest abscess. There is central canal and bilateral neural foraminal narro wing at L4-5. IMPRESSION: 1. Soft tissue stranding and subcutaneous gas in the posterior soft tissues of the mid and lower lumb ar spine, consistent with recent surgery. No evidence for abscess. 2: Severe lumbar spondylosis. Reviewed, dictated and finalized at location A. IMPRESSION: 1. Soft tissue stranding and subcutaneous gas in the posterior soft tissues of the mid and lower lumbar spine, consistent with recent surgery. No evidence for abscess. 2: Severe lumbar spondylosis.
[2025-02-23 10:11] LABS: Basophils Percent Auto 0.4 % (0.2-1.2); Eosinophils Absolute Auto 0.2 K/mm3 (0-0.3); Eosinophils Percent Auto 1.6 % (0-4.4); Hematocrit 36.1 % (37.0-47.0); Hemoglobin 11.2 g/dL (12.0-15.0); Immature Granulocyte Absolute 0.11 K/mm3 (0.00-0.031); Immature Granulocyte Percent A 1.2 % (0-0.5); Lymphocytes Percent Auto 11.5 % (18.3-44.2); Mean Corpuscular Hemoglobin 30.9 pg (26-34); Mean Corpuscular Volume 99.7 fl (80-100); Mean Platelet Volume 10.7 fl (7.4-10.4); Monocytes Absolute Auto 0.8 K/mm3 (0.1-0.6); Monocytes Percent Auto 8.1 % (2.6-8.5); Neutrophils Absolute Auto 7.4 K/mm3 (1.3-6.7); Neutrophils Percent Auto 77.2 % (45.5-73.1); Platelet Count Result 157 k/mm3 (150-375); Red Blood Count 3.62 M/mm3 (4.2-5.4); White Blood Count 9.5 K/mm3 (4.5-10.0)
--- OUTSIDE RECORDS SUMMARY | 2025-02-23 10:17 | XMS_ITS | Continuity of Care Document ---
Author Organization [facility] Address [address] [facility] [place] [address] Phone Care Team Providers Care Health And Social Care Teacher Name Role Phone Neda De La Torre [...] Copied on Encounter Office/outpat ient Visit, [facility], [address], [place], [place], [id number], [place] tel:[phone] [facility] No Information 0-201 0 Britt Red. [address] , [address], [place], [address], [place]. tel:[phone] [facility], [address], [place], [place], [id number], [place] tel:[phone] [facility] No Information 0-200 9 [employer] . [address] [facility], [address], [place], [place], [address], [place]. tel:[phone] Referring Provider: Cl[facility] [address], [place], [address]. tel:[phone] rojas Provider: Mirela Page, [address] [facility], [place], [place], [facility]. tel:[phone] [facility] Eye [facility], [id number] [place] [address] [address], [place], [place], [id number], [place] tel:[phone] [facility] No Information 0-200 9 Britt Craig [address] [facility] [address], [place], [address], [place]. tel:[phone] Office/outpat ient Visit, [facility] Eye [facility], [id number] [place] [address] [address], [place], [place], [address], [place] tel:[phone] [facility] No Information 3-200 7 Britt Craig [address] [facility] [address], [address], [place], [address], [place]. tel:[phone] [facility] Eye [facility], [address], [place], [place], [address], [place] tel:[phone] [facility] No Information 7-200 7 Britt Craig [address] [facility] [address], [place], [address], [place]. tel:[phone] Family History Family Member Type Diagnosis Age At Onset No Information Payers Payer name Insurance type Covered green party ID Authoriza tisaray(s) [place] [id number] Social History Type Description Quantity Date Captured [...]
--- OUTSIDE RECORDS SUMMARY | 2025-02-23 10:18 | XMS_ITS | Clinical Summary ---
Author Organization [facility] Address [address] [place] [address] Care Team Providers Care Freelance Makeup Artist Name Role Phone Margarito Razo Primary Care Provider [phone] Allergies Active Allergy Reactions Criticality Noted Date [...] Problem Noted Date Diagnosed Date Chronic bronchitis ([facility]) 05/02/2021 Anxiety and depression 05/02/2021 Supplemental oxygen dependent 05/02/2021 ELISSA on CPAP 05/02/2021 Fall 05/01/2021 Bradycardia 12/09/2018 Overview (05/01/2021): Last Assessment & Plan: With falls, Advised to go to the ER Hyperlipidemia associated wi th type 2 diabetes mellitus ([facility]) 07/13/2018 Overview (05/01/2021): Last Assessment & Plan: [...] Pravachol and Vascepa Type 2 diabetes mellitus ([facility]) 04/15 Overview (05/01/2021): DMII WO CMP UNCNTRLD [...] No Catherine Garcia, RN Insurance MED [facility] MEDICARE Advance Directives * Full Code (Latest Code Status on File) Date Activated Date Inactivated Comments 05/01/2021 5:20 PM 05/03/2021 7:29 PM Care Teams Freelance Makeup Artist Relationship Specialty Start Date End Date Margarito Razo PA [address] [place] [address] PCP - General PHYSICIAN CHURCH ORGANIST 05/01/21
--- OUTSIDE RECORDS SUMMARY | 2025-02-23 10:18 | XMS_ITS | Referral Summary ---
Author Organization [address] Address [address] [place] [address] Care Team Providers Care Credit Reference Clerk Name Role Phone Quan Starks MD Unavailable [phone] Debo Mckoy MD Primary Care Provider [phone] Encounters Date Type Department Care Team Description 01/30/2025 11:00 AM HOME ECONOMICS EXPERT Office Visit [facility] Endocrinology [address] [place] [phone] Kisha Selby NP Type 2 diabetes mellitus with hyperglycemia, without long-term current use of insulin (HCC) (Primary Dx); Hypertension associated with diabetes (HCC); Hyperlipidemia associated with type 2 diabetes mellitus (HCC) 01/25/2025 Telephone [facility] Diabetes [facility] Endocrinology [address] [place] [phone] Tanya Dejesus MD request to pcp [...] long-term current use of insulin ([facility]) One Touch Verio Use Daily to check blood glucose 1 each 10/31/20 21 Active lancets 31 gauge miscIndications :Type 2 diabetes mellitus with hyperglycemia, without long-term current use of insulin ([facility]) One Touch Verio Use daily to check blood glucose 100 each 2 10/31/20 21 Active blood glucose diagnostic (glucose blood) stripIndication s:Type 2 diabetes mellitus with hyperglycemia, without long-term current use of insulin ([facility]) One Touch Verio Use daily [...] 12/09/2018 Assessment & Plan (12/09/2018 9:30 AM HOME ECONOMICS EXPERT): With falls, Advised to go to the ER Hyperlipidemia associated with type 2 diabetes ami césar 07/13/2018 Assessment & Plan (01/30/2025 11:13 AM HOME ECONOMICS EXPERT): Chronic problem, currently taking pravastatin 40mg & zetia 10mg. Last lipid panel: 08/03/24 HUX=108, WU=255. Assessment & Plan (08/12/2024 11:28 AM CDT): Chronic problem, currently taking pravastatin 40mg & zetia 10mg. Last lipid panel: 12/30/22 LDL=43, LK=575. Had labs by PCP recently; release signed to get copy Assessment & Plan (04/14/2023 3:18 PM CDT): Chronic problem, Pravastatin 40mg daily has not been filled since 06/2022 (was 90 day supply). Refill sent today. Triglycerides now down to normal level also. No changes at this time. Assessment & Plan (12/11/2022 1:10 PM HOME ECONOMICS EXPERT): Chronic problem, Pravastatin 40mg daily. Triglycerides now down to normal level also. No changes at this time. Assessment & Plan (10/31/2021 12:33 PM HOME ECONOMICS EXPERT): High TG Continue Vascepa. Continue Pravachol Low fat diet. Assessment & Plan (01/10/2021 2:47 PM HOME ECONOMICS EXPERT): Goal of treatment , LDL cholesterol less [...] Vascepa Assessment & Plan (01/17/2020 3:09 PM HOME ECONOMICS EXPERT): With severe hypertriglyceridemia Low carb low fat [...] UNCNTRLD Assessment & Plan (01/30/2025 11:39 AM HOME ECONOMICS EXPERT): Chronic problem, stable A1c at 7.3%. Declines [...] daily DM eye exam June 2024 at [facility] [place]. Will send letter to get copy of [...] A1c. Assessment & Plan (12/11/2022 2:07 PM HOME ECONOMICS EXPERT): Chronic problem, fair control currently. No changes [...] Victoza Assessment & Plan (10/31/2021 12:35 PM HOME ECONOMICS EXPERT): Hba1c was Lab Results Component Value Date HGBA1C 7.3 % 10/31/2021 today, indicating acceptable DM control Goal Hba1c and blood glucose explained Diet and exercise , discussed Prevention and treatment of hyypoglcyemia discussed. Blood glucose monitoring : 1-2 X week Adjustment to oral medications: continue current Assessment & Plan (01/10/2021 2:50 PM HOME ECONOMICS EXPERT): Hba1c was Lab Results Component Value Date [...] Victoza Assessment & Plan (01/17/2020 3:09 PM HOME ECONOMICS EXPERT): Hba1c was Lab Results Component Value Date [...] daily Assessment & Plan (12/09/2018 9:30 AM HOME ECONOMICS EXPERT): Your Hba1c today was: Lab Results Component [...] mg once a day. Go to the [facility] , to be evaluated, for the [...] . Assessment & Plan (01/05/2018 11:21 AM HOME ECONOMICS EXPERT): Hba1c was 7.0 today, indicating Adequate DM control 1800 calorie, consistent carb diet recommended 30 min daily aerobic and resistance exercise recommended Prevention and treatment of hyypoglcyemia discussed. Blood glucose monitoring with fingers sticks 1-2 x day . Foot care was discussed. Hypertension associated with diabetes 04/15/2014 Overview (03/06/2017): HYPERTENSION NOS Assessment & Plan (01/30/2025 11:23 AM HOME ECONOMICS EXPERT): Chronic problem, well controlled on current metoprolol [...] time. Assessment & Plan (12/11/2022 1:58 PM HOME ECONOMICS EXPERT): Chronic problem, well controlled currently. No changes at this time. Assessment & Plan (10/31/2021 12:35 PM HOME ECONOMICS EXPERT): Uncontrolled Start Losartan Assessment & Plan (01/10/2021 2:48 PM HOME ECONOMICS EXPERT): Goal blood pressure is less than 140/85 [...] meds Assessment & Plan (01/05/2018 11:21 AM HOME ECONOMICS EXPERT): Goal blood pressure is less than 140/85 [...] on file Legal Sex Female 5:32 PM HOME ECONOMICS EXPERT Gender Identity Not on file Sexual Orientation Not on file Last Filed Vital Signs Vital Sign Reading Time Taken Comments Blood Pressure 126/76 01/30/2025 10:56 AM HOME ECONOMICS EXPERT Pulse 70 01/30/2025 10:56 AM HOME ECONOMICS EXPERT Temperature - - Respiratory Rate 18 01/30/2025 10:56 AM HOME ECONOMICS EXPERT Oxygen Saturation 90% 10/03/2024 2:29 PM HOME ECONOMICS EXPERT Inhaled Oxygen Concentration - - Weight 83.5 kg (184 lb) 10/03/2024 2:29 PM HOME ECONOMICS EXPERT Height 157.5 cm (5' 2.01 ) 01/30/2025 10:[address] Body Mass Index 33.65 10/03/2024 2:29 PM HOME ECONOMICS EXPERT Plan of Treatment Not on file Procedures Procedure Name Priority Date/Time Associated Diagnosis Comments POCT GLUCOSE Routine 01/30/2025 10:59 AM HOME ECONOMICS EXPERT Type 2 diabetes mellitus with hyperglycemia, without long-term current use of insulin (HCC) POCT HEMOGLOBIN A1C Routine 01/30/2025 1 0:59 AM HOME ECONOMICS EXPERT Type 2 diabetes mellitus with hyperglycemia, without [...] (ABNORMAL) POCT hemoglobin A1c (01/30/2025 10:59 AM HOME ECONOMICS EXPERT) Hemoglobin A1C, POC 7.3 4.0 - 5.6 % Blood 01/30/2025 10:5 9 AM HOME ECONOMICS EXPERT us Kisha Selby NP POINT OF CARE TEST ORDERA BLES Final Result * (ABNORMAL) POCT glucose (01/30/2025 10:59 AM HOME ECONOMICS EXPERT) Glucose Blood, POC 213 mg/dL Blood 01/30/2025 10:5 9 AM HOME ECONOMICS EXPERT Kisha Selby INTERNAL CONTROLS SPECIALIST POINT OF CARE TEST ORDERA BLES Final Result * Albumin Creatinine Ratio, Urine (08/12/2024 1:27 PM CDT) [facility] Albumin Ur <12.0 mg/L Comment: Interpretive Data No reference range established. Current interpretive data was last revised 2019. Creatinine Ur 78.4 mg/dL B[place]OLF Comment: Interpretive Data No reference range established. Current interpretive data was last revised 2019. Albumin Creatinine Ratio, Ur <15 1 - 29 mg/g VIJAY Urine 08/12/2024 1:27 PM CDT 08/12/2024 8:37 PM CDT Kisha Selby NP LAB URINE ORDERABLES Lucero l Result Performing Organization Address City/[facility]/ZIP Co de Phone Number [facility] [address] [address] Department [place] [address] * (ABNORMAL) Lipid panel (08/03/2024 10:50 AM CDT) [facility] SCRIBED Cholesterol, Total 204 <200 - NA EXTERNAL LAB SCRIBED HDL 50 >=50 - NA EXTERNAL LAB SCRIBED LDL 109 <100 - NA EXTERNAL LAB SCRIBED Triglycerides 339 <150 - NA EXTERNAL LAB Blood 08/03/2024 10:5 0 AM CDT Historical Provider LAB BLOOD ORDERABLES Edit ed Result - Final EXTERNAL LAB * (ABNORMAL) Comprehensive metabolic panel (08/03/2024 10:50 AM CDT) [facility] SCRIBED Sodium 144 135 - 146 mmol/L [...] Units/L EXTERNAL LAB SCRIBED eGFR in NonAfrican Botswanan 45 >=60 - NA EXTERNAL LAB Blood 08/03/2024 10:5 0 AM CDT Historical Provider LAB BLOOD ORDERABLES Edit ed Result - Final EXTERNAL LAB * DIABETES EYE EXAM (05/05/2024 8:35 AM CDT) Historical Provider HEALTH MAINTENANCE Edited Result - Final from Last 3 Months or Most Recently Relevant to Health Maintenance Insurance T MEDICARE AETNA MEDICARE Care Teams Credit Reference Clerk Relationship Specialty Start Date End Date Debo Mckoy MD [address] [place] [address] PCP - General Family Medicine 03/20/23 Quan Starks MD [address] [place] [address] Referring Physician Ophthalmology 01/06/23
--- OUTSIDE RECORDS SUMMARY | 2025-02-23 10:18 | XMS_ITS | Continuity of Care Document ---
Author Organization [facility] Address [address] [place] [address] Care Team Providers Care Dynamometer Mechanic Name Role Phone Slade Salas APN Unavailable [...] Providers Copied on Encounter [facility], [address] [place] [address], [address], [place] [facility] No Information 2 Maritza June. [address] [place] [address] [address], [place], [address], [place]. tel:[phone] [facility], [address] [place] [address], [address], [place] [facility] No Information 6 2 Nino Young. [address] [place] [address], [place] [address], [place], [address], [place]. tel:[phone] Referring Provider: Martin Bennett DO W, [address] [place] [address], [address]. tel:[phone] [facility], [address] [place] [address], [address], [place] [facility] No Information 2 Nino Young. [address] [place] [address], [place], [address], [place]. tel:[phone] Referring Provider: Hector Oneill, [address] [place] [address], [place], [address]. tel:[phone] [facility], [address] [place] [address], [address], [place] [facility] No Information 2 Lazaro Demetrio. [address] [place] [address], [place] [address], [place], [address], [place]. tel:[phone] Referring Provider: Martin SEARS, [address] [place] [address], [address]. tel:[phone] [facility], [address] [place] [address], [address], [place] [facility] No Information 1 2 Nino Young. [address] [place] [address], [place], [address], [place]. tel:[phone] Referring Provider: Hector Oneill, [address] [place] [address], [place], [address]. tel:[phone] [facility], [address] [place] [address], [address], [place] [facility] No Information 2 Nickolasse Hector. [address] [place] [address], [place], [address], [place]. tel:[phone] Referring Provider: Martin SEARS, [address] [place] [address], [facility]. tel:[phone] [facility], [address] [place] [address], [address], [place] [facility] No Information 2 Silvio Hollis. [address] [place] [address], [address], [place]. tel:[phone] Referring Provider: Bunny Anguiano, [address] [place] [address], [address]. tel:[phone] [facility], [address] [place] [address], [facility], [place] [facility] No Information 2 Angel Guerrero. [address] [place] [address], [address], [place]. tel:[phone] Referring Provider: Cesar Ortiz, [address] [place] [address], [address]. tel:[phone] Init [facility], [address] [place] [address], [address], [place] [facility] No Information 2 Furiasse Hector. [address] [place] [address], [address], [place]. tel:[phone] Referring Provider: Hector Oneill, [address] [place] [address] [facility], [place], [place], [facility]. tel:[phone] [facility], [address] [place] [address], [address], [place] [facility] No Information 2 Nino Young. [address] [place] [address], [place] [address], [place], [facility], . tel:[phone] Referring Provider: Hector Solorzanoelissa, [address] [place] [address] [facility], [place], [place], [facility]. tel:[phone] [facility], [address] [place] [address], [address], [place] [facility] No Information 2 Carbonejerome Malone. [address] [place] [address], [place] [address], [place], [facility], . tel:[phone] Referring Provider: Martin SEARS, [address] [place] [address], [facility]. tel:[phone] Family History Family Member Type Diagnosis Age At Onset No Information Payers Payer name Insurance type Covered libertarian ID Authoriza tion(s) [facility] Medicare Complete [id number] Social History Type Description Quantity Date [...]
--- OUTSIDE RECORDS SUMMARY | 2025-02-23 10:18 | XMS_ITS | Data Portability ---
Author Organization [place] - [facility], [place] - [facility] - OP Address [address] [place] [address] Care Team Providers Care [place] Laborer Name Role Phone VERA GERARD Primary Care Provider Assessment No assessment recorded. Plan of Treatment Reminders Order Date Submit Date Provider Last Modified By Organization Details Last Modified Time Details Appointments None recorded. Lab influenza virus A + B and SARS CoV 2 (COVID-19) and RSV RNA panel, MYLENE+probe, respiratory specimen 2021 022 [place] [facility], [address] [facility] , [place], [address], 2 13:09:12 Referral [facility] referral - Patient Is staying with daughter in [place]: [address] [facility] [address] Please call patient's daughter, Sara, at [phone] to schedule 2022 023 [place] [facility], [address] [facility], [place], [address], 3 16:19:59 Procedures None recorded. Surgeries None recorded. Imaging None recorded. Medication Orders neomycin-po lymyxin-hyd rocort 3.5 mg-10,000 unit/mL-1 % ear drops,susp 2022 023 [facility], [address], [place], [address], 3 11:16:45 Zithromax Z-Parveen 250 mg tablet 2021 [email or web address] 92 [facility] [address], [address] [place] [address], [address], 3 08:46:29 prednisone 20 mg tablet 2021 [email or web address] 92 [facility] [address], [address] [place] [address], [address], 3 08:44:18 losartan 100 mg tablet 2021 [facility] [address], [address] [place] [address], [address], 2 15:06:07 Patient TargetsNo targets recorded. Patient Instructions Encounter Date Encounter Id Patient Instructions Last Modified By Organization Details Last Modified Time 09/26/2022 [id number] discussed arranging care and consults at home and transition back to home ostenm Not available 09/26/2022 16:38:46 Reason for Referral Home Health Referral for Chr onic low back pain chronic low back pain and bilateral LE muscle weakness, fall risk Patient Is staying with daughter in [place]: [address] [facility] [address] Please call patient's daughter, Sara, at [phone] to schedule Referring Physician: Tonya Metcalf, Family [...] or revok ed soone r. Not Available [address] [place], [address], 11/29/2022 13:09:11 11/28/20 22 11/28/2022 COVID 19, FLU A/B, RSV PANEL BY PCR influenzae A by PCR NOT DETECT ED Not Available [place] [address] [place], [address], 11/29/2022 13:09:11 11/28/20 22 11/28/2022 COVID 19, FLU A/B, RSV PANEL BY PCR influenzae B by PCR NOT DETECT ED Not Available [place] [address], [place], [address], 11/29/2022 13:09:11 11/28/20 22 11/28/2022 COVID 19, FLU A/B, RSV PANEL BY PCR RSV by PCR NOT DETECT ED Not Available [facility] [address] [place], [address], 11/29/2022 13:09:11 11/28/20 22 11/28/2022 COVID 19, FLU A/B, RSV PANEL BY PCR covid 19 by PCR NOT DETECT ED PERFO RMED BY:[facility], [address] [facility] [place] [address] [phone] Not Available [facility] [address] [place], [address], 11/29/2022 13:09:11 Result Notes None recorded. Problems Name Problem SNOMED Code Status Onset Date Resolution Date Notes Provider Name and Address Organization Details Recorded Time Chronic obstructive pulmonary disease 51874946 Active 2021 Gerard Biggs MD [address], [facility] [place], [address] , [facility] 2 14:49:35 Congestive heart failure 94944018 Active 2021 Gerard Biggs MD [address], [place], [address] , [facility] 2 14:49:36 Type 2 diabetes mellitus without complication 472735234 Active 2021 Gerard Biggs MD [address], [place], [address] , [facility] 2 14:49:36 Sleep apnea 01241339 Active 2021 Gerard Biggs MD [address], [place], [address] , [facility] 2 14:49:37 Problem Notes None recorded. Procedures Surgical History Date Name Laterality Status Provider Name and Address Organization Details Recorded Time None completed [facility] 10/27/2023 10:52:45 Imaging Results None recorded. Procedure Notes None recorded. Medical Equipment None Reported. Allergies Allergen ID Allergen Name Allergen Category Reaction Reaction Severity Criticality Documentation Date Start Date Code Code System Note Provider Name and Address Organization Details Recorded Time 542205 codeine medicatio n other severe Not available 09/26/2022 7520 RxNorm upset stoma ch Surilem Timmy null, [facility] 14:28:31 Medications Name Sig Start Date Stop [...] Address Organization Details Last Updated DateTime 2 36903.0 7 g 98.1 [degF] 53 /min 96 % 96 % 118 mm[Hg] 60 mm[Hg] [facility] 2 14:32:33 Date Recorded Body temperature Oxygen saturation Oxygen saturation in Arterial blood by Pulse oximetry Body weight Systolic blood pressure Diastolic blood pressure Provider Name and Address Organization Details Last Updated DateTime 2 97.8 [degF] 96 % 96 % 58956.1 3 g 108 mm[Hg] 60 mm[Hg] [facility] 2 14:42:25 Date Recorded Body weight Body mass index (BMI) Body height Body temperature Heart rate Systolic blood pressure Diastolic blood pressure Provider Name and Address Organization Details Last Updated DateTime 3 55451 g 29.7 kg/m2 167.64 cm 98.2 [degF] 49 /min 160 mm[Hg] 70 mm[Hg] [facility] 3 11:05:17 Date Recorded Oxygen saturation Oxygen saturation in Arterial blood by Pulse oximetry Inhaled oxygen flow rate Systolic blood pressure Diastolic blood pressure Provider Name and Address Organization Details Last Updated DateTime 3 93 % 93 % 3 L/min 138 mm[Hg] 60 mm[Hg] INE[facility] [address] [facility], [place], [address] , [facility] 3 11:18:55 Social History Question Answer Notes LastModified by Organizat ion Details LastModified Time Tobacco Smoking Status Never Smoker [facility] 10/27/2023 10:58:39 What Is Your Level Of Alcohol Consumption? None Information not available 10/27/2023 What Is Your Level Of Caffeine Consumption? Moderate 1-2 Cokes Per Day Information not available 10/27/2023 What Was The Date Of Your Most Recent Tobacco Screening? 10/27/2023 [email or web address] Information not available 10/27/2023 Sex: Unknown Functional [...] PF 2 completed Gerard Biggs MD [address] [facility],[address], [place], [address], [facility] 09/26/2022 16:37:48 Influenza, high-dose, trivalent, PF 8 completed Roxanne Warner null, [facility] 11/28/2022 14:34:10 COVID-19, mRNA, LNP-S, PF, 30 mcg/0.3 mL dose 1 completed Surilem Timmy null, [facility] 11/28/2022 14:34:11 Influenza, split virus, trivalent, preservative 4 completed Surilem Timmy null, [facility] 11/28/2022 14:34:11 Influenza, high-dose, trivalent, PF 5 completed Surilem Timmy null, [facility] 11/28/2022 14:34:11 Influenza, high-dose, quadrivalent, PF 0 completed Surilem Timmy null, [facility] 11/28/2022 14:34:11 Influenza, high-dose, trivalent, PF 6 completed Surilem Timmy null, [facility] 11/28/2022 14:34:11 Influenza, high-dose, quadrivalent, PF 1 completed Surilem Timmy null, [facility] 11/28/2022 14:34:11 Influenza, split virus, trivalent, preservative 2 completed Surilem Timmy null, [facility] 11/28/2022 14:34:11 COVID-19, mRNA, LNP-S, PF, 30 mcg/0.3 mL dose 1 completed Surilem Timmy null, [facility] 11/28/2022 14:34:11 Td (adult), 5 Lf tetanus toxoid, preservative free, adsorbed 7 completed Surilem Timmy null, [facility] 11/28/2022 14:34:11 pneumococcal polysaccharide PPV23 9 completed Surilem Timmy null, [facility] 11/28/2022 14:34:11 Influenza, split virus, quadrivalent, PF 9 completed Surilem Timmy null, [facility] 11/28/2022 14:34:11 Influenza, high-dose, trivalent, PF 7 completed Surilem Timmy null, [facility] 11/28/2022 14:34:11 Tdap 2 completed [facility]ilem Timmy null, [facility] 11/28/2022 14:34:11 Past Encounters Encounter ID Performer Location Encounter Start Date Encounter Closed Date Diagnosis/Indication Diagnosis SNOMED-CT Code Diagnosis ICD10 Code Diagnosis Note [id number] Gerard Biggs MD [place] [address] [place] [address] [place] [address] 09/26/2022 14:18:36 09/26/2022 15:31:23 Chronic obstructive pulmonary disease 53161754 J44.9 Congestive heart failure 71657910 I50.9 Type 2 tre betes mellitus without complication 723684979 E11.9 stable hba1c 7.1 Sleep apnea 83224379 G47 .30 Influenza vaccine needed 0015424717 106 Z23 [id number] Gerard Biggs MD [place] [address] [place] [address] 11/28/2022 14:32:26 11/28/2022 15:09:28 Cough 72750395 R05.9 [id number] Greard Biggs MD [place] [address] [place] [address] 10/27/2023 10:47:44 10/27/2023 13:34:00 Acute otitis externa 66009969 H60.509 medication SERDfollow up if symptoms persist or worsen Chronic low back pain 27 9777297 M54.50 patient unable to ambulate without assistance requires both hands to help stand from a seated positionun steady gaitdoes not driverecom [facility] home health PT evaluation and treatment Muscle weakness 62678844 M62.81 see above Unsteady when walking 22 969388 R26.89 see above Health Concerns Section Related Observation LastModified by Organization Detai ls LastModified Time None Recorded Concern Status LastModified by Organization Details LastModified Time None Recorded Advance Directives Directive None Recorded Payers Encounter Date Sequence Insurance Name Policy Number Policy Caballero Covered Member ID Caballero Member ID Guarantor Name 11/28/2022 1 [facility] (MEDICARE REPLACEMENT/A DVANTAGE - PPO) [id number] María Faith [id number] María Faith 10/27/2023 1 [employer] (MEDICARE REPLACEMENT PPO) [id number] María Faith [id number] María Faith Notes Date Note Type Note Provider Name and Address Organization Details Recorded Time 09/26/2022 text/html TCMdischarge for ABreviewed med listdoing much better Gerard Biggs MD [address] [facility],[address], [place], [address], [facility] 09/26/2022 16:38:50 11/28/2022 text/html here for coughsputum\fatigueno fever or sobbut is on O2 Gerard Biggs MD [address] [facility] [address], [place], [address], [facility] 11/28/2022 15:03:21 10/27/2023 text/html Patient here wit h her daughter to discuss physical therapypatient lives independentlyshe uses a walker to get aroundshe has chronic low back pain due to arthritiswhen pain is severe she has a hard time walkingfeels weakness in her legsfeels unstablehas fallen in the past year and been hospitalizedshe does not drive left ear feeling muffled Gerard Biggs MD [address] [facility] [address], [place], [address], [facility] 10/28/2023 11:00:49 OBGyn Episode No OBEpisode recorded.
--- OUTSIDE RECORDS SUMMARY | 2025-02-23 10:18 | XMS_ITS | Clinical Summary ---
Author Organization [facility] Address [address] [place] [address] Care Team Providers Care Intranet Developer Name Role Phone Quan Starks MD Unavailable [phone] Debo Mckoy MD Primary Care Provider [phone] Allergies Active Allergy Reactions Criticality Noted Date [...] hyperglycemia, without long-term current use of insulin ([facility]) One Touch Verio Use Daily to check blood glucose 1 each 10/31/20 21 Active lancets 31 gauge miscIndications :Type 2 diabetes mellitus with hyperglycemia, without long-term current use of insulin ([facility]) One Touch Verio Use daily to check blood glucose 100 each 2 10/31/20 21 Active blood glucose diagnostic (glucose blood) stripIndication s:Type 2 diabetes mellitus with hyperglycemia, without long-term current use of insulin ([facility]) One Touch Verio Use daily to check [...] 12/09/2018 Assessment & Plan (12/09/2018 9:30 AM MOPPER): With falls, Advised to go to the ER Hyperlipidemia associated with type 2 diabetes ami lindsey 07/13/2018 Assessment & Plan (01/30/2025 11:13 AM MOPPER): Chronic problem, currently taking pravastatin 40mg & zetia 10mg. Last lipid panel: 08/03/24 IFP=367, YN=213. Assessment & Plan (08/12/2024 11:28 AM CDT): Chronic problem, currently taking pravastatin 40mg & zetia 10mg. Last lipid panel: 12/30/22 LDL=43, RU=411. Had labs by PCP recently; release signed to get copy Assessment & Plan (04/14/2023 3:18 PM CDT): Chronic problem, Pravastatin 40mg daily has not been filled since 06/2022 (was 90 day supply). Refill sent today. Triglycerides now down to normal level also. No changes at this time. Assessment & Plan (12/11/2022 1:10 PM MOPPER): Chronic problem, Pravastatin 40mg daily. Triglycerides now down to normal level also. No changes at this time. Assessment & Plan (10/31/2021 12:33 PM MOPPER): High TG Continue Vascepa. Continue Pravachol Low fat diet. Assessment & Plan (01/10/2021 2:47 PM MOPPER): Goal of treatment , LDL cholesterol less [...] Vascepa Assessment & Plan (01/17/2020 3:09 PM MOPPER): With severe hypertriglyceridemia Low carb low fat [...] UNCNTRLD Assessment & Plan (01/30/2025 11:39 AM MOPPER): Chronic problem, stable A1c at 7.3%. Declines [...] daily DM eye exam June [facility] at [facility]. Will send letter to get [...] A1c. Assessment & Plan (12/11/2022 2:07 PM MOPPER): Chronic problem, fair control currently. No changes [...] Victoza Assessment & Plan (10/31/2021 12:35 PM MOPPER): Hba1c was Lab Results Component Value Date HGBA1C 7.3 % 10/31/2021 today, indicating acceptable DM control Goal Hba1c and blood glucose explained Diet and exercise , discussed Prevention and treatment of hyypoglcyemia discussed. Blood glucose monitoring : 1-2 X week Adjustment to oral medications: continue current Assessment & Plan (01/10/2021 2:50 PM MOPPER): Hba1c was Lab Results Component Value Date [...] Victoza Assessment & Plan (01/17/2020 3:09 PM MOPPER): Hba1c was Lab Results Component Value Date [...] daily Assessment & Plan (12/09/2018 9:30 AM MOPPER): Your Hba1c today was: Lab Results Component [...] a day. Go to the ER , [facility] , to be evaluated, for the [...] . Assessment & Plan (01/05/2018 11:21 AM MOPPER): Hba1c was 7.0 today, indicating Adequate DM control 1800 calorie, consistent carb diet recommended 30 min daily aerobic and resistance exercise recommended Prevention and treatment of hyypoglcyemia discussed. Blood glucose monitoring with fingers sticks 1-2 x day . Foot care was discussed. Hypertension associated with diabetes 04/15/2014 Overview (03/06/2017): HYPERTENSION NOS Assessment & Plan (01/30/2025 11:23 AM MOPPER): Chronic problem, well controlled on current metoprolol [...] time. Assessment & Plan (12/11/2022 1:58 PM MOPPER): Chronic problem, well controlled currently. No changes at this time. Assessment & Plan (10/31/2021 12:35 PM MOPPER): Uncontrolled Start Losartan Assessment & Plan (01/10/2021 2:48 PM MOPPER): Goal blood pressure is less than 140/85 [...] meds Assessment & Plan (01/05/2018 11:21 AM MOPPER): Goal blood pressure is less than 140/85 Low salt diet recommended Daily aerobic exercise Resolved Problems Problem Noted Date Diagnosed Date Resolved Date Hypercholesterolemia 04/15/2014 023 Overview (03/06/2017): Hypercholesteremia Encounters Date Type Department Care Team Description 01/30/2025 11:00 AM MOPPER Office Visit [facility] Medical [facility] Diabetes and Endocrinology [address] [place] [address] Kisha Selby NP Type 2 diabetes mellitus with hyperglycemia, without long-term current use of insulin (HCC) (Primary Dx); Hypertension associated with diabetes (HCC); Hyperlipidemia associated with type 2 diabetes mellitus (HCC) 01/25/2025 Telephone [facility] Diabetes and Endocrinology [address] [place] [address] Tanya Dejesus MD request to pcp [...] on file Legal Sex Female 5:32 PM MOPPER Gender Identity Not on file Sexual Orientation Not on file Obstetrics History Last Filed Vital Signs Vital Sign Reading Time Taken Comments Blood Pressure 126/76 01/30/2025 10:56 AM MOPPER Pulse 70 01/30/2025 10:56 AM MOPPER Temperature - - Respiratory Rate 18 01/30/2025 10:56 AM MOPPER Oxygen Saturation 90% 10/03/2024 2:29 PM MOPPER Inhaled Oxygen Concentration - - Weight 83.5 kg (184 lb) 10/03/2024 2:29 PM MOPPER Height 157.5 cm (5' 2.01 ) 01/30/2025 10:[address] Body Mass Index 33.65 10/03/2024 2:29 PM MOPPER Plan of Treatment Health Maintenance Due Date [...] Comments POCT GLUCOSE Routine 01/30/2025 10:59 AM MOPPER Type 2 diabetes mellitus with hyperglycemia, without long-term current use of insulin (HCC) POCT HEMOGLOBIN A1C Routine 01/30/2025 1 0:59 AM MOPPER Type 2 diabetes mellitus with hyperglycemia, without [...] (ABNORMAL) POCT hemoglobin A1c (01/30/2025 10:59 AM MOPPER) Hemoglobin A1C, POC 7.3 4.0 - 5.6 % Blood 01/30/2025 10:5 9 AM MOPPER us Kishacarolyn Selby ACTIVITIES OFFICER POINT OF CARE TEST ORDERA BLES Final Result * (ABNORMAL) POCT glucose (01/30/2025 10:59 AM MOPPER) Glucose Blood, POC 213 mg/dL Blood 01/30/2025 10:5 9 AM MOPPER us Kishacarolyn Selby ACTIVITIES OFFICER POINT OF CARE TEST ORDERA BLES Final Result * Albumin Creatinine Ratio, Urine (08/12/2024 1:27 PM CDT) Albumin Ur <12.0 mg/L Comment: Interpretive Data No reference range established. Current interpretive data was last revised 2019. Creatinine Ur 78.4 mg/dL [facility] Comment: Interpretive Data No reference range established. Current interpretive data was last revised 2019. Albumin Creatinine Ratio, Ur <15 1 - 29 mg/g [facility] Urine 08/12/2024 1:27 PM CDT 08/12/2024 8:37 PM CDT Kisha Selby NP LAB URINE ORDERABLES Lucero l Result Performing Organization Address City/[facility]/ZIP Co de Phone Number [facility] [address] Department [place] [address] * (ABNORMAL) Lipid panel (08/03/2024 10:50 AM [...] Units/L EXTERNAL LAB SCRIBED eGFR in NonAfrican Gambian 45 >=60 - NA EXTERNAL LAB Blood 08/03/2024 10:5 0 AM CDT us Historical Provider LAB BLOOD ORDERABLES Edit ed Result - Final EXTERNAL LAB * DIABETES EYE EXAM (05/05/2024 8:35 AM CDT) Historical Provider HEALTH MAINTENANCE Edited Result - Final from Last 3 Months or Most Recently Relevant to Health Maintenance Insurance [facility] MEDICARE [facility] MEDICARE Address: [facility] [id number] [place] [address] [employer] MED[employer]ARE Care Teams Intranet Developer Relationship Specialty Start Date End Date Debo Mckoy MD [address] [place] [address] PCP - General Family Medicine 03/20/23 Quan Starks MD [address] [place] [address] Referring Physician Ophthalmology 01/06/23
[2025-02-23 10:23] LABS: Lactic Acid Reflex 1.9 mmol/L (0.7-2.0)
[2025-02-23 10:24] LABS: Prothrombin Time 13.8 Seconds (11.1-14.7)
[2025-02-23 10:25] LABS: Alanine Aminotransferase 12 U/L (6-35); Alkaline Phosphatase 89 U/L (38-126); Anion Gap 9 mmol/L (4-12); Aspartate Amino Transferase 16 U/L (14-36); Bilirubin,Total 0.3 mg/dL (0.2-1.3); Blood Urea Nitrogen 17 mg/dL (7-17); Carbon Dioxide 34 mmol/L (22-30); Chloride 97 mmol/L (98-107); Estimated CRCL calculation 38 ml/min; Estimated Glomerular Filt Rate 52; Glucose 318 mg/dL (65-110); Partial Thromboplastin Time 26.9 Seconds (22.3-36.8); Potassium 3.2 mmol/L (3.4-5.0); Sodium 140 mmol/L (137-145)
--- NOTE | 2025-02-23 10:28 | ED_ITS ---
HPI - Fever General Chief Complaint: Fever Stated Complaint: post op fever Time Seen by Provider: 02/23/25 09:44 Source: patient, family and old records reviewed Mode of arrival: ambulatory Limitations: no limitations History of Present Illness HPI Narrative: Patient is an 84-year-old female, with PMH of chronic hypoxic resp failure on 2L home O2, who presents the ED with report of chills and fever. Patient underwent lumbar decompression surgery with Dr. Cross on 02/21 for hx of lumbar spinal stenosis. States she did not feel well yesterday and had chills/diaphoresis. Family did not check her temperature yesterday, they note that she never felt warm to the touch. This morning, patient had severe chills and family reports she was hysterical. Temp 101.4. Took Hydrocodone 5/325 prior to arrival. Patient states overall she does not feel well. Has diffuse pain with any movements. Denies cough, congestion, rhinorrhea, CP, SOB. Denies saddle anesthesia or weakness of extremities. Related Data Home Medications ?Medication ?Instructions ?Recorded ?Confirmed ?Last Taken ?Type duloxetine 30 mg capsule,delayed 60 mg PO DAILY 10/14/19 02/21/25 02/21/25 History release (Cymbalta) liraglutide 0.6 mg/0.1 mL (18 mg/3 1.2 mg subcut HS 10/14/19 02/21/25 02/20/25 History mL) subcutaneous pen injector (Victoza 3-Parveen) trazodone 150 mg tablet 300 mg PO HS 10/18/19 02/21/25 02/20/25 History alprazolam 0.5 mg tablet 0.5 mg PO TID 10/04/20 02/21/25 02/21/25 History albuterol sulfate 90 mcg/actuation 2 puff inhalation Q4-6H PRN 04/05/24 02/13/25 Unknown History aerosol inhaler Wheezing mirtazapine 30 mg tablet 30 mg PO DAILY 04/05/24 02/21/25 02/20/25 History miconazole nitrate 2 % topical 1 applic topical BID PRN Dry Skin 05/02/24 02/13/25 Unknown History cream (Antifungal (miconazole)) metoprolol succinate 25 mg 50 mg PO QAM 01/11/25 02/21/25 02/20/25 History tablet,extended release 24 hr (Toprol XL) montelukast 10 mg tablet 10 mg PO QPM 01/11/25 02/21/25 02/20/25 History Allergies Allergy/AdvReac Type Severity Reaction Status Date / Time codeine Allergy Unknown Not Verified 02/23/25 10:02 Entered,Upset Stomach,Not Entered,Upset Stomach Review of Systems 2 Review of Systems: All systems reviewed & are unremarkable except as noted in HPI. All systems reviewed & are unremarkable except as noted in HPI and below [facility] Past Medical History Medical History Chronic pain GERD (gastroesophageal reflux disease) Alternating constipation and diarrhea Rectal bleeding Dysphagia Schatzki's ring Combined systolic and diastolic congestive heart failure Esophageal stricture Obesity (BMI 30-39.9) Arthritis of both shoulder regions Basal cell carcinoma (BCC) in situ of skin Bipolar disorder Obstructive sleep apnea With BiPAP 14/10 Essential hypertension Pleural effusion Cellulitis of right ear Urinary incontinence Stress urinary incontinence Asthma PFTs October 2019 demonstrated mild obstructive ventilatory impairment with mild air trapping and moderate diffusion impairment no response to bronchodilator Ischemia Chronically false-positive stress test with last stress test 2006 Diverticulitis Cancer of skin (~08/20/12) Depression Hyperlipidemia Chronic obstructive pulmonary disease Patient reports history of asthma Insomnia Type 2 diabetes mellitus without complication, without long-term current use of insulin Surgical History Surgical History History of tonsillectomy Status post cataract extraction of both eyes with insertion of intraocular lens History of bladder suspension procedure X2 Hx of cardiac cath Hx of hysterectomy, total Family History Family History Son Hypertension Other Adopted Social History Social History Social History: She is . She lives in her own home alone. Her daughter brings her meals each day. She has 6 children. 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 Primary care physician: Dr. Debo Mckoy Code status: Full code (the patient would not want tracheostomy or G-tube) Healthcare power of civil attorney: Yulisa Solorio (daughter) Smoking status: Never smoker Second hand tobacco smoke exposure: No Alcohol intake: never Substance use: never Substance use type: does not use Do You Feel Safe in your Home?: Yes Lack of Transportation: No Lack of Food: Never True Current Housing: I Have Housing Concerned About Future Housing: No Difficulty Paying Gas/Electric Bills: No Difficulty Paying for Meds: No Currently Unemployed: No Education: Master's Degree or Higher Difficulty w/ Childcare or Family Care: No Living arrangements: alone Occupation/Education: retired Gender identity (if verbalized by the patient): Female Sexual Orientation (if Verbalized by the Patient): Straight or Heterosexual Spiritual care concerns: No Agree to blood products: Yes Exam 2 Narrative: GENERAL: Elderly, obese with BMI of 33.9, non-toxic, in no acute distress. HEAD: Normocephalic, atraumatic. RESPIRATORY: Airway patent, respirations nonlabored. Diffuse rhonchi in bases bilaterally. CARDIOVASCULAR: Borderline tachycardic with regular rhythm without murmurs, rubs, or gallops. MUSCULOSKELETAL: Moves all extremities. No gross deformities. Diffuse tenderness throughout the lumbosacral region. Midline incision with bandage in place. No signs of surrounding erythema or purulent drainage. Sensation intact. SKIN: Warm, dry, slightly flushed appearing. NEURO: A&O X3. Speech clear. Cranial nerves II-XII grossly intact. Steady gait. No ataxic movements. PSYCHIATRIC: Appropriate mood and affect. Normal interaction. Course Vital Signs Vital signs: Vital Signs Temperature 99.7 F H 02/23/25 09:46 Pulse Rate 99 02/23/25 09:46 Respiratory Rate 21 H 02/23/25 09:46 Blood Pressure 128/45 L 02/23/25 09:46 Pulse Oximetry 90 02/23/25 09:46 Oxygen Delivery Nasal Cannula 02/23/25 09:46 Oxygen Flow Rate 2 02/23/25 09:46 Temperature 99.3 F 02/23/25 12:49 Pulse Rate 68 02/23/25 14:16 Respiratory Rate 19 02/23/25 14:16 Blood Pressure 139/68 02/23/25 14:16 Pulse Oximetry 97 02/23/25 14:16 Oxygen Delivery Nasal Cannula 02/23/25 09:46 Oxygen Flow Rate 2 02/23/25 09:46 MDM - Fever MDM Narrative Medical decision making narrative: Patient presented to ED with fever, T-max 101.4? at home. History of lumbar decompression surgery [address] Cross with pain management. Patient borderline tachycardic and febrile upon arrival. In no acute distress. Took a [place] prior to arrival, will give additional Tylenol here for persistent fever. Exam of lumbar region does not show any signs of mirian abscess or infection. CBC with white blood cell count of 9.9. H&H is stable. CMP with potassium of 3.2. Oral replacement given. Stable kidney function. Magnesium within normal range. Lactic acid 1.9. Blood sugar was slightly elevated at 318. No signs of DKA. Viral swabs are negative. UA clear. Chest x-ray with possible developing pneumonia. Blood cx obtained. Will Tx. Lumbar spine CT with soft tissue stranding gas, consistent with recent surgery no evidence of focal abscess. Discussed case with Dr. Cross, pain management, advised surgery is minimally invasive. Patient was under general anesthesia and was a difficult intubation. Will follow up with patient as an outpatient. Family expressed concern that they are providing around the clock care for patient currently and will be returning home to [place] tomorrow. They are concerned that patient is not able to care for herself at home. Patient will be admitted for further evaluation. Care coordination will be consulted for possible home health vs rehab placement. Patient and family in agreement with plan and need for admission. Discussed case with Kassie Willingham TANGLED YARN WORKER hospitalist, accepted patient for admission. Recommended to add on vancomycin for hospital-acquired pneumonia. Medical Records Attestation: I reviewed the patient's medical records. Lab Data Attestation: I reviewed the patient's lab results. 02/23/25 10:03 02/23/25 10:03 Labs: Lab Results 02/23/25 02/23/25 02/23/25 Range/Units 10:03 10:42 11:40 WBC 9.5 (4.5-10.0) K/mm3 RBC 3.62 L (4.2-5.4) M/mm3 Hgb 11.2 L (12.0-15.0) g/dL Hct 36.1 L (37.0-47.0) % MCV 99.7 (80-100) fl MCH 30.9 (26-34) pg MCHC 31.0 L (32-36) g/dl RDW 13.0 (11.5-14.5) % Plt Count 157 (150-375) k/mm3 MPV 10.7 H (7.4-10.4) fl Immature Gran % (Auto) 1.2 H (0-0.5) % Neut % (Auto) 77.2 H (45.5-73.1) % Lymph % (Auto) 11.5 L (18.3-44.2) % [place]ney % (Auto) 8.1 (2.6-8.5) % Eos % (Auto) 1.6 (0-4.4) % Baso % (Auto) 0.4 (0.2-1.2) % Lymph # (Auto) 1.10 (0.9-3.2) K/mm3 [place] # (Auto) 0.8 H (0.1-0.6) K/mm3 Eos # (Auto) 0.2 (0-0.3) K/mm3 Baso # (Auto) 0.0 (0.0-0.1) K/mm3 Abs Immat Gran (auto) 0.11 H (0.00-0.031) K/mm3 Absolute Neuts (auto) 7.4 H (1.3-6.7) K/mm3 Absolute Nucleated RBC 0.000 (0.0-0.012) K/mm3 Nucleated RBC % 0.0 (0.0-0.2) % PT 13.8 (11.1-14.7) Seconds INR 1.0 APTT 26.9 (22.3-36.8) Seconds Sodium 140 (137-145) mmol/L Potassium 3.2 L (3.4-5.0) mmol/L Chloride 97 L (98-107) mmol/L Carbon Dioxide 34 H (22-30) mmol/L Anion Gap 9 (4-12) mmol/L BUN 17 (7-17) mg/dL Creatinine 1.01 H (0.7-1.0) mg/dL Estim Creat Clear Calc 38 ml/min Estimated GFR 52 L (59 - ) Glucose 318 H (65-110) mg/dL Lactic Acid 1.9 (0.7-2.0) mmol/L Calcium 8.0 L (8.4-10.2) mg/dL Magnesium 1.7 (1.6-2.3) mg/dL Total Bilirubin 0.3 (0.2-1.3) mg/dL AST 16 (14-36) U/L ALT 12 (6-35) U/L Alkaline Phosphatase 89 (38-126) U/L Total Protein 7.0 (6.3-8.2) g/dL Albumin 4.0 (3.5-5.1) g/dL Urine Color Yellow (Yellow) Urine Appearance Clear (Clear) Urine pH 5.5 (5.0-9.0) Ur Specific [place] 1.028 (1.001-1.035) Urine Protein Negative (Negative) mg/dL Urine Glucose (UA) 3+ H (Negative) mg/dL Urine Ketones Negative (Negative) mg/dL Ur Blood (Man) 3+ H (Negative) Urine Nitrate Negative (Negative) Urine Bilirubin Negative (Negative) Urine Urobilinogen 0.2 (<2.0) mg/dL Add Ur Microanalysis Reviewed Leukocyte Esterase Rfl Negative (Negative) MJ/UL Urine RBC 21-50 H (0-2) /hpf Urine WBC 0-5 (0-3) /hpf Ur Squamous Epith Cells None seen (Few) /hpf Urine Bacteria None seen /hpf Urine Casts 0-2 Influenza A (RT-PCR) Negative (Negative) Influenza B (RT-PCR) Negative (Negative) RSV (RT-PCR) Negative (Negative) SARS-CoV-2 RNA (RT-PCR) Negative (Negative) Imaging Data Attestation: I personally reviewed and interpreted this imaging study as follows: Radiologist's impression: ITS Impressions Chest X-Ray 02/23/25 11:15 Impression: 1: Retrocardiac opacification may represent atelectasis or pneumonia. Lumbar Spine CT 02/23/25 11:18 IMPRESSION: 1. Soft tissue stranding and subcutaneous gas in the posterior soft tissues of the mid and lower lumbar spine, consistent with recent surgery. No evidence for abscess. 2: Severe lumbar spondylosis. Discharge Plan Discharge Clinical Impression: Postoperative fever, Weakness Pneumonia Qualifiers: Pneumonia type: due to unspecified organism Laterality: bilateral Lung location: lower lobe of lung Qualified Code(s): J18.9 - Pneumonia, unspecified organism Patient Disposition: Still a Patient Condition: Stable Patient Language: Taiwanese Prescriptions: No Action nystatin 100,000 unit/gram cream 1 applic topical BID Qty: 30 4RF Rx Instructions: to vaginal area Cortisporin-TC 3.3-3-10-0.5 mg/mL drops,suspension 1 applic EACH EAR Q4H Qty: 10 0RF duloxetine [Cymbalta] 30 mg capsule,delayed release(DR/EC) 60 mg PO DAILY Victoza 3-Parveen 0.6 mg/0.1 mL (18 mg/3 mL) pen injector 1.2 mg SUB-Q HS trazodone 150 mg tablet 300 mg PO HS alprazolam 0.5 mg tablet 0.5 mg PO TID glipizide 10 mg tablet 10 mg PO DAILY Qty: 30 3RF lidocaine 5 % adhesive patch,medicated 2 patch topical DAILY Qty: 30 0RF Rx Instructions: leave on most painful area for up to 12 hrs miconazole nitrate [Antifungal (miconazole)] 2 % cream 1 applic topical BID PRN (Reason: Dry Skin) montelukast 10 mg tablet 10 mg PO QPM metoprolol succinate [Toprol XL] 25 mg Tablet Extended Release 24 Hr 50 mg PO QAM cyclobenzaprine 10 mg tablet 10 mg PO TID MDD 3 PRN (Reason: muscle spasm) 7 Days Qty: 20 0RF Rx Instructions: Take 1 tab p.o. t.i.d. as needed for muscle spasm hydrocodone-acetaminophen 5-325 mg tablet 1 tablet PO Q4H MDD 4 PRN (Reason: pain) 7 Days Qty: 20 0RF Rx Instructions: Take 1 tablet p.o. every 4-6 hours as needed for severe pain, maximum 4 per day. albuterol sulfate 90 mcg/actuation HFA aerosol inhaler 2 puff inhalation Q4-6H PRN (Reason: Wheezing) mirtazapine 30 mg tablet 30 mg PO DAILY Patient Comments: HS Anoro Ellipta 62.5-25 mcg/actuation blister with device 1 inh inhalation DAILY Qty: 60 5RF Jardiance 10 mg tablet 10 mg PO DAILY Qty: 30 3RF doxazosin 4 mg tablet 4 mg PO DAILY Qty: 90 3RF Rx Instructions: Take 1 tablet by mouth once daily ezetimibe 10 mg tablet 10 mg PO DAILY Qty: 90 2RF spironolactone 25 mg tablet 12.5 mg PO DAILY Qty: 30 3RF furosemide 40 mg tablet 40 mg PO DAILY Qty: 30 2RF omeprazole 40 mg capsule,delayed release(DR/EC) See Rx Instructions .ROUTE .COMPLEX Qty: 60 11RF Dose Instruction: Take 1 capsule by mouth twice daily Rx Instructions: Take 1 capsule by mouth twice daily betamethasone dipropionate 0.05 % cream 1 applic topical DAILY PRN (Reason: rash) Qty: 45 0RF Rx Instructions: to both ears diphenoxylate-atropine [Lomotil] 2.5-0.025 mg tablet 1 tablet PO TID PRN (Reason: diarrhea) Qty: 30 0RF Follow-up/Referrals: Debo Mckoy MD [Primary Care Provider] -
[2025-02-23 10:46] LABS: Influenza A QL RT-PCR Negative (Negative); Influenza B QL RT-PCR Negative (Negative); RSV RNA, RT-PCR Negative (Negative); SARS-CoV-2 RNA PCR Negative (Negative)
[2025-02-23] MEDS: SODIUM CHLORIDE 0.9% IV 500 ML 999 ML IV CONT (10:47)
[2025-02-23] MEDS: ACETAMINOPHEN 325 MG TABLET 650 MG PO (10:47)
[2025-02-23] MEDS: POTASSIUM CHLORIDE 20 MEQ ER TABLET 40 MEQ PO (10:47)
--- OUTSIDE RECORDS SUMMARY | 2025-02-23 10:58 | XMS_ITS | Referral Summary ---
Author Organization [address] Address [address] [place] [id number] Care Team Providers Care Cloth Weigher Name Role Phone Quan Starks MD Unavailable [phone] Debo Mckoy MD Primary Care Provider [phone] Encounters Date Type Department Care Team Description 01/30/2025 11:00 AM FREELANCE PATTERNMAKER Office Visit [facility] [address] [place] [id number] Kisha Selby NP Type 2 diabetes mellitus with hyperglycemia, without long-term current use of insulin (HCC) (Primary Dx); Hypertension associated with diabetes (HCC); Hyperlipidemia associated with type 2 diabetes mellitus (HCC) 01/25/2025 Telephone [facility] [address] [place] [phone] Tanya Dejesus MD request to pcp [...] long-term current use of insulin ([facility]) One Touch Verio Use Daily to check blood glucose 1 each 10/31/20 21 Active lancets 31 gauge miscIndications :Type 2 diabetes mellitus with hyperglycemia, without long-term current use of insulin ([facility]) One Touch Verio Use daily to check blood glucose 100 each 2 10/31/20 21 Active blood glucose diagnostic (glucose blood) stripIndication s:Type 2 diabetes mellitus with hyperglycemia, without long-term current use of insulin ([facility]) One Touch Verio Use daily [...] 12/09/2018 Assessment & Plan (12/09/2018 9:30 AM FREELANCE PATTERNMAKER): With falls, Advised to go to the ER Hyperlipidemia associated with type 2 diabetes ami césar 07/13/2018 Assessment & Plan (01/30/2025 11:13 AM FREELANCE PATTERNMAKER): Chronic problem, currently taking pravastatin 40mg & zetia 10mg. Last lipid panel: 08/03/24 TML=264, YT=114. Assessment & Plan (08/12/2024 11:28 AM CDT): Chronic problem, currently taking pravastatin 40mg & zetia 10mg. Last lipid panel: 12/30/22 LDL=43, TM=697. Had labs by PCP recently; release signed to get copy Assessment & Plan (04/14/2023 3:18 PM CDT): Chronic problem, Pravastatin 40mg daily has not been filled since 06/2022 (was 90 day supply). Refill sent today. Triglycerides now down to normal level also. No changes at this time. Assessment & Plan (12/11/2022 1:10 PM FREELANCE PATTERNMAKER): Chronic problem, Pravastatin 40mg daily. Triglycerides now down to normal level also. No changes at this time. Assessment & Plan (10/31/2021 12:33 PM FREELANCE PATTERNMAKER): High TG Continue Vascepa. Continue Pravachol Low fat diet. Assessment & Plan (01/10/2021 2:47 PM FREELANCE PATTERNMAKER): Goal of treatment , LDL cholesterol less [...] Vascepa Assessment & Plan (01/17/2020 3:09 PM FREELANCE PATTERNMAKER): With severe hypertriglyceridemia Low carb low fat [...] UNCNTRLD Assessment & Plan (01/30/2025 11:39 AM FREELANCE PATTERNMAKER): Chronic problem, stable A1c at 7.3%. Declines [...] daily DM eye exam June 2024 at [facility]. Will send letter to get copy of [...] A1c. Assessment & Plan (12/11/2022 2:07 PM FREELANCE PATTERNMAKER): Chronic problem, fair control currently. No changes [...] Victoza Assessment & Plan (10/31/2021 12:35 PM FREELANCE PATTERNMAKER): Hba1c was Lab Results Component Value Date HGBA1C 7.3 % 10/31/2021 today, indicating acceptable DM control Goal Hba1c and blood glucose explained Diet and exercise , discussed Prevention and treatment of hyypoglcyemia discussed. Blood glucose monitoring : 1-2 X week Adjustment to oral medications: continue current Assessment & Plan (01/10/2021 2:50 PM FREELANCE PATTERNMAKER): Hba1c was Lab Results Component Value Date [...] Victoza Assessment & Plan (01/17/2020 3:09 PM FREELANCE PATTERNMAKER): Hba1c was Lab Results Component Value Date [...] daily Assessment & Plan (12/09/2018 9:30 AM FREELANCE PATTERNMAKER): Your Hba1c today was: Lab Results Component [...] mg once a day. Go to the [facility] , to be evaluated, for the falls [...] . Assessment & Plan (01/05/2018 11:21 AM FREELANCE PATTERNMAKER): Hba1c was 7.0 today, indicating Adequate DM control 1800 calorie, consistent carb diet recommended 30 min daily aerobic and resistance exercise recommended Prevention and treatment of hyypoglcyemia discussed. Blood glucose monitoring with fingers sticks 1-2 x day . Foot care was discussed. Hypertension associated with diabetes 04/15/2014 Overview (03/06/2017): HYPERTENSION NOS Assessment & Plan (01/30/2025 11:23 AM FREELANCE PATTERNMAKER): Chronic problem, well controlled on current metoprolol [...] time. Assessment & Plan (12/11/2022 1:58 PM FREELANCE PATTERNMAKER): Chronic problem, well controlled currently. No changes at this time. Assessment & Plan (10/31/2021 12:35 PM FREELANCE PATTERNMAKER): Uncontrolled Start Losartan Assessment & Plan (01/10/2021 2:48 PM FREELANCE PATTERNMAKER): Goal blood pressure is less than 140/85 [...] meds Assessment & Plan (01/05/2018 11:21 AM FREELANCE PATTERNMAKER): Goal blood pressure is less than 140/85 [...] on file Legal Sex Female 5:32 PM FREELANCE PATTERNMAKER Gender Identity Not on file Sexual Orientation Not on file Last Filed Vital Signs Vital Sign Reading Time Taken Comments Blood Pressure 126/76 01/30/2025 10:56 AM FREELANCE PATTERNMAKER Pulse 70 01/30/2025 10:56 AM FREELANCE PATTERNMAKER Temperature - - Respiratory Rate 18 01/30/2025 10:56 AM FREELANCE PATTERNMAKER Oxygen Saturation 90% 10/03/2024 2:29 PM FREELANCE PATTERNMAKER Inhaled Oxygen Concentration - - Weight 83.5 kg (184 lb) 10/03/2024 2:29 PM FREELANCE PATTERNMAKER Height 157.5 cm (5' 2.01 ) 01/30/2025 10:[address] Body Mass Index 33.65 10/03/2024 2:29 PM FREELANCE PATTERNMAKER Plan of Treatment Not on file Procedures Procedure Name Priority Date/Time Associated Diagnosis Comments POCT GLUCOSE Routine 01/30/2025 10:59 AM FREELANCE PATTERNMAKER Type 2 diabetes mellitus with hyperglycemia, without long-term current use of insulin (HCC) POCT HEMOGLOBIN A1C Routine 01/30/2025 1 0:59 AM FREELANCE PATTERNMAKER Type 2 diabetes mellitus with hyperglycemia, without [...] (ABNORMAL) POCT hemoglobin A1c (01/30/2025 10:59 AM FREELANCE PATTERNMAKER) Hemoglobin A1C, POC 7.3 4.0 - 5.6 % Blood 01/30/2025 10:5 9 AM FREELANCE PATTERNMAKER us Kisha Selby NP POINT OF CARE TEST ORDERA BLES Final Result * (ABNORMAL) POCT glucose (01/30/2025 10:59 AM FREELANCE PATTERNMAKER) Glucose Blood, POC 213 mg/dL Blood 01/30/2025 10:5 9 AM FREELANCE PATTERNMAKER Kisha Selby DRYING MACHINE RECEIVER POINT OF CARE TEST ORDERA BLES Final Result * Albumin Creatinine Ratio, Urine (08/12/2024 1:27 PM CDT) [facility] Albumin Ur <12.0 mg/L Comment: Interpretive Data No reference range established. Current interpretive data was last revised 2019. Creatinine Ur 78.4 mg/dL [facility] Comment: Interpretive Data No reference range established. Current interpretive data was last revised 2019. Albumin Creatinine Ratio, Ur <15 1 - 29 mg/g VIJAY Urine 08/12/2024 1:27 PM CDT 08/12/2024 8:37 PM CDT Kisha Selby NP LAB URINE ORDERABLES Lucero l Result Performing Organization Address City/[facility]/ZIP Co de Phone Number [facility] [address] Department [place] [address] * (ABNORMAL) Lipid panel (08/03/2024 10:50 AM CDT) [facility] SCRIBED Cholesterol, Total 204 <200 - NA EXTERNAL LAB SCRIBED HDL 50 >=50 - NA EXTERNAL LAB SCRIBED LDL 109 <100 - NA EXTERNAL LAB SCRIBED Triglycerides 339 <150 - NA EXTERNAL LAB Blood 08/03/2024 10:5 0 AM CDT Historical Provider LAB BLOOD ORDERABLES Edit ed Result - Final EXTERNAL LAB * (ABNORMAL) Comprehensive metabolic panel (08/03/2024 10:50 AM CDT) [facility] SCRIBED Sodium 144 135 - 146 [...] Units/L EXTERNAL LAB SCRIBED eGFR in NonAfrican Mauritian 45 >=60 - NA EXTERNAL LAB Blood 08/03/2024 10:5 0 AM CDT Historical Provider LAB BLOOD ORDERABLES Edit ed Result - Final EXTERNAL LAB * DIABETES EYE EXAM (05/05/2024 8:35 AM CDT) Historical Provider HEALTH MAINTENANCE Edited Result - Final from Last 3 Months or Most Recently Relevant to Health Maintenance Insurance T MEDICARE AET[employer] MEDICARE Care Teams Cloth Weigher Relationship Specialty Start Date End Date Debo Mckoy MD [address] [place] [address] PCP - General Family Medicine 03/20/23 Quan Starks MD [address] [place] [address] Referring Physician Ophthalmology 01/06/23
--- OUTSIDE RECORDS SUMMARY | 2025-02-23 10:58 | XMS_ITS | Clinical Summary ---
Author Organization [facility] Address [address] [place] [address] Care Team Providers Care Service Engine Repairer Name Role Phone Margarito Razo Primary Care Provider [phone] Allergies Active Allergy Reactions Criticality Noted Date [...] Problem Noted Date Diagnosed Date Chronic bronchitis ([facility]) 05/02/2021 Anxiety and depression 05/02/2021 Supplemental oxygen dependent 05/02/2021 ELISSA on CPAP 05/02/2021 Fall 05/01/2021 Bradycardia 12/09/2018 Overview (05/01/2021): Last Assessment & Plan: With falls, Advised to go to the ER Hyperlipidemia associated wi th type 2 diabetes mellitus ([facility]) 07/13/2018 Overview (05/01/2021): Last Assessment & Plan: [...] Pravachol and Vascepa Type 2 diabetes mellitus ([facility]) 04/15 Overview (05/01/2021): DMII WO CMP UNCNTRLD [...] No Catherine Garcia, RN Insurance MED REPLACE [facility] MEDICARE Advance Directives * Full Code (Latest Code Status on File) Date Activated Date Inactivated Comments 05/01/2021 5:20 PM 05/03/2021 7:29 PM Care Teams Service Engine Repairer Relationship Specialty Start Date End Date Margarito Razo PA [address] [place] [address] PCP - General PHYSICIAN HOME HEALTH OUTREACH COORDINATOR 05/01/21
--- OUTSIDE RECORDS SUMMARY | 2025-02-23 10:58 | XMS_ITS | Continuity of Care Document ---
Author Organization [facility] Address [address] [place] [address] Phone Care Team Providers Care System Controller Name Role Phone Neda De La Torre [...] Copied on Encounter Office/outpat ient Visit, Est [facility], [address], [place], [place], [id number], [place] tel:[phone] [facility] No Information 0-201 0 Britt Red. [address] , [address], [place], [address], [place]. tel:[phone] [facility], [address], [place], [place], [id number], [place] tel:[phone] [facility] No Information 0-200 9 [employer] . [address] [facility], [address], [place], [place], [address], [place]. tel:[phone] Referring Provider: [facility] [address], [place], [address]. tel:[phone] rojas Provider: Mirela Page, [address] [facility], [place], [place], [facility]. tel:[phone] [facility], [address] [place] [address] [address], [place], [place], [address], [place] tel:[phone] [facility] No Information 0-200 9 Britt Craig [address] [facility] [address], [place], [address], [place]. tel:[phone] Office/outpat ient Visit, [facility], [address] [place] [address] [address], [place], [place], [address], [place] tel:[phone] [facility] No Information 3-200 7 Britt Craig [address] [facility] [address], [place], [address], [place]. tel:[phone] [facility], [address], [place], [place], [id number], [place] tel:[phone] [facility] No Information 7-200 7 Britt Craig [address] [facility] [address], [place], [address], [place]. tel:[phone] Family History Family Member Type Diagnosis Age At Onset No Information Payers Payer name Insurance type Covered republican ID Authoriza tisaray(s) [place] [id number] Social History Type Description Quantity Date Captured [...]
--- OUTSIDE RECORDS SUMMARY | 2025-02-23 10:58 | XMS_ITS | Clinical Summary ---
Author Organization [facility] Address [address] [place] [address] Care Team Providers Care Training Specialist Name Role Phone Quan Starks MD Unavailable [phone] Debo Mckoy MD Primary Care Provider [phone] Allergies Active Allergy Reactions Criticality Noted Date [...] hyperglycemia, without long-term current use of insulin ([facility]) One Touch Verio Use Daily to check blood glucose 1 each 10/31/20 21 Active lancets 31 gauge miscIndications :Type 2 diabetes mellitus with hyperglycemia, without long-term current use of insulin ([facility]) One Touch Verio Use daily to check blood glucose 100 each 2 10/31/20 21 Active blood glucose diagnostic (glucose blood) stripIndication s:Type 2 diabetes mellitus with hyperglycemia, without long-term current use of insulin ([facility]) One Touch Verio Use daily to [...] 12/09/2018 Assessment & Plan (12/09/2018 9:30 AM PATIENT FINANCIAL REPRESENTATIVE): With falls, Advised to go to the ER Hyperlipidemia associated with type 2 diabetes ami lindsey 07/13/2018 Assessment & Plan (01/30/2025 11:13 AM PATIENT FINANCIAL REPRESENTATIVE): Chronic problem, currently taking pravastatin 40mg & zetia 10mg. Last lipid panel: 08/03/24 QKT=468, CH=742. Assessment & Plan (08/12/2024 11:28 AM CDT): Chronic problem, currently taking pravastatin 40mg & zetia 10mg. Last lipid panel: 12/30/22 LDL=43, BX=927. Had labs by PCP recently; release signed to get copy Assessment & Plan (04/14/2023 3:18 PM CDT): Chronic problem, Pravastatin 40mg daily has not been filled since 06/2022 (was 90 day supply). Refill sent today. Triglycerides now down to normal level also. No changes at this time. Assessment & Plan (12/11/2022 1:10 PM PATIENT FINANCIAL REPRESENTATIVE): Chronic problem, Pravastatin 40mg daily. Triglycerides now down to normal level also. No changes at this time. Assessment & Plan (10/31/2021 12:33 PM PATIENT FINANCIAL REPRESENTATIVE): High TG Continue Vascepa. Continue Pravachol Low fat diet. Assessment & Plan (01/10/2021 2:47 PM PATIENT FINANCIAL REPRESENTATIVE): Goal of treatment , LDL cholesterol less [...] Vascepa Assessment & Plan (01/17/2020 3:09 PM PATIENT FINANCIAL REPRESENTATIVE): With severe hypertriglyceridemia Low carb low fat [...] UNCNTRLD Assessment & Plan (01/30/2025 11:39 AM PATIENT FINANCIAL REPRESENTATIVE): Chronic problem, stable A1c at 7.3%. Declines [...] daily DM eye exam [address] [facility]. Will send letter to get copy [...] A1c. Assessment & Plan (12/11/2022 2:07 PM PATIENT FINANCIAL REPRESENTATIVE): Chronic problem, fair control currently. No changes [...] Victoza Assessment & Plan (10/31/2021 12:35 PM PATIENT FINANCIAL REPRESENTATIVE): Hba1c was Lab Results Component Value Date HGBA1C 7.3 % 10/31/2021 today, indicating acceptable DM control Goal Hba1c and blood glucose explained Diet and exercise , discussed Prevention and treatment of hyypoglcyemia discussed. Blood glucose monitoring : 1-2 X week Adjustment to oral medications: continue current Assessment & Plan (01/10/2021 2:50 PM PATIENT FINANCIAL REPRESENTATIVE): Hba1c was Lab Results Component Value Date [...] Victoza Assessment & Plan (01/17/2020 3:09 PM PATIENT FINANCIAL REPRESENTATIVE): Hba1c was Lab Results Component Value Date [...] daily Assessment & Plan (12/09/2018 9:30 AM PATIENT FINANCIAL REPRESENTATIVE): Your Hba1c today was: Lab Results Component [...] a day. Go to the ER , [facility] , to be evaluated, for the [...] . Assessment & Plan (01/05/2018 11:21 AM PATIENT FINANCIAL REPRESENTATIVE): Hba1c was 7.0 today, indicating Adequate DM control 1800 calorie, consistent carb diet recommended 30 min daily aerobic and resistance exercise recommended Prevention and treatment of hyypoglcyemia discussed. Blood glucose monitoring with fingers sticks 1-2 x day . Foot care was discussed. Hypertension associated with diabetes 04/15/2014 Overview (03/06/2017): HYPERTENSION NOS Assessment & Plan (01/30/2025 11:23 AM PATIENT FINANCIAL REPRESENTATIVE): Chronic problem, well controlled on current metoprolol [...] time. Assessment & Plan (12/11/2022 1:58 PM PATIENT FINANCIAL REPRESENTATIVE): Chronic problem, well controlled currently. No changes at this time. Assessment & Plan (10/31/2021 12:35 PM PATIENT FINANCIAL REPRESENTATIVE): Uncontrolled Start Losartan Assessment & Plan (01/10/2021 2:48 PM PATIENT FINANCIAL REPRESENTATIVE): Goal blood pressure is less than 140/85 [...] meds Assessment & Plan (01/05/2018 11:21 AM PATIENT FINANCIAL REPRESENTATIVE): Goal blood pressure is less than 140/85 Low salt diet recommended Daily aerobic exercise Resolved Problems Problem Noted Date Diagnosed Date Resolved Date Hypercholesterolemia 04/15/2014 023 Overview (03/06/2017): Hypercholesteremia Encounters Date Type Department Care Team Description 01/30/2025 11:00 AM PATIENT FINANCIAL REPRESENTATIVE Office Visit [facility] Diabetes and Endocrinology [address] [place] [phone] Kisha Selby NP Type 2 diabetes mellitus with hyperglycemia, without long-term current use of insulin (HCC) (Primary Dx); Hypertension associated with diabetes (HCC); Hyperlipidemia associated with type 2 diabetes mellitus (HCC) 01/25/[address] [facility] Diabetes and Endocrinology [address] [place] [phone] Tanya Dejesus MD request to pcp [...] on file Legal Sex Female 5:32 PM PATIENT FINANCIAL REPRESENTATIVE Gender Identity Not on file Sexual Orientation Not on file Obstetrics History Last Filed Vital Signs Vital Sign Reading Time Taken Comments Blood Pressure 126/76 01/30/2025 10:56 AM PATIENT FINANCIAL REPRESENTATIVE Pulse 70 01/30/2025 10:56 AM PATIENT FINANCIAL REPRESENTATIVE Temperature - - Respiratory Rate 18 01/30/2025 10:56 AM PATIENT FINANCIAL REPRESENTATIVE Oxygen Saturation 90% 10/03/2024 2:29 PM PATIENT FINANCIAL REPRESENTATIVE Inhaled Oxygen Concentration - - Weight 83.5 kg (184 lb) 10/03/2024 2:29 PM PATIENT FINANCIAL REPRESENTATIVE Height 157.5 cm (5' 2.01 ) 01/30/2025 10:[address] Body Mass Index 33.65 10/03/2024 2:29 PM PATIENT FINANCIAL REPRESENTATIVE Plan of Treatment Health Maintenance Due Date [...] Comments POCT GLUCOSE Routine 01/30/2025 10:59 AM PATIENT FINANCIAL REPRESENTATIVE Type 2 diabetes mellitus with hyperglycemia, without long-term current use of insulin (HCC) POCT HEMOGLOBIN A1C Routine 01/30/2025 1 0:59 AM PATIENT FINANCIAL REPRESENTATIVE Type 2 diabetes mellitus with hyperglycemia, without [...] (ABNORMAL) POCT hemoglobin A1c (01/30/2025 10:59 AM PATIENT FINANCIAL REPRESENTATIVE) Hemoglobin A1C, POC 7.3 4.0 - 5.6 % Blood 01/30/2025 10:5 9 AM PATIENT FINANCIAL REPRESENTATIVE us Kishacarolyn Selby HOME CARE ASSISTANT POINT OF CARE TEST ORDERA BLES Final Result * (ABNORMAL) POCT glucose (01/30/2025 10:59 AM PATIENT FINANCIAL REPRESENTATIVE) Glucose Blood, POC 213 mg/dL Blood 01/30/2025 10:5 9 AM PATIENT FINANCIAL REPRESENTATIVE us Kishacarolyn Selby HOME CARE ASSISTANT POINT OF CARE TEST ORDERA BLES Final Result * Albumin Creatinine Ratio, Urine (08/12/2024 1:27 PM CDT) Albumin Ur <12.0 mg/L Comment: Interpretive Data No reference range established. Current interpretive data was last revised 2019. Creatinine Ur 78.4 mg/dL [facility] Comment: Interpretive Data No reference range established. Current interpretive data was last revised 2019. Albumin Creatinine Ratio, Ur <15 1 - 29 mg/g [facility] Urine 08/12/2024 1:27 PM CDT 08/12/2024 8:37 PM CDT Kisha Selby NP LAB URINE ORDERABLES Lucero l Result Performing Organization Address City/[facility]/ZIP Co de Phone Number [facility] [address] Department [place] [address] * (ABNORMAL) Lipid panel (08/03/2024 10:50 AM CDT) Pathologist [facility] SCRIBED Cholesterol, Total 204 <200 - NA EXTERNAL LAB SCRIBED HDL 50 >=50 - NA EXTERNAL LAB SCRIBED LDL 109 <100 - NA EXTERNAL LAB SCRIBED Triglycerides 339 <150 - NA EXTERNAL LAB Blood 08/03/2024 10:5 0 AM CDT Historical Provider LAB BLOOD ORDERABLES Edit ed Result - Final EXTERNAL LAB * (ABNORMAL) Comprehensive metabolic panel (08/03/2024 10:50 AM CDT) Pathologist [facility] SCRIBED Sodium 144 135 - 146 [...] Units/L EXTERNAL LAB SCRIBED eGFR in NonAfrican [place] Zealander 45 >=60 - NA EXTERNAL LAB Blood 08/03/2024 10:5 0 AM CDT us Historical Provider LAB BLOOD ORDERABLES Edit ed Result - Final EXTERNAL LAB * DIABETES EYE EXAM (05/05/2024 8:35 AM CDT) Historical Provider HEALTH MAINTENANCE Edited Result - Final from Last 3 Months or Most Recently Relevant to Health Maintenance Insurance FORMERLY [facility] MEDICARE [facility] MEDICARE Address: [facility] [id number] [place] [address] [employer] MED[employer]ARE Care Teams Training Specialist Relationship Specialty Start Date End Date Debo Mckoy MD [address] [place] [address] PCP - General Family Medicine 03/20/23 Quan Starks MD [address] [place] [address] Referring Physician Ophthalmology 01/06/23
--- OUTSIDE RECORDS SUMMARY | 2025-02-23 10:58 | XMS_ITS | Continuity of Care Document ---
Author Organization [facility] Address [address] [place] [address] Care Team Providers Care Asset Liability Analyst Name Role Phone Slade Salas APN Unavailable [...] Providers Copied on Encounter [facility], [address] [place] [address], [address], [place] [facility] No Information 2 Maritza June. [address] [place] [address] Rd, [address], [place], [address], [place]. tel:[phone] [facility], [address] [place] [address], [address], [place] [facility] No Information 6 2 Nino Young. [address] [place] [address], [place] [address], [place], [address], [place]. tel:[phone] Referring Provider: Martin Bennett DO W, [address] [place] [address], [address]. tel:[phone] [facility], [address] [place] [address], [address], [place] [facility] No Information 2 Nino Young. [address] [place] [address], [place], [address], [place]. tel:[phone] Referring Provider: Hector Oneill, [address] [place] [address], [place], [address]. tel:[phone] [facility], [address] [place] [address], [address], [place] [facility] No Information 2 Lazaro Demetrio. [address] [place] [address], [place] [address], [place], [address], [place]. tel:[phone] Referring Provider: Martin SEARS, [address] [place] [address], [address]. tel:[phone] [facility], [address] [place] [address], [address], [place] [facility] No Information 1 2 Nino Young. [address] [place] [address], [place], [address], [place]. tel:[phone] Referring Provider: Hector Oneill, [address] [place] [address], [place], [address]. tel:[phone] [facility], [address] [place] [address], [address], [place] [facility] No Information 2 Nickolasse Hector. [address] [place] [address], [place], [address], [place]. tel:[phone] Referring Provider: Martin SEARS, [address] [place] [address], [facility]. tel:[phone] [facility], [address] [place] [address], [address], [place] [facility] No Information 2 Silvio Hollis. [address] [place] [address], [address], [place]. tel:[phone] Referring Provider: Bunny Anguiano, [address] [place] [address], [address]. tel:[phone] [facility], [address] [place] [address], [facility], [place] [facility] No Information 2 Angel Guerrero. [address] [place] [address], [address], [place]. tel:[phone] Referring Provider: Cesar Ortiz, [address] [place] [address], [address]. tel:[phone] [facility], [address] [place] [address], [address], [place] [facility] No Information 2 Furiasse Hector. [address] [place] [address], [address], [place]. tel:[phone] Referring Provider: Hector Oneill, [address] [place] [address] [address] [facility] [place], [place], [facility]. tel:[phone] [facility], [address] [place] [address], [address], [place] [facility] No Information 2 Nino Young. [address] [place] [address], [place] [address], [place], [place], [facility], . tel:[phone] Referring Provider: Hector Solorzanoelissa, [address] [place] [address] [address] [facility] [place], [place], [facility]. tel:[phone] [facility], [address] [place] [address], [address], [place] [facility] No Information 2 Carbonejerome Malone. [address] [place] [address], [place] [address], [place], [place], [facility], . tel:[phone] Referring Provider: Martin SEARS, [address] [place] [address], [facility]. tel:[phone] Family History Family Member Type Diagnosis Age At Onset No Information Payers Payer name Insurance type Covered constitution party ID Authoriza tion(s) [facility] Medicare Complete [id number] Social History Type Description Quantity Date [...]
[2025-02-23 11:04] LABS: Magnesium 1.7 mg/dL (1.6-2.3)
[2025-02-23 11:56] LABS: Add Urine Microscopic? YES; Appearance Urine Clear (Clear); Bacteria Urine None Seen /hpf; Bilirubin Urine Negative (Negative); Blood Urine 3+ (Negative); Color Urine Yellow (Yellow); Glucose Urine UA 3+ mg/dL (Negative); Ketones Urine Negative (Negative); Leukocyte Esterase Ur Negative LEU/UL (Negative); Need Manual Microscopic Reviewed; Nitrate Urine Negative (Negative); Non Pathogenic Casts 0-2; Protein Urine Negative (Negative); RBC Urine 21-50 /hpf (0-2); Specific Grav Ur 1.028 (1.001-1.035); Squamous Epithelial Cell Urine None Seen /hpf (Few); Urobilinogen Urine 0.2 mg/dL (<2.0); WBC Urine 0-5 /hpf (0-3); pH Urine 5.5 (5.0-9.0)
[2025-02-23] MEDS: AZITHROMYCIN 500 MG/NS 250 ML 500 MG/250 ML BAG 250 MG IVPB (14:23)
--- NOTE | 2025-02-23 15:14 | PM.IMHP ---
H&P: HPI History of Present Illness Date/Time: 02/23/25 15:14 Chief Complaint: Fever Narrative: 84 y/o F with PMH of recent XX, CHF, bipolar disorder, ELISSA on BiPAP, HTN, asthma, HLD, COPD with chronic respiratory failure on supplemental O2 at baseline (2L), and diabetes presents here with fever. HPI obtained through chart review, patient interview, and patient's family. The patient presents here from home for further evaluation of fever. The patient underwent a bilateral minimally invasive lumbar decompression of L3-4 and L4-5 with Des AGUILAR on 02/21. She developed a fever of 101.4? F this morning. Patient took [place] 5-3 8:51 p.m. prior to arrival, temp at arrival 99.7 orally. Fever is accompanied by dry cough and chills. She denies tenderness/erythema/drainage to her surgical site, chills, body aches, shortness of breath, congestion, rhinorrhea, chest pain, abdominal pain, nausea, vomiting, or diarrhea. Initial VS at presentation: 99.7? F, HR 99, R 21, 128/45, and 90% on 2L NC (baseline requirement). ED workup showed: No leukocytosis, hemoglobin 11.2 (11.7 on 02/14/2025), normal coags, potassium 3.2, creatinine 1.01 and GFR 52 (similar to previous on 02/14/2025), glucose 318, lactic 1.9, and UA showed 3+ glucose/3+ blood/21-50 RBC otherwise unremarkable, viral PCR negative. CXR showed retrocardiac opacification may represent atelectasis or pneumonia. CT lumbar spine showed soft tissue stranding in subcutaneous gas in the posterior soft tissues of the mid and lower lumbar spine consistent with recent surgery, no evidence of abscess and severe lumbar spondylosis. Review of Systems Review of Systems: All systems reviewed & are unremarkable except as noted in HPI and below PMFSH Past Medical History Medical History (Updated 02/23/25 @ 15:38 by Kassie Willingham APRN) CKD (chronic kidney disease) Chronic pain GERD (gastroesophageal reflux disease) Alternating constipation and diarrhea Rectal bleeding Dysphagia Schatzki's ring Combined systolic and diastolic congestive heart failure Esophageal stricture Obesity (BMI 30-39.9) Arthritis of both shoulder regions Basal cell carcinoma (BCC) in situ of skin Bipolar disorder Obstructive sleep apnea With BiPAP 14/10 Essential hypertension Pleural effusion Cellulitis of right ear Urinary incontinence Stress urinary incontinence Asthma PFTs October 2019 demonstrated mild obstructive ventilatory impairment with mild air trapping and moderate diffusion impairment no response to bronchodilator Ischemia Chronically false-positive stress test with last stress test 2006 Diverticulitis Cancer of skin (~08/20/12) Depression Hyperlipidemia Chronic obstructive pulmonary disease Patient reports history of asthma Insomnia Type 2 diabetes mellitus without complication, without long-term current use of insulin Surgical History Surgical History History of tonsillectomy Status post cataract extraction of both eyes with insertion of intraocular lens History of bladder suspension procedure X2 Hx of cardiac cath Hx of hysterectomy, total Family History Family History Son Hypertension Other Adopted Social History Social History Social History: She is . She lives in her own home alone. Her daughter brings her meals each day. She has 6 children. 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 Primary care physician: Dr. Debo Mckoy Code status: Full code (the patient would not want tracheostomy or G-tube) Healthcare power of resident care spec: Yulisa Solorio (daughter) Smoking status: Never smoker Second hand tobacco smoke exposure: No Alcohol intake: never Substance use: never Substance use type: does not use Do You Feel Safe in your Home?: Yes Lack of Transportation: No Lack of Food: Never True Current Housing: I Have Housing Concerned About Future Housing: No Difficulty Paying Gas/Electric Bills: No Difficulty Paying for Meds: No Currently Unemployed: No Education: Master's Degree or Higher Difficulty w/ Childcare or Family Care: No Living arrangements: alone Occupation/Education: retired Gender identity (if verbalized by the patient): Female Sexual Orientation (if Verbalized by the Patient): Straight or Heterosexual Spiritual care concerns: No Agree to blood products: Yes Meds Home Medications and Allergies Home Medications ?Medication ?Instructions ?Recorded ?Confirmed ?Type duloxetine 30 mg capsule,delayed 60 mg PO DAILY 10/14/19 02/23/25 History release (Cymbalta) liraglutide 0.6 mg/0.1 mL (18 mg/3 1.2 mg subcut HS 10/14/19 02/23/25 History mL) subcutaneous pen injector (Victoza 3-Parveen) trazodone 150 mg tablet 300 mg PO HS 10/18/19 02/23/25 History alprazolam 0.5 mg tablet 0.5 mg PO TID 10/04/20 02/23/25 History glipizide 10 mg tablet 10 mg PO DAILY #30 tabs 10/15/22 02/23/25 Rx umeclidinium 62.5 mcg-vilanterol 1 inh inhalation DAILY #60 ea 01/18/24 02/23/25 Rx 25 mcg/actuation powdr for inhalation (Anoro Ellipta) mirtazapine 30 mg tablet 30 mg PO DAILY 04/05/24 02/23/25 History miconazole nitrate 2 % topical 1 applic topical BID PRN Dry Skin 05/02/24 02/23/25 History cream (Antifungal (miconazole)) empagliflozin 10 mg tablet 10 mg PO DAILY #30 tabs 05/09/24 02/23/25 Rx (Jardiance) doxazosin 4 mg tablet 4 mg PO DAILY #90 tabs 07/07/24 02/23/25 Rx ezetimibe 10 mg tablet 10 mg PO DAILY #90 tabs 08/04/24 02/23/25 Rx spironolactone 25 mg tablet 12.5 mg (1/2 x 25 mg) PO DAILY #30 12/02/24 02/23/25 Rx tabs furosemide 40 mg tablet 40 mg PO DAILY #30 tabs 12/27/24 02/23/25 Rx qdxszhpc-wwpxeg-XV-thonzonm 3.3 1 applic EACH EAR Q4H #10 mL 12/28/24 02/23/25 Rx mg-3 mg-10 mg-0.5 mg/mL ear drops,susp (Cortisporin-TC) nystatin 100,000 unit/gram topical 1 applic topical BID #30 grams 12/28/24 02/23/25 Rx cream omeprazole 40 mg capsule,delayed See Rx Instructions .Route 12/28/24 02/23/25 Rx release .COMPLEX #60 caps metoprolol succinate 25 mg 50 mg PO QAM 01/11/25 02/23/25 History tablet,extended release 24 hr (Toprol XL) montelukast 10 mg tablet 10 mg PO QPM 01/11/25 02/23/25 History betamethasone dipropionate 0.05 % 1 applic topical DAILY PRN rash 01/28/25 02/23/25 Rx topical cream #45 grams diphenoxylate-atropine 2.5 1 tablet PO TID PRN diarrhea #30 02/13/25 02/23/25 Rx mg-0.025 mg tablet (Lomotil) tabs lidocaine 5 % topical patch 2 patch topical DAILY #30 ea 02/13/25 02/23/25 Rx cyclobenzaprine 10 mg tablet 10 mg PO TID PRN muscle spasm 7 02/21/25 02/23/25 Rx days #20 tabs hydrocodone 5 mg-acetaminophen 325 1 tablet PO Q4H PRN pain 7 days 02/21/25 02/23/25 Rx mg tablet #20 tabs Allergies Allergy/AdvReac Type Severity Reaction Status Date / Time codeine Allergy Unknown Not Verified 02/23/25 10:02 Entered,Upset Stomach,Not Entered,Upset Stomach Vital Signs Vital Signs - 24 hr 02/23/25 09:46 02/23/25 11:31 02/23/25 11:46 Temperature 99.7 F H Pulse Rate 99 76 74 Respiratory Rate 21 H 23 H 20 Blood Pressure 128/45 L 127/57 L 142/62 H Pulse Oximetry 90 95 95 Oxygen Delivery Nasal Cannula Oxygen Flow Rate 2 02/23/25 12:01 02/23/25 12:16 02/23/25 12:31 Temperature Pulse Rate 74 71 69 Respiratory Rate 20 19 22 H Blood Pressure 111/68 129/62 123/55 L Pulse Oximetry 97 96 Oxygen Delivery Oxygen Flow Rate 02/23/25 12:46 02/23/25 12:49 02/23/25 12:49 Temperature 99.3 F 99.3 F Pulse Rate 71 Respiratory Rate 18 Blood Pressure 128/66 Pulse Oximetry 96 Oxygen Delivery Oxygen Flow Rate 02/23/25 13:01 02/23/25 13:17 02/23/25 13:19 Temperature Pulse Rate 71 69 69 Respiratory Rate 16 21 H 20 Blood Pressure 129/56 L 51/27 L 123/51 L Pulse Oximetry 96 Oxygen Delivery Oxygen Flow Rate 02/23/25 13:32 02/23/25 13:46 02/23/25 14:01 Temperature Pulse Rate 70 68 69 Respiratory Rate 18 22 H 20 Blood Pressure 129/56 L 126/62 130/59 L Pulse Oximetry 96 96 Oxygen Delivery Oxygen Flow Rate 02/23/25 14:16 Temperature Pulse Rate 68 Respiratory Rate 19 Blood Pressure 139/68 Pulse Oximetry 97 Oxygen Delivery Oxygen Flow Rate Exam Const: General: comfortable and no acute distress Other: , female, obese body habitus, nontoxic appearance HENMT: Face/Nose/Sinus: Normal nares present Mouth: Yes moist mucous membranes Eyes: General: appearance normal, both eyes and all related structures Sclera: sclerae normal Pupils: Equal, round and reactive pupils present EOM: EOMs intact bilaterally Resp: Effort & Inspection: normal respiratory effort Auscultation: clear to auscultation bilaterally Cardio: Rate: regular rate Rhythm: regular rhythm Other: S1-S2 present without murmur, rub, ectopy GI: Other: Abdomen soft, nondistended, nontender. Normoactive bowel sounds in all quadrants. Skin: General skin exam: normal color and no rashes or lesions noted Other: Surgical site free of erythema or drainage. Bandage in place. Neuro: Speech: normal speech Motor exam (neuro): 5/5 motor strength present throughout Sensory Exam: normal sensation Other: A&O x4 Extrem: General: normal to inspection Psych: Mental Status: mental status grossly normal Affect: normal affect Other: Good insight and judgment, pleasant H&P: Results Labs Labs: Short CBC 02/23/25 Range/Units 10:03 WBC 9.5 (4.5-10.0) K/mm3 Hgb 11.2 L (12.0-15.0) g/dL Hct 36.1 L (37.0-47.0) % Plt Count 157 (150-375) k/mm3 BMP 02/23/25 10:03 Sodium 140 Potassium 3.2 L Chloride 97 L Carbon Dioxide 34 H BUN 17 Creatinine 1.01 H Glucose 318 H Calcium 8.0 L Liver Function 02/23/25 Range/Units 10:03 Total Bilirubin 0.3 (0.2-1.3) mg/dL AST 16 (14-36) U/L ALT 12 (6-35) U/L Alkaline Phosphatase 89 (38-126) U/L Albumin 4.0 (3.5-5.1) g/dL Urine 02/23/25 Range/Units 11:40 Urine Color Yellow (Yellow) Urine Appearance Clear (Clear) Urine pH 5.5 (5.0-9.0) Ur Specific [place] 1.028 (1.001-1.035) Urine Protein Negative (Negative) mg/dL Urine Glucose (UA) 3+ H (Negative) mg/dL Assessment and Plan Assessment and plan (1) Pneumonia: Qualifiers: Laterality: bilateral Lung location: lower lobe of lung Pneumonia type: due to unspecified organism Qualified Code(s): J18.9 - Pneumonia, unspecified organism Code(s): J18.9 - Pneumonia, unspecified organism Status: Acute Assessment and Plan: - CXR: retrocardiac opacification may represent atelectasis or pneumonia. - risk factors and complicating factors: recent spinal surgery, minimally invasive. history of COPD and chronic respiratory failure on supplemental O2. - started on HAP tx: Cefepime, vancomycin, azithromycin. - check MRSA PCR and sputum culture - Viral PCR negative - sputum culture - at baseline supplemental O2 requirement, 2L (2) Spinal stenosis, lumbar region with neurogenic claudication: Code(s): M48.062 - Spinal stenosis, lumbar region with neurogenic claudication Status: Chronic Assessment and Plan: - bilateral MILD (L3-4, L4-5) w/Des AGUILAR on 02/21/25 - CT lumbar spine: 1. Soft tissue stranding and subcutaneous gas in the posterior soft tissues of the mid and lower lumbar spine, consistent with recent surgery. No evidence for abscess. 2: Severe lumbar spondylosis. - analgesics p.r.n. 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 Hold Victoza (NF). - correct regimen ordered - high dose TIDWM, based off BMI - A1C 7.5% in July of 2024, update (4) CKD (chronic kidney disease): Code(s): N18.9 - Chronic kidney disease, unspecified Status: Chronic Assessment and Plan: - at baseline - trend renal function - trend electrolytes, correct as needed (5) Primary hypertension: Code(s): I10 - Essential (primary) hypertension Status: Chronic Assessment and Plan: - chronic - continue home medications: Metoprolol XL 50 daily - monitor (6) Obstructive sleep apnea: Code(s): G47.33 - Obstructive sleep apnea (adult) (pediatric) Status: Chronic Assessment and Plan: - continue home CPAP Plan Diet: Heart healthy GI Prophylaxis: Not currently indicated DVT Prophylaxis: SCDs Lines: Peripheral Code Status: Full code Quality VTE Prophylaxis VTE prophylaxis: mechanical ordered Hospitalist MIPS Advance Care Plan I have confirmed that the patient's Advanced Care Plan is present, code status is documented, or surrogate decision maker is listed in patient medical record.: Yes Medication Reconciliation I have utilized all available resources to obtain, update and review the patients current medications (includes all prescriptions, OTC, herbals, cannabis, and nutritional supplements).: Yes
--- NOTE | 2025-02-23 15:15 | ADMGEN ---
This patient, María Faith, was admitted to 3 Med Surg Room 306-01. Patient/family oriented to hospital policies and general routines including ID bracelet, bed and alarms, visiting hours, pain management, procedures, bathroom and other care routines, personal items, smoking policy, room service/diet, and visiting hours. Information on how to activate the Rapid Response Team has been discussed. Patient/Family are encouraged to report perceived risks to care and to ask questions if they do not understand what they are told or what they should do.
[2025-02-23] MEDS: HYDROcodone/acetaminophen (*CRX) 5-325 MG TABLET 1 TAB PO ×2 (15:21→20:11)
[2025-02-23] MEDS: VANCOMYCIN 2,000 MG/NS 500 ML 2,000 MG/500 ML BAG 250 MG IVPB (15:34)
[2025-02-23 16:53] LABS: Glucose Point of Care 131 mg/dl (65-105)
[2025-02-23 17:44] LABS: MRSA (PCR) NOT DETECTED (NOT DETECTE)
[2025-02-23] MEDS: CEFEPIME 2 GM/NS 50 ML 2 GM/50 ML BAG IVPB (18:46)
[2025-02-23] MEDS: CYCLOBENZAPRINE HCL 10 MG TABLET PO (20:11)
[2025-02-23 20:36] LABS: Glucose Point of Care 142 mg/dl (65-105)
[2025-02-23] MEDS: PANTOPRAZOLE 40 MG TABLET PO (21:37)
[2025-02-23] MEDS: MIRTAZAPINE 30 MG TABLET PO (21:37)
[2025-02-23] MEDS: guaiFENesin 12 HR 600 MG TABCR PO (21:37)
[2025-02-23] MEDS: traZODone HCL 50 MG TABLET 300 MG PO (21:38)
[2025-02-23] MEDS: MONTELUKAST SODIUM 10 MG TABLET PO (21:38)
[2025-02-23] MEDS: MICONAZOLE NITRATE 2% CREAM 30 GM TUBE 1 APPLIC TOPICAL (21:45)
[2025-02-24] VITALS (13 sets, daily range): BP systolic 123–143; BP diastolic 47–75; PULSE 68–106; RESP 18–20; TEMP 36.4–36.9; O2SAT 91–97
[2025-02-24 05:29] LABS: Basophils Absolute Auto 0.1 K/mm3 (0.0-0.1); Basophils Percent Auto 0.6 % (0.2-1.2); Eosinophils Absolute Auto 0.1 K/mm3 (0-0.3); Eosinophils Percent Auto 1.2 % (0-4.4); Hemoglobin 10.6 g/dL (12.0-15.0); Immature Granulocyte Absolute 0.08 K/mm3 (0.00-0.031); Immature Platelet Fraction Pct 4.1 % (0.9-11.2); Lymphocytes Percent Auto 13.4 % (18.3-44.2); Mean Corpuscular HGB Conc 30.3 g/dl (32-36); Mean Corpuscular Hemoglobin 31.2 pg (26-34); Mean Corpuscular Volume 102.9 fl (80-100); Monocytes Absolute Auto 0.7 K/mm3 (0.1-0.6); Monocytes Percent Auto 8.9 % (2.6-8.5); Neutrophils Absolute Auto 6.2 K/mm3 (1.3-6.7); Neutrophils Percent Auto 74.9 % (45.5-73.1); Platelet Count Result 128 k/mm3 (150-375); Red Cell Distribution Width 13.1 % (11.5-14.5); White Blood Count 8.2 K/mm3 (4.5-10.0)
[2025-02-24] MEDS: ONDANSETRON INJ 4 MG/2 ML VIAL IV PUSH (05:33)
[2025-02-24] MEDS: CEFEPIME 2 GM/NS 50 ML 2 GM/50 ML BAG IVPB ×2 (05:33→17:25)
[2025-02-24] MEDS: glipiZIDE 5 MG TABLET 10 MG PO (05:34)
[2025-02-24 05:39] LABS: Glucose Point of Care 249 mg/dl (65-105)
[2025-02-24 05:43] LABS: Alanine Aminotransferase 8 U/L (6-35); Albumin Level 3.7 g/dL (3.5-5.1); Alkaline Phosphatase 98 U/L (38-126); Anion Gap 11 mmol/L (4-12); Aspartate Amino Transferase 17 U/L (14-36); Bilirubin,Total 0.5 mg/dL (0.2-1.3); Blood Urea Nitrogen 16 mg/dL (7-17); Calcium 8.6 mg/dL (8.4-10.2); Carbon Dioxide 26 mmol/L (22-30); Chloride 105 mmol/L (98-107); Estimated CRCL calculation 44 ml/min; Estimated Glomerular Filt Rate > 60; Glucose 274 mg/dL (65-110); Potassium 4.2 mmol/L (3.4-5.0); Sodium 142 mmol/L (137-145)
[2025-02-24] MEDS: IPRATROPIUM 0.5 MG/ALBUTEROL SULFATE 2.5 MG AMPUL.NEB 3 ML INHALATION (05:54)
[2025-02-24 07:45] LABS: Glucose Point of Care 267 mg/dl (65-105)
[2025-02-24] MEDS: UMECLIDINIUM/VILANTEROL 62.5-25 MCG ELLIPTA 1 PUFF INHALATION (08:21)
[2025-02-24] MEDS: INSULIN ASPART (*BKC) 100 UNITS/ML SUB-Q ×3 (09:13→17:25)
[2025-02-24] MEDS: HYDROcodone/acetaminophen (*CRX) 5-325 MG TABLET 1 TAB PO ×3 (09:15→21:33)
[2025-02-24] MEDS: PANTOPRAZOLE 40 MG TABLET PO ×2 (09:16→20:43)
[2025-02-24] MEDS: DOXAZOSIN MESYLATE 4 MG TABLET PO (09:16)
[2025-02-24] MEDS: DULoxetine HCL 30 MG CAPSULE.DR 60 MG PO (09:17)
[2025-02-24] MEDS: EMPAGLIFLOZIN 10 MG TABLET PO (09:17)
[2025-02-24] MEDS: SPIRONOLACTONE 12.5 MG TABLET PO (09:18)
[2025-02-24] MEDS: FUROSEMIDE 40 MG TABLET PO (09:18)
[2025-02-24] MEDS: EZETIMIBE 10 MG TABLET PO (09:18)
[2025-02-24] MEDS: METOPROLOL SUCCINATE EXT REL 50 MG TABCR PO (09:18)
[2025-02-24] MEDS: guaiFENesin 12 HR 600 MG TABCR PO ×2 (09:18→20:43)
[2025-02-24] MEDS: MICONAZOLE NITRATE 2% CREAM 30 GM TUBE 1 APPLIC TOPICAL ×2 (09:19→20:43)
[2025-02-24] MEDS: LIDOCAINE 5% PATCH 2 PATCH TOPICAL (09:25)
[2025-02-24] MEDS: AZITHROMYCIN 250 MG TABLET PO (09:29)
[2025-02-24 11:55] LABS: Glucose Point of Care 311 mg/dl (65-105)
--- NOTE | 2025-02-24 12:30 | P.PNIM_ITS ---
Progress Note: A&P Assessment and Plan (1) Pneumonia: Qualifiers: Laterality: bilateral Lung location: lower lobe of lung Pneumonia type: due to unspecified organism Qualified Code(s): J18.9 - Pneumonia, unspecified organism Code(s): J18.9 - Pneumonia, unspecified organism Status: Acute Assessment and Plan: Patient presents with fever. CXR showing retrocardiac opacification may represent atelectasis or pneumonia. UA showing 3+ glucose, 3+ blood and 21-50 RBC (straight cath) Risk factors and complicating factors: recent spinal surgery, minimally invasive. history of COPD and chronic respiratory failure on supplemental O2. Viral PCR panel negative. Started on HAP tx: Cefepime, vancomycin, azithromycin. MRSA PCR negative. BCx NGTD. At 3L now. WeanO2 as tolerated. Stop Vanco. (2) Spinal stenosis, lumbar region with neurogenic claudication: Code(s): M48.062 - Spinal stenosis, lumbar region with neurogenic claudication Status: Chronic Assessment and Plan: Patient with chronic back pain. She underwent a bilateral MILD (L3-4, L4-5) lucila/Des MD on 02/21/25 CT lumbar spine on admission showing soft tissue stranding and subcutaneous gas in the posterior soft tissues of the mid and lower lumbar spine, consistent with recent surgery. No evidence for abscess. Analgesics p.r.n. 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 The patient's blood glucose was reviewed on 02/24 Glucose poorly controlled. Home meds resumed except for Victoza Continue AccuCheks covering with sliding scale. Hypoglycemia protocol available as needed. Continue to monitor. Add lantus at night (4) CKD (chronic kidney disease): Code(s): N18.9 - Chronic kidney disease, unspecified Status: Chronic Assessment and Plan: Cr stable and at baseline Trend renal function, electrolytes (5) Primary hypertension: Code(s): I10 - Essential (primary) hypertension Status: Chronic Assessment and Plan: Patient's blood pressure was reviewed on 02/24 Blood pressure remains well controlled. Will continue to monitor (6) Obstructive sleep apnea: Code(s): G47.33 - Obstructive sleep apnea (adult) (pediatric) Status: Chronic Assessment and Plan: Stable. Continue home CPAP Plan DVT Prophylaxis: SCDs Code Status: Full code Subjective Date/time seen: 02/24/25 12:30 Interval history: 84yo with hx of CHF, bipolar disorder, ELISSA on BiPAP, HTN, asthma, HLD, COPD with chronic respiratory failure (2L), and diabetes presents here with fever. She recently underwent bilateral Minimally Invasive Lumbar Decompression (MILD) at L3-4, L4-5 under fluoroscopic guidance on 02/21. Denies SOB but with mild cough. Has hx of esophageal stricture s/p dilation x2 with last one 6 months ago. She has issues tolerating water with regurgitation but able to tolerate other liquids. Solid food intake is intermittent. Exam Narrative: AF 98.3 143/75 78 18 92% 3L Gen - NARD lying semi-recumbent in bed Chest - bibasilar inspiratory crackles. CV - RRR S1/S2 Abd - Soft, NT/ND, Positive BS Ext - No pedal edema Neuro - normal strength UE/LE. No LE hyperreflexia Psych - Nml mood and affect Skin - Warm and dry Objective Data Vital Signs Vital Signs: Vital Signs - 24 hr 02/23/25 12:31 02/23/25 12:46 02/23/25 12:49 Temperature 99.3 F Pulse Rate 69 71 Respiratory Rate 22 H 18 Blood Pressure 123/55 L 128/66 Pulse Oximetry 96 96 Oxygen Delivery Oxygen Flow Rate Fraction of Inspired Oxygen 02/23/25 12:49 02/23/25 13:01 02/23/25 13:17 Temperature 99.3 F Pulse Rate 71 69 Respiratory Rate 16 21 H Blood Pressure 129/56 L 51/27 L Pulse Oximetry 96 Oxygen Delivery Oxygen Flow Rate Fraction of Inspired Oxygen 02/23/25 13:19 02/23/25 13:32 02/23/25 13:46 Temperature Pulse Rate 69 70 68 Respiratory Rate 20 18 22 H Blood Pressure 123/51 L 129/56 L 126/62 Pulse Oximetry 96 Oxygen Delivery Oxygen Flow Rate Fraction of Inspired Oxygen 02/23/25 14:01 02/23/25 14:16 02/23/25 15:20 Temperature 98.6 F Pulse Rate 69 68 78 Respiratory Rate 20 19 18 Blood Pressure 130/59 L 139/68 115/43 L Pulse Oximetry 96 97 92 Oxygen Delivery Oxygen Flow Rate Fraction of Inspired Oxygen 02/23/25 16:21 02/23/25 20:42 02/23/25 21:02 Temperature 98.8 F Pulse Rate 66 Respiratory Rate 20 Blood Pressure 157/61 H Pulse Oximetry 94 95 94 Oxygen Delivery Nasal Cannula Nasal Cannula Oxygen Flow Rate 2 2 Fraction of Inspired Oxygen 02/23/25 23:00 02/24/25 01:59 02/24/25 05:00 Temperature Pulse Rate Respiratory Rate Blood Pressure Pulse Oximetry 93 94 92 Oxygen Delivery Autopap Autopap Nasal Cannula Oxygen Flow Rate 3 Fraction of Inspired Oxygen 02/24/25 05:45 02/24/25 05:52 02/24/25 05:58 Temperature 98.3 F Pulse Rate 106 H 91 Respiratory Rate 19 18 Blood Pressure 143/75 H Pulse Oximetry 92 91 Oxygen Delivery Nasal Cannula Oxygen Flow Rate 3 Fraction of Inspired Oxygen 32 02/24/25 06:08 02/24/25 08:00 02/24/25 08:21 Temperature Pulse Rate 91 Respiratory Rate 18 Blood Pressure Pulse Oximetry 92 92 Oxygen Delivery Nasal Cannula Nasal Cannula Oxygen Flow Rate 3 3 Fraction of Inspired Oxygen 02/24/25 08:21 02/24/25 09:18 02/24/25 10:10 Temperature Pulse Rate 80 78 Respiratory Rate 18 Blood Pressure Pulse Oximetry Oxygen Delivery Nasal Cannula Oxygen Flow Rate 3 Fraction of Inspired Oxygen Intake/Output Intake/Output: Intake & Output 02/21/25 02/22/25 02/23/25 02/24/25 23:59 23:59 23:59 23:59 Intake Total 1640 320 Output Total 200 650 Balance 1440 -330 Meds/Results Medications: Active Medications Generic Name Dose Route Start Last Admin Trade Name Freq PRN Reason Stop Dose Admin Acetaminophen 650 mg 02/23/25 13:21 Acetaminophen 325 Mg Tablet PO Q4H PRN Mild Pain (1-3) or Fever Hydrocodone Bitart/Acetaminophen 1 tab 02/23/25 15:13 02/24/25 09:15 Hydrocodone/Acetaminophen (*Crx) 5-325 Mg Tablet PO 1 tab Q4H PRN Administration Pain Rated 4-6 Albuterol/Ipratropium 3 ml 02/23/25 15:31 02/24/25 05:54 Ipratropium 0.5 Mg/Albuterol Sulfate 2.5 Mg Ampul.Neb 3 Ml INHALATION 3 ml Q6HRT PRN Administration Shortness Of Breath Or Wheezing Alprazolam 0.5 mg 02/23/25 16:58 Alprazolam (*Crx) 0.5 Mg Tablet PO TID PRN anxiety Azithromycin 250 mg 02/24/25 09:00 02/24/25 09:29 Azithromycin 250 Mg Tablet PO 02/27/25 09:01 250 mg DAILY DONAVAN Administration Benzonatate 100 mg 02/23/25 15:31 Benzonatate 100 Mg Capsule PO TID PRN cough Cyclobenzaprine HCl 10 mg 02/23/25 15:35 02/23/25 20:11 Cyclobenzaprine Hcl 10 Mg Tablet PO 10 mg TID PRN Administration muscle spasm Dextrose 12.5 gm 02/23/25 13:21 Dextrose 50% 25 Gm/50 Ml Syringe IV PUSH PRN PRN Hypoglycemia Protocol Diphenoxylate HCl/Atropine 1 tablet 02/23/25 15:35 Diphenoxylate/Atropine (*Crx) 2.5 Mg Tablet PO TID PRN diarrhea Doxazosin Mesylate 4 mg 02/24/25 09:00 02/24/25 09:16 Doxazosin Mesylate 4 Mg Tablet PO 4 mg DAILY DONAVAN Administration Duloxetine HCl 60 mg 02/24/25 09:00 02/24/25 09:17 Duloxetine Hcl 30 Mg Capsule.Dr PO 60 mg DAILY DONAVAN Administration Ezetimibe 10 mg 02/24/25 09:00 02/24/25 09:18 Ezetimibe 10 Mg Tablet PO 10 mg DAILY DONAVAN Administration Empagliflozin 10 mg 02/24/25 09:00 02/24/25 09:17 Empagliflozin 10 Mg Tablet PO 10 mg DAILY DONAVAN Administration Furosemide 40 mg 02/24/25 09:00 02/24/25 09:18 Furosemide 40 Mg Tablet PO 40 mg DAILY DONAVAN Administration Glipizide 10 mg 02/24/25 06:30 02/24/25 05:34 Glipizide 5 Mg Tablet PO 10 mg DAILY@0630 DONAVAN Administration Glucagon 1 mg 02/23/25 13:21 Glucagon For Inj 1 Mg Vial IM PRN PRN Hypoglycemia Protocol Glucose 15 gm 02/23/25 13:21 Glucose Oral Gel 15 Gm Of Glucse In 37.5 Gm Tube PO PRN PRN Hypoglycemia Protocol Guaifenesin 600 mg 02/23/25 21:00 02/24/25 09:18 Guaifenesin 12 Hr 600 Mg Tabcr PO 600 mg Q12HR DONAVAN Administration Dextrose 1,000 mls @ 100 mls/hr 02/23/25 13:21 Dextrose 5% 1,000 Ml IVPB PRN PRN Hypoglycemia Protocol Cefepime HCl 2 gm in 50 mls @ 100 mls/hr 02/23/25 18:00 02/24/25 05:33 Maxipime 2 Gm/Ns 50 Ml IVPB 100 mls/hr Q12H DONAVAN Administration Insulin Aspart 4 - 8 units 02/23/25 17:00 02/24/25 12:00 Insulin Aspart (*Bkc) 100 Units/Ml SUB-Q 6 units TIDWM DONAVAN Administration Protocol Lidocaine 2 patch 02/24/25 09:00 02/24/25 09:25 Lidocaine 5% Patch TOPICAL 2 patch DAILY DONAVAN Administration Metoprolol Succinate 50 mg 02/24/25 09:00 02/24/25 09:18 Metoprolol Succinate Ext Rel 50 Mg Tabcr PO 50 mg QAM DONAVAN Administration Miconazole Nitrate 1 applic 02/23/25 21:00 02/24/25 09:19 Miconazole Nitrate 2% Cream 30 Gm Tube TOPICAL 1 applic Q12HR DONAVAN Administration Mirtazapine 30 mg 02/23/25 21:00 02/23/25 21:37 Mirtazapine 30 Mg Tablet PO 30 mg QHS DONAVAN Administration Montelukast Sodium 10 mg 02/23/25 21:00 02/23/25 21:38 Montelukast Sodium 10 Mg Tablet PO 10 mg QHS DONAVAN Administration Pantoprazole Sodium 40 mg 02/23/25 21:00 02/24/25 09:16 Pantoprazole 40 Mg Tablet PO 40 mg Q12HR DONAVAN Administration Spironolactone 12.5 mg 02/24/25 09:00 02/24/25 09:18 Spironolactone 12.5 Mg Tablet PO 12.5 mg DAILY DONAVAN Administration Trazodone HCl 300 mg 02/23/25 21:00 02/23/25 21:38 Trazodone Hcl 50 Mg Tablet PO 300 mg HS DONAVAN Administration Triamcinolone Acetonide 1 applic 02/23/25 16:16 Triamcinolone Acet 0.1% Cream 15 Gm Tube TOPICAL DAILY PRN rash Umeclidinium/Vilanterol 1 puff 02/24/25 08:00 02/24/25 08:21 Umeclidinium/Vilanterol 62.5-25 Mcg Ellipta INHALATION 1 puff DAILYRT DONAVAN Administration Radiology Results: ITS Impressions Chest X-Ray 02/23/25 11:15 Impression: 1: Retrocardiac opacification may represent atelectasis or pneumonia. Lumbar Spine CT 02/23/25 11:18 IMPRESSION: 1. Soft tissue stranding and subcutaneous gas in the posterior soft tissues of the mid and lower lumbar spine, consistent with recent surgery. No evidence for abscess. 2: Severe lumbar spondylosis. Labs Labs: Laboratory Results - last 24 hr 02/23/25 02/23/25 02/23/25 16:29 16:50 20:27 WBC RBC Hgb Hct MCV MCH MCHC RDW Plt Count MPV Immature Gran % (Auto) Neut % (Auto) Lymph % (Auto) Bremer % (Auto) Eos % (Auto) Baso % (Auto) Lymph # (Auto) Bremer # (Auto) Eos # (Auto) Baso # (Auto) Abs Immat Gran (auto) Absolute Neuts (auto) Absolute Nucleated RBC Nucleated RBC % % Immature Plt Fraction Sodium Potassium Chloride Carbon Dioxide Anion Gap BUN Creatinine Estim Creat Clear Calc Estimated GFR Glucose POC Capillary Glucose 131 H 142 H Hemoglobin A1c Calcium Total Bilirubin AST ALT Alkaline Phosphatase Total Protein Albumin Nasal MRSA (PCR) Not detected 02/24/25 02/24/25 02/24/25 05:02 05:37 07:43 WBC 8.2 RBC 3.40 L Hgb 10.6 L Hct 35.0 L MCV 102.9 H MCH 31.2 MCHC 30.3 L RDW 13.1 Plt Count 128 L MPV 11.0 H Immature Gran % (Auto) 1.0 H Neut % (Auto) 74.9 H Lymph % (Auto) 13.4 L Bremer % (Auto) 8.9 H Eos % (Auto) 1.2 Baso % (Auto) 0.6 Lymph # (Auto) 1.10 Bremer # (Auto) 0.7 H Eos # (Auto) 0.1 Baso # (Auto) 0.1 Abs Immat Gran (auto) 0.08 H Absolute Neuts (auto) 6.2 Absolute Nucleated RBC 0.000 Nucleated RBC % 0.0 % Immature Plt Fraction 4.1 Sodium 142 Potassium 4.2 Chloride 105 Carbon Dioxide 26 Anion Gap 11 BUN 16 Creatinine 0.88 Estim Creat Clear Calc 44 Estimated GFR > 60 Glucose 274 H POC Capillary Glucose 249 H 267 H Hemoglobin A1c 7.0 H Calcium 8.6 Total Bilirubin 0.5 AST 17 ALT 8 Alkaline Phosphatase 98 Total Protein 7.0 Albumin 3.7 Nasal MRSA (PCR) 02/24/25 11:28 WBC RBC Hgb Hct MCV MCH MCHC RDW Plt Count MPV Immature Gran % (Auto) Neut % (Auto) Lymph % (Auto) Bremer % (Auto) Eos % (Auto) Baso % (Auto) Lymph # (Auto) Bremer # (Auto) Eos # (Auto) Baso # (Auto) Abs Immat Gran (auto) Absolute Neuts (auto) Absolute Nucleated RBC Nucleated RBC % % Immature Plt Fraction Sodium Potassium Chloride Carbon Dioxide Anion Gap BUN Creatinine Estim Creat Clear Calc Estimated GFR Glucose POC Capillary Glucose 311 H Hemoglobin A1c Calcium Total Bilirubin AST ALT Alkaline Phosphatase Total Protein Albumin Nasal MRSA (PCR)
--- NOTE | 2025-02-24 14:10 | PCSTNOTE ---
Please refer to the Bedside Swallow Evaluation in the EMR. Please note, silent aspiration cannot be ruled out at bedside.
[2025-02-24 16:15] LABS: Glucose Point of Care 245 mg/dl (65-105)
[2025-02-24] MEDS: traZODone HCL 50 MG TABLET 300 MG PO (20:42)
[2025-02-24] MEDS: MIRTAZAPINE 30 MG TABLET PO (20:43)
[2025-02-24] MEDS: MONTELUKAST SODIUM 10 MG TABLET PO (20:43)
[2025-02-24 20:46] LABS: Glucose Point of Care 119 mg/dl (65-105)
[2025-02-24] MEDS: CYCLOBENZAPRINE HCL 10 MG TABLET PO (21:34)
[2025-02-25 01:49] VITALS: PULSE 70; O2SAT 91
[2025-02-25 05:45] VITALS: BP 122/51; PULSE 66; RESP 18; TEMP 36.4; O2SAT 98
[2025-02-25 06:20] LABS: Basophils Absolute Auto 0.1 K/mm3 (0.0-0.1); Basophils Percent Auto 0.6 % (0.2-1.2); Eosinophils Absolute Auto 0.3 K/mm3 (0-0.3); Eosinophils Percent Auto 3.7 % (0-4.4); Hematocrit 31.7 % (37.0-47.0); Hemoglobin 9.8 g/dL (12.0-15.0); Immature Granulocyte Absolute 0.12 K/mm3 (0.00-0.031); Immature Granulocyte Percent A 1.4 % (0-0.5); Lymphocytes Absolute Auto 1.98 K/mm3 (0.9-3.2); Lymphocytes Percent Auto 23.2 % (18.3-44.2); Mean Corpuscular HGB Conc 30.9 g/dl (32-36); Mean Corpuscular Volume 100.3 fl (80-100); Mean Platelet Volume 10.3 fl (7.4-10.4); Monocytes Absolute Auto 0.8 K/mm3 (0.1-0.6); Monocytes Percent Auto 8.9 % (2.6-8.5); Neutrophils Absolute Auto 5.3 K/mm3 (1.3-6.7); Neutrophils Percent Auto 62.2 % (45.5-73.1); Platelet Count Result 167 k/mm3 (150-375); Red Blood Count 3.16 M/mm3 (4.2-5.4); Red Cell Distribution Width 12.7 % (11.5-14.5); White Blood Count 8.6 K/mm3 (4.5-10.0)
[2025-02-25 06:38] LABS: Anion Gap 8 mmol/L (4-12); Blood Urea Nitrogen 18 mg/dL (7-17); Calcium 8.4 mg/dL (8.4-10.2); Carbon Dioxide 34 mmol/L (22-30); Chloride 100 mmol/L (98-107); Estimated CRCL calculation 36 ml/min; Estimated Glomerular Filt Rate 48; Glucose 126 mg/dL (65-110); Potassium 3.5 mmol/L (3.4-5.0); Sodium 142 mmol/L (137-145)
[2025-02-25] MEDS: CEFEPIME 2 GM/NS 50 ML 2 GM/50 ML BAG IVPB (06:38)
[2025-02-25] MEDS: glipiZIDE 5 MG TABLET 10 MG PO (06:38)
[2025-02-25 07:44] VITALS: PULSE 75; RESP 16
[2025-02-25] MEDS: UMECLIDINIUM/VILANTEROL 62.5-25 MCG ELLIPTA 1 PUFF INHALATION (07:44)
[2025-02-25 08:08] LABS: Glucose Point of Care 125 mg/dl (65-105)
[2025-02-25] MEDS: HYDROcodone/acetaminophen (*CRX) 5-325 MG TABLET 1 TAB PO (09:46)
[2025-02-25 10:30] VITALS: O2SAT 95
[2025-02-25 10:46] VITALS: PULSE 75
[2025-02-25] MEDS: guaiFENesin 12 HR 600 MG TABCR PO (10:46)
[2025-02-25] MEDS: EZETIMIBE 10 MG TABLET PO (10:46)
[2025-02-25] MEDS: PANTOPRAZOLE 40 MG TABLET PO (10:46)
[2025-02-25] MEDS: AZITHROMYCIN 250 MG TABLET PO (10:46)
[2025-02-25] MEDS: DOXAZOSIN MESYLATE 4 MG TABLET PO (10:46)
[2025-02-25] MEDS: METOPROLOL SUCCINATE EXT REL 50 MG TABCR PO (10:46)
[2025-02-25] MEDS: DULoxetine HCL 30 MG CAPSULE.DR 60 MG PO (10:46)
[2025-02-25] MEDS: EMPAGLIFLOZIN 10 MG TABLET PO (10:47)
[2025-02-25] MEDS: SPIRONOLACTONE 12.5 MG TABLET PO (10:48)
[2025-02-25] MEDS: FUROSEMIDE 40 MG TABLET PO (10:49)
[2025-02-25] MEDS: MICONAZOLE NITRATE 2% CREAM 30 GM TUBE 1 APPLIC TOPICAL (10:49)
[2025-02-25] MEDS: LIDOCAINE 5% PATCH 2 PATCH TOPICAL (10:57)
[2025-02-25 11:58] LABS: Glucose Point of Care 215 mg/dl (65-105)
--- NOTE | 2025-02-25 13:06 | PM.DS ---
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: without group home use Diabetes mellitus complication status: with hyperglycemia Qualified Code(s): E11.65 - Type 2 diabetes mellitus with hyperglycemia Code(s): E11.9 - Type 2 diabetes mellitus without complications Status: Chronic (4) CKD (chronic kidney disease): Code(s): N18.9 - Chronic kidney disease, unspecified Status: Chronic (5) Primary hypertension: Code(s): I10 - Essential (primary) hypertension Status: Chronic (6) Obstructive sleep apnea: Code(s): G47.33 - Obstructive sleep apnea (adult) (pediatric) Status: Chronic DS: Summary Hospital Course Reason for hospitalization: 84yo with hx of CHF, bipolar disorder, ELISSA on BiPAP, HTN, asthma, HLD, COPD with chronic respiratory failure (2L), and diabetes presents here with fever. She recently underwent bilateral Minimally Invasive Lumbar Decompression (MILD) at L3-4, L4-5 under fluoroscopic guidance on 02/21. Please see H&P for details. Hospital Course: Patient presents with fever. CXR showing retrocardiac opacification may represent atelectasis or pneumonia. UA showing 3+ glucose, 3+ blood and 21-50 RBC (straight cath). Viral PCR panel negative. Started on HAP tx: Cefepime, vancomycin, azithromycin. MRSA PCR negative. BCx NGTD. Vancomycin stopped. Did need 3L at one point but able to be weaned back down to her baseline 2L. Patient with chronic back pain. She underwent a bilateral MILD (L3-4, L4-5) w/Des AGUILAR on 02/21/25. CT lumbar spine on admission showing soft tissue stranding and subcutaneous gas in the posterior soft tissues of the mid and lower lumbar spine, consistent with recent surgery. No evidence for abscess. Analgesics were available p.r.n. Supportive care. PT/OT ordered. Her other medical conditions of DM, CKD, HTN and ELISSA were addressed. PT recommended home health; discussed with career coordinator who will arrange. Discussed with dtr who stated people are at the patient's house frequently to help out but that the patient lives alone. She overall did well and was able to be discharged home on 02/25/25. Status at Discharge Cognitive/behavioral status at discharge: stable Time Spent with Patient Time attestation: Total time spent providing and/or coordinating discharge services: 34 minutes Time spent: Greater than 30 minutes Exam Narrative: AF 97.6 122/51 75 16 95% 2L Gen - NARD Chest - CTA bilaterally, nml RR CV - RRR S1/S2 Abd - Soft, NT/ND, Positive BS Ext - No pedal edema Psych - Nml mood and affect Skin - Warm and dry DS: Data Data Completed and Pending Labs on day of discharge: Labs from last 24 hours 02/25/25 02/25/25 02/25/25 11:48 07:52 06:05 WBC 8.6 RBC 3.16 L Hgb 9.8 L Hct 31.7 L MCV 100.3 H MCH 31.0 MCHC 30.9 L RDW 12.7 Plt Count 167 MPV 10.3 Immature Gran % (Auto) 1.4 H Neut % (Auto) 62.2 Lymph % (Auto) 23.2 Dawson % (Auto) 8.9 H Eos % (Auto) 3.7 Baso % (Auto) 0.6 Lymph # (Auto) 1.98 Dawson # (Auto) 0.8 H Eos # (Auto) 0.3 Baso # (Auto) 0.1 Abs Immat Gran (auto) 0.12 H Absolute Neuts (auto) 5.3 Absolute Nucleated RBC 0.000 Nucleated RBC % 0.0 Sodium Potassium Chloride Carbon Dioxide Anion Gap BUN Creatinine Estim Creat Clear Calc Estimated GFR Glucose POC Capillary Glucose 215 H 125 H Calcium 02/25/25 02/24/25 02/24/25 06:04 20:33 16:11 WBC RBC Hgb Hct MCV MCH MCHC RDW Plt Count MPV Immature Gran % (Auto) Neut % (Auto) Lymph % (Auto) Dawson % (Auto) Eos % (Auto) Baso % (Auto) Lymph # (Auto) Dawson # (Auto) Eos # (Auto) Baso # (Auto) Abs Immat Gran (auto) Absolute Neuts (auto) Absolute Nucleated RBC Nucleated RBC % Sodium 142 Potassium 3.5 Chloride 100 Carbon Dioxide 34 H Anion Gap 8 BUN 18 H Creatinine 1.09 H Estim Creat Clear Calc 36 Estimated GFR 48 L Glucose 126 H POC Capillary Glucose 119 H 245 H Calcium 8.4 Preliminary micro results at discharge 02/23/25 10:43 Blood Culture - Preliminary Blood 02/23/25 10:42 Blood Culture - Preliminary Blood Discharge Plan Discharge Attending physician on discharge: Sang Spencer Discharging Clinician: Sang Spencer Anticipated Discharge Date/Time: 02/25/25 13:16 Patient Disposition: Home, Self-Care Activity: as tolerated Diet: diabetic Discharge Instructions: Continue oxygen at all times at 2Liters/min Continue to wear BiPAP with naps and with sleep. Please check glucose before meals and before bed. Record and bring into your doctor for review. Check blood pressure 1 to 2 times a day. Record and bring into your doctor for review. Call your doctor if your blood pressure is greater than 180/110. Please complete your antibiotic course even if you are starting to feel well. Take precautions to avoid falls. Rise slowly from a lying or sitting position. Pause before standing or walking. Contact your doctor or call 911 and come to the Emergency Room if you have fevers or other worrisome symptoms. Avoid NSAIDs (ibuprofen, naproxen, Aleve). Tylenol is safe to take. Follow-up with your primary care provider in 1-2 weeks. Please call for appointment. Follow-up with Dr Cross at next scheduled appointment. Follow-up with your GI doctor in 3-4 weeks. Please call for an appointment Thank you for using [facility] for your health care needs. Patient Instructions: Antibiotic Form, Heart Failure (GEN) Patient Language: Polish Stand Alone Forms: General Discharge Information Follow-up/Referrals: Debo Mckoy MD [Primary Care Provider] - Call for Appointment Discharge Medications: New azithromycin [Zithromax] 250 mg Tablet 250 mg PO DAILY Qty: 2 0RF amoxicillin-pot clavulanate 875-125 mg tablet 1 tablet PO Q12H Qty: 9 0RF Continued nystatin 100,000 unit/gram cream 1 applic topical BID Qty: 30 4RF Rx Instructions: to vaginal area Cortisporin-TC 3.3-3-10-0.5 mg/mL drops,suspension 1 applic EACH EAR Q4H Qty: 10 0RF duloxetine [Cymbalta] 30 mg capsule,delayed release(DR/EC) 60 mg PO DAILY Victoza 3-Parveen 0.6 mg/0.1 mL (18 mg/3 mL) pen injector 1.2 mg SUB-Q HS trazodone 150 mg tablet 300 mg PO HS alprazolam 0.5 mg tablet 0.5 mg PO TID glipizide 10 mg tablet 10 mg PO DAILY Qty: 30 3RF lidocaine 5 % adhesive patch,medicated 2 patch topical DAILY Qty: 30 0RF Rx Instructions: leave on most painful area for up to 12 hrs miconazole nitrate [Antifungal (miconazole)] 2 % cream 1 applic topical BID PRN (Reason: Dry Skin) montelukast 10 mg tablet 10 mg PO QPM metoprolol succinate [Toprol XL] 25 mg Tablet Extended Release 24 Hr 50 mg PO QAM cyclobenzaprine 10 mg tablet 10 mg PO TID MDD 3 PRN (Reason: muscle spasm) 7 Days Qty: 20 0RF Rx Instructions: Take 1 tab p.o. t.i.d. as needed for muscle spasm hydrocodone-acetaminophen 5-325 mg tablet 1 tablet PO Q4H MDD 4 PRN (Reason: pain) 7 Days Qty: 20 0RF Rx Instructions: Take 1 tablet p.o. every 4-6 hours as needed for severe pain, maximum 4 per day. mirtazapine 30 mg tablet 30 mg PO DAILY Patient Comments: HS Anoro Ellipta 62.5-25 mcg/actuation blister with device 1 inh inhalation DAILY Qty: 60 5RF Jardiance 10 mg tablet 10 mg PO DAILY Qty: 30 3RF doxazosin 4 mg tablet 4 mg PO DAILY Qty: 90 3RF Rx Instructions: Take 1 tablet by mouth once daily ezetimibe 10 mg tablet 10 mg PO DAILY Qty: 90 2RF spironolactone 25 mg tablet 12.5 mg PO DAILY Qty: 30 3RF furosemide 40 mg tablet 40 mg PO DAILY Qty: 30 2RF omeprazole 40 mg capsule,delayed release(DR/EC) See Rx Instructions .ROUTE .COMPLEX Qty: 60 11RF Dose Instruction: Take 1 capsule by mouth twice daily Rx Instructions: Take 1 capsule by mouth twice daily betamethasone dipropionate 0.05 % cream 1 applic topical DAILY PRN (Reason: rash) Qty: 45 0RF Rx Instructions: to both ears diphenoxylate-atropine [Lomotil] 2.5-0.025 mg tablet 1 tablet PO TID PRN (Reason: diarrhea) Qty: 30 0RF Date of admission: 02/24/25 09:32 Primary Care Provider: Debo Mckoy Admitting Provider: Morris Urias Attending physician on admission: Morris Urias Condition: Stable Hospitalist MIPS Heart Failure (Exclusion) Patient has history of Heart Transplant or Left Ventricular Assistive Device?: No IF YES, STOP HERE Heart Failure (Qualifier) Patient has current or prior documentation of LVEF less than or equal to 40%, or mod/servere depressed LVSF?: No IF NO, STOP HERE
[2025-02-25] MEDS: INSULIN ASPART (*BKC) 100 UNITS/ML SUB-Q (13:21)
[2025-02-25 14:00] VITALS: BP 146/67; PULSE 65; RESP 18; TEMP 37; O2SAT 94
== END 2025-02-25 14:55 | disposition home or self-care (01) | DRG 205 ==
LOC: ANHED 13:27 → ANH3MEDSUR 14:56
PROVIDERS: Student in an Organized Health Care Education/Training Program; Admitting Provider General Practice; Emergency Provider Physician Assistant; PCP Family Medicine; Visit Provider Internal Medicine
DX: J95.89 Other postprocedural complications and disorders of respiratory system, not elsewhere classified (principal); J18.9 Pneumonia, unspecified organism; I13.0 Hypertensive heart and chronic kidney disease with heart failure and stage 1 through stage 4 chronic kidney disease, or unspecified chronic kidney disease; J44.0 Chronic obstructive pulmonary disease with (acute) lower respiratory infection; J96.11 Chronic respiratory failure with hypoxia; M48.062 Spinal stenosis, lumbar region with neurogenic claudication; E11.65 Type 2 diabetes mellitus with hyperglycemia; E11.22 Type 2 diabetes mellitus with diabetic chronic kidney disease; I50.9 Heart failure, unspecified; N18.9 Chronic kidney disease, unspecified; G47.33 Obstructive sleep apnea (adult) (pediatric); Z99.81 Dependence on supplemental oxygen; Z20.822 Contact with and (suspected) exposure to COVID-19
CPT/HCPCS: 36415; 71046; 72132; 80048; 80053; 81001; 82948; 83036; 83605; 83735; 85025; 85055; 85610; 85730; 87040; 87637; 87641; 92610; 94640; 96365; 96367; 96368; 96375; 97110; 97161; 97165; 97530; 99285; A9270; G0378; J0456; J0692; J0696; J1815; J2405; J3370; J7040; Q9967

== ENCOUNTER 2025-03-19 10:35 | Emergency (ER) | payer MEDICARE, SELFPAY ==
--- NOTE | ~2025-03-19 | CT_ITS ---
EXAMINATION: CT abdomen pelvis w con DATE: 03/19/2025 13:05 INDICATION: Left back pain TECHNIQUE: Computed tomography (CT) of the abdomen and pelvis was performed with 100 cc Omnipaque 350 intravenous contrast. The dose-length product was 1044.27 mGy-cm. Automated exposure control and ite rative reconstruction technique were employed. COMPARISON: 06/24/2023. FINDINGS: There is dependent atelectasis. Cardiomegaly. No significant pleural or pericardial effusio n. There is atherosclerosis of the aorta without aneurysm. There is a right extrarenal pelvis. There is a intermediate density right renal mass measuring 2.2 x 2.1 cm measuring 45 Hounsfield units of th is is not significantly changed compared with prior examination, likely a complicated cyst. There are nonobstructing right renal stones, largest measuring 1.4 cm. There is an extrarenal pelvis of the ri ght kidney versus parapelvic cysts. No hydronephrosis. The liver, spleen, pancreas, left adrenal gland and left kidney are unremarkable. Stable 2.6 x 1.5 cm right adrenal mass, likely benign. Nonobstructive bowel gas pattern. Colonic diverticulosis without evidence for diverticulitis. Moderate lower thoracic and severe lumbar spondylosis. IMPRESSION: 1. Nonobstructing right nephrolithiasis, largest stone measuring 1.4 cm. 2: Stable 2.6 cm right adrenal mass, likely benign adenoma. Reviewed, dictated and finalized at location A.
--- OUTSIDE RECORDS SUMMARY | 2025-03-19 10:38 | XMS_ITS | Clinical Summary ---
Author Organization [facility] [address] [facility] [place] Address [address] [place] [address] Care Team Providers Care Manufacturing Worker Name Role Phone Quan Starks MD Unavailable [phone] Debo Mckoy MD Primary Care Provider [phone] Allergies Active Allergy Reactions Criticality Noted Date Comments Codeine Medications traZODone (DESYREL) 150 mg tablet Take one by mouth one time per day at bedtime [address] (CYMBALTA) 30 mg capsule take 1 capsule by oral route 2 times every day 0 0 5 Active azelastine (ASTELIN) 137 mcg (0.1 %) nasal spray spray 2 spray by intranasal route 2 times every day in each nostril 0 spray 0 5 Active ALPRAZolam (XANAX) 0.5 mg tablet Take one by mouth three times per day as needed 0 0 8 Active dilTIAZem XR (dilTIAZem XR) 240 mg 24 hr capsule Take one by mouth one time per day 0 0 8 Active montelukast (SINGULAIR) 10 mg tablet Take 1 tablet (10 mg total) by mouth nightly Active mirtazapine (REMERON) 30 mg tablet Take 1 tablet (30 mg total) by mouth nightly 0 9 Active pen needle, diabetic 29 gauge x 1/2 needle Use to inject 1-4 times daily as directed 100 each 0 Active blood-glucose meter miscIndications:T ype 2 diabetes mellitus with hyperglycemia, without long-term current use of insulin ([facility]) One Touch Verio Use Daily to check blood glucose 1 each 1 Active lancets 31 gauge miscIndications:T ype 2 diabetes mellitus with hyperglycemia, without long-term current use of insulin ([facility]) One Touch Verio Use daily to check blood glucose 100 each 2 1 Active blood glucose diagnostic (glucose blood) stripIndications: Type 2 diabetes mellitus with hyperglycemia, without long-term current use of insulin ([facility]) One Touch Verio Use daily to check blood glucose 100 strip 2 1 Active albuterol HFA (PROVENTIL HFA,VENTOLIN HFA,PROAIR HFA) 90 mcg/actuation inhaler INHALE 1 TO 2 PUFFS BY MOUTH EVERY 4 TO 6 HOURS NEEDED FOR SHORTNESS OF BREATH FOR WHEEZING 2 Active Anoro Ellipta 62.5-25 mcg/actuation blister with device 1 puff daily 2 Active doxazosin (CARDURA) 4 mg tablet Take 1 tablet (4 mg total) by mouth daily 2 Active fluticasone propionate (FLONASE) 50 mcg/actuation nasal spray USE 1 TO 2 SPRAY(S) IN EACH NOSTRIL ONCE DAILY NEEDED 3 Active spironolactone (ALDACTONE) 25 mg tabletIndications :Hypertension associated with diabetes ([facility]) Take 1 tablet (25 mg total) by mouth daily 90 tablet 1 3 Active nystatin cream 3 Active pen needle, diabetic (BD Ultra-Fine Mini Pen Needle) 31 gauge x /16 needle USE WITH VICTOZA INJECTIONS ONCE DAILY. 100 each 3 4 Active citalopram (CeleXA) 40 mg tablet Take 1 tablet (40 mg total) by mouth daily Active ezetimibe (ZETIA) 10 mg tablet Take 1 tablet (10 mg total) by mouth daily 4 Active furosemide (LASIX) 40 mg tablet Take 1 tablet (40 mg total) by mouth daily 4 Active neomycin-polymyxi n-HC (CORTISPORIN) 3.5-10,000-1 mg/mL-unit/mL-% otic suspension INSTILL 4 DROPS INTO AFFECTED EAR(S) THREE TIMES DAILY Active omeprazole (PriLOSEC) 40 mg capsule Take 1 capsule (40 mg total) by mouth 2 (two) times a day 4 Active triamcinolone (KENALOG) 0.5 % cream APPLY TO THE AFFECTED AREA(S) TWICE DAILY 4 Active pravastatin (PRAVACHOL) 40 mg tabletIndications :Hyperlipidemia associated with type 2 diabetes mellitus (HCC) Take 1 tablet by mouth once daily 90 tablet 3 4 Active metoprolol XL (TOPROL-XL) 50 mg extended release tablet Take 1 tablet by mouth once daily 90 tablet 5 Active betamethasone dipropionate (DEL-BETA) 0.05 % cream 5 Active neomycin-polymyxi n-HC (CORTISPORIN) otic solution INSTILL 1 DROP EVERY 4 HOURS INTO EACH EAR 5 Active liraglutide (Victoza 2-Parveen) 0.6 mg/0.1 mL (18 mg/3 mL) injectionIndicati ons:type 2 diabetes mellitus Inject 1.2 mg under the skin daily Indications: type 2 diabetes mellitus INJECT 1.2 MG SUB-Q DAILY 18 mL 1 5 01/31/20 26 Active Jardiance 10 mg tabletIndications :type 2 diabetes mellitus Take 1 tablet (10 mg total) by mouth daily 90 tablet 1 5 Active glipiZIDE XL (GLUCOTROL XL) 10 mg 24 hr tabletIndications :Type 2 diabetes mellitus with hyperglycemia, without long-term current use of insulin (HCC) Take 1 tablet (10 mg total) by mouth daily 90 tablet 1 5 Active Active Problems Problem Noted Date Diagnosed Date PVC (premature ventricular contraction) 10/02/20 23 Cardiomyopathy 12/12/2022 Oxygen dependent 12/12/2022 Bradycardia 12/09/2018 Assessment & Plan (12/09/2018 9:30 AM EDUCATIONAL THERAPY TEACHER): With falls, Advised to go to the ER Hyperlipidemia associated with type 2 diabetes ami lindsey 07/13/2018 Assessment & Plan (01/30/2025 11:13 AM EDUCATIONAL THERAPY TEACHER): Chronic problem, currently taking pravastatin 40mg & zetia 10mg. Last lipid panel: 08/03/24 PYW=821, NS=804. Assessment & Plan (08/12/2024 11:28 AM CDT): Chronic problem, currently taking pravastatin 40mg & zetia 10mg. Last lipid panel: 12/30/22 LDL=43, WI=795. Had labs by PCP recently; release signed to get copy Assessment & Plan (04/14/2023 3:18 PM CDT): Chronic problem, Pravastatin 40mg daily has not been filled since 06/2022 (was 90 day supply). Refill sent today. Triglycerides now down to normal level also. No changes at this time. Assessment & Plan (12/11/2022 1:10 PM EDUCATIONAL THERAPY TEACHER): Chronic problem, Pravastatin 40mg daily. Triglycerides now down to normal level also. No changes at this time. Assessment & Plan (10/31/2021 12:33 PM EDUCATIONAL THERAPY TEACHER): High TG Continue Vascepa. Continue Pravachol Low fat diet. Assessment & Plan (01/10/2021 2:47 PM EDUCATIONAL THERAPY TEACHER): Goal of treatment , LDL cholesterol less [...] Vascepa Assessment & Plan (01/17/2020 3:09 PM EDUCATIONAL THERAPY TEACHER): With severe hypertriglyceridemia Low carb low fat [...] UNCNTRLD Assessment & Plan (01/30/2025 11:39 AM EDUCATIONAL THERAPY TEACHER): Chronic problem, stable A1c at 7.3%. Declines [...] daily DM eye exam June 2024 at [facility] [place]. Will send letter to get copy of [...] A1c. Assessment & Plan (12/11/2022 2:07 PM EDUCATIONAL THERAPY TEACHER): Chronic problem, fair control currently. No changes [...] Victoza Assessment & Plan (10/31/2021 12:35 PM EDUCATIONAL THERAPY TEACHER): Hba1c was Lab Results Component Value Date HGBA1C 7.3 % 10/31/2021 today, indicating acceptable DM control Goal Hba1c and blood glucose explained Diet and exercise , discussed Prevention and treatment of hyypoglcyemia discussed. Blood glucose monitoring : 1-2 X week Adjustment to oral medications: continue current Assessment & Plan (01/10/2021 2:50 PM EDUCATIONAL THERAPY TEACHER): Hba1c was Lab Results Component Value Date [...] Victoza Assessment & Plan (01/17/2020 3:09 PM EDUCATIONAL THERAPY TEACHER): Hba1c was Lab Results Component Value Date [...] daily Assessment & Plan (12/09/2018 9:30 AM EDUCATIONAL THERAPY TEACHER): Your Hba1c today was: Lab Results Component [...] a day. Go to the ER , [facility] , to be evaluated, for the [...] . Assessment & Plan (01/05/2018 11:21 AM EDUCATIONAL THERAPY TEACHER): Hba1c was 7.0 today, indicating Adequate DM control 1800 calorie, consistent carb diet recommended 30 min daily aerobic and resistance exercise recommended Prevention and treatment of hyypoglcyemia discussed. Blood glucose monitoring with fingers sticks 1-2 x day . Foot care was discussed. Hypertension associated with diabetes 04/15/2014 Overview (03/06/2017): HYPERTENSION NOS Assessment & Plan (01/30/2025 11:23 AM EDUCATIONAL THERAPY TEACHER): Chronic problem, well controlled on current metoprolol [...] time. Assessment & Plan (12/11/2022 1:58 PM EDUCATIONAL THERAPY TEACHER): Chronic problem, well controlled currently. No changes at this time. Assessment & Plan (10/31/2021 12:35 PM EDUCATIONAL THERAPY TEACHER): Uncontrolled Start Losartan Assessment & Plan (01/10/2021 2:48 PM EDUCATIONAL THERAPY TEACHER): Goal blood pressure is less than 140/85 [...] meds Assessment & Plan (01/05/2018 11:21 AM EDUCATIONAL THERAPY TEACHER): Goal blood pressure is less than 140/85 Low salt diet recommended Daily aerobic exercise Resolved Problems Problem Noted Date Diagnosed Date Resolved Date Hypercholesterolemia 04/15/2014 023 Overview (03/06/2017): Hypercholesteremia Encounters Date Type Department Care Team Description 01/30/2025 11:00 AM EDUCATIONAL THERAPY TEACHER Office Visit [facility] Diabetes and Endocrinology [address] [place] [phone] Kisha Selby, DYE WEIGHER Type 2 diabetes mellitus with hyperglycemia, without long-term current use of insulin (HCC) (Primary Dx); Hypertension associated with diabetes (HCC); Hyperlipidemia associated with type 2 diabetes mellitus (HCC) 01/25/2025 Telephone [facility] Diabetes and Endocrinology [address] [place] [phone] Tanya Dejesus MD request to pcp [...] on file Legal Sex Female 5:32 PM EDUCATIONAL THERAPY TEACHER Gender Identity Not on file Sexual Orientation Not on file Obstetrics History Last Filed Vital Signs Vital Sign Reading Time Taken Comments Blood Pressure 126/76 01/30/2025 10:56 AM EDUCATIONAL THERAPY TEACHER Pulse 70 01/30/2025 10:56 AM EDUCATIONAL THERAPY TEACHER Temperature - - Respiratory Rate 18 01/30/2025 10:56 AM EDUCATIONAL THERAPY TEACHER Oxygen Saturation 90% 10/03/2024 2:29 PM EDUCATIONAL THERAPY TEACHER Inhaled Oxygen Concentration - - Weight 83.5 kg (184 lb) 10/03/2024 2:29 PM EDUCATIONAL THERAPY TEACHER Height 157.5 cm (5' 2.01 ) 01/30/2025 10:[address] Body Mass Index 33.65 10/03/2024 2:29 PM EDUCATIONAL THERAPY TEACHER Plan of Treatment Health Maintenance Due Date [...] 10/31/2021, 01/10/2021, Additional history exists Covid-19 Vaccine (2023-2 5 season) 2024 02/15/2021, 01/25/2021 Influenza Vaccine [...] Comments POCT GLUCOSE Routine 01/30/2025 10:59 AM EDUCATIONAL THERAPY TEACHER Type 2 diabetes mellitus with hyperglycemia, without long-term current use of insulin (HCC) POCT HEMOGLOBIN A1C Routine 01/30/2025 1 0:59 AM EDUCATIONAL THERAPY TEACHER Type 2 diabetes mellitus with hyperglycemia, without [...] (ABNORMAL) POCT hemoglobin A1c (01/30/2025 10:59 AM EDUCATIONAL THERAPY TEACHER) Pathologist [facility] Hemoglobin A1C, POC 7.3 4.0 - 5.6 % Blood 01/30/2025 10:5 9 AM EDUCATIONAL THERAPY TEACHER us Kisha Selby NP POINT OF CARE TEST ORDERA BLES Final Result * (ABNORMAL) POCT glucose (01/30/2025 10:59 AM EDUCATIONAL THERAPY TEACHER) [facility] Glucose Blood, POC 213 mg/dL Blood 01/30/2025 10:5 9 AM EDUCATIONAL THERAPY TEACHER us Kisha Selby NP POINT OF CARE TEST ORDERA BLES Final Result * Albumin Creatinine Ratio, Urine (08/12/2024 1:27 PM CDT) [facility] Albumin Ur <12.0 mg/L Comment: Interpretive Data No reference range established. Current interpretive data was last revised 2019. Creatinine Ur 78.4 mg/dL VIJAY HERNANDEZ Comment: Interpretive Data No reference range established. Current interpretive data was last revised 2019. Albumin Creatinine Ratio, Ur <15 1 - 29 mg/g VIJAY HERNANDEZ Urine 08/12/2024 1:27 PM CDT 08/12/2024 8:37 PM CDT us Kisha Selby NP LAB URINE ORDERABLES Lucero l Result VIJAY HERNANDEZ [id number] Department [place] [address] * (ABNORMAL) Lipid panel (08/03/2024 10:50 AM CDT) [facility] SCRIBED Cholesterol, Total 204 <200 - NA EXTERNAL LAB SCRIBED HDL 50 >=50 - NA EXTERNAL LAB SCRIBED LDL 109 <100 - NA EXTERNAL LAB SCRIBED Triglycerides 339 <150 - NA EXTERNAL LAB Blood 08/03/2024 10:5 0 AM CDT Historical Provider LAB BLOOD ORDERABLES Edit ed Result - Final EXTERNAL LAB * (ABNORMAL) Comprehensive metabolic panel (08/03/2024 10:50 AM CDT) SCRIBED Sodium 144 135 - 146 mmol/L [...] Units/L EXTERNAL LAB SCRIBED eGFR in NonAfrican Andorran 45 >=60 - NA EXTERNAL LAB Blood 08/03/2024 10:5 0 AM CDT Historical Provider LAB BLOOD ORDERABLES Edit ed Result - Final EXTERNAL LAB * [facility] DIABETES EYE EXAM (05/05/2024 8:35 AM CDT) us Historical Provider HEALTH MAINTENANCE Edited Result - Final from Last 3 Months or Most Recently Relevant to Health Maintenance Insurance [facility] MEDICARE T MEDICARE Care Teams Manufacturing Worker Relationship Specialty Start Date End Date Debo Mckoy MD [address], [place] [id number] PCP - General Family Medicine 03/20/23 Quan Starks MD [address] [place] [address] Referring Physician Ophthalmology 01/06/23
--- OUTSIDE RECORDS SUMMARY | 2025-03-19 10:38 | XMS_ITS | Clinical Summary ---
Author Organization [facility] Address [address] [place] [address] Care Team Providers Care Specimen Preparation Assistant Name Role Phone Margarito Razo Primary Care Provider Allergies Active Allergy Reactions Criticality Noted Date [...] Problem Noted Date Diagnosed Date Chronic bronchitis ([facility]) 05/02/2021 Anxiety and depression 05/02/2021 Supplemental oxygen dependent 05/02/2021 ELISSA on CPAP 05/02/2021 Fall 05/01/2021 Bradycardia 12/09/2018 Overview (05/01/2021): Last Assessment & Plan: With falls, Advised to go to the ER Hyperlipidemia associated wi th type 2 diabetes mellitus ([facility]) 07/13/2018 Overview (05/01/2021): Last Assessment & Plan: [...] Pravachol and Vascepa Type 2 diabetes mellitus ([facility]) 04/15 Overview (05/01/2021): DMII WO CMP UNCNTRLD [...] Kidney Health Evaluation 1942 Hemoglobin A1C 1942 Diabetes: Retinopathy Eye Exam 1960 DTaP, Tdap and Td Vaccines ( 1 - Tdap) 1961 Pneumococcal Vaccine: 50+ Years (1 of 2 - PCV) 1961 Zoster Vaccines (1 of 2) 1992 Annual Medicare Wellness Visit 2007 Dexa Scan (General) 2007 RSV Immunization or 60+ Years (1 - 1-dose 75+ series) 2017 Lipid Panel 01/10/2022 01/10/2021 COVID-19 Vaccine (3 - 2023-2 5 season) 2024 02/15/2021, 01/25/2021 Meningococcal B Vaccine Aged Out No l [...] No Catherine Garcia, RN Insurance MED [facility]PLACE [facility] MEDICARE Advance Directives * Full Code (Latest Code Status on File) Date Activated Date Inactivated Comments 05/01/2021 5:20 PM 05/03/2021 7:29 PM Care Teams Specimen Preparation Assistant Relationship Specialty Start Date End Date Margarito Razo PA [address] [place] [address] PCP - General PHYSICIAN PASSENGER CAR CONDUCTOR 05/01/21
--- OUTSIDE RECORDS SUMMARY | 2025-03-19 10:38 | XMS_ITS | Referral Summary ---
Author Organization [address] Address [address] [place] [address] Care Team Providers Care Multiple Cut Off Saw Operator Name Role Phone Quan Starks MD Unavailable [phone] Debo Mckoy MD Primary Care Provider [phone] Encounters Date Type Department Care Team Description 01/30/2025 11:00 AM COILED TUBING SUPERVISOR Office Visit [facility] Diabetes and Endocrinology [address] [place] [phone] Kisha Selby NP Type 2 diabetes mellitus with hyperglycemia, without long-term current use of insulin (HCC) (Primary Dx); Hypertension associated with diabetes (HCC); Hyperlipidemia associated with type 2 diabetes mellitus (HCC) 01/25/2025 Telephone [facility] Diabetes and Endocrinology [address] [place] [phone] Tanya Dejesus MD request to pcp [...] hyperglycemia, without long-term current use of insulin ([facility]) One Touch Verio Use Daily to check blood glucose 1 each 1 Active lancets 31 gauge miscIndications:T ype 2 diabetes mellitus with hyperglycemia, without long-term current use of insulin ([facility]) One Touch Verio Use daily to check blood glucose 100 each 2 1 Active blood glucose diagnostic (glucose blood) stripIndications: Type 2 diabetes mellitus with hyperglycemia, without long-term current use of insulin ([facility]) One Touch Verio Use daily [...] 25 mg tabletIndications :Hypertension associated with diabetes (HCC) Take 1 tablet [...] 12/09/2018 Assessment & Plan (12/09/2018 9:30 AM COILED TUBING SUPERVISOR): With falls, Advised to go to the ER Hyperlipidemia associated with type 2 diabetes ami lindsey 07/13/2018 Assessment & Plan (01/30/2025 11:13 AM COILED TUBING SUPERVISOR): Chronic problem, currently taking pravastatin 40mg & zetia 10mg. Last lipid panel: 08/03/24 ILP=882, RE=255. Assessment & Plan (08/12/2024 11:28 AM CDT): Chronic problem, currently taking pravastatin 40mg & zetia 10mg. Last lipid panel: 12/30/22 LDL=43, AX=558. Had labs by PCP recently; release signed to get copy Assessment & Plan (04/14/2023 3:18 PM CDT): Chronic problem, Pravastatin 40mg daily has not been filled since 06/2022 (was 90 day supply). Refill sent today. Triglycerides now down to normal level also. No changes at this time. Assessment & Plan (12/11/2022 1:10 PM COILED TUBING SUPERVISOR): Chronic problem, Pravastatin 40mg daily. Triglycerides now down to normal level also. No changes at this time. Assessment & Plan (10/31/2021 12:33 PM COILED TUBING SUPERVISOR): High TG Continue Vascepa. Continue Pravachol Low fat diet. Assessment & Plan (01/10/2021 2:47 PM COILED TUBING SUPERVISOR): Goal of treatment , LDL cholesterol less [...] Vascepa Assessment & Plan (01/17/2020 3:09 PM COILED TUBING SUPERVISOR): With severe hypertriglyceridemia Low carb low fat [...] UNCNTRLD Assessment & Plan (01/30/2025 11:39 AM COILED TUBING SUPERVISOR): Chronic problem, stable A1c at 7.3%. Declines [...] daily DM eye exam June 2024 at [facility]. Will send letter to get copy [...] A1c. Assessment & Plan (12/11/2022 2:07 PM COILED TUBING SUPERVISOR): Chronic problem, fair control currently. No changes [...] Victoza Assessment & Plan (10/31/2021 12:35 PM COILED TUBING SUPERVISOR): Hba1c was Lab Results Component Value Date HGBA1C 7.3 % 10/31/2021 today, indicating acceptable DM control Goal Hba1c and blood glucose explained Diet and exercise , discussed Prevention and treatment of hyypoglcyemia discussed. Blood glucose monitoring : 1-2 X week Adjustment to oral medications: continue current Assessment & Plan (01/10/2021 2:50 PM COILED TUBING SUPERVISOR): Hba1c was Lab Results Component Value Date [...] Victoza Assessment & Plan (01/17/2020 3:09 PM COILED TUBING SUPERVISOR): Hba1c was Lab Results Component Value Date [...] daily Assessment & Plan (12/09/2018 9:30 AM COILED TUBING SUPERVISOR): Your Hba1c today was: Lab Results Component [...] a day. Go to the ER , [facility] , to be evaluated, for the [...] . Assessment & Plan (01/05/2018 11:21 AM COILED TUBING SUPERVISOR): Hba1c was 7.0 today, indicating Adequate DM control 1800 calorie, consistent carb diet recommended 30 min daily aerobic and resistance exercise recommended Prevention and treatment of hyypoglcyemia discussed. Blood glucose monitoring with fingers sticks 1-2 x day . Foot care was discussed. Hypertension associated with diabetes 04/15/2014 Overview (03/06/2017): HYPERTENSION NOS Assessment & Plan (01/30/2025 11:23 AM COILED TUBING SUPERVISOR): Chronic problem, well controlled on current metoprolol [...] time. Assessment & Plan (12/11/2022 1:58 PM COILED TUBING SUPERVISOR): Chronic problem, well controlled currently. No changes at this time. Assessment & Plan (10/31/2021 12:35 PM COILED TUBING SUPERVISOR): Uncontrolled Start Losartan Assessment & Plan (01/10/2021 2:48 PM COILED TUBING SUPERVISOR): Goal blood pressure is less than 140/85 [...] meds Assessment & Plan (01/05/2018 11:21 AM COILED TUBING SUPERVISOR): Goal blood pressure is less than 140/85 [...] on file Legal Sex Female 5:32 PM COILED TUBING SUPERVISOR Gender Identity Not on file Sexual Orientation Not on file Last Filed Vital Signs Vital Sign Reading Time Taken Comments Blood Pressure 126/76 01/30/2025 10:56 AM COILED TUBING SUPERVISOR Pulse 70 01/30/2025 10:56 AM COILED TUBING SUPERVISOR Temperature - - Respiratory Rate 18 01/30/2025 10:56 AM COILED TUBING SUPERVISOR Oxygen Saturation 90% 10/03/2024 2:29 PM COILED TUBING SUPERVISOR Inhaled Oxygen Concentration - - Weight 83.5 kg (184 lb) 10/03/2024 2:29 PM COILED TUBING SUPERVISOR Height 157.5 cm (5' 2.01 ) 01/30/2025 10:[address] Body Mass Index 33.65 10/03/2024 2:29 PM COILED TUBING SUPERVISOR Plan of Treatment Not on file Procedures Procedure Name Priority Date/Time Associated Diagnosis Comments POCT GLUCOSE Routine 01/30/2025 10:59 AM COILED TUBING SUPERVISOR Type 2 diabetes mellitus with hyperglycemia, without long-term current use of insulin (HCC) POCT HEMOGLOBIN A1C Routine 01/30/2025 1 0:59 AM COILED TUBING SUPERVISOR Type 2 diabetes mellitus with hyperglycemia, without [...] (ABNORMAL) POCT hemoglobin A1c (01/30/2025 10:59 AM COILED TUBING SUPERVISOR) Hemoglobin A1C, POC 7.3 4.0 - 5.6 % Blood 01/30/2025 10:5 9 AM COILED TUBING SUPERVISOR us Kishacarolyn Selby ATTENDING AMBULATORY CARE POINT OF CARE TEST ORDERA BLES Final Result * (ABNORMAL) POCT glucose (01/30/2025 10:59 AM COILED TUBING SUPERVISOR) Glucose Blood, POC 213 mg/dL Blood 01/30/2025 10:5 9 AM COILED TUBING SUPERVISOR us Kisha Selby NP POINT OF CARE TEST ORDERA BLES Final Result * Albumin Creatinine Ratio, Urine (08/12/2024 1:27 PM CDT) Albumin Ur <12.0 mg/L Comment: Interpretive Data No reference range established. Current interpretive data was last revised 2019. Creatinine Ur 78.4 mg/dL VIJAY Comment: Interpretive Data No reference range established. Current interpretive data was last revised 2019. Albumin Creatinine Ratio, Ur <15 1 - 29 mg/g VIJAY HERNANDEZ Urine 08/12/2024 1:27 PM CDT 08/12/2024 8:37 PM CDT us Kisha Selby NP LAB URINE ORDERABLES Lucero l Result VIJAY [id number] Department [place] [address] * (ABNORMAL) Lipid panel (08/03/2024 10:50 AM CDT) SCRIBED Cholesterol, Total 204 <200 - NA EXTERNAL LAB SCRIBED HDL 50 >=50 - NA EXTERNAL LAB SCRIBED LDL 109 <100 - NA EXTERNAL LAB SCRIBED Triglycerides 339 <150 - NA EXTERNAL LAB Blood 08/03/2024 10:5 0 AM CDT Historical Provider MD LAB BLOOD ORDERABLES Edit ed Result - [...] Units/L EXTERNAL LAB SCRIBED eGFR in NonAfrican Malawian 45 >=60 - NA EXTERNAL LAB Blood 08/03/2024 10:5 0 AM CDT Historical Provider LAB BLOOD ORDERABLES Edit ed Result - Final EXTERNAL LAB * DIABETES EYE EXAM (05/05/2024 8:35 AM CDT) us Historical Provider HEALTH MAINTENANCE Edited Result - Final from Last 3 Months or Most Recently Relevant to Health Maintenance Insurance [facility] MEDICARE [employer] MEDICARE Care Teams Multiple Cut Off Saw Operator Relationship Specialty Start Date End Date Debo Mckyo MD [address] [place] [address] PCP - General Family Medicine 03/20/23 Quan Starks MD [address] [place] [address] Referring Physician Ophthalmology 01/06/23
--- OUTSIDE RECORDS SUMMARY | 2025-03-19 10:38 | XMS_ITS | Data Portability ---
Author Organization [place] - [facility], [place] - [facility] - OP Address [address] [place] [address] Care Team Providers Care Director Of Home Health Services Name Role Phone VERA GERARD Primary Care Provider Assessment No assessment recorded. Plan of Treatment Reminders Order Date Submit Date Provider Last Modified By Organization Details Last Modified Time Details Appointments None recorded. Lab influenza virus A + B and SARS CoV 2 (COVID-19) and RSV RNA panel, MYLENE+probe, respiratory specimen 2021 022 BUD [place] [facility], [address] , [place], [address], 2 13:09:12 Referral critical access hospital referral - Patient Is staying with daughter in [place]: [address] [facility] [address] Please call patient's daughter, Sara, at to schedule 2022 023 BUD Esteban Formerly Named [facility], [address], [place], [address], 3 16:19:59 Procedures None recorded. Surgeries None recorded. Imaging None recorded. Medication Orders neomycin-po lymyxin-hyd rocort 3.5 mg-10,000 unit/mL-1 % ear drops,susp 2022 023 [facility], [address], [place], [address], 3 11:16:45 Zithromax Z-Parveen 250 mg tablet 2021 [email or web address] 92 [facility] [address], [address] [place] [address], [address], 3 08:46:29 prednisone 20 mg tablet 2021 [email or web address] 92 [facility] [address], [address] [place] [address], [address], 3 08:44:18 losartan 100 mg tablet 2021 [facility] [address], [address] [place] [address], [address], 2 15:06:07 Patient TargetsNo targets recorded. Patient Instructions Encounter Date Encounter Id Patient Instructions Last Modified By Organization Details Last Modified Time 09/26/2022 [id number] discussed arranging care and consults at home and transition back to home ostenm Not available 09/26/2022 16:38:46 Reason for Referral Home Health Referral for Chr onic low back pain chronic low back pain and bilateral LE muscle weakness, fall risk Patient Is staying with daughter in [place]: [address] [facility] [address] Please call patient's daughter, Sara, at [phone] to schedule Referring Physician: Tonya Metcalf, Family [...] or revok ed soone r. Not Available [address] [place], [address], 11/29/2022 13:09:11 11/28/20 22 11/28/2022 COVID 19, FLU A/B, RSV PANEL BY PCR influenzae A by PCR NOT DETECT ED Not Available [place] [address] [place], [address], 11/29/2022 13:09:11 11/28/20 22 11/28/2022 COVID 19, FLU A/B, RSV PANEL BY PCR influenzae B by PCR NOT DETECT ED Not Available [place] [address], [place], [address], 11/29/2022 13:09:11 11/28/20 22 11/28/2022 COVID 19, FLU A/B, RSV PANEL BY PCR RSV by PCR NOT DETECT ED Not Available [facility] [address] [place], [address], 11/29/2022 13:09:11 11/28/20 22 11/28/2022 COVID 19, FLU A/B, RSV PANEL BY PCR covid 19 by PCR NOT DETECT ED PERFO RMED BY[facility], [address] [facility] [place] [address] [phone] Not Available [facility] [address] [place], [address], 11/29/2022 13:09:11 Result Notes None recorded. Problems Name Problem SNOMED Code Status Onset Date Resolution Date Notes Provider Name and Address Organization Details Recorded Time Chronic obstructive pulmonary disease 27485751 Active 2021 Gerard Biggs MD [address], [facility], [address] , [place] [facility] 2 14:49:35 Congestive heart failure 55788172 Active 2021 Gerard Biggs MD [address], [place], [address] , [place] [facility] 2 14:49:36 Type 2 diabetes mellitus without complication 621662730 Active 2021 Gerard Biggs MD [address], [place], [address] , [place] [facility] 2 14:49:36 Sleep apnea 65788512 Active 2021 Gerard Biggs MD [address], [place], [address] , [place] [facility] 2 14:49:37 Problem Notes None recorded. Procedures Surgical History Date Name Laterality Status Provider Name and Address Organization Details Recorded Time None completed Ashley Tello [facility] 10/27/2023 10:52:45 Imaging Results None recorded. Procedure Notes None recorded. Medical Equipment None Reported. Allergies Allergen ID Allergen Name Allergen Category Reaction Reaction Severity Criticality Documentation Date Start Date Code Code System Note Provider Name and Address Organization Details Recorded Time 303813 codeine medicatio n other severe Not available 09/26/2022 1340 RxNorm upset stoma ch Surilem Timmy null, [facility] 14:28:31 Medications Name Sig Start Date Stop [...] Address Organization Details Last Updated DateTime 2 74259.0 7 g 98.1 [degF] 53 /min 96 % 96 % 118 mm[Hg] 60 mm[Hg] [facility] 2 14:32:33 Date Recorded Body temperature Oxygen saturation Oxygen saturation in Arterial blood by Pulse oximetry Body weight Systolic blood pressure Diastolic blood pressure Provider Name and Address Organization Details Last Updated DateTime 2 97.8 [degF] 96 % 96 % 55042.1 3 g 108 mm[Hg] 60 mm[Hg] [facility] 2 14:42:25 Date Recorded Body weight Body mass index (BMI) Body height Body temperature Heart rate Systolic blood pressure Diastolic blood pressure Provider Name and Address Organization Details Last Updated DateTime 3 29669 g 29.7 kg/m2 167.64 cm 98.2 [degF] 49 /min 160 mm[Hg] 70 mm[Hg] Ashley Tello [facility] 3 11:05:17 Date Recorded Oxygen saturation Oxygen saturation in Arterial blood by Pulse oximetry Inhaled oxygen flow rate Systolic blood pressure Diastolic blood pressure Provider Name and Address Organization Details Last Updated DateTime 3 93 % 93 % 3 L/min 138 mm[Hg] 60 mm[Hg] INEZ Leiva [address] [facility],[address], [place], [address] , [facility] 3 11:18:55 Social History Question Answer Notes LastModified by Organizat ion Details LastModified Time Tobacco Smoking Status Never Smoker Ashley Tello [facility] 10/27/2023 10:58:39 What Is Your Level Of Alcohol Consumption? None [email or web address] Information not available 10/27/2023 What Is Your Level Of Caffeine Consumption? Moderate 1-2 Cokes Per Day [email or web address] Information not available 10/27/2023 What Was The Date Of Your Most Recent Tobacco Screening? 10/27/2023 [email or web address] Information not available 10/27/2023 Sex: Unknown Functional [...] PF 2 completed Gerard Biggs MD [address] [facility],[address], [place], [address], [facility] 09/26/2022 16:37:48 Influenza, high-dose, trivalent, PF 8 completed Roxanne Warner null, [facility] 11/28/2022 14:34:10 COVID-19, mRNA, LNP-S, PF, 30 mcg/0.3 mL dose 1 completed Surilem Timmy null, [facility] 11/28/2022 14:34:11 Influenza, split virus, trivalent, preservative 4 completed Surilem Timmy null, [facility] 11/28/2022 14:34:11 Influenza, high-dose, trivalent, PF 5 completed Surilem Timmy null, [facility] 11/28/2022 14:34:11 Influenza, high-dose, quadrivalent, PF 0 completed Surilem Timmy null, [facility] 11/28/2022 14:34:11 Influenza, high-dose, trivalent, PF 6 completed Surilem Timmy null, [facility] 11/28/2022 14:34:11 Influenza, high-dose, quadrivalent, PF 1 completed Surilem Timmy null, [facility] 11/28/2022 14:34:11 Influenza, split virus, trivalent, preservative 2 completed Surilem Timmy null, [facility] 11/28/2022 14:34:11 COVID-19, mRNA, LNP-S, PF, 30 mcg/0.3 mL dose 1 completed Surilem Timmy null, [facility] 11/28/2022 14:34:11 Td (adult), 5 Lf tetanus toxoid, preservative free, adsorbed 7 completed Surilem Timmy null, [facility] 11/28/2022 14:34:11 pneumococcal polysaccharide PPV23 9 completed Surilem Timmy null, [facility] 11/28/2022 14:34:11 Influenza, split virus, quadrivalent, PF 9 completed [facility] 11/28/2022 14:34:11 Influenza, high-dose, trivalent, PF 7 completed Surilem Timmy null, [facility] 11/28/2022 14:34:11 Tdap 2 completed [facility]ilem Timmy null, [facility] 11/28/2022 14:34:11 Past Encounters Encounter ID Performer Location Encounter Start Date Encounter Closed Date Diagnosis/Indication Diagnosis SNOMED-CT Code Diagnosis ICD10 Code Diagnosis Note [id number] Gerard Biggs MD [place] [address] [place] [address] [place] [address] 09/26/2022 14:18:36 09/26/2022 15:31:23 Chronic obstructive pulmonary disease 55175812 J44.9 Congestive heart failure 83682898 I50.9 Type 2 tre betes mellitus without complication 730190306 E11.9 stable hba1c 7.1 Sleep apnea 12903766 G47 .30 Influenza vaccine needed 6392378301 106 Z23 [id number] Gerard Biggs MD [place] [address] [place] [address] 11/28/2022 14:32:26 11/28/2022 15:09:28 Cough 75276171 R05.9 [id number] Gerard Biggs MD [place] [address] [place] [address] 10/27/2023 10:47:44 10/27/2023 13:34:00 Acute otitis externa 89149298 H60.509 medication SERDfollow up if symptoms persist or worsen Chronic low back pain 27 8703794 M54.50 patient unable to ambulate without assistance requires both hands to help stand from a seated positionun steady gaitdoes not driverecom [facility] PT evaluation and treatment Muscle weakness 45397243 M62.81 see above Unsteady when walking 22 272749 R26.89 see above Health Concerns Section Related Observation LastModified by Organization Detai ls LastModified Time None Recorded Concern Status LastModified by Organization Details LastModified Time None Recorded Advance Directives Directive None Recorded Payers Encounter Date Sequence Insurance Name Policy Number Policy Caballero Covered Member ID Caballero Member ID Guarantor Name 11/28/2022 1 [facility] (MEDICARE REPLACEMENT/A DVANTAGE - PPO) [id number] María Faith [id number] María Faith 10/27/2023 1 [employer] (MEDICARE REPLACEMENT PPO) [id number] María Faith [id number] María Faith Notes Date Note Type Note Provider Name and Address Organization Details Recorded Time 09/26/2022 text/html TCMdischarge for ABreviewed med listdoing much better Gerard Biggs MD [address] [facility],[address], [place], [address], [facility] 09/26/2022 16:38:50 11/28/2022 text/html here for coughsputum\fatigueno fever or sobbut is on O2 Gerard Biggs MD [address] [facility] [address], [place], [address], [facility] 11/28/2022 15:03:21 10/27/2023 text/html Patient here wit h her daughter to discuss physical therapypatient lives independentlyshe uses a walker to get aroundshe has chronic low back pain due to arthritiswhen pain is severe she has a hard time walkingfeels weakness in her legsfeels unstablehas fallen in the past year and been hospitalizedshe does not drive left ear feeling muffled Gerard Biggs MD [address] [facility],[address], [place], [address], [facility] 10/28/2023 11:00:49 OBGyn Episode No OBEpisode recorded.
[2025-03-19 11:27] VITALS: PULSE 65; RESP 20; TEMP 36.6; O2SAT 95
--- OUTSIDE RECORDS SUMMARY | 2025-03-19 11:30 | XMS_ITS | Clinical Summary ---
Author Organization [facility] Address [address] [place] [address] Care Team Providers Care Role Player Name Role Phone Margarito Razo Primary Care Provider [phone] Allergies Active Allergy Reactions Criticality Noted Date [...] Problem Noted Date Diagnosed Date Chronic bronchitis ([facility]) 05/02/2021 Anxiety and depression 05/02/2021 Supplemental oxygen dependent 05/02/2021 ELISSA on CPAP 05/02/2021 Fall 05/01/2021 Bradycardia 12/09/2018 Overview (05/01/2021): Last Assessment & Plan: With falls, Advised to go to the ER Hyperlipidemia associated wi th type 2 diabetes mellitus ([facility]) 07/13/2018 Overview (05/01/2021): Last Assessment [...] Pravachol and Vascepa Type 2 diabetes mellitus ([facility]) 04/15 Overview (05/01/2021): DMII WO [...] No Catherine Garcia, RN Insurance MED REPLACE [facility] MEDICARE Advance Directives * Full Code (Latest Code Status on File) Date Activated Date Inactivated Comments 05/01/2021 5:20 PM 05/03/2021 7:29 PM Care Teams Role Player Relationship Specialty Start Date End Date Margarito Razo PA [address] [place] [address] PCP - General PHYSICIAN DE ICER ELEMENT WINDER 05/01/21
--- OUTSIDE RECORDS SUMMARY | 2025-03-19 11:30 | XMS_ITS | Clinical Summary ---
Author Organization [facility] [place] [facility] [place] Address [address] [place] [address] Care Team Providers Care Apprentice Architect Name Role Phone Quan Starks MD Unavailable [phone] Debo Mckoy MD Primary Care Provider [phone] Allergies Active Allergy Reactions Criticality Noted Date [...] 25 mg tabletIndications :Hypertension associated with diabetes ([facility]) Take 1 tablet (25 mg total) by [...] 12/09/2018 Assessment & Plan (12/09/2018 9:30 AM SECOND BALLER): With falls, Advised to go to the ER Hyperlipidemia associated with type 2 diabetes ami lindsey 07/13/2018 Assessment & Plan (01/30/2025 11:13 AM SECOND BALLER): Chronic problem, currently taking pravastatin 40mg & zetia 10mg. Last lipid panel: 08/03/24 CGP=535, XQ=835. Assessment & Plan (08/12/2024 11:28 AM CDT): Chronic problem, currently taking pravastatin 40mg & zetia 10mg. Last lipid panel: 12/30/22 LDL=43, IP=378. Had labs by PCP recently; release signed to get copy Assessment & Plan (04/14/2023 3:18 PM CDT): Chronic problem, Pravastatin 40mg daily has not been filled since 06/2022 (was 90 day supply). Refill sent today. Triglycerides now down to normal level also. No changes at this time. Assessment & Plan (12/11/2022 1:10 PM SECOND BALLER): Chronic problem, Pravastatin 40mg daily. Triglycerides now down to normal level also. No changes at this time. Assessment & Plan (10/31/2021 12:33 PM SECOND BALLER): High TG Continue Vascepa. Continue Pravachol Low fat diet. Assessment & Plan (01/10/2021 2:47 PM SECOND BALLER): Goal of treatment , LDL cholesterol less [...] Vascepa Assessment & Plan (01/17/2020 3:09 PM SECOND BALLER): With severe hypertriglyceridemia Low carb low fat [...] UNCNTRLD Assessment & Plan (01/30/2025 11:39 AM SECOND BALLER): Chronic problem, stable A1c at 7.3%. Declines [...] daily DM eye exam June 2024 at [facility]. Will send letter to get copy of [...] A1c. Assessment & Plan (12/11/2022 2:07 PM SECOND BALLER): Chronic problem, fair control currently. No changes [...] Victoza Assessment & Plan (10/31/2021 12:35 PM SECOND BALLER): Hba1c was Lab Results Component Value Date HGBA1C 7.3 % 10/31/2021 today, indicating acceptable DM control Goal Hba1c and blood glucose explained Diet and exercise , discussed Prevention and treatment of hyypoglcyemia discussed. Blood glucose monitoring : 1-2 X week Adjustment to oral medications: continue current Assessment & Plan (01/10/2021 2:50 PM SECOND BALLER): Hba1c was Lab Results Component Value Date [...] Victoza Assessment & Plan (01/17/2020 3:09 PM SECOND BALLER): Hba1c was Lab Results Component Value Date [...] daily Assessment & Plan (12/09/2018 9:30 AM SECOND BALLER): Your Hba1c today was: Lab Results Component [...] a day. Go to the ER , [facility] , to be evaluated, for [...] . Assessment & Plan (01/05/2018 11:21 AM SECOND BALLER): Hba1c was 7.0 today, indicating Adequate DM control 1800 calorie, consistent carb diet recommended 30 min daily aerobic and resistance exercise recommended Prevention and treatment of hyypoglcyemia discussed. Blood glucose monitoring with fingers sticks 1-2 x day . Foot care was discussed. Hypertension associated with diabetes 04/15/2014 Overview (03/06/2017): HYPERTENSION NOS Assessment & Plan (01/30/2025 11:23 AM SECOND BALLER): Chronic problem, well controlled on current metoprolol [...] time. Assessment & Plan (12/11/2022 1:58 PM SECOND BALLER): Chronic problem, well controlled currently. No changes at this time. Assessment & Plan (10/31/2021 12:35 PM SECOND BALLER): Uncontrolled Start Losartan Assessment & Plan (01/10/2021 2:48 PM SECOND BALLER): Goal blood pressure is less than 140/85 [...] meds Assessment & Plan (01/05/2018 11:21 AM SECOND BALLER): Goal blood pressure is less than 140/85 Low salt diet recommended Daily aerobic exercise Resolved Problems Problem Noted Date Diagnosed Date Resolved Date Hypercholesterolemia 04/15/2014 023 Overview (03/06/2017): Hypercholesteremia Encounters Date Type Department Care Team Description 01/30/2025 11:00 AM SECOND BALLER Office Visit [facility] Diabetes and Endocrinology [address] [place] [phone] Kisha Selby, ELEVATOR ADJUSTER Type 2 diabetes mellitus with hyperglycemia, without long-term current use of insulin (HCC) (Primary Dx); Hypertension associated with diabetes (HCC); Hyperlipidemia associated with type 2 diabetes mellitus (HCC) 01/25/2025 Telephone [facility] Diabetes and Endocrinology [address] [place] [phone] Tanya Dejesus MD request to pcp [...] on file Legal Sex Female 5:32 PM SECOND BALLER Gender Identity Not on file Sexual Orientation Not on file Obstetrics History Last Filed Vital Signs Vital Sign Reading Time Taken Comments Blood Pressure 126/76 01/30/2025 10:56 AM SECOND BALLER Pulse 70 01/30/2025 10:56 AM SECOND BALLER Temperature - - Respiratory Rate 18 01/30/2025 10:56 AM SECOND BALLER Oxygen Saturation 90% 10/03/2024 2:29 PM SECOND BALLER Inhaled Oxygen Concentration - - Weight 83.5 kg (184 lb) 10/03/2024 2:29 PM SECOND BALLER Height 157.5 cm (5' 2.01 ) 01/30/2025 10:[address] Body Mass Index 33.65 10/03/2024 2:29 PM SECOND BALLER Plan of Treatment Health Maintenance Due Date [...] Comments POCT GLUCOSE Routine 01/30/2025 10:59 AM SECOND BALLER Type 2 diabetes mellitus with hyperglycemia, without long-term current use of insulin (HCC) POCT HEMOGLOBIN A1C Routine 01/30/2025 1 0:59 AM SECOND BALLER Type 2 diabetes mellitus with hyperglycemia, without [...] (ABNORMAL) POCT hemoglobin A1c (01/30/2025 10:59 AM SECOND BALLER) Pathologist [facility] Hemoglobin A1C, POC 7.3 4.0 - 5.6 % Blood 01/30/2025 10:5 9 AM SECOND BALLER us Kisha Selby NP POINT OF CARE TEST ORDERA BLES Final Result * (ABNORMAL) POCT glucose (01/30/2025 10:59 AM SECOND BALLER) [facility] Glucose Blood, POC 213 mg/dL Blood 01/30/2025 10:5 9 AM SECOND BALLER us Kisha Selby NP POINT OF CARE TEST ORDERA BLES Final Result * Albumin Creatinine Ratio, Urine (08/12/2024 1:27 PM CDT) [facility] Albumin Ur <12.0 mg/L Comment: Interpretive Data [...] URINE ORDERABLES Lucero l Result VIJAY HERNANDEZ [address] [address] [place] Department [place] [address] * (ABNORMAL) Lipid panel (08/03/2024 10:50 AM CDT) [facility] SCRIBED Cholesterol, Total 204 <200 - NA [...] Units/L EXTERNAL LAB SCRIBED eGFR in NonAfrican [place]er 45 >=60 - NA EXTERNAL LAB Blood 08/03/2024 10:5 0 AM CDT Historical Provider LAB BLOOD ORDERABLES Edit ed Result - Final EXTERNAL LAB * [facility] DIABETES EYE EXAM (05/05/2024 8:35 AM CDT) us Historical Provider HEALTH MAINTENANCE Edited Result - Final from Last 3 Months or Most Recently Relevant to Health Maintenance Insurance [facility] MEDICARE T MEDICARE Care Teams Apprentice Architect Relationship Specialty Start Date End Date Debo Mckoy MD [address] [place], [place] [id number] PCP - General Family Medicine 03/20/23 Quan Starks MD [address] [place] [address] Referring Physician Ophthalmology 01/06/23
--- OUTSIDE RECORDS SUMMARY | 2025-03-19 11:31 | XMS_ITS | Referral Summary ---
Author Organization [address] Address [address] [place] [address] Care Team Providers Care El Teacher Name Role Phone Quan Starks MD Unavailable [phone] Debo Mckoy MD Primary Care Provider [phone] Encounters Date Type Department Care Team Description 01/30/2025 11:00 AM FICTION AND NONFICTION PROSE WRITER Office Visit [facility] Medical [facility] Diabetes and Endocrinology [address] [place] [phone] Kisha Selby NP Type 2 diabetes mellitus with hyperglycemia, without long-term current use of insulin (HCC) (Primary Dx); Hypertension associated with diabetes (HCC); Hyperlipidemia associated with type 2 diabetes mellitus (HCC) 01/25/2025 Telephone [facility] Medical [facility] Diabetes and Endocrinology [address] [place] [phone] Tanya Dejesus MD request to pcp [...] hyperglycemia, without long-term current use of insulin ([facility]) One Touch Verio Use Daily to check blood glucose 1 each 1 Active lancets 31 gauge miscIndications:T ype 2 diabetes mellitus with hyperglycemia, without long-term current use of insulin ([facility]) One Touch Verio Use daily to check blood glucose 100 each 2 1 Active blood glucose diagnostic (glucose blood) stripIndications: Type 2 diabetes mellitus with hyperglycemia, without long-term current use of insulin ([facility]) One Touch Verio Use daily [...] 12/09/2018 Assessment & Plan (12/09/2018 9:30 AM FICTION AND NONFICTION PROSE WRITER): With falls, Advised to go to the ER Hyperlipidemia associated with type 2 diabetes ami lindsey 07/13/2018 Assessment & Plan (01/30/2025 11:13 AM FICTION AND NONFICTION PROSE WRITER): Chronic problem, currently taking pravastatin 40mg & zetia 10mg. Last lipid panel: 08/03/24 VOC=565, AM=022. Assessment & Plan (08/12/2024 11:28 AM CDT): Chronic problem, currently taking pravastatin 40mg & zetia 10mg. Last lipid panel: 12/30/22 LDL=43, JT=288. Had labs by PCP recently; release signed to get copy Assessment & Plan (04/14/2023 3:18 PM CDT): Chronic problem, Pravastatin 40mg daily has not been filled since 06/2022 (was 90 day supply). Refill sent today. Triglycerides now down to normal level also. No changes at this time. Assessment & Plan (12/11/2022 1:10 PM FICTION AND NONFICTION PROSE WRITER): Chronic problem, Pravastatin 40mg daily. Triglycerides now down to normal level also. No changes at this time. Assessment & Plan (10/31/2021 12:33 PM FICTION AND NONFICTION PROSE WRITER): High TG Continue Vascepa. Continue Pravachol Low fat diet. Assessment & Plan (01/10/2021 2:47 PM FICTION AND NONFICTION PROSE WRITER): Goal of treatment , LDL cholesterol less [...] Vascepa Assessment & Plan (01/17/2020 3:09 PM FICTION AND NONFICTION PROSE WRITER): With severe hypertriglyceridemia Low carb low fat [...] UNCNTRLD Assessment & Plan (01/30/2025 11:39 AM FICTION AND NONFICTION PROSE WRITER): Chronic problem, stable A1c at 7.3%. Declines [...] daily DM eye exam June 2024 at [facility]. Will send letter to get copy [...] A1c. Assessment & Plan (12/11/2022 2:07 PM FICTION AND NONFICTION PROSE WRITER): Chronic problem, fair control currently. No changes [...] Victoza Assessment & Plan (10/31/2021 12:35 PM FICTION AND NONFICTION PROSE WRITER): Hba1c was Lab Results Component Value Date HGBA1C 7.3 % 10/31/2021 today, indicating acceptable DM control Goal Hba1c and blood glucose explained Diet and exercise , discussed Prevention and treatment of hyypoglcyemia discussed. Blood glucose monitoring : 1-2 X week Adjustment to oral medications: continue current Assessment & Plan (01/10/2021 2:50 PM FICTION AND NONFICTION PROSE WRITER): Hba1c was Lab Results Component Value Date [...] Victoza Assessment & Plan (01/17/2020 3:09 PM FICTION AND NONFICTION PROSE WRITER): Hba1c was Lab Results Component Value Date [...] daily Assessment & Plan (12/09/2018 9:30 AM FICTION AND NONFICTION PROSE WRITER): Your Hba1c today was: Lab Results Component [...] a day. Go to the ER , [facility] , to be evaluated, for the [...] . Assessment & Plan (01/05/2018 11:21 AM FICTION AND NONFICTION PROSE WRITER): Hba1c was 7.0 today, indicating Adequate DM control 1800 calorie, consistent carb diet recommended 30 min daily aerobic and resistance exercise recommended Prevention and treatment of hyypoglcyemia discussed. Blood glucose monitoring with fingers sticks 1-2 x day . Foot care was discussed. Hypertension associated with diabetes 04/15/2014 Overview (03/06/2017): HYPERTENSION NOS Assessment & Plan (01/30/2025 11:23 AM FICTION AND NONFICTION PROSE WRITER): Chronic problem, well controlled on current metoprolol [...] time. Assessment & Plan (12/11/2022 1:58 PM FICTION AND NONFICTION PROSE WRITER): Chronic problem, well controlled currently. No changes at this time. Assessment & Plan (10/31/2021 12:35 PM FICTION AND NONFICTION PROSE WRITER): Uncontrolled Start Losartan Assessment & Plan (01/10/2021 2:48 PM FICTION AND NONFICTION PROSE WRITER): Goal blood pressure is less than 140/85 [...] meds Assessment & Plan (01/05/2018 11:21 AM FICTION AND NONFICTION PROSE WRITER): Goal blood pressure is less than 140/85 [...] on file Legal Sex Female 5:32 PM FICTION AND NONFICTION PROSE WRITER Gender Identity Not on file Sexual Orientation Not on file Last Filed Vital Signs Vital Sign Reading Time Taken Comments Blood Pressure 126/76 01/30/2025 10:56 AM FICTION AND NONFICTION PROSE WRITER Pulse 70 01/30/2025 10:56 AM FICTION AND NONFICTION PROSE WRITER Temperature - - Respiratory Rate 18 01/30/2025 10:56 AM FICTION AND NONFICTION PROSE WRITER Oxygen Saturation 90% 10/03/2024 2:29 PM FICTION AND NONFICTION PROSE WRITER Inhaled Oxygen Concentration - - Weight 83.5 kg (184 lb) 10/03/2024 2:29 PM FICTION AND NONFICTION PROSE WRITER Height 157.5 cm (5' 2.01 ) 01/30/2025 10:[address] Body Mass Index 33.65 10/03/2024 2:29 PM FICTION AND NONFICTION PROSE WRITER Plan of Treatment Not on file Procedures Procedure Name Priority Date/Time Associated Diagnosis Comments POCT GLUCOSE Routine 01/30/2025 10:59 AM FICTION AND NONFICTION PROSE WRITER Type 2 diabetes mellitus with hyperglycemia, without long-term current use of insulin (HCC) POCT HEMOGLOBIN A1C Routine 01/30/2025 1 0:59 AM FICTION AND NONFICTION PROSE WRITER Type 2 diabetes mellitus with hyperglycemia, without [...] (ABNORMAL) POCT hemoglobin A1c (01/30/2025 10:59 AM FICTION AND NONFICTION PROSE WRITER) Hemoglobin A1C, POC 7.3 4.0 - 5.6 % Blood 01/30/2025 10:5 9 AM FICTION AND NONFICTION PROSE WRITER us Kishacarolyn Selby VOCATIONAL PLACEMENT SPECIALIST POINT OF CARE TEST ORDERA BLES Final Result * (ABNORMAL) POCT glucose (01/30/2025 10:59 AM FICTION AND NONFICTION PROSE WRITER) Glucose Blood, POC 213 mg/dL Blood 01/30/2025 10:5 9 AM FICTION AND NONFICTION PROSE WRITER us Kisha Selby NP POINT OF CARE [...] LAB URINE ORDERABLES Lucero l Result [id number] [address] [place] [address] * (ABNORMAL) Lipid panel (08/03/2024 10:50 AM [...] Units/L EXTERNAL LAB SCRIBED eGFR in NonAfrican Thai 45 >=60 - NA EXTERNAL LAB Blood 08/03/2024 10:5 0 AM CDT Historical Provider LAB BLOOD ORDERABLES Edit ed Result - Final EXTERNAL LAB * DIABETES EYE EXAM (05/05/2024 8:35 AM CDT) us Historical Provider HEALTH MAINTENANCE Edited Result - Final from Last 3 Months or Most Recently Relevant to Health Maintenance Insurance [facility] MEDICARE [employer] MEDICARE Care Teams El Teacher Relationship Specialty Start Date End Date Debo Mckoy MD [address] [place] [address] PCP - General Family Medicine 03/20/23 Quan Starks MD [address] [place] [address] Referring Physician Ophthalmology 01/06/23
[2025-03-19 11:43] VITALS: RESP 19; O2SAT 95
[2025-03-19 11:44] VITALS: BP 162/81; PULSE 69; RESP 16; O2SAT 96
--- NOTE | 2025-03-19 11:50 | ED.GENADULT ---
HPI - General Adult General Chief complaint: Unspecified Stated complaint: R hip/back/knee pain Time Seen by Provider: 03/19/25 11:20 History of Present Illness HPI narrative: 84-year-old female presents emergency department for evaluation for left-sided flank and back pain. Patient denies any falls or injuries. Patient states pain is worsened with movement. Patient states she suspects this is more musculoskeletal in origin. Patient denies any falls or injuries. Patient states the pain is worsened with ambulation with movement Related Data Home Medications ?Medication ?Instructions ?Recorded ?Confirmed ?Last Taken ?Type duloxetine 30 mg capsule,delayed 60 mg PO DAILY 10/14/19 03/07/25 02/21/25 History release (Cymbalta) liraglutide 0.6 mg/0.1 mL (18 mg/3 1.2 mg subcut HS 10/14/19 03/07/25 02/20/25 History mL) subcutaneous pen injector (Jetaporttoza 3-Parveen) trazodone 150 mg tablet 300 mg PO HS 10/18/19 03/07/25 02/20/25 History alprazolam 0.5 mg tablet 0.5 mg PO TID 10/04/20 03/07/25 02/21/25 History mirtazapine 30 mg tablet 30 mg PO DAILY 04/05/24 03/07/25 02/20/25 History miconazole nitrate 2 % topical 1 applic topical BID PRN Dry Skin 05/02/24 03/07/25 Unknown History cream (Antifungal (miconazole)) metoprolol succinate 25 mg 50 mg PO QAM 01/11/25 03/07/25 02/20/25 History tablet,extended release 24 hr (Toprol XL) montelukast 10 mg tablet 10 mg PO QPM 01/11/25 03/07/25 02/20/25 History Allergies Allergy/AdvReac Type Severity Reaction Status Date / Time codeine Allergy Unknown Not Verified 03/19/25 11:42 Entered,Not Entered,Upset Stomach,Upset Stomach,Not Ente Review of Systems Review of Systems: All systems reviewed & are unremarkable except as noted in HPI and below PMFSH Past Medical History Medical History CKD (chronic kidney disease) Chronic pain GERD (gastroesophageal reflux disease) Alternating constipation and diarrhea Rectal bleeding Dysphagia Schatzki's ring Combined systolic and diastolic congestive heart failure Esophageal stricture Obesity (BMI 30-39.9) Arthritis of both shoulder regions Basal cell carcinoma (BCC) in situ of skin Bipolar disorder Obstructive sleep apnea With BiPAP 14/10 Essential hypertension Pleural effusion Cellulitis of right ear Urinary incontinence Stress urinary incontinence Asthma PFTs October 2019 demonstrated mild obstructive ventilatory impairment with mild air trapping and moderate diffusion impairment no response to bronchodilator Ischemia Chronically false-positive stress test with last stress test 2006 Diverticulitis Cancer of skin (~08/20/12) Depression Hyperlipidemia Chronic obstructive pulmonary disease Patient reports history of asthma Insomnia Type 2 diabetes mellitus without complication, without long-term current use of insulin Surgical History Surgical History History of tonsillectomy Status post cataract extraction of both eyes with insertion of intraocular lens History of bladder suspension procedure X2 Hx of cardiac cath Hx of hysterectomy, total Family History Family History Son Hypertension Other Adopted Social History Social History Social History: She is . She lives in her own home alone. Her daughter brings her meals each day. She has 6 children. 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 Primary care physician: Dr. Debo Mckoy Code status: Full code (the patient would not want tracheostomy or G-tube) Healthcare power of associate attorney: Yulisa Osmin (daughter) Smoking status: Never smoker Second hand tobacco smoke exposure: No Alcohol intake: never Substance use: never Substance use type: does not use Do You Feel Safe in your Home?: Yes Lack of Transportation: No Lack of Food: Never True Current Housing: I Have Housing Concerned About Future Housing: No Difficulty Paying Gas/Electric Bills: No Difficulty Paying for Meds: No Currently Unemployed: No Education: Master's Degree or Higher Difficulty w/ Childcare or Family Care: No Living arrangements: alone Occupation/Education: retired Gender identity (if verbalized by the patient): Female Sexual Orientation (if Verbalized by the Patient): Straight or Heterosexual Spiritual care concerns: No Agree to blood products: Yes Exam Narrative: APPEARANCE: Well appearing, no pain, no distress, well-nourished. HEAD: normocephalic, atraumatic. EYES: PERRLA/EOMI, conjunctivae clear. NOSE: Normal no drainage EARS:TMS clear with good light reflex. THROAT: Pharynx clear, no exudate. NECK: Supple. No adenopathy, no masses. RESPIRATORY: Airway patent, respirations nonlabored. Clear to auscultation bilaterally, no rales, rhonchi, wheezing. CARDIOVASCULAR: Regular rate and rhythm without murmurs rubs or gallops. ABDOMINAL: Soft, nontender, nondistended, normal bowel sounds MUSCULOSKELETAL: Moves all extremities. Strength/ROM intact, No edema, No calf tenderness. NEURO: Alert. Cranial nerves II through XII intact. Good gait. Good coordination SKIN: No ecchymosis, no shingles, no cellulitis Course Vital Signs Vital signs: Vital Signs Temperature 97.9 F 03/19/25 11:27 Pulse Rate 65 03/19/25 11:27 Respiratory Rate 20 03/19/25 11:27 Pulse Oximetry 95 03/19/25 11:27 Oxygen Delivery Room Air 03/19/25 11:27 Temperature 97.9 F 03/19/25 11:27 Pulse Rate 67 03/19/25 14:35 Respiratory Rate 18 03/19/25 14:35 Blood Pressure 171/69 H 03/19/25 14:35 Pulse Oximetry 98 03/19/25 14:35 Oxygen Delivery Room Air 03/19/25 11:27 Medical Decision Making [facility] Narrative Medical decision making narrative: 84-year-old female presents to the emergency department for evaluation for left-sided back pain. Patient is currently afebrile with no leukocytosis hemoglobin of 11.8. Patient has an INR of 1.0. Patient has no significant acute abnormalities on her CMP UA did have some elevated glucose and blood but no significant evidence of infection. CT scan does show nonobstructing right-sided nephrolithiasis and a stable right-sided adenoma. On re-evaluation patient does feel improved. Patient will be discharged home with some Flexeril and some Chestnut. Differential Diagnosis Differential Diagnosis: Colitis, diverticulitis, appendicitis, nephrolithiasis, musculoskeletal injury, UTI Vital Signs Vital Signs: Vital Signs Temperature 97.9 F 03/19/25 11:27 Pulse Rate 65 03/19/25 11:27 Respiratory Rate 20 03/19/25 11:27 Pulse Oximetry 95 04/20/25 11:27 Oxygen Delivery Room Air 03/19/25 11:27 Temperature 97.9 F 03/19/25 11:27 Pulse Rate 67 03/19/25 14:35 Respiratory Rate 18 03/19/25 14:35 Blood Pressure 171/69 H 03/19/25 14:35 Pulse Oximetry 98 03/19/25 14:35 Oxygen Delivery Room Air 03/19/25 11:27 Lab Data Lab results reviewed: Yes I reviewed the patient's lab results. 03/19/25 12:00 03/19/25 12:00 Labs: Lab Results 03/19/25 03/19/25 Range/Units 12:00 12:14 WBC 6.9 (4.5-10.0) K/mm3 RBC 3.83 L (4.2-5.4) M/mm3 Hgb 11.8 L (12.0-15.0) g/dL Hct 37.1 (37.0-47.0) % MCV 96.9 (80-100) fl MCH 30.8 (26-34) pg MCHC 31.8 L (32-36) g/dl RDW 12.3 (11.5-14.5) % Plt Count 170 (150-375) k/mm3 MPV 10.5 H (7.4-10.4) fl Immature Gran % (Auto) 0.4 (0-0.5) % Neut % (Auto) 66.4 (45.5-73.1) % Lymph % (Auto) 20.4 (18.3-44.2) % Hanson % (Auto) 8.7 H (2.6-8.5) % Eos % (Auto) 3.5 (0-4.4) % Baso % (Auto) 0.6 (0.2-1.2) % Lymph # (Auto) 1.40 (0.9-3.2) K/mm3 Hanson # (Auto) 0.6 (0.1-0.6) K/mm3 Eos # (Auto) 0.2 (0-0.3) K/mm3 Baso # (Auto) 0.0 (0.0-0.1) K/mm3 Abs Immat Gran (auto) 0.03 (0.00-0.031) K/mm3 Absolute Neuts (auto) 4.6 (1.3-6.7) K/mm3 Absolute Nucleated RBC 0.000 (0.0-0.012) K/mm3 Nucleated RBC % 0.0 (0.0-0.2) % PT 13.1 (11.1-14.7) Seconds INR 1.0 APTT 24.5 (22.3-36.8) Seconds Sodium 141 (137-145) mmol/L Potassium 3.3 L (3.4-5.0) mmol/L Chloride 99 (98-107) mmol/L Carbon Dioxide 35 H (22-30) mmol/L Anion Gap 7 (4-12) mmol/L BUN 23 H (7-17) mg/dL Creatinine 1.01 H (0.7-1.0) mg/dL Estim Creat Clear Calc 37 ml/min Estimated GFR 52 L (59 - ) Glucose 147 H (65-110) mg/dL Lactic Acid 1.0 (0.7-2.0) mmol/L Calcium 8.8 (8.4-10.2) mg/dL Total Bilirubin 0.3 (0.2-1.3) mg/dL AST 22 (14-36) U/L ALT 13 (6-35) U/L Alkaline Phosphatase 103 (38-126) U/L Total Protein 7.0 (6.3-8.2) g/dL Albumin 4.3 (3.5-5.1) g/dL Lipase 174 (23-300) U/L Urine Color Yellow (Yellow) Urine Appearance Clear (Clear) Urine pH 5.5 (5.0-9.0) Ur Specific Morton 1.028 (1.001-1.035) Urine Protein Negative (Negative) mg/dL Urine Glucose (UA) 3+ H (Negative) mg/dL Urine Ketones Negative (Negative) mg/dL Ur Blood (Man) 1+ H (Negative) Urine Nitrate Negative (Negative) Urine Bilirubin Negative (Negative) Urine Urobilinogen 0.2 (<2.0) mg/dL Leukocyte Esterase Rfl Negative (Negative) MJ/UL Urine RBC 6-10 H (0-2) /hpf Urine WBC 0-5 (0-3) /hpf Ur Squamous Epith Cells None seen (Few) /hpf Urine Bacteria None seen /hpf Urine Casts 0-2 Imaging Data Radiologist's impression: Impressions Abdomen/Pelvis CT 03/19/25 13:20 IMPRESSION: 1. Nonobstructing right nephrolithiasis, largest stone measuring 1.4 cm. 2: Stable 2.6 cm right adrenal mass, likely benign adenoma. Discharge Plan Discharge Clinical Impression: Acute left-sided back pain Patient Disposition: Home Condition: Stable Instructions: Antibiotic Form, Acute Low Back Pain (ED) Additional Instructions: Chestnut for pain control, Flexeril for muscle spasm. Have close follow-up with your primary care physician. If you have any worsening symptoms please call or return to the emergency department. The medications you are being prescribed to increased risk of having a fall and constipation. Patient Language: Persian Prescriptions: New cyclobenzaprine 10 mg tablet 10 mg PO BID PRN (Reason: muscle spasm) Qty: 14 0RF hydrocodone-acetaminophen 5-325 mg tablet 1 tablet PO Q12H PRN (Reason: pain) Qty: 10 0RF No Action nystatin 100,000 unit/gram cream 1 applic topical BID Qty: 30 4RF Rx Instructions: to vaginal area Cortisporin-TC 3.3-3-10-0.5 mg/mL drops,suspension 1 applic EACH EAR Q4H Qty: 10 0RF duloxetine [Cymbalta] 30 mg capsule,delayed release(DR/EC) 60 mg PO DAILY Victoza 3-Parveen 0.6 mg/0.1 mL (18 mg/3 mL) pen injector 1.2 mg SUB-Q HS trazodone 150 mg tablet 300 mg PO HS alprazolam 0.5 mg tablet 0.5 mg PO TID glipizide 10 mg tablet 10 mg PO DAILY Qty: 30 3RF lidocaine 5 % adhesive patch,medicated 2 patch topical DAILY Qty: 30 0RF Rx Instructions: leave on most painful area for up to 12 hrs miconazole nitrate [Antifungal (miconazole)] 2 % cream 1 applic topical BID PRN (Reason: Dry Skin) montelukast 10 mg tablet 10 mg PO QPM metoprolol succinate [Toprol XL] 25 mg Tablet Extended Release 24 Hr 50 mg PO QAM cyclobenzaprine 10 mg tablet 10 mg PO TID MDD 3 PRN (Reason: muscle spasm) 7 Days Qty: 20 0RF Rx Instructions: Take 1 tab p.o. t.i.d. as needed for muscle spasm mirtazapine 30 mg tablet 30 mg PO DAILY Patient Comments: HS Anoro Ellipta 62.5-25 mcg/actuation blister with device 1 inh inhalation DAILY Qty: 60 5RF Jardiance 10 mg tablet 10 mg PO DAILY Qty: 30 3RF doxazosin 4 mg tablet 4 mg PO DAILY Qty: 90 3RF Rx Instructions: Take 1 tablet by mouth once daily ezetimibe 10 mg tablet 10 mg PO DAILY Qty: 90 2RF spironolactone 25 mg tablet 12.5 mg PO DAILY Qty: 30 3RF furosemide 40 mg tablet 40 mg PO DAILY Qty: 30 2RF omeprazole 40 mg capsule,delayed release(DR/EC) See Rx Instructions .ROUTE .COMPLEX Qty: 60 11RF Dose Instruction: Take 1 capsule by mouth twice daily Rx Instructions: Take 1 capsule by mouth twice daily betamethasone dipropionate 0.05 % cream 1 applic topical DAILY PRN (Reason: rash) Qty: 45 0RF Rx Instructions: to both ears diphenoxylate-atropine [Lomotil] 2.5-0.025 mg tablet 1 tablet PO TID PRN (Reason: diarrhea) Qty: 30 0RF hydrocodone-acetaminophen 5-325 mg tablet 1 tablet PO Q12H MDD 2 PRN (Reason: pain) 7 Days Qty: 14 0RF Rx Instructions: Take 1 tablet p.o. every 10-12 hours as needed for severe pain, maximum 2 per day. Follow-up/Referrals: Debo Mckoy MD [Primary Care Provider] -
[2025-03-19 12:07] LABS: Basophils Percent Auto 0.6 % (0.2-1.2); Eosinophils Absolute Auto 0.2 K/mm3 (0-0.3); Eosinophils Percent Auto 3.5 % (0-4.4); Hematocrit 37.1 % (37.0-47.0); Hemoglobin 11.8 g/dL (12.0-15.0); Immature Granulocyte Absolute 0.03 K/mm3 (0.00-0.031); Immature Granulocyte Percent A 0.4 % (0-0.5); Lymphocytes Percent Auto 20.4 % (18.3-44.2); Mean Corpuscular HGB Conc 31.8 g/dl (32-36); Mean Corpuscular Hemoglobin 30.8 pg (26-34); Mean Corpuscular Volume 96.9 fl (80-100); Mean Platelet Volume 10.5 fl (7.4-10.4); Monocytes Absolute Auto 0.6 K/mm3 (0.1-0.6); Monocytes Percent Auto 8.7 % (2.6-8.5); Neutrophils Absolute Auto 4.6 K/mm3 (1.3-6.7); Neutrophils Percent Auto 66.4 % (45.5-73.1); Platelet Count Result 170 k/mm3 (150-375); Red Blood Count 3.83 M/mm3 (4.2-5.4); Red Cell Distribution Width 12.3 % (11.5-14.5); White Blood Count 6.9 K/mm3 (4.5-10.0)
[2025-03-19 12:20] LABS: Alanine Aminotransferase 13 U/L (6-35); Albumin Level 4.3 g/dL (3.5-5.1); Alkaline Phosphatase 103 U/L (38-126); Anion Gap 7 mmol/L (4-12); Aspartate Amino Transferase 22 U/L (14-36); Bilirubin,Total 0.3 mg/dL (0.2-1.3); Blood Urea Nitrogen 23 mg/dL (7-17); Calcium 8.8 mg/dL (8.4-10.2); Carbon Dioxide 35 mmol/L (22-30); Chloride 99 mmol/L (98-107); Estimated CRCL calculation 37 ml/min; Estimated Glomerular Filt Rate 52; Glucose 147 mg/dL (65-110); Lipase 174 U/L (23-300); Potassium 3.3 mmol/L (3.4-5.0); Sodium 141 mmol/L (137-145)
[2025-03-19 12:22] LABS: Prothrombin Time 13.1 Seconds (11.1-14.7)
[2025-03-19 12:23] LABS: Partial Thromboplastin Time 24.5 Seconds (22.3-36.8)
[2025-03-19 12:26] LABS: Add Urine Microscopic? YES; Appearance Urine Clear (Clear); Bacteria Urine None Seen /hpf; Bilirubin Urine Negative (Negative); Blood Urine 1+ (Negative); Color Urine Yellow (Yellow); Glucose Urine UA 3+ mg/dL (Negative); Ketones Urine Negative (Negative); Leukocyte Esterase Ur Negative LEU/UL (Negative); Nitrate Urine Negative (Negative); Non Pathogenic Casts 0-2; Protein Urine Negative (Negative); Specific Grav Ur 1.028 (1.001-1.035); Squamous Epithelial Cell Urine None Seen /hpf (Few); Urobilinogen Urine 0.2 mg/dL (<2.0); WBC Urine 0-5 /hpf (0-3); pH Urine 5.5 (5.0-9.0)
[2025-03-19] MEDS: HYDROcodone/acetaminophen (*CRX) 5-325 MG TABLET 1 TAB PO (14:07)
[2025-03-19] MEDS: CYCLOBENZAPRINE HCL 10 MG TABLET PO (14:07)
[2025-03-19 14:35] VITALS: BP 171/69; PULSE 67; RESP 18; O2SAT 98
== END 2025-03-19 14:38 | disposition home or self-care (01) ==
PROVIDERS: Emergency Provider Emergency Medicine; PCP Family Medicine
DX: M54.9 Dorsalgia, unspecified (principal); E11.22 Type 2 diabetes mellitus with diabetic chronic kidney disease; I13.0 Hypertensive heart and chronic kidney disease with heart failure and stage 1 through stage 4 chronic kidney disease, or unspecified chronic kidney disease; N18.9 Chronic kidney disease, unspecified; I50.40 Unspecified combined systolic (congestive) and diastolic (congestive) heart failure; J44.9 Chronic obstructive pulmonary disease, unspecified; E78.5 Hyperlipidemia, unspecified; E66.9 Obesity, unspecified; Z68.32 Body mass index [BMI] 32.0-32.9, adult; G47.33 Obstructive sleep apnea (adult) (pediatric); K21.9 Gastro-esophageal reflux disease without esophagitis; N39.3 Stress incontinence (female) (male); M19.012 Primary osteoarthritis, left shoulder; M19.011 Primary osteoarthritis, right shoulder; F32.A Depression, unspecified; Z85.828 Personal history of other malignant neoplasm of skin; Z96.1 Presence of intraocular lens; Z98.42 Cataract extraction status, left eye; Z98.41 Cataract extraction status, right eye; Z90.710 Acquired absence of both cervix and uterus; Z79.85 Long-term (current) use of injectable non-insulin antidiabetic drugs; Z79.899 Other long term (current) drug therapy; Z79.84 Long term (current) use of oral hypoglycemic drugs; E27.8 Other specified disorders of adrenal gland
CPT/HCPCS: 36415; 74177; 80053; 81001; 83605; 83690; 85025; 85610; 85730; 99284; A9270; Q9967

== ENCOUNTER 2025-07-21 13:38 | Outpatient (CLI) | payer MEDICARE, SELFPAY ==
--- NOTE | ~2025-07-21 | XR_ITS ---
XR knee RT min 4V 07/21/2025 14:03 Indication: Right knee pain. No injury. Procedure: 4 views right knee Comparison: No prior studies for comparison. Findings: There is severe tricompartment osteoarthritis of the right knee. No fracture, subluxation or dislocation. No significant joint effusion. Impression: 1: Severe tricompartment osteoarthritis of the right knee. Reviewed, dictated and finalized at location O. Impression: 1: Severe tricompartment osteoarthritis of the right knee.
--- NOTE | ~2025-07-21 | US_ITS ---
EXAMINATION:US venous doppler LE RT INDICATION:Right leg pain and swelling TECHNIQUE: Multiple grayscale, color flow and Doppler images of the right lower extremity deep venous systems were obtained and reviewed. COMPARISON:No prior studies for comparison. FINDINGS: The common femoral, superficial femoral and popliteal veins demonstrate normal respiratory variation, augmentation and compressibility. Color flow is also seen within the posterior tibial, peroneal, greater saphenous and profunda veins. IMPRESSION: 1: No lower extremity deep venous thrombosis. Reviewed, dictated and finalized at location O.
[2025-07-21 14:27] LABS: Anion Gap 7 mmol/L (4-12); Blood Urea Nitrogen 21 mg/dL (7-17); Calcium 8.4 mg/dL (8.4-10.2); Carbon Dioxide 34 mmol/L (22-30); Chloride 99 mmol/L (98-107); Estimated Glomerular Filt Rate 47; Glucose 170 mg/dL (65-110); Potassium 3.6 mmol/L (3.4-5.0); Sodium 140 mmol/L (137-145)
== END 2025-07-21 13:39 | disposition home or self-care (01) ==
PROVIDERS: Student in an Organized Health Care Education/Training Program; PCP Family Medicine; Visit Provider Family Medicine
DX: M79.89 Other specified soft tissue disorders (principal); I10 Essential (primary) hypertension; M25.561 Pain in right knee
CPT/HCPCS: 36415; 73564; 80048; 93971

== ENCOUNTER 2025-09-06 09:38 | Outpatient (CLI) | payer MEDICARE, SELFPAY ==
[2025-09-06 10:35] LABS: Hematocrit 35.7 % (37.0-47.0); Hemoglobin 11.3 g/dL (12.0-15.0); Immature Granulocyte Percent A 0.3 % (0-0.5); Lymphocytes Absolute Auto 1.44 K/mm3 (0.9-3.2); Mean Corpuscular HGB Conc 31.7 g/dl (32-36); Mean Corpuscular Hemoglobin 30.5 pg (26-34); Mean Corpuscular Volume 96.2 fl (80-100); Nucleated Red Blood Cells Absolute Auto 0.000 K/mm3 (0.0-0.012); Nucleated Red Blood Cells Perc 0.0 % (0.0-0.2); Platelet Count Result 162 k/mm3 (150-375); Red Blood Count 3.71 M/mm3 (4.2-5.4); White Blood Count 6.0 K/mm3 (4.5-10.0)
[2025-09-06 10:46] LABS: Iron 103 ug/dL (37-170)
[2025-09-06 10:58] LABS: Alanine Aminotransferase 11 U/L (6-35); Albumin Level 3.8 g/dL (3.5-5.1); Alkaline Phosphatase 86 U/L (38-126); Anion Gap 5 mmol/L (4-12); Aspartate Amino Transferase 21 U/L (14-36); Bilirubin,Total 0.1 mg/dL (0.2-1.3); Blood Urea Nitrogen 12 mg/dL (7-17); Calcium 8.9 mg/dL (8.4-10.2); Carbon Dioxide 33 mmol/L (22-30); Chloride 102 mmol/L (98-107); Estimated Glomerular Filt Rate 58; Glucose 104 mg/dL (65-110); Percent Iron Saturation 30 % (20-50); Potassium 3.6 mmol/L (3.4-5.0); Sodium 140 mmol/L (137-145); Total Protein 6.6 g/dL (6.3-8.2)
[2025-09-06 11:10] LABS: Free T4 Free Thyroxine 1.18 ng/dL (0.78-2.19)
[2025-09-06 11:27] LABS: Add Urine Microscopic? YES; Appearance Urine Turbid (Clear); Glucose Urine UA Negative (Negative); Leukocyte Esterase Ur Trace LEU/UL (Negative); Need Manual Microscopic Reviewed; Nitrate Urine Negative (Negative); Non Pathogenic Casts 0-2; Specific Grav Ur 1.030 (1.001-1.035)
[2025-09-06 11:28] LABS: Ferritin 8.17 ng/mL (11.1-264)
[2025-09-06 11:34] LABS: Thyroid Stimulating Hormone 0.639 uIU/mL (0.465-4.680)
== END 2025-09-06 09:39 | disposition home or self-care (01) ==
PROVIDERS: PCP Student in an Organized Health Care Education/Training Program; Visit Provider Student in an Organized Health Care Education/Training Program
DX: F31.9 Bipolar disorder, unspecified (principal); I10 Essential (primary) hypertension; E11.69 Type 2 diabetes mellitus with other specified complication; E66.9 Obesity, unspecified; K62.5 Hemorrhage of anus and rectum; R53.1 Weakness; R53.83 Other fatigue
CPT/HCPCS: 36415; 80053; 81001; 82728; 83540; 83550; 84439; 84443; 85025

== ENCOUNTER 2025-09-20 07:28 | Outpatient (CLI) | payer MEDICARE, SELFPAY ==
--- NOTE | ~2025-09-20 | NM_ITS ---
EXAM: NM gastric emptying study DATE: 09/20/2025 15:10 CDT INDICATION: Vomiting TECHNIQUE: A gastric emptying study was performed using the methodology of Aditya ZEPEDA, et al. J Nucl Med 2007; 48:568-572. The patient was given a meal consisting of 2 scrambled eggs labeled with mCi Tc-99m sulfur colloid, 2 slices of toast, two packages of jam, and approximately 120 mL of water. Simultaneous anterior and posterior 1-min images of the abdomen were obtained with the patient supine at multiple time points over a total period of 4 hours. The geometric mean of anterior and posterior views was determined, and the percentage retention was calculated for each time point. COMPARISON: None. FINDINGS: Study is nondiagnostic. Patient vomited following ingestion of meal. No diagnostic information was available on follow-up CT scan. IMPRESSION: 1. Nondiagnostic study. Reviewed, dictated and finalized at location O. IMPRESSION: 1. Nondiagnostic study.
== END 2025-09-20 07:29 | disposition home or self-care (01) ==
PROVIDERS: PCP Student in an Organized Health Care Education/Training Program; Visit Provider Internal Medicine Gastroenterology
DX: R11.10 Vomiting, unspecified (principal)
CPT/HCPCS: 78264; A9541